=== PATIENT | male | born 1940 | race Caucasian/White ===

== ENCOUNTER 2018-09-16 23:41 | Inpatient (IN) ==
[2018-09-17 00:36] LABS: Baso % (Auto) 0.3 % (0.0-2.0); Hematocrit 28.6 % (39.0-51.0); Lymph # (Auto) 0.4 th/mm3 (1.0-4.8); Lymph % (Auto) 7.9 % (9.0-44.0); Mean Corpuscular HGB Conc 31.4 % (32.0-36.0); Mean Corpuscular Hemoglobin 24.8 pg (27.0-34.0); Mean Corpuscular Volume 78.9 fL (80.0-100.0); Mean Platelet Volume 9.2 fL (7.0-11.0); Mono # (Auto) 0.1 th/mm3 (0.0-0.9); Mono % (Auto) 1.7 % (0.0-8.0); Neut # (Auto) 4.5 th/mm3 (1.8-7.7); Neut % (Auto) 89.1 % (16.0-70.0); Platelet Count 167 th/mm3 (150-450); Red Blood Count 3.62 mil/mm3 (4.50-5.90); Red Cell Distribution Width 19.3 % (11.6-17.2)
[2018-09-17 00:48] LABS: Chloride 106 meq/L (98-107); Potassium 3.9 meq/L (3.5-5.1); Sodium 141 meq/L (136-145)
[2018-09-17 00:51] LABS: Calcium 8.5 mg/dL (8.5-10.1)
[2018-09-17 00:52] LABS: Anion Gap 10 meq/L (5-15); Blood Urea Nitrogen 12 mg/dL (7-18); Carbon Dioxide 24.8 meq/L (21.0-32.0); Glucose,Random 208 mg/dL (74-106)
[2018-09-17 00:55] LABS: Alanine Aminotransferase 23 U/L (12-78); Aspartate Aminotransferase 22 U/L (15-37); Glomerular Filtration Rate 58 mL/min (>89)
[2018-09-17 00:56] LABS: Total Protein 7.2 g/dL (6.4-8.2)
[2018-09-17 00:58] LABS: Alkaline Phosphatase 71 U/L (45-117)
[2018-09-17 00:59] LABS: Troponin I 0.13 ng/mL (0.02-0.05)
--- NOTE | 2018-09-17 00:59 | XR ---
EXAM DATE: 09/17/2018 12:48 AM EST AGE/SEX: 78 years / Male INDICATIONS: Chest pain starting today CLINICAL DATA: This is the patient's initial encounter. Patient reports that signs and symptoms have been present for 1 day and indicates a pain score of 8/10. MEDICAL/SURGICAL HISTORY: None. None. COMPARISON: POI, CT CHEST W/O CONTRAST, 12/25/2016. POI, XR CHEST PA AND LAT, 04/08/2015. . FINDINGS: Portable AP view of the chest demonstrates a normal-sized cardiac silhouette. EKG lines overlie the p atient. There is stable interstitial prominence in the lower lung zones. No pleural effusion, airspac e consolidation, or pneumothorax is identified. The bones and soft tissues demonstrate no acute findi ng. There are chronic changes at the right acromioclavicular joint and stable ossification in the reg ion of the coracoclavicular ligament. CONCLUSION: No acute cardiopulmonary abnormality is identified. Electronically signed by: Marino Jiang MD 09/17/2018 12:58 AM EST
[2018-09-17] MEDS ORDERED: Bisacodyl 10 MG Supp RECTAL PRN (01:50)
[2018-09-17 01:54] LABS: Ovalocytes 2+
[2018-09-17 01:55] LABS: Tear Drop Cells 1+
[2018-09-17] MEDS ORDERED: Morphine Inj 4 MG/ML Vial IV.PUSH PRN (02:03)
[2018-09-17 02:57] LABS: Chloride 108 meq/L (98-107); Potassium 4.1 meq/L (3.5-5.1); Sodium 142 meq/L (136-145)
[2018-09-17 03:00] LABS: Calcium 8.5 mg/dL (8.5-10.1)
[2018-09-17 03:01] LABS: Albumin 3.5 g/dL (3.4-5.0); Anion Gap 8 meq/L (5-15); Blood Urea Nitrogen 13 mg/dL (7-18); Carbon Dioxide 25.7 meq/L (21.0-32.0); Glucose,Random 181 mg/dL (74-106)
[2018-09-17 03:04] LABS: Alanine Aminotransferase 20 U/L (12-78); Aspartate Aminotransferase 22 U/L (15-37); Glomerular Filtration Rate 65 mL/min (>89)
[2018-09-17 03:06] LABS: Total Protein 6.5 g/dL (6.4-8.2)
[2018-09-17 03:07] LABS: Alkaline Phosphatase 62 U/L (45-117)
--- NOTE | 2018-09-17 03:08 | ED ---
HPI General Chief Complaint: Shortness of Breath/Dyspnea Stated Complaint: Chest pain/short of breath all day Time Seen by Provider: 09/17/18 00:12 Source: patient Mode of arrival: ambulatory Limitations: no limitations History of Present Illness 78-year-old male came to the emergency room with history of progressive shortness of breath for almost 1 week. Patient appeared to be short of breath as he was talking. He says that he has history of COPD and has been using his inhaler. He went to see his primary care during this course. He mentioned to his primary care about his abdominal distention. Eventually when his symptoms got to the point where he has been short of breath at rest he decided to come to the emergency room. Patient has also been experiencing on and off chest pain on the left side radiating to his axilla. Patient came in with tachycardia and saturation of 94% on room air. Patient does not require oxygen at home. He says he used to be a smoker for 65 years and quit 5 months back. Chest pain and shortness of breath is worse on exertion. Related Data Home Medications Medication Instructions Recorded Confirmed albuterol sulfate 2.5 mg INHALATION QID PRN 09/17/18 09/17/18 tamsulosin [Flomax] 0.4 mg PO DAILY 09/17/18 09/17/18 Allergies Allergy/AdvReac Type Severity Reaction Status Date / Time NKA Allergy Unknown Uncoded 06/26/03 03:11 No Known Allergies Allergy Uncoded 03/09/14 10:21 Review of Systems ROS: all other systems reviewed are negative [facility] Medical History Medical History Chronic obstructive pulmonary disease (Acute) GI bleed (Acute) High cholesterol (Acute) Hypertension (Acute) Surgical History Surgical History History of bladder surgery (Acute) History of hernia surgery (Acute) History of shoulder surgery (Acute) History of tonsillectomy (Acute) Social History Social History Substance History: No History of Abuse Second Hand Smoke Exposure: No Smoking Status: Former smoker Tobacco Type: Cigarettes How Often Do You Have a Drink Containing Alcohol: 4 or more times a week Hx Recent Travel: No Recent Travel in [facility] within the Last 8 Weeks: No Recent Out of Country Travel within the Last 8 Weeks: No Immunization History Tetanus Immunization: Unsure Exam Narrative Exam Narrative: GENERAL: Awake, alert, moderate distress SKIN: Focused skin assessment warm/dry. HEAD: Atraumatic. Normocephalic. EYES: Pupils equal and round. No scleral icterus. No injection or drainage. ENT: No nasal bleeding or discharge. Mucous membranes pink and moist. NECK: Trachea midline. No JVD. CARDIOVASCULAR: Regular rate and rhythm. No murmur appreciated. RESPIRATORY: Accessory muscles use for respiration. Decreased air entry bilaterally with an expiratory wheeze and coarse crackles bilaterally GASTROINTESTINAL: Abdomen soft, non-tender, nondistended. Hepatic and splenic margins not palpable. MUSCULOSKELETAL: No obvious deformities. No clubbing. No cyanosis. No edema. NEUROLOGICAL: Awake and alert. No obvious cranial nerve deficits. Motor grossly within normal limits. Normal speech. PSYCHIATRIC: Appropriate mood and affect; insight and judgment normal. Procedures Hemaprompt Stool Procedural Steps Taken: specimen placed in appropriate test area, developer placed on specimen and control areas and controls appropriately positive and negative Hemaprompt Stool Result: positive Course Initial Documented Vital Signs Temperature 98.0 F 09/16/18 23:50 Pulse Rate 110 H 09/16/18 23:50 Respiratory Rate 24 09/16/18 23:50 Blood Pressure 145/67 H 09/16/18 23:50 Pulse Oximetry 94 L 09/16/18 23:50 Last Documented Vital Signs Temperature 97.4 F L 09/21/18 19:51 Pulse Rate 87 09/21/18 19:51 Respiratory Rate 20 09/21/18 19:51 Blood Pressure 116/56 L 09/21/18 19:51 Pulse Oximetry 97 09/21/18 19:51 Critical Care Time Critical Care Time: Yes Total Critical Care Time: 45 Attestation: Aggregate critical care time was 45 minutes. Time to perform other separately billable procedures was not included in the critical care time. My time did not include minutes spent treating any other patients simultaneously or on activities that did not directly contribute to the patient's treatment. The services I provided to this patient were to treat and/or prevent clinically significant deterioration that could result in: Non-STEMI, heparin bolus and drip, respiratory distress I provided critical care services requiring my management, as noted below: Chart data review, documentation time, medication orders and management, vital sign assessments/reviewing monitor data, ordering and reviewing lab tests, ordering and interpreting/reviewing x-rays and diagnostic studies, care of the patient and discussion of the patient with the admitting physicians. Medical Decision Making MDM Narrative Medical decision making narrative: Blood test results were reviewed and elevated troponin was noticed. I wanted to start the patient on heparin at which point he mentioned me about blood in his stool yesterday. Patient also told me that he has history of GI bleed about 7 years back. Given the fact that the hemeoccult was positive and given patient's complaint of blood in his stool yesterday, I decided to with hold heparin. Patient remains chest pain free. Patient was admitted to his primary care physician Dr. spann. Patient will be transferred to the main hospital for cardiac intervention. I discussed this with the patient and he understands. Patient continues to be chest pain- free. Medical Screen Exam Complete: Yes Emergency Medical Condition: Yes Lab Data Result diagrams: 09/21/18 03:55 09/21/18 03:55 Lab Results 09/17/18 09/17/18 09/17/18 Range/Units 00:10 00:10 00:10 CBC w Diff Slide review pending WBC 5.0 (4.0-11.0) th/mm3 RBC 3.62 L (4.50-5.90) mil/mm3 Hgb 9.0 L (13.0-17.0) gm/dL Hct 28.6 L (39.0-51.0) % MCV 78.9 L (80.0-100.0) fL MCH 24.8 L (27.0-34.0) pg MCHC 31.4 L (32.0-36.0) % RDW 19.3 H (11.6-17.2) % Plt Count 167 (150-450) th/mm3 MPV 9.2 (7.0-11.0) fL Neut % (Auto) 89.1 H (16.0-70.0) % Lymph % (Auto) 7.9 L (9.0-44.0) % Bennett % (Auto) 1.7 (0.0-8.0) % Eos % (Auto) 1.0 (0.0-4.0) % Baso % (Auto) 0.3 (0.0-2.0) % Neut # (Auto) 4.5 (1.8-7.7) th/mm3 Lymph # (Auto) 0.4 L (1.0-4.8) th/mm3 Bennett # (Auto) 0.1 (0.0-0.9) th/mm3 Eos # (Auto) 0.0 (0.0-0.4) th/mm3 Baso # (Auto) 0.0 (0.0-0.2) th/mm3 WBC Differential . Diff Scan Auto diff confirmed Differential Comment . Tear Drop Cells 1+ H (None) Ovalocytes 2+ H (None) Keratocytes 1+ H (None) Smear Path Review Sodium 141 (136-145) meq/L Potassium 3.9 (3.5-5.1) meq/L Chloride 106 (98-107) meq/L Carbon Dioxide 24.8 (21.0-32.0) meq/L Anion Gap 10 (5-15) meq/L BUN 12 (7-18) mg/dL Creatinine 1.20 (0.60-1.30) mg/dL Estimated GFR 58 L (>89) mL/min Random Glucose 208 H (74-106) mg/dL Calcium 8.5 (8.5-10.1) mg/dL Total Bilirubin 0.9 (0.2-1.0) mg/dL AST 22 (15-37) U/L ALT 23 (12-78) U/L Alkaline Phosphatase 71 (45-117) U/L Troponin I 0.13 H (0.02-0.05) ng/mL B-Natriuretic Peptide 312 H (0-100) pg/mL Total Protein 7.2 (6.4-8.2) g/dL Albumin 4.0 (3.4-5.0) g/dL Nasal Screen MRSA (PCR) (Negative) 09/17/18 09/17/18 09/17/18 Range/Units 01:55 02:35 08:40 CBC w Diff WBC (4.0-11.0) th/mm3 RBC (4.50-5.90) mil/mm3 Hgb (13.0-17.0) gm/dL Hct (39.0-51.0) % MCV (80.0-100.0) fL MCH (27.0-34.0) pg MCHC (32.0-36.0) % RDW (11.6-17.2) % Plt Count (150-450) th/mm3 MPV (7.0-11.0) fL Neut % (Auto) (16.0-70.0) % Lymph % (Auto) (9.0-44.0) % Bennett % (Auto) (0.0-8.0) % Eos % (Auto) (0.0-4.0) % Baso % (Auto) (0.0-2.0) % Neut # (Auto) (1.8-7.7) th/mm3 Lymph # (Auto) (1.0-4.8) th/mm3 Bennett # (Auto) (0.0-0.9) th/mm3 Eos # (Auto) (0.0-0.4) th/mm3 Baso # (Auto) (0.0-0.2) th/mm3 WBC Differential Diff Scan Differential Comment Tear Drop Cells (None) Ovalocytes (None) Keratocytes (None) Smear Path Review Sodium 142 (136-145) meq/L Potassium 4.1 (3.5-5.1) meq/L Chloride 108 H (98-107) meq/L Carbon Dioxide 25.7 (21.0-32.0) meq/L Anion Gap 8 (5-15) meq/L BUN 13 (7-18) mg/dL Creatinine 1.10 (0.60-1.30) mg/dL Estimated GFR 65 L (>89) mL/min Random Glucose 181 H (74-106) mg/dL Calcium 8.5 (8.5-10.1) mg/dL Total Bilirubin 0.8 (0.2-1.0) mg/dL AST 22 (15-37) U/L ALT 20 (12-78) U/L Alkaline Phosphatase 62 (45-117) U/L Troponin I 0.87 H* (0.02-0.05) ng/mL B-Natriuretic Peptide (0-100) pg/mL Total Protein 6.5 D (6.4-8.2) g/dL Albumin 3.5 (3.4-5.0) g/dL Nasal Screen MRSA (PCR) Not detected (Negative) 09/17/18 09/19/18 09/20/18 Range/Units 09:49 03:57 07:55 CBC w Diff WBC 7.2 7.9 (4.0-11.0) th/mm3 RBC 3.13 L 3.30 L (4.50-5.90) mil/mm3 Hgb 7.9 L 8.4 L (13.0-17.0) gm/dL Hct 24.3 L 25.9 L (39.0-51.0) % MCV 77.5 L 78.5 L (80.0-100.0) fL MCH 25.3 L 25.4 L (27.0-34.0) pg MCHC 32.6 32.3 (32.0-36.0) % RDW 19.0 H 19.2 H (11.6-17.2) % Plt Count 120 L 145 L (150-450) th/mm3 MPV 8.1 8.2 (7.0-11.0) fL Neut % (Auto) 73.2 H 78.0 H (16.0-70.0) % Lymph % (Auto) 12.3 7.0 L (9.0-44.0) % Bennett % (Auto) 8.4 H 6.7 (0.0-8.0) % Eos % (Auto) 5.1 H 7.7 H (0.0-4.0) % Baso % (Auto) 1.0 0.6 (0.0-2.0) % Neut # (Auto) 5.3 6.2 (1.8-7.7) th/mm3 Lymph # (Auto) 0.9 L 0.6 L (1.0-4.8) th/mm3 Bennett # (Auto) 0.6 0.5 (0.0-0.9) th/mm3 Eos # (Auto) 0.4 0.6 H (0.0-0.4) th/mm3 Baso # (Auto) 0.1 0.0 (0.0-0.2) th/mm3 WBC Differential . . Diff Scan Differential Comment Auto diff final Auto diff final Tear Drop Cells (None) Ovalocytes (None) Keratocytes (None) Smear Path Review Sodium (136-145) meq/L Potassium (3.5-5.1) meq/L Chloride (98-107) meq/L Carbon Dioxide (21.0-32.0) meq/L Anion Gap (5-15) meq/L BUN (7-18) mg/dL Creatinine (0.60-1.30) mg/dL Estimated GFR (>89) mL/min Random Glucose (74-106) mg/dL Calcium (8.5-10.1) mg/dL Total Bilirubin (0.2-1.0) mg/dL AST (15-37) U/L ALT (12-78) U/L Alkaline Phosphatase (45-117) U/L Troponin I 4.28 H* (0.02-0.05) ng/mL B-Natriuretic Peptide (0-100) pg/mL Total Protein (6.4-8.2) g/dL Albumin (3.4-5.0) g/dL Nasal Screen MRSA (PCR) (Negative) 09/20/18 09/21/18 09/21/18 Range/Units 07:55 03:55 03:55 CBC w Diff WBC 7.5 (4.0-11.0) th/mm3 RBC 3.22 L (4.50-5.90) mil/mm3 Hgb 8.0 L (13.0-17.0) gm/dL Hct 25.1 L (39.0-51.0) % MCV 78.1 L (80.0-100.0) fL MCH 25.0 L (27.0-34.0) pg MCHC 32.0 (32.0-36.0) % RDW 18.1 H (11.6-17.2) % Plt Count 116 L (150-450) th/mm3 MPV 8.2 (7.0-11.0) fL Neut % (Auto) (16.0-70.0) % Lymph % (Auto) (9.0-44.0) % Bennett % (Auto) (0.0-8.0) % Eos % (Auto) (0.0-4.0) % Baso % (Auto) (0.0-2.0) % Neut # (Auto) (1.8-7.7) th/mm3 Lymph # (Auto) (1.0-4.8) th/mm3 Bennett # (Auto) (0.0-0.9) th/mm3 Eos # (Auto) (0.0-0.4) th/mm3 Baso # (Auto) (0.0-0.2) th/mm3 WBC Differential Diff Scan Differential Comment Tear Drop Cells (None) Ovalocytes (None) Keratocytes (None) Smear Path Review Sodium 142 138 (136-145) meq/L Potassium 5.0 4.3 (3.5-5.1) meq/L Chloride 106 102 (98-107) meq/L Carbon Dioxide 31.7 32.3 H (21.0-32.0) meq/L Anion Gap 4 L 4 L (5-15) meq/L BUN 13 14 (7-18) mg/dL Creatinine 1.10 0.98 (0.60-1.30) mg/dL Estimated GFR 65 L 74 L (>89) mL/min Random Glucose 99 104 (74-106) mg/dL Calcium 8.0 L 8.6 (8.5-10.1) mg/dL Total Bilirubin (0.2-1.0) mg/dL AST (15-37) U/L ALT (12-78) U/L Alkaline Phosphatase (45-117) U/L Troponin I (0.02-0.05) ng/mL B-Natriuretic Peptide (0-100) pg/mL Total Protein (6.4-8.2) g/dL Albumin (3.4-5.0) g/dL Nasal Screen MRSA (PCR) (Negative) Imaging Data Radiologist's impression: Chest X-Ray 09/17/18 00:22 CONCLUSION: No acute cardiopulmonary abnormality is identified. Abdomen/Pelvis CT 09/18/18 00:00 CONCLUSION: 1. Multiple loops of marginally distended fluid-filled small bowel without definite transition point although distal ileal loops are decompressed. Differential considerations include developing adynamic ileus versus enteritis. 2. Ancillary findings include cholelithiasis, colonic diverticulosis and nonspecific prostate enlargement. Chest CT 09/20/18 00:00 CONCLUSION: 1. Enlarging mediastinal lymph nodes relative to the prior study. This suggests either reactive lymphadenopathy or a myeloproliferative disorder. I favor the former. 2. Stable bronchiectasis with chronic parenchymal groundglass opacities within the bases as well as scattered areas of nodularity. No acute infiltrate observed. 3. Coronary artery atherosclerotic calcification. 4. Tiny right effusion. ECG Data Attestation: I personally reviewed and interpreted this ECG as follows: Interpretation: NSR, normal axis, old anterior DE, lateral and inferior T wave inversion. HR of 107 bpm. Discharge Plan Discharge Disposition Patient Disposition: 30 Still Patient Discharge Order Discharge Orders: ED Use Only Admit Order (Routine); Ordered 09/17/18 Ordered By: Zoë Calloway Physicians Team ED Provider: Delfino Felton Primary Care Provider: Delfino Felton Attending Provider: Delfino Felton Other Providers: Jeanne Flores ; Juarez Jean ; Sherwin Mario Status ED Status: Left Department Discharge Information Discharge Date/Time: 09/17/18 07:50
[2018-09-17 03:12] LABS: Troponin I 0.87 ng/mL (0.02-0.05)
[2018-09-17] MEDS: Senna/Docusate Sodium 8.6/50 MG Tablet PO SCH ×2 (10:03→20:02)
--- NOTE | 2018-09-17 10:15 | P.HPFP ---
History of Present Illness Service: Family Medicine Primary Care Physician: Delfino Felton DO Chief Complaint: CP and SOB History of Present Illness: Patient presented to the ED with 24 hour H/O SOB and "chest tightness". He has long H/O CAD S/P cath in [place] last year. - Diagnosis (1) NSTEMI (non-ST elevated myocardial infarction) (2) Occult blood in stools (3) COPD (chronic obstructive pulmonary disease) (4) Hyperlipidemia (5) Hypertension Inpatient Certification: I certify that the inpatient services were ordered in accordance with Medicare regulations governing the order. This includes certification that hospital inpatient services are reasonable and necessary and in the case of services not specified as inpatient-only under 42 CFR 419.22(n), that they are appropriately provided as inpatient services in accordance to with the 2-midnight benchmark under 43 CFR 412.3(e) Estimated Total Length of Stay (Days): 3 Plans for Post Hospital Care: Home Review of Systems Constitutional: Reports anorexia, Reports weight gain Eyes: Denies change in vision Ears, Nose, Mouth, and Throat: Denies abnormal hearing Cardiovascular: Reports chest pain, Reports chest pain with activity, Reports shortness of breath, Reports shortness of breath with activity Respiratory: Reports cough, Reports shortness of breath with activity Gastrointestinal: Reports black, tarry stools, Reports change in bowel habits Genitourinary: Reports decreased urination Musculoskeletal: Denies back pain Neurologic: Denies abnormal hearing, Denies abnormal movements Psychiatric: Denies abnormal sleep pattern, Denies anxiety Endocrine: Denies cold intolerance Hematologic/Lymphatic: Denies easy bleeding PMFSH - History History Provided By: Patient - Medical History Medical History: Medical History (Last Reviewed 09/17/18 @ 10:08 by Uche Reich) Chronic obstructive pulmonary disease GI bleed High cholesterol Hypertension - Surgical History Surgical History: Surgical History (Last Reviewed 09/17/18 @ 10:08 by Uche Reich) History of bladder surgery History of hernia surgery History of shoulder surgery History of tonsillectomy - Social History I have reviewed the patient's Social History: Yes - Tobacco History Second Hand Smoke Exposure: No Tobacco Use In Past 30 Days: No (Quit 5 months ago) Smoking Status: Former smoker Tobacco Type: Cigarettes - Alcohol History How Often Do You Have a Drink Containing Alcohol: 4 or more times a week - Substance Use History Substance History: No History of Abuse - Travel History History of Recent Travel: No Recent Travel in the [place] Within the Last 8 Weeks: No Recent Travel Out of the Country Within the Last 8 Weeks: No - Immunization History Tetanus Immunization: <5 Years Hx Influenza Vaccine This Season: No Medications and Allergies Active Medications: Active Medications Acetaminophen (Tylenol) 650 mg PO Q4H PRN PRN Reason: Temp > 100.4 Al Hydroxide/Mg Hydroxide (Milk Of Magnesia Liq) 30 ml PO Q12H PRN PRN Reason: Mild Constipation Albuterol (Albuterol Neb (Belem)) 2.5 mg NEB QID NEB BELEM Bisacodyl (Dulcolax Supp) 10 mg RECTAL DAILY PRN PRN Reason: SEVERE CONSITIPATION Lactulose (Lactulose Liq) 30 ml PO DAILY PRN PRN Reason: SEVERE CONSITIPATION Morphine Sulfate (Morphine Inj) 2 mg IV.PUSH Q3H PRN PRN Reason: CHEST PAIN Ondansetron HCl (Zofran Inj) 4 mg IV.PUSH Q6H PRN PRN Reason: NAUSEA OR VOMITING Senna/Docusate Sodium (Margot-Colace) 1 tab PO BID BELEM Sennosides (Senokot) 17.2 mg PO Q12H PRN PRN Reason: Moderate Constipation Sodium Chloride (Ns Flush) 2 ml IV.FLUSH BID BELEM Sodium Chloride (Ns Flush) 2 ml IV.FLUSH PRN PRN PRN Reason: FLUSH AFTER USING IV ACCESS Tamsulosin HCl (Flomax) 0.4 mg PO DAILY BELEM Allergies Allergy/AdvReac Type Severity Reaction Status Date / Time NKA Allergy Unknown Uncoded 06/26/03 03:11 No Known Allergies Allergy Uncoded 03/09/14 10:21 Home Medications Medication Instructions Recorded Confirmed Type albuterol sulfate 2.5 mg INHALATION QID PRN 09/17/18 09/17/18 History tamsulosin [Flomax] 0.4 mg PO DAILY 09/17/18 09/17/18 History Exam Vital signs: Vital Signs 09/16/18 23:50 09/17/18 00:45 09/17/18 03:35 Temperature 98.0 F Pulse Rate 110 H 98 H 88 Respiratory Rate 24 20 18 Blood Pressure 145/67 H 131/57 L Pulse Oximetry 94 L 98 97 09/17/18 05:05 09/17/18 06:01 12/01/18 06:24 Temperature Pulse Rate 81 92 H Respiratory Rate 18 Blood Pressure 131/65 134/65 Pulse Oximetry 96 97 97 Intake & Output 09/16/18 09/17/18 09/17/18 18:59 06:59 18:59 Weight 89.4 kg 88 kg Other: Weight On Admission 88 kg - Constitutional no acute distress - Routine HEENT Exam Head: Present: normocephalic Eye: Present: PERRL, normal accommodation ENT: Present: mucous membranes moist - Routine Neck Exam Present: supple, full ROM - Routine Chest/Breast/Axilla Exam Chest wall: Absent: tenderness - Routine Respiratory Exam Present: CTA bilaterally - Routine Cardiovascular Exam Present: RRR, S1, S2 - Routine Abdominal Exam Present: soft, normoactive bowel sounds, distended. Absent: rebound - Routine Extremities Exam Absent: cyanosis, edema - Routine Skin Exam Present: intact. Absent: cyanosis, erythema - Routine Neurological Exam Present: alert, oriented X3 Results - Labs Result diagrams: 09/17/18 00:10 09/17/18 02:35 Abnormal lab results 09/17/18 09/17/18 09/17/18 Range/Units 00:10 00:10 00:10 RBC 3.62 L (4.50-5.90) mil/mm3 Hgb 9.0 L (13.0-17.0) gm/dL Hct 28.6 L (39.0-51.0) % MCV 78.9 L (80.0-100.0) fL MCH 24.8 L (27.0-34.0) pg MCHC 31.4 L (32.0-36.0) % RDW 19.3 H (11.6-17.2) % Neut % (Auto) 89.1 H (16.0-70.0) % Lymph % (Auto) 7.9 L (9.0-44.0) % Lymph # (Auto) 0.4 L (1.0-4.8) th/mm3 Tear Drop Cells 1+ H (None) Ovalocytes 2+ H (None) Keratocytes 1+ H (None) Chloride (98-107) meq/L Estimated GFR 58 L (>89) mL/min Random Glucose 208 H (74-106) mg/dL Troponin I 0.13 H (0.02-0.05) ng/mL B-Natriuretic Peptide 312 H (0-100) pg/mL 09/17/18 Range/Units 02:35 RBC (4.50-5.90) mil/mm3 Hgb (13.0-17.0) gm/dL Hct (39.0-51.0) % MCV (80.0-100.0) fL MCH (27.0-34.0) pg MCHC (32.0-36.0) % RDW (11.6-17.2) % Neut % (Auto) (16.0-70.0) % Lymph % (Auto) (9.0-44.0) % Lymph # (Auto) (1.0-4.8) th/mm3 Tear Drop Cells (None) Ovalocytes (None) Keratocytes (None) Chloride 108 H (98-107) meq/L Estimated GFR 65 L (>89) mL/min Random Glucose 181 H (74-106) mg/dL Troponin I 0.87 H* (0.02-0.05) ng/mL B-Natriuretic Peptide (0-100) pg/mL Short CBC 09/17/18 Range/Units 00:10 WBC 5.0 (4.0-11.0) th/mm3 Hgb 9.0 L (13.0-17.0) gm/dL Hct 28.6 L (39.0-51.0) % Plt Count 167 (150-450) th/mm3 BMP 09/17/18 09/17/18 00:10 02:35 Sodium 141 142 Potassium 3.9 4.1 Chloride 106 108 H Carbon Dioxide 24.8 25.7 BUN 12 13 Creatinine 1.20 1.10 Calcium 8.5 8.5 Cardiac Enzymes 09/17/18 09/17/18 Range/Units 00:10 02:35 Troponin I 0.13 H 0.87 H* (0.02-0.05) ng/mL Liver Function 09/17/18 09/17/18 Range/Units 00:10 02:35 Total Bilirubin 0.9 0.8 (0.2-1.0) mg/dL AST 22 22 (15-37) U/L ALT 23 20 (12-78) U/L Alkaline Phosphatase 71 62 (45-117) U/L Albumin 4.0 3.5 (3.4-5.0) g/dL - Imaging Impressions Chest X-Ray 09/17/18 00:22 CONCLUSION: No acute cardiopulmonary abnormality is identified. Caprini VTE Risk Assessment Caprini VTE Risk Assessment: Moderate/High Risk (score >= 2) VTE Pharmacological Exception Reason: Active bleeding Caprini Risk Assessment Model: Point Value = 1 Point Value = 2 Point Value = 3 Point Value = 5 Age 41-60 Minor surgery BMI > 25 kg/m2 Swollen legs Varicose veins or History of unexplained or recurrent spontaneous Oral contraceptives or hormone replacement Sepsis (< 1 month) Serious lung disease, including pneumonia (< 1 month) Abnormal pulmonary function Acute myocardial infarction Congestive heart failure (< 1 month) History of inflammatory bowel disease Medical patient at bed rest Age 61-74 Arthroscopic surgery Major open surgery (> 45 min) Laparoscopic surgery (> 45 min) Malignancy Confined to bed (> 72 hours) Immobilizing plaster cast Central venous access Age >= 75 History of VTE Family history of VTE Factor V Leiden Prothrombin [id number] Lupus anticoagulant Anticardiolipin antibodies Elevated serum homocysteine Heparin-induced thrombocytopenia Other congenital or acquired thrombophilia Stroke (< 1 month) Elective arthroplasty Hip, pelvis, or leg fracture Acute spinal cord injury (< 1 month) Prophylaxis Regimen: Total Risk Factor Score Risk Level Prophylaxis Regimen 0-1 Low Early ambulation 2 Moderate Order ONE of the following: *Sequential Compression Device (SCD) *Heparin 5000 units SQ BID 3-4 Higher Order ONE of the following medications: *Heparin 5000 units SQ TID *Enoxaparin/Lovenox 40 mg SQ daily (WT < 150 kg, CrCl > 30 mL/min) *Enoxaparin/Lovenox 30 mg SQ daily (WT < 150 kg, CrCl > 10-29 mL/min) *Enoxaparin/Lovenox 30 mg SQ BID (WT < 150 kg, CrCl > 30 mL/min) AND/OR *Sequential Compression Device (SCD) 5 or more Highest Order ONE of the following medications: *Heparin 5000 units SQ TID (Preferred with Epidurals) *Enoxaparin/Lovenox 40 mg SQ daily (WT < 150 kg, CrCl > 30 mL/min) *Enoxaparin/Lovenox 30 mg SQ daily (WT < 150 kg, CrCl > 10-29 mL/min) *Enoxaparin/Lovenox 30 mg SQ BID (WT < 150 kg, CrCl > 30 mL/min) AND *Sequential Compression Device (SCD) Assessment and Plan - Assessment (1) NSTEMI (non-ST elevated myocardial infarction) Code(s): I21.4 - Non-ST elevation (NSTEMI) myocardial infarction Status: Acute Plan: Cards consult in progress and CCM following (2) Occult blood in stools Code(s): R19.5 - Other fecal abnormalities Status: Acute Plan: GI consult pending (3) COPD (chronic obstructive pulmonary disease) Code(s): J44.9 - Chronic obstructive pulmonary disease, unspecified Status: Chronic Plan: Pulmonary consult is pending. receiving albuteral nebs QID (4) Hyperlipidemia Code(s): E78.5 - Hyperlipidemia, unspecified Status: Acute Plan: Cont home meds and HH diet (5) Hypertension Code(s): I10 - Essential (primary) hypertension Status: Acute Plan: Follow BP closely and adjust meds as needed - Assessment and Plan 09/17/18 - Adm to ICU for NSTEMI. Decision regarding cath today is pending at this time. He will also be seen by GI for guaiac positive stools and we will monitor HG. Pulm to see today and adjust meds as indicated. Discussed Condition With: Patient and nurse Discharge Planning: HOme H&P: Quality - VTE Deep Vein Thrombosis/Pulmonary Embolism Present on Admission: No (4) Hyperlipidemia Qualifiers: Hyperlipidemia type: mixed hyperlipidemia Qualified Code(s): E78.2 - Mixed hyperlipidemia
--- NOTE | 2018-09-17 13:21 | P.PNGI ---
Subjective Interval history: Full GI consult dictated. IMP: 1. Acute anemia of blood loss 2. c/o of Black stool for several days 3. Constipation 4. Abdominal distention 5. Chest pain with NSTMI - trop worsening 6. Hx of LLQ swelling 7. COPD 8. Daily ETOH use PLAN: 1. Your medicine/cardiology workup for NSTMI 2. Will Start Protonix 40 mg IV BID 3. Ideally would offer EGD but due to cardiac issues will hold off on endoscopic procedures. 4. Needs CT scan of abdomen and pelvis to evaluate for abdo distention 5. Consider one enema to help relieve constipation. 6. further work up to follow depending on clinical course. Physical Exam Vital signs: Vital Signs 09/16/18 23:50 09/17/18 00:45 09/17/18 03:35 Temperature 98.0 F Pulse Rate 110 H 98 H 88 Respiratory Rate 24 20 18 Blood Pressure 145/67 H 131/57 L Pulse Oximetry 94 L 98 97 09/17/18 05:05 09/17/18 06:01 09/17/18 06:24 Temperature Pulse Rate 81 92 H Respiratory Rate 18 Blood Pressure 131/65 134/65 Pulse Oximetry 96 97 97 09/17/18 08:32 09/17/18 08:33 09/17/18 09:00 Temperature Pulse Rate 86 85 80 Respiratory Rate 22 20 Blood Pressure 138/70 137/68 Pulse Oximetry 95 09/17/18 10:00 09/17/18 12:19 Temperature Pulse Rate 79 81 Respiratory Rate 20 20 Blood Pressure 137/71 Pulse Oximetry 96 Intake & Output 09/16/18 09/17/18 09/17/18 18:59 06:59 18:59 Weight 89.4 kg 88 kg Other: Weight On Admission 88 kg - Urinary Catheter Management Indwelling Urethral Catheter Cath placed during this visit: yes Reason for continuing: Acute urinary retention Insertion date: 09/17/18 Insertion time: 02:34 Results - Labs CBC & Chem 7: 09/17/18 00:10 09/17/18 02:35 Laboratory Results - last 24 hr 09/17/18 09/17/18 09/17/18 00:10 00:10 00:10 CBC w Diff Slide review pending WBC 5.0 RBC 3.62 L Hgb 9.0 L Hct 28.6 L MCV 78.9 L MCH 24.8 L MCHC 31.4 L RDW 19.3 H Plt Count 167 MPV 9.2 Neut % (Auto) 89.1 H Lymph % (Auto) 7.9 L [place] % (Auto) 1.7 Eos % (Auto) 1.0 Baso % (Auto) 0.3 Neut # (Auto) 4.5 Lymph # (Auto) 0.4 L [place] # (Auto) 0.1 Eos # (Auto) 0.0 Baso # (Auto) 0.0 WBC Differential . Diff Scan Auto diff confirmed Differential Comment . Tear Drop Cells 1+ H Ovalocytes 2+ H Keratocytes 1+ H Smear Path Review Sodium 141 Potassium 3.9 Chloride 106 Carbon Dioxide 24.8 Anion Gap 10 BUN 12 Creatinine 1.20 Estimated GFR 58 L Random Glucose 208 H Calcium 8.5 Total Bilirubin 0.9 AST 22 ALT 23 Alkaline Phosphatase 71 Troponin I 0.13 H B-Natriuretic Peptide 312 H Total Protein 7.2 Albumin 4.0 09/17/18 09/17/18 09/17/18 01:55 02:35 09:49 CBC w Diff WBC RBC Hgb Hct MCV MCH MCHC RDW Plt Count MPV Neut % (Auto) Lymph % (Auto) [place] % (Auto) Eos % (Auto) Baso % (Auto) Neut # (Auto) Lymph # (Auto) [place] # (Auto) Eos # (Auto) Baso # (Auto) WBC Differential Diff Scan Differential Comment Tear Drop Cells Ovalocytes Keratocytes Smear Path Review Sodium 142 Potassium 4.1 Chloride 108 H Carbon Dioxide 25.7 Anion Gap 8 BUN 13 Creatinine 1.10 Estimated GFR 65 L Random Glucose 181 H Calcium 8.5 Total Bilirubin 0.8 AST 22 ALT 20 Alkaline Phosphatase 62 Troponin I 0.87 H* 4.28 H* B-Natriuretic Peptide Total Protein 6.5 D Albumin 3.5 - Imaging Impressions Chest X-Ray 09/17/18 00:22 CONCLUSION: No acute cardiopulmonary abnormality is identified.
--- NOTE | 2018-09-17 16:06 | MB ---
cc: Sherwin Mario MD DATE: 09/17/2018 REASON FOR CONSULTATION: COPD. HISTORY OF PRESENT ILLNESS: The patient is a 78-year-old male with a past medical history of COPD, hyperlipidemia, hypertension, who initially presented to [place] ED for chest pain associated with some shortness of breath and cough. The patient denies any constitutional symptoms. He is being followed by Dr. Da Silva, his outpatient ground layer. The patient states that he has oxygen at home; however, he does not use it much. He is on nebulizers and albuterol inhaler. He quit smoking 5 months ago and he used to smoke up to 3 packs per day for 60 plus years. On arrival, he had mild elevated troponin to 0.13, which gradually increasing to 4.28 on the third set. He was transferred to [facility]. A chest x-ray in the ED showed no evidence of any acute cardiopulmonary disease. When seen, the patient is on room air oxygen. He denies any nausea, vomiting or abdominal pain. PAST MEDICAL HISTORY: Significant for COPD, coronary artery disease, hyperlipidemia, hypertension, previous history of GI bleed. PAST SURGICAL HISTORY: Previous cardiac catheterization last year in [place], remote history of hernia surgery, history of bladder surgery, history of tonsillectomy and shoulder surgery. SOCIAL HISTORY: Quit smoking 5 months ago, used to smoke 3 packs per day for 60 plus years. Also, he drinks 4 beers daily. ALLERGIES: NO KNOWN DRUG ALLERGIES. MEDICATIONS AT HOME: Include: 1. Nebulizers. 2. Albuterol inhaler. 3. Flomax. REVIEW OF SYSTEMS: As per HPI. Rest of review of systems is unremarkable. PHYSICAL EXAMINATION: GENERAL: A 78-year-old male lying in bed, in no acute respiratory distress. He is on room air oxygen. VITAL SIGNS: Temperature of 98.0, pulse of 81, respiratory rate of 20, blood pressure 147/74, saturation 95% on room air. HEENT: Atraumatic, normocephalic. Pupils are equal, round, reactive to light and accommodation. Extraocular muscles intact. Conjunctivae pink, anicteric sclerae. Oral mucosa within normal. NECK: Supple. No JVD, adenopathy or thyromegaly. Trachea in the midline. CARDIAC: Regular rate and rhythm. Normal S1, S2. No murmurs, rubs or gallops noted. PULMONARY: Bilateral equal air entry. No rales or wheezing. ABDOMEN: Soft, nontender. No distention. Positive bowel sounds. EXTREMITIES: No cyanosis, clubbing or edema. NEUROLOGIC: No focal sensory deficit. LABORATORY DATA: WBC 5, hemoglobin 9, hematocrit 28, platelet count of 167. Sodium 142, potassium 4.1, chloride 108, CO2 25, BUN 13, creatinine 1.1, glucose 181. Troponin 4.28 on the third set, 0.87 on the second set. IMPRESSION: 1. Non-ST elevation myocardial infarction. 2. Chronic obstructive pulmonary disease. 3. Hypertension. 4. Anemia. 5. Hyperlipidemia. RECOMMENDATIONS: 1. Oxygen p.r.n. to maintain sats above 92%. 2. Bronchodilators in the form of DuoNeb q.4 hours plus q.2 hours p.r.n. for shortness of breath. 3. Add Symbicort 160/4.5 two puffs b.i.d. 4. PFT as outpatient to assess the severity of his obstructive lung disease. 5. Monitor troponins and we will obtain 2-D echo to evaluate LV function. Cardiology service was consulted by the primary team. 6. Monitor CBC. Patient was seen by Dr. Jean from GI service for melena and anemia. 7. Continue other medical management per primary team. Thank you for this consultation and allowing us to participate in this patient's care. Sherwin Mario MD AI/ct , 01:46 PM , 01:56 PM
--- NOTE | 2018-09-17 16:33 | MB ---
cc: Juarez Jean MD DATE: 09/17/2018 ATTENDING PHYSICIAN: Juarez Jean MD PRIMARY CARE PHYSICIAN: Delfino Felton MD REASON FOR CONSULTATION: GI bleed, anemia. HISTORY OF PRESENT ILLNESS: This is a 78-year-old pleasant gentleman who came into the hospital with complaints of having chest pain, chest pressure and heaviness sensation in the mid chest. He states he was in his usual state of health until last night around midnight when he began having the above symptoms, and due to worsening of symptoms came into [facility]. At that time, further workup was done showing mildly elevated troponins and a possible non-ST elevated myocardial infarction therefore was transferred over to the main hospital for further workup and evaluation. At the same time, he is also complaining of having weakness, fatigue and abdominal distention, worsening of gas and bloating symptoms. He had severe constipation for almost 14 days and, therefore, began using [id number] laxatives. He had several bouts of hard bowel movements and then subsequently had passage of dark black soft stools. Due to this, GI was consulted for further workup and management. He recalls having a GI bleed about 6 or 7 years ago. At that time, recalls having a colonoscopy, but cannot recall any further details. He has not had any further rectal bleeding, melenic stools, nausea or vomiting. He denies ever having been told of liver disease. He admits to drinking alcohol at least 3-4 beers on a daily basis, perhaps more. He denies seeing any money market dealer on a regular basis. PAST MEDICAL HISTORY: 1. Dyslipidemia. 2. Hypertension. 3. Obesity. PAST SURGICAL HISTORY: Distant history of heart catheterization. FAMILY HISTORY: No GI malignancies. SOCIAL HISTORY: Used to smoke tobacco regularly quit about several months ago, drinks alcohol regularly 3-4 beers a day, perhaps more. REVIEW OF SYSTEMS: A 12-point review of system was obtained by me and was negative or noncontributory, except for the above-mentioned in the HPI. PHYSICAL EXAMINATION: VITAL SIGNS: Respirations 20, heart rate of 81, blood pressure 137/71, O2 saturation 96% on room air. GENERAL: Alert, oriented. No focal deficits. No acute distress. HEENT: Pupils equal, round, reactive to light. Normocephalic, atraumatic. NECK: Supple, nontender. No carotid bruits. No thyromegaly appreciated. CARDIOVASCULAR: Regular rate and rhythm. No murmur heard. RESPIRATORY: Wheezing bilaterally at the bases. ABDOMEN: Soft, distended, tympanic, gaseous distention. Nontender. No periumbilical ecchymosis. GENITOURINARY: No CV angle tenderness. Mild tenderness in the suprapubic region. Tucker catheter is in place. NEUROLOGIC: Alert and oriented x 3. No focal deficits. PSYCHIATRIC: Cooperative, appropriate mood and affect. LABORATORY DATA: WBC 5.0, hemoglobin 9.0, MCV 78.9, platelet count of 167. Sodium 142, potassium 4.1, chloride 108, bicarbonate 25, BUN 13, creatinine 1.10, total bilirubin 0.8, AST 22, ALT 20, alkaline phosphatase 62. Troponin is 0.13, 0.87, 4.28, BNP 312, albumin 3.5. ASSESSMENT: 1. Microcytic hyperchromic anemia, may be secondary to chronic gastrointestinal bleeding. No current signs of overt gastrointestinal bleeding since hospitalization. 2. Melanotic stools per the patient, none have been witnessed yet. 3. Abdominal distention, constipation. The patient took multiple laxatives at home and had several bouts of bowel movements. 4. Non-ST elevated myocardial infarction. 5. Chest pain, may be secondary to above. 6. History of left lower extremity swelling, which resolved spontaneously about a week or so ago. 7. Chronic obstructive pulmonary disease. 8. Daily ETOH use. RECOMMENDATION: 1. I recommend your medical and cardiology workup and treatment for the non-ST elevated myocardial infarction. 2. Ideally in a patient with a microcytic anemia and melena, I would have the patient undergo an upper endoscopy, but given the above issues, particularly in impending as a non-ST myocardial infarction, I recommend holding off on any endoscopic procedure at this time. I would like to start the patient on Protonix drip 8 mg per hour, which is typically what we would start if a large bleeding ulcer was found in the stomach; therefore, this could be treated without having the endoscopy performed. 3. Ideally need a CT scan of the abdomen and pelvis to evaluate the abdominal distention. Given his history of ETOH use, there is certainly a possibility of underlying undiagnosed liver disease or cirrhosis. Additionally, the patient has a history of alcohol use. 4. Iron deficiency anemia certainly raises the possibility of occult neoplastic process as well. 5. Ideally, the patient needs endoscopic workup including EGD and colonoscopy to better evaluate the GI tract due to the anemia, but I believe in the current medical illness setting, this needs to be done once the acute medical issues have been resolved, particularly the cardiac workup and treatment. 5. At this time, we will write for Protonix drip and monitor the patient's clinical course and make adjustments in regard to a GI standpoint, depending on his clinical course. Thank you for allowing me to participate in the care of the patient. Please do not hesitate to contact me for further issues. MD EDWAR Ramirez/michaelle , 01:33 PM , 01:46 PM
[2018-09-17] MEDS: Budesonide-Formoterol 160/4.5 MCG 6 GM Inhaler INH SCH ×2 (17:10→20:02)
[2018-09-17] MEDS: Pantoprazole Inj 80 MG in Sodium Chlor 0.9% Inj 100 ML IV.CONT SCH (17:10)
[2018-09-17] MEDS: dilTIAZem 30 MG Tablet PO SCH (20:02)
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
[2018-09-18] MEDS: Pantoprazole Inj 80 MG in Sodium Chlor 0.9% Inj 100 ML IV.CONT SCH ×3 (03:16→14:10)
[2018-09-18] MEDS ORDERED: Chlorhexidine Gluconate 2% 1 Pack (2 Cloths) TOPICAL PRN (04:00)
[2018-09-18] MEDS: Senna/Docusate Sodium 8.6/50 MG Tablet PO SCH ×2 (08:00→20:05)
[2018-09-18] MEDS: dilTIAZem 30 MG Tablet PO SCH ×3 (08:00→17:22)
[2018-09-18] MEDS: Budesonide-Formoterol 160/4.5 MCG 6 GM Inhaler INH SCH ×2 (08:00→20:05)
[2018-09-18] MEDS ORDERED: Diatrizoate Meglum/Diatrizoate Sod Liq 9 ML UDC PO ONE (10:03)
--- NOTE | 2018-09-18 10:17 | P.PNFP ---
Subjective Interval history: Patient tells me his breathing is better on nebs and still having intermittent chest pressure. GI and Cards W/U in progress. GI wants abd CT which I have ordered. Results - Labs Result diagrams: 09/17/18 00:10 09/17/18 02:35 Abnormal lab results 09/17/18 Range/Units 09:49 Troponin I 4.28 H* (0.02-0.05) ng/mL Cardiac Enzymes 09/17/18 Range/Units 09:49 Troponin I 4.28 H* (0.02-0.05) ng/mL Physical Exam Vital signs: Vital Signs 09/17/18 11:00 09/17/18 12:00 09/17/18 12:19 Temperature Pulse Rate 77 78 81 Respiratory Rate 16 19 20 Blood Pressure 134/66 140/71 Pulse Oximetry 95 97 09/17/18 13:00 09/17/18 14:00 09/17/18 15:00 Temperature Pulse Rate 85 79 79 Respiratory Rate 29 H 18 21 Blood Pressure 147/74 H 135/66 136/63 Pulse Oximetry 95 92 L 96 09/17/18 16:00 09/17/18 17:00 09/17/18 17:07 Temperature Pulse Rate 79 80 82 Respiratory Rate 21 20 16 Blood Pressure 140/76 139/63 Pulse Oximetry 94 L 96 09/17/18 18:00 09/17/18 19:00 09/17/18 20:00 Temperature 98 F Pulse Rate 89 91 H 81 Respiratory Rate 21 21 23 Blood Pressure 142/65 H 127/60 Pulse Oximetry 95 94 L 92 L 09/17/18 20:01 09/17/18 20:09 09/17/18 21:00 Temperature Pulse Rate 86 84 83 Respiratory Rate 21 20 17 Blood Pressure 133/63 118/56 L Pulse Oximetry 94 L 95 93 L 09/17/18 22:00 09/17/18 23:00 09/17/18 23:42 Temperature Pulse Rate 80 79 80 Respiratory Rate 22 19 16 Blood Pressure 99/55 L 133/62 Pulse Oximetry 92 L 93 L 09/18/18 00:00 09/18/18 01:00 09/18/18 02:00 Temperature 98 F Pulse Rate 77 74 73 Respiratory Rate 15 16 16 Blood Pressure 130/60 122/58 L 129/61 Pulse Oximetry 94 L 94 L 94 L 09/18/18 03:00 09/18/18 04:00 09/18/18 04:37 Temperature Pulse Rate 72 76 Respiratory Rate 15 18 Blood Pressure 131/60 135/65 Pulse Oximetry 93 L 93 L 97 09/18/18 04:48 09/18/18 05:00 09/18/18 06:00 Temperature Pulse Rate 77 78 74 Respiratory Rate 14 19 15 Blood Pressure 146/68 H 138/63 Pulse Oximetry 100 97 98 09/18/18 08:54 Temperature Pulse Rate 74 Respiratory Rate 21 Blood Pressure Pulse Oximetry 95 Intake & Output 09/17/18 09/18/18 09/18/18 18:59 06:59 18:59 Intake Total 200 / 200 Output Total 1500 / 1500 300 / 300 Balance -1500 / -1500 -100 / -100 Weight 88 kg 88.5 kg Intake: IV 100 / 100 Protonix Inj 80 MG In NS Inj 100 / 100 100 ML @ 10 mls/hr IV.CONT Q24H [facility] Rx#:[id number] Oral 100 / 100 Output: Urine Amount (Catheter) 1500 / 1500 300 / 300 Indwelling Urethral Catheter 1500 / 1500 300 / 300 Other: # Bowel Movements 0 Weight On Admission 88 kg - Constitutional mild distress - Routine HEENT Exam Head: Present: normocephalic, atraumatic Eye: Present: normal accommodation ENT: Present: mucous membranes moist - Routine Neck Exam Present: supple, full ROM - Routine Respiratory Exam Present: distant breath sounds, diminished air movement - Routine Cardiovascular Exam Present: RRR, S1, S2, murmur - Routine Abdominal Exam Present: soft, distended. Absent: rebound - Routine Extremities Exam Present: full ROM - Routine Skin Exam Present: intact - Routine Neurological Exam Present: alert, oriented X3 - Detailed Neurological Exam: Coma Scale Eye Opening: Spontaneous Verbal Response: Oriented Motor Response: Obey commands [place] Coma Scale Total: 15 - Routine Psychiatric Exam Present: normal affect - Urinary Catheter Management Indwelling Urethral Catheter Cath placed during this visit: yes Reason for continuing: Acute urinary retention Insertion date: 09/17/18 Insertion time: 02:34 Assessment and Plan - Assessment (1) NSTEMI (non-ST elevated myocardial infarction) Code(s): I21.4 - Non-ST elevation (NSTEMI) myocardial infarction Status: Acute Plan: Cards consult noted. He indicated he wants GI W/U first. (2) Occult blood in stools Code(s): R19.5 - Other fecal abnormalities Status: Acute Plan: GI consult noted. He will need EGD, but wants abd CT to eval distention, which I have ordered today. Repeat labs in the AM. (3) COPD (chronic obstructive pulmonary disease) Code(s): J44.9 - Chronic obstructive pulmonary disease, unspecified Status: Chronic Plan: Pulmonary consult noted and he tells me his breathing is better today with nebs and Symbicort inhaler. pending. (4) Hyperlipidemia Code(s): E78.5 - Hyperlipidemia, unspecified Status: Chronic Plan: Cont home meds and HH diet (5) Hypertension Code(s): I10 - Essential (primary) hypertension Status: Chronic Plan: Follow BP closely and adjust meds as needed - Assessment and Plan 09/17/18 - Adm to ICU for NSTEMI. Decision regarding cath today is pending at this time. He will also be seen by GI for guaiac positive stools and we will monitor HG. Pulm to see today and adjust meds as indicated. 09/18/18 - Gi and Cards will need to decide which W/U will be done first. CT ordered per GI recommendations. Will recheck labs and F/U daily pending eval for bleeding. Cards wants W/U after GI eval done so he can be anticoagulated. Discharge Planning: Home when cleared by GI, Pulm and Cards. (4) Hyperlipidemia Qualifiers: Hyperlipidemia type: mixed hyperlipidemia Qualified Code(s): E78.2 - Mixed hyperlipidemia
--- NOTE | 2018-09-18 11:00 | P.PNPL ---
Subjective Interval history: Patient is lying in bed in NAD. On 2L oxygen. Afebrile. Physical Exam Vital signs: Vital Signs 09/17/18 11:00 09/17/18 12:00 09/17/18 12:19 Temperature Pulse Rate 77 78 81 Respiratory Rate 16 19 20 Blood Pressure 134/66 140/71 Pulse Oximetry 95 97 09/17/18 13:00 09/17/18 14:00 09/17/18 15:00 Temperature Pulse Rate 85 79 79 Respiratory Rate 29 H 18 21 Blood Pressure 147/74 H 135/66 136/63 Pulse Oximetry 95 92 L 96 09/17/18 16:00 09/17/18 17:00 09/17/18 17:07 Temperature Pulse Rate 79 80 82 Respiratory Rate 21 20 16 Blood Pressure 140/76 139/63 Pulse Oximetry 94 L 96 09/17/18 18:00 09/17/18 19:00 09/17/18 20:00 Temperature 98 F Pulse Rate 89 91 H 81 Respiratory Rate 21 21 23 Blood Pressure 142/65 H 127/60 Pulse Oximetry 95 94 L 92 L 09/17/18 20:01 09/17/18 20:09 09/17/18 21:00 Temperature Pulse Rate 86 84 83 Respiratory Rate 21 20 17 Blood Pressure 133/63 118/56 L Pulse Oximetry 94 L 95 93 L 09/17/18 22:00 09/17/18 23:00 09/17/18 23:42 Temperature Pulse Rate 80 79 80 Respiratory Rate 22 19 16 Blood Pressure 99/55 L 133/62 Pulse Oximetry 92 L 93 L 09/18/18 00:00 09/18/18 01:00 09/18/18 02:00 Temperature 98 F Pulse Rate 77 74 73 Respiratory Rate 15 16 16 Blood Pressure 130/60 122/58 L 129/61 Pulse Oximetry 94 L 94 L 94 L 09/18/18 03:00 09/18/18 04:00 09/18/18 04:37 Temperature Pulse Rate 72 76 Respiratory Rate 15 18 Blood Pressure 131/60 135/65 Pulse Oximetry 93 L 93 L 97 09/18/18 04:48 09/18/18 05:00 09/18/18 06:00 Temperature Pulse Rate 77 78 74 Respiratory Rate 14 19 15 Blood Pressure 146/68 H 138/63 Pulse Oximetry 100 97 98 09/18/18 07:00 09/18/18 08:00 09/18/18 08:54 Temperature 98.5 F Pulse Rate 72 76 74 Respiratory Rate 17 17 21 Blood Pressure 133/62 139/65 Pulse Oximetry 97 96 95 09/18/18 09:00 09/18/18 10:00 Temperature Pulse Rate 82 81 Respiratory Rate 26 H 21 Blood Pressure 131/62 122/58 L Pulse Oximetry 93 L 91 L Intake & Output 09/17/18 09/18/18 09/18/18 18:59 06:59 18:59 Intake Total 200 / 200 Output Total 1500 / 1500 300 / 300 Balance -1500 / -1500 -100 / -100 Weight 88 kg 88.5 kg Intake: IV 100 / 100 Protonix Inj 80 MG In NS Inj 100 / 100 100 ML @ 10 mls/hr IV.CONT Q24H [facility] Rx#:[id number] Oral 100 / 100 Output: Urine Amount (Catheter) 1500 / 1500 300 / 300 Indwelling Urethral Catheter 1500 / 1500 300 / 300 Other: # Bowel Movements 0 Weight On Admission 88 kg - Constitutional no acute distress - Routine HEENT Exam Head: Present: normocephalic, atraumatic Eye: Present: EOMI, PERRL, normal accommodation, conjunctivae pink ENT: Present: mucous membranes moist - Routine Neck Exam Present: supple, full ROM, trachea midline - Routine Respiratory Exam Present: CTA bilaterally - Routine Cardiovascular Exam Present: RRR, S1, S2 - Routine Abdominal Exam Present: soft, normoactive bowel sounds - Routine Neurological Exam Present: alert, oriented X3, CN II-XII intact - Urinary Catheter Management Indwelling Urethral Catheter Cath placed during this visit: yes Reason for continuing: Acute urinary retention Insertion date: 09/17/18 Insertion time: 02:34 Assessment and Plan - Plan 1. Resp Insuff 2. COPD 3. NSTEMI 4. Hypertension. 5. Anemia. 6. Hyperlipidemia. Plan Continue oxygen maintain sats >92%. Bronchodilators( DuoNeb, Symbicort) CXR 09/17: No acute cardiopulmonary disease. Monitor troponin , follow up on echo results. Cards is following. Monitor CBC, GI is following- Dr. Jean from GI service for melena and anemia. For CT abd/pelvis Continue treatment plan
--- NOTE | 2018-09-18 14:26 | P.PNGI ---
Subjective Interval history: feels well today, had mild CP but self resolving no rectal bleeding since admission, no melena, no red blood cards input noted, they recommended gi work up prior to cardiology workup. Physical Exam Vital signs: Vital Signs 09/17/18 15:00 09/17/18 16:00 09/17/18 17:00 Temperature Pulse Rate 79 79 80 Respiratory Rate 21 21 20 Blood Pressure 136/63 140/76 139/63 Pulse Oximetry 96 94 L 96 09/17/18 17:07 09/17/18 18:00 09/17/18 19:00 Temperature Pulse Rate 82 89 91 H Respiratory Rate 16 21 21 Blood Pressure 142/65 H 127/60 Pulse Oximetry 95 94 L 09/17/18 20:00 09/17/18 20:01 09/17/18 20:09 Temperature 98 F Pulse Rate 81 86 84 Respiratory Rate 23 21 20 Blood Pressure 133/63 Pulse Oximetry 92 L 94 L 95 09/17/18 21:00 09/17/18 22:00 09/17/18 23:00 Temperature Pulse Rate 83 80 79 Respiratory Rate 17 22 19 Blood Pressure 118/56 L 99/55 L 133/62 Pulse Oximetry 93 L 92 L 93 L 09/17/18 23:42 09/18/18 00:00 09/18/18 01:00 Temperature 98 F Pulse Rate 80 77 74 Respiratory Rate 16 15 16 Blood Pressure 130/60 122/58 L Pulse Oximetry 94 L 94 L 09/18/18 02:00 09/18/18 03:00 09/18/18 04:00 Temperature Pulse Rate 73 72 76 Respiratory Rate 16 15 18 Blood Pressure 129/61 131/60 135/65 Pulse Oximetry 94 L 93 L 93 L 09/18/18 04:37 09/18/18 04:48 09/18/18 05:00 Temperature Pulse Rate 77 78 Respiratory Rate 14 19 Blood Pressure 146/68 H Pulse Oximetry 97 100 97 09/18/18 06:00 09/18/18 07:00 09/18/18 08:00 Temperature 98.5 F Pulse Rate 74 72 76 Respiratory Rate 15 17 17 Blood Pressure 138/63 133/62 139/65 Pulse Oximetry 98 97 96 09/18/18 08:54 09/18/18 09:00 09/18/18 10:00 Temperature Pulse Rate 74 82 81 Respiratory Rate 21 26 H 21 Blood Pressure 131/62 122/58 L Pulse Oximetry 95 93 L 91 L 09/18/18 11:00 09/18/18 12:00 Temperature Pulse Rate 85 85 Respiratory Rate 24 16 Blood Pressure 126/62 Pulse Oximetry 95 Intake & Output 09/17/18 09/18/18 09/18/18 18:59 06:59 18:59 Intake Total 200 / 200 100 / 100 Output Total 1500 / 1500 300 / 300 Balance -1500 / -1500 -100 / -100 100 / 100 Weight 88 kg 88.5 kg Intake: IV 100 / 100 100 / 100 Protonix Inj 80 MG In NS Inj 100 / 100 100 / 100 100 ML @ 10 mls/hr IV.CONT Q24H [facility] Rx#:[id number] Oral 100 / 100 Output: Urine Amount (Catheter) 1500 / 1500 300 / 300 Indwelling Urethral Catheter 1500 / 1500 300 / 300 Other: # Bowel Movements 0 Weight On Admission 88 kg - Constitutional no acute distress, obese, chronically ill appearing - Routine HEENT Exam Head: Present: normocephalic Eye: Present: EOMI - Routine Neck Exam Present: supple, full ROM - Routine Respiratory Exam Present: CTA bilaterally, prolonged expiratory phase. Absent: accessory muscle use - Routine Cardiovascular Exam Present: RRR, S1, S2 - Routine Abdominal Exam Present: soft, normoactive bowel sounds. Absent: tenderness, distended, rebound , guarding - Routine Extremities Exam Present: edema, full ROM, pulses intact, normal capillary refill - Routine Skin Exam Present: intact. Absent: jaundice - Routine Neurological Exam Present: alert, oriented X3 - Urinary Catheter Management Indwelling Urethral Catheter Cath placed during this visit: yes Reason for continuing: Acute urinary retention Insertion date: 09/17/18 Insertion time: 02:34 Results - Labs CBC & Chem 7: 09/17/18 00:10 09/17/18 02:35 Laboratory Results - last 24 hr 09/17/18 08:40 Nasal Screen MRSA (PCR) Not detected Assessment and Plan (1) Occult blood in stools Status: Acute Code(s): R19.5 - Other fecal abnormalities - Plan IMP: 1. Occult blood in stool 2. Melena 3. Acute anemia of blood loss 4. NSTMI with stable angina 5. COPD 6. ETOH abuse PLAN: 1. Cardiology input noted. recommended gi work prior to heart cath incase pt needs to be anticoagulated. Will plan for EGD tomorrow. In my opinion the risks outweighs the benefits of having him undergo a bowel prep and Colonoscopy, therefore will hold off on it. 2. Pt due to undergo CT scan later today 3. NPO after MN for EGD tomorrow. 4. Can change IV PPI to oral protonix. daily
--- NOTE | 2018-09-18 19:44 | CT ---
EXAM DATE: 09/18/2018 7:34 PM EST AGE/SEX: 78 years / Male INDICATIONS: Abdomen pain with distention. CLINICAL DATA: This is the patient's initial encounter. Patient reports that signs and symptoms have been present for 2 days and indicates a pain score of 6/10. MEDICAL/SURGICAL HISTORY: Cardiovascular disease. Hypertension. Carcinoma, bladder. COPD GI bleed Tonsillectomy. Hernia ORAL CONTRAST: Prescribed oral contrast ingested. RADIATION DOSE: 15.71 CTDI (mGy) COMPARISON: [facility], CTA CHEST, 06/02/2018. . TECHNIQUE: Multiple contiguous axial images were obtained through the abdomen and pelvis following b olus infusion of 95 ml Omnipaque 350 (iohexol) nonionic water-soluble contrast as a single exam dos e. Prescribed oral contrast ingested. Using automated exposure control and adjustment of the mA and/ or kV according to patient size, radiation dose was kept as low as reasonably achievable to obtain op timal diagnostic quality images. DICOM format image data is available electronically for review and comparison. FINDINGS: LOWER LUNGS: Minimal groundglass opacities and bronchiectasis similar to prior exam. LIVER: The liver has a homogeneous density without space-occupying lesion. There is no dilation of t he biliary tree. Multiple small calcified gallstones in the gallbladder which is otherwise decompress ed. SPLEEN: Homogeneous density without enlargement. PANCREAS: Unremarkable without mass or calcification. KIDNEYS: Kidneys demonstrate symmetrical enhancement and are symmetrical in size without evidence fo r radiopaque renal calculi or hydronephrosis. ADRENAL GLANDS: Unremarkable. AORTA: Ml-aneurysmal. BOWEL/MESENTERY: There are multiple loops of marginally distended fluid-filled small bowel with out a definitive transition point although distal ileal loops appear decompressed. Appendix is visualized and normal in appearance. Scattered colonic diverticula without significant inflammatory change to s uggest diverticulitis. No free fluid or drainable fluid collections. No free air. ABDOMINAL WALL: Intact. RETROPERITONEUM: No evidence of adenopathy in the retrocrural, para-aortic, or deep pelvic regions. BLADDER: Largely decompressed. REPRODUCTIVE: Nonspecific enlargement of the prostate gland containing coarse calcifications. BONY STRUCTURES: Degenerative spondylosis of the lower lumbar spine. CONCLUSION: 1. Multiple loops of marginally distended fluid-filled small bowel without definite transition point although distal ileal loops are decompressed. Differential considerations include developing adynami c ileus versus enteritis. 2. Ancillary findings include cholelithiasis, colonic diverticulosis and nonspecific prostate enlarg ement. Electronically signed by: Eduardo Gayle MD 09/18/2018 7:42 PM EST
[2018-09-18] MEDS: Chlorhexidine Gluconate 2% 1 Pack (2 Cloths) TOPICAL SCH (20:05)
--- NOTE | 2018-09-18 20:27 | ECHRPT ---
Indication: CHEST PAIN CONCLUSIONS Normal left ventricular size. Wall thickness is normal. The left ventricular systolic function is mildly reduced with an estimated ejection fraction in the range of 45- 50%. Trace mitral valve regurgitation. Aortic valve sclerosis is present. mean gradient = 15 mm hg c/w mild stenosis There is trace tricuspid valve regurgitation. There is estimated [id number] pulmonary hypertension present (63 mmHg). BP: / HR: Rhythm: MEASUREMENTS (Male / Female) Normal Values Technical Quality: 2D ECHO LV Diastolic Diameter PLAX 5.2 cm 4.2 - 5.9 / 3.9 - 5.3 cm LV Systolic Diameter PLAX 4.2 cm IVS Diastolic Thickness 1.0 cm 0.6 - 1.0 / 0.6 - 0.9 cm LVPW Diastolic Thickness 0.8 cm 0.6 - 1.0 / 0.6 - 0.9 cm LV Relative Wall Thickness 0.4 RV Internal Dim ED PLAX 2.0 cm LA Systolic Diameter LX 3.6 cm 3.0 - 4.0 / 2.7 - 3.8 cm DOPPLER AV Peak Velocity 260.5 cm/s AV Peak Gradient 27.1 mmHg AV Mean Gradient 15.0 mmHg AV Velocity Time Integral 57.4 cm LVOT Peak Velocity 88.4 cm/s LVOT Peak Gradient 3.1 mmHg LVOT Velocity Time Integral 18.6 cm Mitral E Point Velocity 109.0 cm/s Mitral A Point Velocity 92.5 cm/s Mitral E to A Ratio 1.2 TR Peak Velocity 365.0 cm/s TR Peak Gradient 53.3 mmHg Right Atrial Pressure 10.0 mmHg Pulmonary Artery Systolic Pressu 63.3 mmHg Right Ventricular Systolic Press 63.3 mmHg FINDINGS LEFT VENTRICLE Normal left ventricular size. Wall thickness is normal. The left ventricular systolic function is mildly reduced with an estimated ejection fraction in the range of 45- 50%. RIGHT VENTRICLE Normal right ventricular size and systolic function. LEFT ATRIUM The left atrial size is normal. RIGHT ATRIUM The right atrial size is normal. ATRIAL SEPTUM Normal atrial septal thickness without atrial level shunting by limited color doppler interrogation. AORTA The aortic root and proximal ascending aorta are normal in size on limited imaging. MITRAL VALVE Trace mitral valve regurgitation. AORTIC VALVE Aortic valve sclerosis is present. TRICUSPID VALVE There is trace tricuspid valve regurgitation. There is estimated [id number] pulmonary hypertension present (63 mmHg). PULMONARY VALVE No pulmonary valve regurgitation or stenosis. VESSELS The inferior vena cava is normal in size. PERICARDIUM No pericardial effusion. Alvaro Ordonez MD, FACC, FSCAI (Electronically Signed) Final Date:18 September 2018 20:26
[2018-09-19] MEDS: Pantoprazole Inj 80 MG in Sodium Chlor 0.9% Inj 100 ML IV.CONT SCH ×2 (01:58→14:05)
[2018-09-19 05:10] LABS: Baso # (Auto) 0.1 th/mm3 (0.0-0.2); Eos # (Auto) 0.4 th/mm3 (0.0-0.4); Eos % (Auto) 5.1 % (0.0-4.0); Hematocrit 24.3 % (39.0-51.0); Hemoglobin 7.9 gm/dL (13.0-17.0); Lymph # (Auto) 0.9 th/mm3 (1.0-4.8); Lymph % (Auto) 12.3 % (9.0-44.0); Mean Corpuscular HGB Conc 32.6 % (32.0-36.0); Mean Corpuscular Hemoglobin 25.3 pg (27.0-34.0); Mean Corpuscular Volume 77.5 fL (80.0-100.0); Mean Platelet Volume 8.1 fL (7.0-11.0); Mono # (Auto) 0.6 th/mm3 (0.0-0.9); Mono % (Auto) 8.4 % (0.0-8.0); Neut # (Auto) 5.3 th/mm3 (1.8-7.7); Neut % (Auto) 73.2 % (16.0-70.0); Platelet Count 120 th/mm3 (150-450); Red Blood Count 3.13 mil/mm3 (4.50-5.90); White Blood Count 7.2 th/mm3 (4.0-11.0)
[2018-09-19] MEDS: Chlorhexidine Gluconate 2% 1 Pack (2 Cloths) TOPICAL SCH (06:45)
[2018-09-19] MEDS: Senna/Docusate Sodium 8.6/50 MG Tablet PO SCH ×2 (09:08→21:28)
[2018-09-19] MEDS: dilTIAZem 30 MG Tablet PO SCH ×3 (09:08→18:11)
[2018-09-19] MEDS: Budesonide-Formoterol 160/4.5 MCG 6 GM Inhaler INH SCH ×2 (09:08→21:28)
--- NOTE | 2018-09-19 09:12 | P.PNCA ---
Subjective Interval history: Patient denies any CP, pressure, palpitations, dizziness or edema. Patient does complain of mild SOB with activity. Medications and Allergies Allergies Allergy/AdvReac Type Severity Reaction Status Date / Time NKA Allergy Unknown Uncoded 06/26/03 03:11 No Known Allergies Allergy Uncoded 03/09/14 10:21 Home Medications Medication Instructions Recorded Confirmed Type albuterol sulfate 2.5 mg INHALATION QID PRN 09/17/18 09/17/18 History tamsulosin [Flomax] 0.4 mg PO DAILY 09/17/18 09/17/18 History Active Medications: Active Medications Acetaminophen (Tylenol) 650 mg PO Q4H PRN PRN Reason: Temp > 100.4 Al Hydroxide/Mg Hydroxide (Milk Of Magnesia Liq) 30 ml PO Q12H PRN PRN Reason: Mild Constipation Albuterol (Duoneb Neb (Prn)) 1 ampul NEB Q2HR NEB PRN PRN Reason: DYSPNEA Albuterol (Duoneb Neb (Belem)) 1 ampul NEB Q4HR NEB [facility] Last Admin: 09/19/18 08:09 Dose: 1 ampul Bisacodyl (Dulcolax Supp) 10 mg RECTAL DAILY PRN PRN Reason: SEVERE CONSITIPATION Budesonide/Formoterol Fumarate (Symbicort 160/4.5 Mcg Inh) 2 puff INH BID [facility] Last Admin: 09/18/18 20:05 Dose: 2 puff Chlorhexidine Gluconate (Chlorhexidine 2% Cloth) 3 pack TOPICAL DAILY@0400 [facility] Stop: 09/23/18 03:59 Last Admin: 09/19/18 06:45 Dose: 3 pack Chlorhexidine Gluconate (Chlorhexidine 2% Cloth) 3 pack TOPICAL DAILY@0400 PRN PRN Reason: Extra cloth needed Stop: 09/23/18 03:59 Diltiazem HCl (Cardizem) 30 mg PO TID [facility] Last Admin: 09/18/18 17:22 Dose: 30 mg Pantoprazole Sodium 80 mg/ (Sodium Chloride) 100 mls @ 10 mls/hr IV.CONT Q24H [facility] Last Admin: 09/19/18 01:58 Dose: 10 mls/hr Lactulose (Lactulose Liq) 30 ml PO DAILY PRN PRN Reason: SEVERE CONSITIPATION Morphine Sulfate (Morphine Inj) 2 mg IV.PUSH Q3H PRN PRN Reason: CHEST PAIN Ondansetron HCl (Zofran Inj) 4 mg IV.PUSH Q6H PRN PRN Reason: NAUSEA OR VOMITING Senna/Docusate Sodium (Margot-Colace) 1 tab PO BID [facility] Last Admin: 09/18/18 20:05 Dose: 1 tab Sennosides (Senokot) 17.2 mg PO Q12H PRN PRN Reason: Moderate Constipation Sodium Chloride (Ns Flush) 2 ml IV.FLUSH BID [facility] Last Admin: 09/18/18 20:05 Dose: 2 ml Sodium Chloride (Ns Flush) 2 ml IV.FLUSH PRN PRN PRN Reason: FLUSH AFTER USING IV ACCESS Tamsulosin HCl (Flomax) 0.4 mg PO DAILY [facility] Last Admin: 09/18/18 08:00 Dose: 0.4 mg Physical Exam Vital signs: Vital Signs 09/18/18 10:00 09/18/18 11:00 09/18/18 12:00 Temperature 98.3 F Pulse Rate 81 85 85 Respiratory Rate 21 24 16 Blood Pressure 122/58 L 126/62 129/65 Pulse Oximetry 91 L 95 96 09/18/18 13:00 09/18/18 14:00 09/18/18 15:00 Temperature Pulse Rate 85 86 86 Respiratory Rate 0 L Blood Pressure 139/67 131/63 141/67 H Pulse Oximetry 96 94 L 95 09/18/18 15:37 09/18/18 16:00 09/18/18 16:01 Temperature 98.2 F Pulse Rate 82 84 87 Respiratory Rate 25 H 21 21 Blood Pressure 142/62 H Pulse Oximetry 95 95 09/18/18 17:00 09/18/18 18:00 09/18/18 19:37 Temperature Pulse Rate 84 80 Respiratory Rate 21 21 Blood Pressure 126/62 135/62 Pulse Oximetry 95 95 97 09/18/18 20:00 09/18/18 21:00 09/18/18 22:00 Temperature Pulse Rate 95 H 84 79 Respiratory Rate 35 H 21 18 Blood Pressure Pulse Oximetry 95 95 94 L 09/18/18 22:35 09/18/18 23:00 09/19/18 00:00 Temperature Pulse Rate 81 76 77 Respiratory Rate 19 16 21 Blood Pressure 118/59 L 122/58 L 129/60 Pulse Oximetry 95 95 96 09/19/18 01:00 09/19/18 02:00 09/19/18 03:00 Temperature Pulse Rate 79 75 74 Respiratory Rate 18 17 19 Blood Pressure 148/66 H 127/59 L 132/60 Pulse Oximetry 97 97 96 09/19/18 04:00 09/19/18 04:11 09/19/18 05:00 Temperature Pulse Rate 82 78 85 Respiratory Rate 20 18 21 Blood Pressure 128/61 142/66 H Pulse Oximetry 96 96 09/19/18 06:00 09/19/18 08:09 Temperature Pulse Rate 74 79 Respiratory Rate 17 20 Blood Pressure 126/60 Pulse Oximetry 97 96 Intake & Output 09/18/18 09/19/18 09/19/18 18:59 06:59 18:59 Intake Total 900 / 900 200 / 200 Output Total 1200 / 1200 600 / 600 Balance -300 / -300 -400 / -400 Weight 88 kg Intake: IV 100 / 100 100 / 100 Protonix Inj 80 MG In NS Inj 100 / 100 100 / 100 100 ML @ 10 mls/hr IV.CONT Q24H [facility] Rx#:[id number] Oral 800 / 800 100 / 100 Output: Urine 600 / 600 Stool 0 / 0 Urine Amount (Catheter) 1200 / 1200 Indwelling Urethral Catheter 1200 / 1200 Other: Date of Last Bowel Movement 09/18/18 # Bowel Movements 1 # Incontinent Bowel Movements 1 - Constitutional no acute distress - Routine HEENT Exam Head: Present: normocephalic Eye: Present: PERRL ENT: Present: mucous membranes moist - Routine Neck Exam Present: full ROM - Routine Respiratory Exam Present: wheezes, diminished air movement Comments: inspiratory and expiratory wheezing noted in the right lung. - Routine Cardiovascular Exam Present: S1, S2. Absent: gallop, rubs - Routine Abdominal Exam Present: soft, normoactive bowel sounds - Routine Extremities Exam Present: full ROM, pulses intact, normal capillary refill. Absent: cyanosis, clubbing, edema - Routine Skin Exam Present: intact - Routine Neurological Exam Present: oriented X3 - Detailed Neurological Exam: Coma Scale Eye Opening: Spontaneous Verbal Response: Oriented Motor Response: Obey commands [place] Coma Scale Total: 15 - Routine Psychiatric Exam Present: normal affect - Urinary Catheter Management Indwelling Urethral Catheter Cath placed during this visit: yes, but has since been removed by the nurse Reason for continuing: Decision to DC catheter Insertion date: 09/17/18 Insertion time: 02:34 Removal date: 09/18/18 Removal time: 17:30 Results 09/19/18 03:57 09/17/18 02:35 Cardiac Enzymes 09/17/18 Range/Units 09:49 Troponin I 4.28 H* (0.02-0.05) ng/mL CBC 09/19/18 Range/Units 03:57 WBC 7.2 (4.0-11.0) th/mm3 RBC 3.13 L (4.50-5.90) mil/mm3 Hgb 7.9 L (13.0-17.0) gm/dL Hct 24.3 L (39.0-51.0) % Plt Count 120 L (150-450) th/mm3 Neut # (Auto) 5.3 (1.8-7.7) th/mm3 Lymph # (Auto) 0.9 L (1.0-4.8) th/mm3 [place] # (Auto) 0.6 (0.0-0.9) th/mm3 Eos # (Auto) 0.4 (0.0-0.4) th/mm3 Baso # (Auto) 0.1 (0.0-0.2) th/mm3 Intake and Output 09/18/18 09/19/18 09/19/18 22:59 06:59 14:59 Intake Total 900 / 900 100 / 100 Output Total 1200 / 1200 600 / 600 Balance -300 / -300 -500 / -500 Intake: IV 100 / 100 Protonix Inj 80 MG In NS Inj 100 / 100 100 ML @ 10 mls/hr IV.CONT Q24H [facility] Rx#:[id number] Oral 800 / 800 100 / 100 Output: Urine 600 / 600 Stool 0 / 0 Urine Amount (Catheter) 1200 / 1200 Indwelling Urethral Catheter 1200 / 1200 Other: Date of Last Bowel Movement 09/18/18 09/18/18 # Bowel Movements 1 # Incontinent Bowel Movements 1 Weight 88 kg - Imaging and Cardiology Imaging: Impressions Abdomen/Pelvis CT 09/18/18 00:00 CONCLUSION: 1. Multiple loops of marginally distended fluid-filled small bowel without definite transition point although distal ileal loops are decompressed. Differential considerations include developing adynamic ileus versus enteritis. 2. Ancillary findings include cholelithiasis, colonic diverticulosis and nonspecific prostate enlargement. Assessment and Plan - Assessment (1) NSTEMI (non-ST elevated myocardial infarction) Code(s): I21.4 - Non-ST elevation (NSTEMI) myocardial infarction Status: Acute (2) Occult blood in stools Code(s): R19.5 - Other fecal abnormalities Status: Acute (3) COPD (chronic obstructive pulmonary disease) Code(s): J44.9 - Chronic obstructive pulmonary disease, unspecified Status: Chronic (4) Hyperlipidemia Code(s): E78.5 - Hyperlipidemia, unspecified Status: Chronic (5) Hypertension Code(s): I10 - Essential (primary) hypertension Status: Chronic - Plan Patient has positive stool for occult blood, EGD today to evaluate cause of GI bleeding. Patient had elevated troponin levels, no angina; unable to anticoagulate the patient at this time due to bleeding. Patient SR on monitor at this time, we will continue with current cardiac treatment plan. 2D echo shows EF 45-50%. We will continue to follow the patient during his hospitalization. The patient was seen and evaluated by Dr. Flores who participated in care, management and decision making. - Attending Attestation Patient seen and examined. l reviewed and agree with the evaluation and plan as presented. Proceed with EGD today as planned. Continue monitoring. Echo with no evidence of significant LV dysfunction. Continue current program. (4) Hyperlipidemia Qualifiers: Hyperlipidemia type: mixed hyperlipidemia Qualified Code(s): E78.2 - Mixed hyperlipidemia
[2018-09-19] MEDS: Acetaminophen 325 MG Tablet PO PRN (11:31)
--- NOTE | 2018-09-19 12:09 | P.PNFP ---
Subjective Interval history: Slept well, denies Cp, mild SOB on exertion, sat's maintained on 2l Npo for EGD today Results - Labs Result diagrams: 09/19/18 03:57 09/17/18 02:35 Abnormal lab results 09/19/18 Range/Units 03:57 RBC 3.13 L (4.50-5.90) mil/mm3 Hgb 7.9 L (13.0-17.0) gm/dL Hct 24.3 L (39.0-51.0) % MCV 77.5 L (80.0-100.0) fL MCH 25.3 L (27.0-34.0) pg RDW 19.0 H (11.6-17.2) % Plt Count 120 L (150-450) th/mm3 Neut % (Auto) 73.2 H (16.0-70.0) % [place] % (Auto) 8.4 H (0.0-8.0) % Eos % (Auto) 5.1 H (0.0-4.0) % Lymph # (Auto) 0.9 L (1.0-4.8) th/mm3 Short CBC 09/19/18 Range/Units 03:57 WBC 7.2 (4.0-11.0) th/mm3 Hgb 7.9 L (13.0-17.0) gm/dL Hct 24.3 L (39.0-51.0) % Plt Count 120 L (150-450) th/mm3 - Imaging Impressions Abdomen/Pelvis CT 09/18/18 00:00 CONCLUSION: 1. Multiple loops of marginally distended fluid-filled small bowel without definite transition point although distal ileal loops are decompressed. Differential considerations include developing adynamic ileus versus enteritis. 2. Ancillary findings include cholelithiasis, colonic diverticulosis and nonspecific prostate enlargement. Physical Exam Vital signs: Vital Signs 09/18/18 13:00 09/18/18 14:00 09/18/18 15:00 Temperature Pulse Rate 85 86 86 Respiratory Rate 0 L Blood Pressure 139/67 131/63 141/67 H Pulse Oximetry 96 94 L 95 09/18/18 15:37 09/18/18 16:00 09/18/18 16:01 Temperature 98.2 F Pulse Rate 82 84 87 Respiratory Rate 25 H 21 21 Blood Pressure 142/62 H Pulse Oximetry 95 95 12/02/18 17:00 09/18/18 18:00 09/18/18 19:37 Temperature Pulse Rate 84 80 Respiratory Rate 21 21 Blood Pressure 126/62 135/62 Pulse Oximetry 95 95 97 09/18/18 20:00 09/18/18 21:00 09/18/18 22:00 Temperature Pulse Rate 95 H 84 79 Respiratory Rate 35 H 21 18 Blood Pressure Pulse Oximetry 95 95 94 L 09/18/18 22:35 09/18/18 23:00 09/19/18 00:00 Temperature Pulse Rate 81 76 77 Respiratory Rate 19 16 21 Blood Pressure 118/59 L 122/58 L 129/60 Pulse Oximetry 95 95 96 09/19/18 01:00 09/19/18 02:00 09/19/18 03:00 Temperature Pulse Rate 79 75 74 Respiratory Rate 18 17 19 Blood Pressure 148/66 H 127/59 L 132/60 Pulse Oximetry 97 97 96 09/19/18 04:00 09/19/18 04:11 09/19/18 05:00 Temperature Pulse Rate 82 78 85 Respiratory Rate 20 18 21 Blood Pressure 128/61 142/66 H Pulse Oximetry 96 96 09/19/18 06:00 09/19/18 07:00 09/19/18 08:00 Temperature 98.3 F Pulse Rate 74 81 80 Respiratory Rate 17 22 22 Blood Pressure 126/60 139/58 L 138/63 Pulse Oximetry 97 97 94 L 09/19/18 08:09 09/19/18 09:00 09/19/18 10:00 Temperature Pulse Rate 79 80 80 Respiratory Rate 20 15 19 Blood Pressure 130/60 131/64 Pulse Oximetry 96 96 96 09/19/18 12:00 Temperature Pulse Rate 78 Respiratory Rate 18 Blood Pressure Pulse Oximetry Intake & Output 09/18/18 09/19/18 09/19/18 18:59 06:59 18:59 Intake Total 900 / 900 200 / 200 Output Total 1200 / 1200 600 / 600 Balance -300 / -300 -400 / -400 Weight 88 kg Intake: IV 100 / 100 100 / 100 Protonix Inj 80 MG In NS Inj 100 / 100 100 / 100 100 ML @ 10 mls/hr IV.CONT Q24H [facility] Rx#:[id number] Oral 800 / 800 100 / 100 Output: Urine 600 / 600 Stool 0 / 0 Urine Amount (Catheter) 1200 / 1200 Indwelling Urethral Catheter 1200 / 1200 Other: Date of Last Bowel Movement 09/18/18 09/18/18 # Bowel Movements 1 # Incontinent Bowel Movements 1 - Constitutional no acute distress - Routine HEENT Exam Eye: Present: PERRL ENT: Present: mucous membranes moist - Routine Respiratory Exam Present: wheezes, diminished air movement - Routine Cardiovascular Exam Present: S1, S2 - Routine Abdominal Exam Present: soft, normoactive bowel sounds - Routine Skin Exam Present: dry, warm - Routine Neurological Exam Present: alert, oriented X3 - Routine Psychiatric Exam Present: cooperative - Urinary Catheter Management Indwelling Urethral Catheter Cath placed during this visit: yes, but has since been removed by the nurse Reason for continuing: Decision to DC catheter Insertion date: 09/17/18 Insertion time: 02:34 Removal date: 09/18/18 Removal time: 17:30 Assessment and Plan - Assessment (1) NSTEMI (non-ST elevated myocardial infarction) Code(s): I21.4 - Non-ST elevation (NSTEMI) myocardial infarction Status: Acute Plan: Cards following, (2) Occult blood in stools Code(s): R19.5 - Other fecal abnormalities Status: Acute Plan: GI consult noted. He will need EGD scheduled for today (3) COPD (chronic obstructive pulmonary disease) Code(s): J44.9 - Chronic obstructive pulmonary disease, unspecified Status: Chronic Plan: Pulmonary consult noted and he tells me his breathing is better today with nebs and Symbicort inhaler. pending. (4) Hyperlipidemia Code(s): E78.5 - Hyperlipidemia, unspecified Status: Chronic Plan: Cont home meds and HH diet (5) Hypertension Code(s): I10 - Essential (primary) hypertension Status: Chronic Plan: Follow BP closely and adjust meds as needed - Assessment and Plan 09/17/18 - Adm to ICU for NSTEMI. Decision regarding cath today is pending at this time. He will also be seen by GI for guaiac positive stools and we will monitor HG. Pulm to see today and adjust meds as indicated. 09/18/18 - Gi and Cards will need to decide which W/U will be done first. CT ordered per GI recommendations. Will recheck labs and F/U daily pending eval for bleeding. Cards wants W/U after GI eval done so he can be anticoagulated 09/19/18- Resting in bed, uneventful night. Denies CP, Palpations, Sat's maintained on 2 liters, he does have some wheezes. Cont with Bronchodilators, and oxygen support. Scheduled for EGD today, HGB 7.9 today, cont to monitor. (4) Hyperlipidemia Qualifiers: Hyperlipidemia type: mixed hyperlipidemia Qualified Code(s): E78.2 - Mixed hyperlipidemia
[2018-09-19] MEDS ORDERED: Lidocaine PF 1% Inj 5 ML Syringe OTHER ONE (13:22)
--- NOTE | 2018-09-19 13:54 | GIPROC ---
[facility] [address] [facility]. [facility], [address] EGD PROCEDURE REPORT EXAM DATE: 09/19/2018 PATIENT NAME: Kal Hand MR#: [id number] BIRTHDATE: 1940 STATUS: inpatient ATTENDING: Juarez Jean MD VISIT ID: [id number] PERSONAL SUPPORT WORKER: Calos St Stienbarger, Terrie, and Mary Linares ORDER #: [id number] INDICATIONS: The patient is a 78 yr old male here for an EGD due to Melena, occult blood in stool.. PROCEDURE PERFORMED: EGD w/ biopsy MEDICATIONS: Per Anesthesia and None. ASA CLASS: Class III PHYSICAL EXAM: normal CONSENT: The patient understands the risks and benefits of the procedure and understands that these risks include, but are not limited to: sedation, allergic reaction, infection, perforation and/or bleeding. Alternative means of evaluation and treatment include, among others: physical exam, x-rays, and/or surgical intervention. The patient elects to proceed with this endoscopic procedure. DESCRIPTION OF PROCEDURE: for proper function. Hand hygiene and appropriate measures for infection prevention was taken. After the risks, benefits and alternatives of the procedure were thoroughly explained, Informed consent was verified, confirmed and timeout was successfully executed by the treatment team. The [employer] [id number] endoscope was introduced through the mouth and advanced to the second portion of the duodenum. The instrument was slowly withdrawn as the mucosa was fully examined. ESOPHAGUS: The mucosa of the esophagus appeared normal. STOMACH: There was mild gastritis in the gastric body. A biopsy was performed using cold forceps. Sample obtained for helicobacter pylori testing. DUODENUM: Food residue was found in the duodenal bulb and 1st part duodenum. The duodenal mucosa appeared normal in the duodenal bulb and 2nd part duodenum. Retroflexed views revealed a hiatal hernia The gastroscope was then slowly withdrawn and removed. COMPLICATIONS: There were no complications. IMPRESSIONS: 1. The esophagus appeared normal 2. There was mild gastritis in the gastric body; biopsy was performed 3. Food residue was found in the duodenal bulb and 1st part duodenum 4. Normal duodenal mucosa in the duodenal bulb and 2nd part duodenum 5. Retroflexed views revealed a hiatal hernia RECOMMENDATIONS: 1. Await biopsy results. Biopsy results will not be ready for 7-10 days. If you don't hear from us in two weeks, call our office for biopsy results. 2. Avoid NSAIDS 3. 3. No active upper gi bleeding found, therefore no objection to continue cardiac work up . 4. Avoid etoh PATIENT CONDITION: stable DISPOSITION: Inpatient REPEAT EXAM: NONE Juarez Jean MD eSigned: Juarez Jean MD 09/19/2018 1:54 PM cc: PATIENT NAME: Kal Hand MR#: [id number]
--- NOTE | 2018-09-19 13:59 | P.PNGI ---
Subjective Interval history: Post procedure note EGD with bx 1. No active upper gi bleeding sites noted 2. normal esophagus 3. mild gastritis s.p bx 4. Food debris in duodenum, otherwise normal. PLAN: 1. No further gi work up planned 2. continue with your cardiology care 3. Given cardiac/pulm issues pt is high risk for bowel prep and colonoscopy therefor would recommend avoiding it. 4. diet as tolerated cardiac. 5. call for questions Physical Exam Vital signs: Vital Signs 09/18/18 14:00 09/18/18 15:00 09/18/18 15:37 Temperature Pulse Rate 86 86 82 Respiratory Rate 0 L 25 H Blood Pressure 131/63 141/67 H Pulse Oximetry 94 L 95 09/18/18 16:00 09/18/18 16:01 09/18/18 17:00 Temperature 98.2 F Pulse Rate 84 87 84 Respiratory Rate 21 21 21 Blood Pressure 142/62 H 126/62 Pulse Oximetry 95 95 95 09/18/18 18:00 09/18/18 19:37 09/18/18 20:00 Temperature Pulse Rate 80 95 H Respiratory Rate 21 35 H Blood Pressure 135/62 Pulse Oximetry 95 97 95 09/18/18 21:00 09/18/18 22:00 09/18/18 22:35 Temperature Pulse Rate 84 79 81 Respiratory Rate 21 18 19 Blood Pressure 118/59 L Pulse Oximetry 95 94 L 95 09/18/18 23:00 09/19/18 00:00 09/19/18 01:00 Temperature Pulse Rate 76 77 79 Respiratory Rate 16 21 18 Blood Pressure 122/58 L 129/60 148/66 H Pulse Oximetry 95 96 97 09/19/18 02:00 09/19/18 03:00 09/19/18 04:00 Temperature Pulse Rate 75 74 82 Respiratory Rate 17 19 20 Blood Pressure 127/59 L 132/60 128/61 Pulse Oximetry 97 96 96 09/19/18 04:11 09/19/18 05:00 09/19/18 06:00 Temperature Pulse Rate 78 85 74 Respiratory Rate 18 21 17 Blood Pressure 142/66 H 126/60 Pulse Oximetry 96 97 09/19/18 07:00 09/19/18 08:00 09/19/18 08:09 Temperature 98.3 F Pulse Rate 81 80 79 Respiratory Rate 22 22 20 Blood Pressure 139/58 L 138/63 Pulse Oximetry 97 94 L 96 09/19/18 09:00 09/19/18 10:00 09/19/18 11:00 Temperature Pulse Rate 80 80 80 Respiratory Rate 15 19 17 Blood Pressure 130/60 131/64 130/60 Pulse Oximetry 96 96 95 09/19/18 12:00 09/19/18 12:25 Temperature 98.4 F Pulse Rate 79 83 Respiratory Rate 12 16 Blood Pressure 135/63 128/72 Pulse Oximetry 97 98 Intake & Output 09/18/18 09/19/18 09/19/18 18:59 06:59 18:59 Intake Total 900 / 900 200 / 200 200 / 200 Output Total 1200 / 1200 600 / 600 Balance -300 / -300 -400 / -400 200 / 200 Weight 88 kg Intake: IV 100 / 100 100 / 100 100 / 100 Protonix Inj 80 MG In NS Inj 100 / 100 100 / 100 100 / 100 100 ML @ 10 mls/hr IV.CONT Q24H [facility] Rx#:[id number] Oral 800 / 800 100 / 100 Anesthesia Amount 100 / 100 Output: Urine 600 / 600 Stool 0 / 0 Urine Amount (Catheter) 1200 / 1200 Indwelling Urethral Catheter 1200 / 1200 Other: Date of Last Bowel Movement 09/18/18 09/18/18 # Bowel Movements 1 # Incontinent Bowel Movements 1 - Urinary Catheter Management Indwelling Urethral Catheter Cath placed during this visit: yes, but has since been removed by the nurse Reason for continuing: Decision to DC catheter Insertion date: 09/17/18 Insertion time: 02:34 Removal date: 09/18/18 Removal time: 17:30 Results - Labs CBC & Chem 7: 09/19/18 03:57 09/17/18 02:35 Laboratory Results - last 24 hr 09/19/18 03:57 WBC 7.2 RBC 3.13 L Hgb 7.9 L Hct 24.3 L MCV 77.5 L MCH 25.3 L MCHC 32.6 RDW 19.0 H Plt Count 120 L MPV 8.1 Neut % (Auto) 73.2 H Lymph % (Auto) 12.3 [place] % (Auto) 8.4 H Eos % (Auto) 5.1 H Baso % (Auto) 1.0 Neut # (Auto) 5.3 Lymph # (Auto) 0.9 L [place] # (Auto) 0.6 Eos # (Auto) 0.4 Baso # (Auto) 0.1 WBC Differential . Differential Comment Auto diff final - Imaging Impressions Abdomen/Pelvis CT 09/18/18 00:00 CONCLUSION: 1. Multiple loops of marginally distended fluid-filled small bowel without definite transition point although distal ileal loops are decompressed. Differential considerations include developing adynamic ileus versus enteritis. 2. Ancillary findings include cholelithiasis, colonic diverticulosis and nonspecific prostate enlargement. Assessment and Plan (1) Occult blood in stools Status: Acute Code(s): R19.5 - Other fecal abnormalities
--- NOTE | 2018-09-19 14:21 | ECG ---
Date Performed: 09/16/2018 Time Performed: 23:50:43 PTAGE: 78 years EKG: SINUS TACHYCARDIA WITH OCCASIONAL SUPRAVENTRICULAR PREMATURE COMPLEXES POSSIBLE ANTERIOR MY OCARDIAL INFARCTION Rate has increased since prior tracing with diffuse nonspecific ST T changes pers isting ABNORMAL RHYTHM ECG PREVIOUS TRACING : 03/09/2014 11.41 DOCTOR: Khang Champion Interpretating Date/Time 09/19/2018 14:19:51
--- NOTE | 2018-09-19 14:22 | ECG ---
Date Performed: 09/17/2018 Time Performed: 03:20:00 PTAGE: 78 years EKG: Sinus rhythm POSSIBLE ANTERIOR MYOCARDIAL INFARCTION MODERATE T-WAVE ABNORMALITY, CONSIDER INFERIOR ISCHEMIA Comp ared to previous tracing rate has slowed somewhat with persistent but normalization of ST T wave araiza ges ABNORMAL ECG PREVIOUS TRACING : 09/16/2018 23.50 DOCTOR: Khang Champion Interpretating Date/Time 09/19/2018 14:20:19
--- NOTE | 2018-09-19 17:34 | P.PN ---
Subjective Interval history: Has some cough and SOB at rest. On o2 2 L. Went for EGD and has mild gastritis. Physical Exam Vital signs: Vital Signs 09/18/18 18:00 09/18/18 19:37 09/18/18 20:00 Temperature Pulse Rate 80 95 H Respiratory Rate 21 35 H Blood Pressure 135/62 Pulse Oximetry 95 97 95 09/18/18 21:00 09/18/18 22:00 09/18/18 22:35 Temperature Pulse Rate 84 79 81 Respiratory Rate 21 18 19 Blood Pressure 118/59 L Pulse Oximetry 95 94 L 95 09/18/18 23:00 09/19/18 00:00 09/19/18 01:00 Temperature Pulse Rate 76 77 79 Respiratory Rate 16 21 18 Blood Pressure 122/58 L 129/60 148/66 H Pulse Oximetry 95 96 97 09/19/18 02:00 09/19/18 03:00 09/19/18 04:00 Temperature Pulse Rate 75 74 82 Respiratory Rate 17 19 20 Blood Pressure 127/59 L 132/60 128/61 Pulse Oximetry 97 96 96 09/19/18 04:11 09/19/18 05:00 09/19/18 06:00 Temperature Pulse Rate 78 85 74 Respiratory Rate 18 21 17 Blood Pressure 142/66 H 126/60 Pulse Oximetry 96 97 09/19/18 07:00 09/19/18 08:00 09/19/18 08:09 Temperature 98.3 F Pulse Rate 81 80 79 Respiratory Rate 22 22 20 Blood Pressure 139/58 L 138/63 Pulse Oximetry 97 94 L 96 09/19/18 09:00 09/19/18 10:00 09/19/18 11:00 Temperature Pulse Rate 80 80 80 Respiratory Rate 15 19 17 Blood Pressure 130/60 131/64 130/60 Pulse Oximetry 96 96 95 09/19/18 12:00 09/19/18 12:25 09/19/18 14:00 Temperature 98.4 F 98.4 F Pulse Rate 79 83 91 H Respiratory Rate 12 16 22 Blood Pressure 135/63 128/72 124/70 Pulse Oximetry 97 98 95 09/19/18 14:16 09/19/18 14:26 09/19/18 14:27 Temperature Pulse Rate 80 85 88 Respiratory Rate 20 21 22 Blood Pressure 115/59 L 111/55 L Pulse Oximetry 96 97 96 09/19/18 15:00 09/19/18 15:29 09/19/18 16:00 Temperature 98.4 F Pulse Rate 79 77 76 Respiratory Rate 20 20 16 Blood Pressure 122/60 128/62 Pulse Oximetry 97 97 Intake & Output 09/18/18 09/19/18 09/19/18 18:59 06:59 18:59 Intake Total 900 / 900 200 / 200 200 / 200 Output Total 1200 / 1200 600 / 600 Balance -300 / -300 -400 / -400 200 / 200 Weight 88 kg Intake: IV 100 / 100 100 / 100 100 / 100 Protonix Inj 80 MG In NS Inj 100 / 100 100 / 100 100 / 100 100 ML @ 10 mls/hr IV.CONT Q24H [facility] Rx#:[id number] Oral 800 / 800 100 / 100 Anesthesia Amount 100 / 100 Output: Urine 600 / 600 Stool 0 / 0 Urine Amount (Catheter) 1200 / 1200 Indwelling Urethral Catheter 1200 / 1200 Other: Date of Last Bowel Movement 09/18/18 09/18/18 # Bowel Movements 1 # Incontinent Bowel Movements 1 GENERAL: Elderly W/M alert and Not dyspneic. SKIN: Warm and dry. HEAD: Atraumatic. Normocephalic. EYES: Pupils equal and round. No scleral icterus. No injection or drainage. ENT: No nasal bleeding or discharge. Mucous membranes pink and moist. NECK: Trachea midline. No JVD. CARDIOVASCULAR: Regular rate and rhythm. RESPIRATORY: No accessory muscle use. Bilateral wheezes and Breath sounds equal bilaterally. GASTROINTESTINAL: Abdomen soft, non-tender, nondistended. Hepatic and splenic margins not palpable. MUSCULOSKELETAL: Extremities without clubbing, cyanosis, or edema. Has left leg deformities with a painful leg scar.. NEUROLOGICAL: Awake and alert. No obvious cranial nerve deficits. Motor grossly within normal limits. Normal speech. PSYCHIATRIC: Appropriate mood and affect; insight and judgment normal. - Urinary Catheter Management Indwelling Urethral Catheter Cath placed during this visit: yes, but has since been removed by the nurse Reason for continuing: Decision to DC catheter Insertion date: 09/17/18 Insertion time: 02:34 Removal date: 09/18/18 Removal time: 17:30 Results - Labs CBC & Chem 7: 09/19/18 03:57 09/17/18 02:35 Laboratory Results - last 24 hr 09/19/18 03:57 WBC 7.2 RBC 3.13 L Hgb 7.9 L Hct 24.3 L MCV 77.5 L MCH 25.3 L MCHC 32.6 RDW 19.0 H Plt Count 120 L MPV 8.1 Neut % (Auto) 73.2 H Lymph % (Auto) 12.3 Loving % (Auto) 8.4 H Eos % (Auto) 5.1 H Baso % (Auto) 1.0 Neut # (Auto) 5.3 Lymph # (Auto) 0.9 L Loving # (Auto) 0.6 Eos # (Auto) 0.4 Baso # (Auto) 0.1 WBC Differential . Differential Comment Auto diff final - Imaging Impressions Abdomen/Pelvis CT 09/18/18 00:00 CONCLUSION: 1. Multiple loops of marginally distended fluid-filled small bowel without definite transition point although distal ileal loops are decompressed. Differential considerations include developing adynamic ileus versus enteritis. 2. Ancillary findings include cholelithiasis, colonic diverticulosis and nonspecific prostate enlargement. Assessment and Plan - Assessment (1) Gastritis Code(s): K29.70 - Gastritis, unspecified, without bleeding Status: Acute (2) NSTEMI (non-ST elevated myocardial infarction) Code(s): I21.4 - Non-ST elevation (NSTEMI) myocardial infarction Status: Acute (3) Occult blood in stools Code(s): R19.5 - Other fecal abnormalities Status: Acute (4) COPD (chronic obstructive pulmonary disease) Code(s): J44.9 - Chronic obstructive pulmonary disease, unspecified Status: Chronic (5) Hyperlipidemia Code(s): E78.5 - Hyperlipidemia, unspecified Status: Chronic (6) Hypertension Code(s): I10 - Essential (primary) hypertension Status: Chronic - Plan 1. O2 at 2 L N/C 2. Cont Duoneb nebs qid. 3. Continue Symbicort 160/4.5 mcg , 2puffs BID 4. Get CT chest to Eval for lung nodules 5. Continue Protonix 40 mg daily. 6. Transfer to [facility]. (5) Hyperlipidemia Qualifiers: Hyperlipidemia type: mixed hyperlipidemia Qualified Code(s): E78.2 - Mixed hyperlipidemia
--- NOTE | 2018-09-20 02:25 | CT ---
EXAM DATE: 09/20/2018 2:02 AM EST AGE/SEX: 78 years / Male INDICATIONS: Evaluate for infiltrates. CLINICAL DATA: This is the patient's initial encounter. Patient reports that signs and symptoms have been present for 1 day and indicates a pain score of 0/10. MEDICAL/SURGICAL HISTORY: Chronic obstructive pulmonary disease. GI bleed . Hernia RADIATION DOSE: 16.93 CTDI (mGy) COMPARISON: [facility], CTA CHEST, 06/02/2018. . TECHNIQUE: Multiple contiguous axial images were obtained through the chest without contrast. Image s were obtained in suspended respiration using multiple row detector helical technique. Using automa mauro exposure control and adjustment of the mA and/or kV according to patient size, radiation dose was kept as low as reasonably achievable to obtain optimal diagnostic quality images. DICOM format imag e data is available electronically for review and comparison. FINDINGS: Lungs: The appearance of lung parenchyma is stable from the prior study. Bronchiectasis is seen invo lving the basilar segments bilaterally but most pronounced on the right. There is also scattered area s of groundglass opacity within the basilar segments most pronounced on the right. Interlobular septa l thickening seen within the subpleural aspects of both upper lobes more pronounced on the right. A 6 mm nodule seen within the left upper lobe adjacent to the major fissure. A focal area of rounded den sity is seen within the medial aspects of the right upper lobe. No new findings observed.. Mediastinum: Anterior and middle mediastinal adenopathy is noted. These lymph nodes are larger from the prior examination. For example a subcarinal lymph node measures 2.7 x 2.2 cm currently where prev iously measured 1.9 x 1.3 cm. The heart is normal in size. Coronary artery and aortic atherosclerotic calcifications are noted. Aorta and pulmonary arteries are normal in caliber.. Pleurae: A tiny right effusion. No effusion on the left.. Axillae: Unremarkable. Bony Structures: Unremarkable. Miscellaneous: The examination was extended to include the upper abdomen, and both adrenal glands ar e normal in size and configuration. CONCLUSION: 1. Enlarging mediastinal lymph nodes relative to the prior study. This suggests either reactive lymp hadenopathy or a myeloproliferative disorder. I favor the former. 2. Stable bronchiectasis with chronic parenchymal groundglass opacities within the bases as well as scattered areas of nodularity. No acute infiltrate observed. 3. Coronary artery atherosclerotic calcification. 4. Tiny right effusion. Electronically signed by: Dre Christensen MD 09/20/2018 2:24 AM EST
[2018-09-20] MEDS: Chlorhexidine Gluconate 2% 1 Pack (2 Cloths) TOPICAL SCH (06:36)
[2018-09-20 08:08] LABS: Baso % (Auto) 0.6 % (0.0-2.0); Eos # (Auto) 0.6 th/mm3 (0.0-0.4); Eos % (Auto) 7.7 % (0.0-4.0); Hematocrit 25.9 % (39.0-51.0); Hemoglobin 8.4 gm/dL (13.0-17.0); Lymph # (Auto) 0.6 th/mm3 (1.0-4.8); Mean Corpuscular HGB Conc 32.3 % (32.0-36.0); Mean Corpuscular Hemoglobin 25.4 pg (27.0-34.0); Mean Corpuscular Volume 78.5 fL (80.0-100.0); Mean Platelet Volume 8.2 fL (7.0-11.0); Mono # (Auto) 0.5 th/mm3 (0.0-0.9); Mono % (Auto) 6.7 % (0.0-8.0); Neut # (Auto) 6.2 th/mm3 (1.8-7.7); Platelet Count 145 th/mm3 (150-450); Red Cell Distribution Width 19.2 % (11.6-17.2); White Blood Count 7.9 th/mm3 (4.0-11.0)
[2018-09-20 08:27] LABS: Carbon Dioxide 31.7 meq/L (21.0-32.0)
[2018-09-20] MEDS: Senna/Docusate Sodium 8.6/50 MG Tablet PO SCH ×2 (09:39→20:36)
[2018-09-20] MEDS: dilTIAZem 30 MG Tablet PO SCH ×2 (09:39→12:43)
[2018-09-20] MEDS: Budesonide-Formoterol 160/4.5 MCG 6 GM Inhaler INH SCH ×2 (09:40→20:37)
--- NOTE | 2018-09-20 12:44 | P.PNFP ---
Subjective Interval history: Delayed entry, seen this am Denies Cp, Palpations, states he is weak does have productive cough, sat's maintained on O2 Results - Labs Result diagrams: 09/20/18 07:55 09/20/18 07:55 Abnormal lab results 09/20/18 09/20/18 Range/Units 07:55 07:55 RBC 3.30 L (4.50-5.90) mil/mm3 Hgb 8.4 L (13.0-17.0) gm/dL Hct 25.9 L (39.0-51.0) % MCV 78.5 L (80.0-100.0) fL MCH 25.4 L (27.0-34.0) pg RDW 19.2 H (11.6-17.2) % Plt Count 145 L (150-450) th/mm3 Neut % (Auto) 78.0 H (16.0-70.0) % Lymph % (Auto) 7.0 L (9.0-44.0) % Eos % (Auto) 7.7 H (0.0-4.0) % Lymph # (Auto) 0.6 L (1.0-4.8) th/mm3 Eos # (Auto) 0.6 H (0.0-0.4) th/mm3 Anion Gap 4 L (5-15) meq/L Estimated GFR 65 L (>89) mL/min Calcium 8.0 L (8.5-10.1) mg/dL Short CBC 09/20/18 Range/Units 07:55 WBC 7.9 (4.0-11.0) th/mm3 Hgb 8.4 L (13.0-17.0) gm/dL Hct 25.9 L (39.0-51.0) % Plt Count 145 L (150-450) th/mm3 BMP 09/20/18 07:55 Sodium 142 Potassium 5.0 Chloride 106 Carbon Dioxide 31.7 BUN 13 Creatinine 1.10 Calcium 8.0 L - Imaging Impressions Chest CT 09/20/18 00:00 CONCLUSION: 1. Enlarging mediastinal lymph nodes relative to the prior study. This suggests either reactive lymphadenopathy or a myeloproliferative disorder. I favor the former. 2. Stable bronchiectasis with chronic parenchymal groundglass opacities within the bases as well as scattered areas of nodularity. No acute infiltrate observed. 3. Coronary artery atherosclerotic calcification. 4. Tiny right effusion. Physical Exam Vital signs: Vital Signs 09/19/18 14:00 09/19/18 14:16 09/19/18 14:26 Temperature 98.4 F Pulse Rate 91 H 80 85 Respiratory Rate 22 20 21 Blood Pressure 124/70 115/59 L Pulse Oximetry 95 96 97 09/19/18 14:27 09/19/18 15:00 09/19/18 15:29 Temperature Pulse Rate 88 79 77 Respiratory Rate 22 20 20 Blood Pressure 111/55 L 122/60 Pulse Oximetry 96 97 09/19/18 16:00 09/19/18 17:00 09/19/18 18:00 Temperature 98.4 F Pulse Rate 76 82 80 Respiratory Rate 16 19 23 Blood Pressure 128/62 122/60 134/61 Pulse Oximetry 97 97 98 09/19/18 19:00 09/19/18 20:00 09/19/18 21:00 Temperature 98.3 F Pulse Rate 79 81 69 Respiratory Rate 20 27 H 16 Blood Pressure 133/63 132/61 118/59 L Pulse Oximetry 99 98 97 09/19/18 22:00 09/19/18 23:00 09/20/18 00:00 Temperature 98.1 F Pulse Rate 78 80 86 Respiratory Rate 21 16 18 Blood Pressure 133/63 139/64 138/64 Pulse Oximetry 97 98 97 09/20/18 01:00 09/20/18 02:00 09/20/18 02:10 Temperature Pulse Rate 84 92 H 89 Respiratory Rate 16 18 20 Blood Pressure 126/58 L 132/60 Pulse Oximetry 97 93 L 95 09/20/18 03:00 09/20/18 04:00 09/20/18 05:00 Temperature 97.8 F Pulse Rate 81 83 85 Respiratory Rate 16 16 15 Blood Pressure 119/57 L 125/60 124/63 Pulse Oximetry 95 93 L 97 09/20/18 06:00 09/20/18 07:00 09/20/18 08:00 Temperature 98.5 F Pulse Rate 86 82 94 H Respiratory Rate 16 17 23 Blood Pressure 124/58 L 116/55 L 120/57 L Pulse Oximetry 95 95 89 L 09/20/18 08:02 09/20/18 08:03 09/20/18 09:00 Temperature Pulse Rate 89 93 H Respiratory Rate 20 25 H Blood Pressure Pulse Oximetry 95 94 L 09/20/18 09:01 09/20/18 09:03 09/20/18 10:00 Temperature Pulse Rate 94 H 92 H 91 H Respiratory Rate 28 H 19 19 Blood Pressure 79/53 L 134/63 126/60 Pulse Oximetry 93 L 94 L 97 09/20/18 11:00 09/20/18 11:32 09/20/18 12:00 Temperature 99.2 F Pulse Rate 93 H 91 H 92 H Respiratory Rate 24 17 20 Blood Pressure 127/59 L 129/60 Pulse Oximetry 96 97 Intake & Output 09/19/18 09/20/18 09/20/18 18:59 06:59 18:59 Intake Total 680 / 680 250 / 250 Output Total 600 / 600 425 / 425 Balance 80 / 80 -175 / -175 Weight 89 kg Intake: IV 100 / 100 100 / 100 Protonix Inj 80 MG In NS Inj 100 / 100 100 / 100 100 ML @ 10 mls/hr IV.CONT Q24H [facility] Rx#:[id number] Oral 480 / 480 150 / 150 Anesthesia Amount 100 / 100 Output: Urine 600 / 600 425 / 425 Stool 0 / 0 Other: Date of Last Bowel Movement 09/18/18 09/18/18 09/18/18 # Bowel Movements 0 - Constitutional no acute distress - Routine HEENT Exam Eye: Present: PERRL - Routine Neck Exam Present: supple - Routine Respiratory Exam Present: rhonchi, diminished air movement - Routine Cardiovascular Exam Present: S1, S2 - Routine Abdominal Exam Present: soft, normoactive bowel sounds - Routine Extremities Exam Present: pulses intact - Routine Skin Exam Present: dry, warm - Routine Neurological Exam Present: alert, oriented X3 - Routine Psychiatric Exam Present: cooperative - Urinary Catheter Management Indwelling Urethral Catheter Cath placed during this visit: yes, but has since been removed by the nurse Reason for continuing: Decision to DC catheter Insertion date: 09/17/18 Insertion time: 02:34 Removal date: 09/18/18 Removal time: 17:30 Assessment and Plan - Assessment (1) NSTEMI (non-ST elevated myocardial infarction) Code(s): I21.4 - Non-ST elevation (NSTEMI) myocardial infarction Status: Acute Plan: Cards following, will medical management. No plans for cath or stent r/t Gi bleed and inability to anticoagulate. (2) Occult blood in stools Code(s): R19.5 - Other fecal abnormalities Status: Acute Plan: GI consult noted. He will need EGD completed, showing gastritis (3) COPD (chronic obstructive pulmonary disease) Code(s): J44.9 - Chronic obstructive pulmonary disease, unspecified Status: Chronic Plan: Pulmonary consult, Pulmonary following Cont oxygen support, bronchodilators (4) Hyperlipidemia Code(s): E78.5 - Hyperlipidemia, unspecified Status: Chronic Plan: Cont home meds and HH diet (5) Hypertension Code(s): I10 - Essential (primary) hypertension Status: Chronic Plan: Follow BP closely and adjust meds as needed - Assessment and Plan 09/17/18 - Adm to ICU for NSTEMI. Decision regarding cath today is pending at this time. He will also be seen by GI for guaiac positive stools and we will monitor HG. Pulm to see today and adjust meds as indicated. 09/18/18 - Gi and Cards will need to decide which W/U will be done first. CT ordered per GI recommendations. Will recheck labs and F/U daily pending eval for bleeding. Cards wants W/U after GI eval done so he can be anticoagulated 09/19/18- Resting in bed, uneventful night. Denies CP, Palpations, Sat's maintained on 2 liters, he does have some wheezes. Cont with Bronchodilators, and oxygen support. Scheduled for EGD today, HGB 7.9 today, cont to monitor 09/20/18- Patient remains stable, had EGD completed yesterday, no further workup planned. Cardiac to manage medically, related to inability to anticoagulate. HGb stable this am, will transfer to medical/tele floor. Pt to treat. DC when medically stale and cleared by pulmonary. (4) Hyperlipidemia Qualifiers: Hyperlipidemia type: mixed hyperlipidemia Qualified Code(s): E78.2 - Mixed hyperlipidemia
--- NOTE | 2018-09-20 14:29 | P.PNCA ---
Subjective Interval history: Patient denies any CP, pressure, palpitations, dizziness or edema. Patient does complain of mild SOB with activity. Medications and Allergies Allergies Allergy/AdvReac Type Severity Reaction Status Date / Time NKA Allergy Unknown Uncoded 06/26/03 03:11 No Known Allergies Allergy Uncoded 03/09/14 10:21 Home Medications Medication Instructions Recorded Confirmed Type albuterol sulfate 2.5 mg INHALATION QID PRN 09/17/18 09/17/18 History tamsulosin [Flomax] 0.4 mg PO DAILY 09/17/18 09/17/18 History Active Medications: Active Medications Acetaminophen (Tylenol) 650 mg PO Q4H PRN PRN Reason: Temp > 100.4 Last Admin: 09/19/18 11:31 Dose: 650 mg Al Hydroxide/Mg Hydroxide (Milk Of [place] Liq) 30 ml PO Q12H PRN PRN Reason: Mild Constipation Albuterol (Duoneb Neb (Prn)) 1 ampul NEB Q2HR NEB PRN PRN Reason: DYSPNEA Albuterol (Duoneb Neb ([place])) 1 ampul NEB Q4HR NEB [facility] Last Admin: 09/20/18 11:32 Dose: 1 ampul Atorvastatin Calcium (Lipitor) 80 mg PO HS [facility] Bisacodyl (Dulcolax Supp) 10 mg RECTAL DAILY PRN PRN Reason: SEVERE CONSITIPATION Budesonide/Formoterol Fumarate (Symbicort 160/4.5 Mcg Inh) 2 puff INH BID [facility] Last Admin: 09/20/18 09:40 Dose: 2 puff Chlorhexidine Gluconate (Chlorhexidine 2% Cloth) 3 pack TOPICAL DAILY@0400 [facility] Stop: 09/23/18 03:59 Last Admin: 09/20/18 06:36 Dose: Not Given Chlorhexidine Gluconate (Chlorhexidine 2% Cloth) 3 pack TOPICAL DAILY@0400 PRN PRN Reason: Extra cloth needed Stop: 09/23/18 03:59 Lactulose (Lactulose Liq) 30 ml PO DAILY PRN PRN Reason: SEVERE CONSITIPATION Metoprolol Tartrate (Lopressor) 25 mg PO BID [facility] Morphine Sulfate (Morphine Inj) 2 mg IV.PUSH Q3H PRN PRN Reason: CHEST PAIN Last Admin: 09/20/18 13:58 Dose: 2 mg Ondansetron HCl (Zofran Inj) 4 mg IV.PUSH Q6H PRN PRN Reason: NAUSEA OR VOMITING Last Admin: 09/19/18 23:46 Dose: 4 mg Pantoprazole Sodium (Protonix) 40 mg PO DAILY [facility] Senna/Docusate Sodium (Margot-Colace) 1 tab PO BID [facility] Last Admin: 09/20/18 09:39 Dose: 1 tab Sennosides (Senokot) 17.2 mg PO Q12H PRN PRN Reason: Moderate Constipation Sodium Chloride (Ns Flush) 2 ml IV.FLUSH BID [facility] Last Admin: 09/20/18 09:40 Dose: 2 ml Sodium Chloride (Ns Flush) 2 ml IV.FLUSH PRN PRN PRN Reason: FLUSH AFTER USING IV ACCESS Tamsulosin HCl (Flomax) 0.4 mg PO DAILY [facility] Last Admin: 09/20/18 09:39 Dose: 0.4 mg Physical Exam Vital signs: Vital Signs 09/19/18 14:16 09/19/18 14:26 09/19/18 14:27 Temperature Pulse Rate 80 85 88 Respiratory Rate 20 21 22 Blood Pressure 115/59 L 111/55 L Pulse Oximetry 96 97 96 09/19/18 15:00 09/19/18 15:29 09/19/18 16:00 Temperature 98.4 F Pulse Rate 79 77 76 Respiratory Rate 20 20 16 Blood Pressure 122/60 128/62 Pulse Oximetry 97 97 09/19/18 17:00 09/19/18 18:00 09/19/18 19:00 Temperature Pulse Rate 82 80 79 Respiratory Rate 19 23 20 Blood Pressure 122/60 134/61 133/63 Pulse Oximetry 97 98 99 09/19/18 20:00 09/19/18 21:00 09/19/18 22:00 Temperature 98.3 F Pulse Rate 81 69 78 Respiratory Rate 27 H 16 21 Blood Pressure 132/61 118/59 L 133/63 Pulse Oximetry 98 97 97 09/19/18 23:00 09/20/18 00:00 09/20/18 01:00 Temperature 98.1 F Pulse Rate 80 86 84 Respiratory Rate 16 18 16 Blood Pressure 139/64 138/64 126/58 L Pulse Oximetry 98 97 97 09/20/18 02:00 09/20/18 02:10 09/20/18 03:00 Temperature Pulse Rate 92 H 89 81 Respiratory Rate 18 20 16 Blood Pressure 132/60 119/57 L Pulse Oximetry 93 L 95 95 09/20/18 04:00 09/20/18 05:00 09/20/18 06:00 Temperature 97.8 F Pulse Rate 83 85 86 Respiratory Rate 16 15 16 Blood Pressure 125/60 124/63 124/58 L Pulse Oximetry 93 L 97 95 09/20/18 07:00 09/20/18 08:00 09/20/18 08:02 Temperature 98.5 F Pulse Rate 82 94 H 89 Respiratory Rate 17 23 20 Blood Pressure 116/55 L 120/57 L Pulse Oximetry 95 89 L 09/20/18 08:03 09/20/18 09:00 09/20/18 09:01 Temperature Pulse Rate 93 H 94 H Respiratory Rate 25 H 28 H Blood Pressure 79/53 L Pulse Oximetry 95 94 L 93 L 09/20/18 09:03 09/20/18 10:00 09/20/18 11:00 Temperature Pulse Rate 92 H 91 H 93 H Respiratory Rate 19 19 24 Blood Pressure 134/63 126/60 127/59 L Pulse Oximetry 94 L 97 96 09/20/18 11:32 09/20/18 12:00 Temperature 99.2 F Pulse Rate 91 H 92 H Respiratory Rate 17 20 Blood Pressure 129/60 Pulse Oximetry 97 Intake & Output 09/19/18 09/20/18 09/20/18 18:59 06:59 18:59 Intake Total 680 / 680 250 / 250 Output Total 600 / 600 425 / 425 Balance 80 / 80 -175 / -175 Weight 89 kg Intake: IV 100 / 100 100 / 100 Protonix Inj 80 MG In NS Inj 100 / 100 100 / 100 100 ML @ 10 mls/hr IV.CONT Q24H [facility] Rx#:[id number] Oral 480 / 480 150 / 150 Anesthesia Amount 100 / 100 Output: Urine 600 / 600 425 / 425 Stool 0 / 0 Other: Date of Last Bowel Movement 09/18/18 09/18/18 09/18/18 # Bowel Movements 0 - Constitutional no acute distress - Routine HEENT Exam Head: Present: normocephalic Eye: Present: PERRL ENT: Present: mucous membranes moist - Routine Neck Exam Present: full ROM - Routine Respiratory Exam Present: rhonchi Comments: bilateral - Routine Cardiovascular Exam Present: S1, S2. Absent: gallop, rubs - Routine Abdominal Exam Present: normoactive bowel sounds - Routine Extremities Exam Present: full ROM, pulses intact, normal capillary refill. Absent: cyanosis, clubbing, edema Comments: left lower leg and foot are very sensitive to touch due to past injury. - Routine Skin Exam Present: intact - Routine Neurological Exam Present: oriented X3 - Detailed Neurological Exam: Coma Scale Eye Opening: Spontaneous Verbal Response: Oriented Motor Response: Obey commands [place] Coma Scale Total: 15 - Routine Psychiatric Exam Present: normal affect - Urinary Catheter Management Indwelling Urethral Catheter Cath placed during this visit: yes, but has since been removed by the nurse Reason for continuing: Decision to DC catheter Insertion date: 09/17/18 Insertion time: 02:34 Removal date: 09/18/18 Removal time: 17:30 Results 09/20/18 07:55 09/20/18 07:55 CBC 09/19/18 09/20/18 Range/Units 03:57 07:55 WBC 7.2 7.9 (4.0-11.0) th/mm3 RBC 3.13 L 3.30 L (4.50-5.90) mil/mm3 Hgb 7.9 L 8.4 L (13.0-17.0) gm/dL Hct 24.3 L 25.9 L (39.0-51.0) % Plt Count 120 L 145 L (150-450) th/mm3 Neut # (Auto) 5.3 6.2 (1.8-7.7) th/mm3 Lymph # (Auto) 0.9 L 0.6 L (1.0-4.8) th/mm3 [place] # (Auto) 0.6 0.5 (0.0-0.9) th/mm3 Eos # (Auto) 0.4 0.6 H (0.0-0.4) th/mm3 Baso # (Auto) 0.1 0.0 (0.0-0.2) th/mm3 Comprehensive Metabolic Panel 09/20/18 Range/Units 07:55 Sodium 142 (136-145) meq/L Potassium 5.0 (3.5-5.1) meq/L Chloride 106 (98-107) meq/L Carbon Dioxide 31.7 (21.0-32.0) meq/L BUN 13 (7-18) mg/dL Creatinine 1.10 (0.60-1.30) mg/dL Calcium 8.0 L (8.5-10.1) mg/dL Intake and Output 09/19/18 09/20/18 09/20/18 22:59 06:59 14:59 Intake Total 580 / 580 150 / 150 Output Total 600 / 600 425 / 425 Balance -20 / -20 -275 / -275 Intake: IV 100 / 100 Protonix Inj 80 MG In NS Inj 100 / 100 100 ML @ 10 mls/hr IV.CONT Q24H [facility] Rx#:[id number] Oral 480 / 480 150 / 150 Output: Urine 600 / 600 425 / 425 Stool 0 / 0 Other: Date of Last Bowel Movement 09/18/18 09/18/18 09/18/18 # Bowel Movements 0 Weight 89 kg - Imaging and Cardiology Imaging: Impressions Abdomen/Pelvis CT 09/18/18 00:00 CONCLUSION: 1. Multiple loops of marginally distended fluid-filled small bowel without definite transition point although distal ileal loops are decompressed. Differential considerations include developing adynamic ileus versus enteritis. 2. Ancillary findings include cholelithiasis, colonic diverticulosis and nonspecific prostate enlargement. Chest CT 09/20/18 00:00 CONCLUSION: 1. Enlarging mediastinal lymph nodes relative to the prior study. This suggests either reactive lymphadenopathy or a myeloproliferative disorder. I favor the former. 2. Stable bronchiectasis with chronic parenchymal groundglass opacities within the bases as well as scattered areas of nodularity. No acute infiltrate observed. 3. Coronary artery atherosclerotic calcification. 4. Tiny right effusion. Assessment and Plan - Assessment (1) NSTEMI (non-ST elevated myocardial infarction) Code(s): I21.4 - Non-ST elevation (NSTEMI) myocardial infarction Status: Acute (2) Occult blood in stools Code(s): R19.5 - Other fecal abnormalities Status: Acute (3) COPD (chronic obstructive pulmonary disease) Code(s): J44.9 - Chronic obstructive pulmonary disease, unspecified Status: Chronic (4) Hyperlipidemia Code(s): E78.5 - Hyperlipidemia, unspecified Status: Chronic (5) Hypertension Code(s): I10 - Essential (primary) hypertension Status: Chronic - Plan EGD done yesterday, no source of GI bleed found, GI evaluation in progress. Source of bleeding has not been identified; cardiac catheterization with possible coronary intervention and stent placement requires anticoagulation which would be more of a risk than benefit for the patient at this time. We will start Atorvastatin 80mg QHS and Metoprolol 25mg BID, post VA treatment. Continue aggressive cardiac risk factor modifications. Current treatment plan was discussed with the patient at bedside. We will continue to follow the patient during his hospitalization. The patient was seen and evaluated by Dr. Flores who participated in care, management and decision making. - Attending Attestation Patient seen and examined. I reviewed and agree with the evaluation and plan as presented. The source of GI bleed unclear. Continue post VA conservative management. No angina or CHF symptoms. Transfer to floor with tele. Increase activity as tolerated. (4) Hyperlipidemia Qualifiers: Hyperlipidemia type: mixed hyperlipidemia Qualified Code(s): E78.2 - Mixed hyperlipidemia
--- NOTE | 2018-09-20 18:23 | P.PN ---
Subjective Interval history: He is breathing easy. CT chest shows enlarging mediastinal nodes. On 2 L o2. No chest pains. Physical Exam Vital signs: Vital Signs 09/19/18 19:00 09/19/18 20:00 09/19/18 21:00 Temperature 98.3 F Pulse Rate 79 81 69 Respiratory Rate 20 27 H 16 Blood Pressure 133/63 132/61 118/59 L Pulse Oximetry 99 98 97 09/19/18 22:00 09/19/18 23:00 09/20/18 00:00 Temperature 98.1 F Pulse Rate 78 80 86 Respiratory Rate 21 16 18 Blood Pressure 133/63 139/64 138/64 Pulse Oximetry 97 98 97 09/20/18 01:00 09/20/18 02:00 09/20/18 02:10 Temperature Pulse Rate 84 92 H 89 Respiratory Rate 16 18 20 Blood Pressure 126/58 L 132/60 Pulse Oximetry 97 93 L 95 09/20/18 03:00 09/20/18 04:00 09/20/18 05:00 Temperature 97.8 F Pulse Rate 81 83 85 Respiratory Rate 16 16 15 Blood Pressure 119/57 L 125/60 124/63 Pulse Oximetry 95 93 L 97 09/20/18 06:00 09/20/18 07:00 09/20/18 08:00 Temperature 98.5 F Pulse Rate 86 82 94 H Respiratory Rate 16 17 23 Blood Pressure 124/58 L 116/55 L 120/57 L Pulse Oximetry 95 95 89 L 09/20/18 08:02 09/20/18 08:03 09/20/18 09:00 Temperature Pulse Rate 89 93 H Respiratory Rate 20 25 H Blood Pressure Pulse Oximetry 95 94 L 09/20/18 09:01 09/20/18 09:03 09/20/18 10:00 Temperature Pulse Rate 94 H 92 H 91 H Respiratory Rate 28 H 19 19 Blood Pressure 79/53 L 134/63 126/60 Pulse Oximetry 93 L 94 L 97 09/20/18 11:00 09/20/18 11:32 09/20/18 12:00 Temperature 99.2 F Pulse Rate 93 H 91 H 92 H Respiratory Rate 24 17 20 Blood Pressure 127/59 L 129/60 Pulse Oximetry 96 97 09/20/18 13:00 09/20/18 14:00 09/20/18 15:00 Temperature Pulse Rate 93 H 96 H 92 H Respiratory Rate 20 18 18 Blood Pressure 130/60 120/58 L 122/58 L Pulse Oximetry 97 96 96 09/20/18 16:00 09/20/18 17:00 Temperature 98.2 F Pulse Rate 94 H 93 H Respiratory Rate 22 22 Blood Pressure 124/58 L 132/63 Pulse Oximetry 94 L 96 Intake & Output 09/19/18 09/20/18 09/20/18 18:59 06:59 18:59 Intake Total 680 / 680 250 / 250 Output Total 600 / 600 425 / 425 Balance 80 / 80 -175 / -175 Weight 89 kg Intake: IV 100 / 100 100 / 100 Protonix Inj 80 MG In NS Inj 100 / 100 100 / 100 100 ML @ 10 mls/hr IV.CONT Q24H [facility] Rx#:[id number] Oral 480 / 480 150 / 150 Anesthesia Amount 100 / 100 Output: Urine 600 / 600 425 / 425 Stool 0 / 0 Other: Date of Last Bowel Movement 09/18/18 09/18/18 09/18/18 # Bowel Movements 0 GENERAL: Elderly W/M alert and not in distress SKIN: Warm and dry. HEAD: Atraumatic. Normocephalic. EYES: Pupils equal and round. No scleral icterus. No injection or drainage. ENT: No nasal bleeding or discharge. Mucous membranes pink and moist. NECK: Trachea midline. No JVD. CARDIOVASCULAR: Regular rate and rhythm. RESPIRATORY: No accessory muscle use. Bilateral wheeze. Breath sounds equal bilaterally. GASTROINTESTINAL: Abdomen soft, non-tender, nondistended. Hepatic and splenic margins not palpable. MUSCULOSKELETAL: Extremities without clubbing, cyanosis, or edema. No obvious deformities. NEUROLOGICAL: Awake and alert. No obvious cranial nerve deficits. Motor grossly within normal limits. Normal speech. PSYCHIATRIC: Appropriate mood and affect; insight and judgment normal. - Urinary Catheter Management Indwelling Urethral Catheter Cath placed during this visit: yes, but has since been removed by the nurse Reason for continuing: Decision to DC catheter Insertion date: 09/17/18 Insertion time: 02:34 Removal date: 09/18/18 Removal time: 17:30 Results - Labs CBC & Chem 7: 09/20/18 07:55 09/20/18 07:55 Laboratory Results - last 24 hr 09/20/18 09/20/18 07:55 07:55 WBC 7.9 RBC 3.30 L Hgb 8.4 L Hct 25.9 L MCV 78.5 L MCH 25.4 L MCHC 32.3 RDW 19.2 H Plt Count 145 L MPV 8.2 Neut % (Auto) 78.0 H Lymph % (Auto) 7.0 L [place] % (Auto) 6.7 Eos % (Auto) 7.7 H Baso % (Auto) 0.6 Neut # (Auto) 6.2 Lymph # (Auto) 0.6 L [place] # (Auto) 0.5 Eos # (Auto) 0.6 H Baso # (Auto) 0.0 WBC Differential . Differential Comment Auto diff final Sodium 142 Potassium 5.0 Chloride 106 Carbon Dioxide 31.7 Anion Gap 4 L BUN 13 Creatinine 1.10 Estimated GFR 65 L Random Glucose 99 Calcium 8.0 L - Imaging Impressions Chest CT 09/20/18 00:00 CONCLUSION: 1. Enlarging mediastinal lymph nodes relative to the prior study. This suggests either reactive lymphadenopathy or a myeloproliferative disorder. I favor the former. 2. Stable bronchiectasis with chronic parenchymal groundglass opacities within the bases as well as scattered areas of nodularity. No acute infiltrate observed. 3. Coronary artery atherosclerotic calcification. 4. Tiny right effusion. Assessment and Plan - Assessment (1) Gastritis Code(s): K29.70 - Gastritis, unspecified, without bleeding Status: Acute (2) NSTEMI (non-ST elevated myocardial infarction) Code(s): I21.4 - Non-ST elevation (NSTEMI) myocardial infarction Status: Acute (3) Occult blood in stools Code(s): R19.5 - Other fecal abnormalities Status: Acute (4) COPD (chronic obstructive pulmonary disease) Code(s): J44.9 - Chronic obstructive pulmonary disease, unspecified Status: Chronic (5) Hyperlipidemia Code(s): E78.5 - Hyperlipidemia, unspecified Status: Chronic (6) Hypertension Code(s): I10 - Essential (primary) hypertension Status: Chronic - Plan 1. O2 at 2 L N/C 2. Cont Duoneb nebs qid. 3. Continue Symbicort 160/4.5 mcg , 2 puffs BID 4. Get PET CT as OP . 5. Continue Protonix 40 mg daily. 6. CBC,BMP,PFT (5) Hyperlipidemia Qualifiers: Hyperlipidemia type: mixed hyperlipidemia Qualified Code(s): E78.2 - Mixed hyperlipidemia
[2018-09-20] MEDS: Acetaminophen 325 MG Tablet PO PRN (18:36)
[2018-09-20] MEDS: Metoprolol Tartrate 25 MG Tablet PO SCH (20:36)
[2018-09-21 04:38] LABS: Hematocrit 25.1 % (39.0-51.0); Mean Corpuscular Volume 78.1 fL (80.0-100.0); Mean Platelet Volume 8.2 fL (7.0-11.0); Platelet Count 116 th/mm3 (150-450); Red Blood Count 3.22 mil/mm3 (4.50-5.90); Red Cell Distribution Width 18.1 % (11.6-17.2); White Blood Count 7.5 th/mm3 (4.0-11.0)
[2018-09-21 04:55] LABS: Calcium 8.6 mg/dL (8.5-10.1); Carbon Dioxide 32.3 meq/L (21.0-32.0); Potassium 4.3 meq/L (3.5-5.1)
[2018-09-21] MEDS: Chlorhexidine Gluconate 2% 1 Pack (2 Cloths) TOPICAL SCH (05:16)
[2018-09-21] MEDS: Acetaminophen 325 MG Tablet PO PRN (05:20)
--- NOTE | 2018-09-21 07:15 | P.PNFP ---
Subjective Interval history: Slept well, Complains of mucous, unable to bring up Does have some SOB, Sat's maintained on O2. Results - Labs Result diagrams: 09/21/18 03:55 09/21/18 03:55 Abnormal lab results 09/20/18 09/20/18 09/21/18 Range/Units 07:55 07:55 03:55 RBC 3.30 L 3.22 L (4.50-5.90) mil/mm3 Hgb 8.4 L 8.0 L (13.0-17.0) gm/dL Hct 25.9 L 25.1 L (39.0-51.0) % MCV 78.5 L 78.1 L (80.0-100.0) fL MCH 25.4 L 25.0 L (27.0-34.0) pg RDW 19.2 H 18.1 H (11.6-17.2) % Plt Count 145 L 116 L (150-450) th/mm3 Neut % (Auto) 78.0 H (16.0-70.0) % Lymph % (Auto) 7.0 L (9.0-44.0) % Eos % (Auto) 7.7 H (0.0-4.0) % Lymph # (Auto) 0.6 L (1.0-4.8) th/mm3 Eos # (Auto) 0.6 H (0.0-0.4) th/mm3 Carbon Dioxide (21.0-32.0) meq/L Anion Gap 4 L (5-15) meq/L Estimated GFR 65 L (>89) mL/min Calcium 8.0 L (8.5-10.1) mg/dL 09/21/18 Range/Units 03:55 RBC (4.50-5.90) mil/mm3 Hgb (13.0-17.0) gm/dL Hct (39.0-51.0) % MCV (80.0-100.0) fL MCH (27.0-34.0) pg RDW (11.6-17.2) % Plt Count (150-450) th/mm3 Neut % (Auto) (16.0-70.0) % Lymph % (Auto) (9.0-44.0) % Eos % (Auto) (0.0-4.0) % Lymph # (Auto) (1.0-4.8) th/mm3 Eos # (Auto) (0.0-0.4) th/mm3 Carbon Dioxide 32.3 H (21.0-32.0) meq/L Anion Gap 4 L (5-15) meq/L Estimated GFR 74 L (>89) mL/min Calcium (8.5-10.1) mg/dL Short CBC 09/20/18 09/21/18 Range/Units 07:55 03:55 WBC 7.9 7.5 (4.0-11.0) th/mm3 Hgb 8.4 L 8.0 L (13.0-17.0) gm/dL Hct 25.9 L 25.1 L (39.0-51.0) % Plt Count 145 L 116 L (150-450) th/mm3 BMP 09/20/18 09/21/18 07:55 03:55 Sodium 142 138 Potassium 5.0 4.3 Chloride 106 102 Carbon Dioxide 31.7 32.3 H BUN 13 14 Creatinine 1.10 0.98 Calcium 8.0 L 8.6 - Imaging Impressions Chest CT 09/20/18 00:00 CONCLUSION: 1. Enlarging mediastinal lymph nodes relative to the prior study. This suggests either reactive lymphadenopathy or a myeloproliferative disorder. I favor the former. 2. Stable bronchiectasis with chronic parenchymal groundglass opacities within the bases as well as scattered areas of nodularity. No acute infiltrate observed. 3. Coronary artery atherosclerotic calcification. 4. Tiny right effusion. Physical Exam Vital signs: Vital Signs 09/20/18 08:00 09/20/18 08:02 09/20/18 08:03 Temperature 98.5 F Pulse Rate 94 H 89 Respiratory Rate 23 20 Blood Pressure 120/57 L Pulse Oximetry 89 L 95 09/20/18 09:00 09/20/18 09:01 09/20/18 09:03 Temperature Pulse Rate 93 H 94 H 92 H Respiratory Rate 25 H 28 H 19 Blood Pressure 79/53 L 134/63 Pulse Oximetry 94 L 93 L 94 L 09/20/18 10:00 09/20/18 11:00 09/20/18 11:32 Temperature Pulse Rate 91 H 93 H 91 H Respiratory Rate 19 24 17 Blood Pressure 126/60 127/59 L Pulse Oximetry 97 96 09/20/18 12:00 09/20/18 13:00 09/20/18 14:00 Temperature 99.2 F Pulse Rate 92 H 93 H 96 H Respiratory Rate 20 20 18 Blood Pressure 129/60 130/60 120/58 L Pulse Oximetry 97 97 96 09/20/18 15:00 09/20/18 16:00 09/20/18 17:00 Temperature 98.2 F Pulse Rate 92 H 94 H 93 H Respiratory Rate 18 22 22 Blood Pressure 122/58 L 124/58 L 132/63 Pulse Oximetry 96 94 L 96 09/20/18 19:00 09/20/18 19:57 09/20/18 20:00 Temperature Pulse Rate 96 H 87 90 Respiratory Rate 22 18 22 Blood Pressure 133/82 Pulse Oximetry 98 95 100 09/20/18 20:01 09/20/18 21:00 09/20/18 22:00 Temperature Pulse Rate 87 84 89 Respiratory Rate 14 21 17 Blood Pressure 145/61 H 121/59 L 131/63 Pulse Oximetry 100 97 96 09/20/18 23:00 09/21/18 00:00 09/21/18 01:00 Temperature 98.6 F Pulse Rate 89 86 88 Respiratory Rate 18 17 17 Blood Pressure 118/56 L 122/58 L 110/67 Pulse Oximetry 95 95 96 09/21/18 02:00 09/21/18 02:01 09/21/18 03:00 Temperature Pulse Rate 94 H 95 H 81 Respiratory Rate 22 34 H 17 Blood Pressure 144/62 H 130/60 Pulse Oximetry 95 96 96 09/21/18 04:00 09/21/18 05:00 Temperature Pulse Rate 94 H 84 Respiratory Rate 21 17 Blood Pressure 134/64 123/58 L Pulse Oximetry 95 97 Intake & Output 09/20/18 09/21/18 09/21/18 18:59 06:59 18:59 Intake Total 900 / 900 240 / 240 Output Total 1200 / 1200 425 / 425 Balance -300 / -300 -185 / -185 Weight 89 kg Intake: Oral 900 / 900 240 / 240 Output: Urine 1200 / 1200 425 / 425 Other: Date of Last Bowel Movement 09/18/18 09/18/18 - Constitutional no acute distress - Routine HEENT Exam Eye: Present: PERRL ENT: Present: mucous membranes moist - Routine Respiratory Exam Present: rhonchi, diminished air movement - Routine Cardiovascular Exam Present: S1, S2 - Routine Abdominal Exam Present: soft, normoactive bowel sounds - Routine Extremities Exam Present: pulses intact - Routine Skin Exam Present: dry, warm - Routine Neurological Exam Present: alert, oriented X3 - Routine Psychiatric Exam Present: cooperative - Urinary Catheter Management Indwelling Urethral Catheter Cath placed during this visit: yes, but has since been removed by the nurse Reason for continuing: Decision to DC catheter Insertion date: 09/17/18 Insertion time: 02:34 Removal date: 09/18/18 Removal time: 17:30 Assessment and Plan - Assessment (1) NSTEMI (non-ST elevated myocardial infarction) Code(s): I21.4 - Non-ST elevation (NSTEMI) myocardial infarction Status: Acute Plan: Cards following, will medical management. No plans for cath or stent r/t Gi bleed and inability to anticoagulate. (2) Occult blood in stools Code(s): R19.5 - Other fecal abnormalities Status: Acute Plan: GI consult noted. He will need EGD completed, showing gastritis (3) COPD (chronic obstructive pulmonary disease) Code(s): J44.9 - Chronic obstructive pulmonary disease, unspecified Status: Chronic Plan: Pulmonary consult, Pulmonary following Cont oxygen support, bronchodilators (4) Hyperlipidemia Code(s): E78.5 - Hyperlipidemia, unspecified Status: Chronic Plan: Cont home meds and HH diet (5) Hypertension Code(s): I10 - Essential (primary) hypertension Status: Chronic Plan: Follow BP closely and adjust meds as needed - Assessment and Plan 09/17/18 - Adm to ICU for NSTEMI. Decision regarding cath today is pending at this time. He will also be seen by GI for guaiac positive stools and we will monitor HG. Pulm to see today and adjust meds as indicated. 09/18/18 - Gi and Cards will need to decide which W/U will be done first. CT ordered per GI recommendations. Will recheck labs and F/U daily pending eval for bleeding. Cards wants W/U after GI eval done so he can be anticoagulated 09/19/18- Resting in bed, uneventful night. Denies CP, Palpations, Sat's maintained on 2 liters, he does have some wheezes. Cont with Bronchodilators, and oxygen support. Scheduled for EGD today, HGB 7.9 today, cont to monitor 09/20/18- Patient remains stable, had EGD completed yesterday, no further workup planned. Cardiac to manage medically, related to inability to anticoagulate. HGb stable this am, will transfer to medical/tele floor. Pt to treat. DC when medically stale and cleared by pulmonary. 09/21/18- Vss afebrile, he complains of increased sob with sputum production, Mucinex added. Order to transfer to medical floor when bed available, increase activity. Hgb stable 8.0 this am. (4) Hyperlipidemia Qualifiers: Hyperlipidemia type: mixed hyperlipidemia Qualified Code(s): E78.2 - Mixed hyperlipidemia
[2018-09-21] MEDS: Metoprolol Tartrate 25 MG Tablet PO SCH ×2 (08:03→21:04)
[2018-09-21] MEDS: guaiFENesin 600 MG ER Tablet PO SCH ×2 (08:03→21:05)
[2018-09-21] MEDS: Budesonide-Formoterol 160/4.5 MCG 6 GM Inhaler INH SCH ×2 (08:03→21:05)
[2018-09-21] MEDS: Senna/Docusate Sodium 8.6/50 MG Tablet PO SCH ×3 (08:03→21:10)
--- NOTE | 2018-09-21 11:54 | P.PNCA ---
Subjective Interval history: Patient denies any pressure, palpitations, dizziness or edema. Patient does complain of mild SOB with activity. He also complained of a mild episode of CP that occurred after coughing. Medications and Allergies Allergies Allergy/AdvReac Type Severity Reaction Status Date / Time NKA Allergy Unknown Uncoded 06/26/03 03:11 No Known Allergies Allergy Uncoded 03/09/14 10:21 Home Medications Medication Instructions Recorded Confirmed Type albuterol sulfate 2.5 mg INHALATION QID PRN 09/17/18 09/17/18 History tamsulosin [Flomax] 0.4 mg PO DAILY 09/17/18 09/17/18 History Active Medications: Active Medications Acetaminophen (Tylenol) 650 mg PO Q4H PRN PRN Reason: Temp > 100.4 Last Admin: 09/21/18 05:20 Dose: 650 mg Al Hydroxide/Mg Hydroxide (Milk Of Magnesia Liq) 30 ml PO Q12H PRN PRN Reason: Mild Constipation Albuterol (Duoneb Neb (Prn)) 1 ampul NEB Q2HR NEB PRN PRN Reason: DYSPNEA Albuterol (Duoneb Neb (Belem)) 1 ampul NEB Q4HR NEB [facility] Last Admin: 09/21/18 11:31 Dose: Not Given Atorvastatin Calcium (Lipitor) 80 mg PO HS [facility] Last Admin: 09/20/18 20:36 Dose: 80 mg Bisacodyl (Dulcolax Supp) 10 mg RECTAL DAILY PRN PRN Reason: SEVERE CONSITIPATION Budesonide/Formoterol Fumarate (Symbicort 160/4.5 Mcg Inh) 2 puff INH BID [facility] Last Admin: 09/21/18 08:03 Dose: 2 puff Chlorhexidine Gluconate (Chlorhexidine 2% Cloth) 3 pack TOPICAL DAILY@0400 [facility] Stop: 09/23/18 03:59 Last Admin: 09/21/18 05:16 Dose: 3 pack Chlorhexidine Gluconate (Chlorhexidine 2% Cloth) 3 pack TOPICAL DAILY@0400 PRN PRN Reason: Extra cloth needed Stop: 09/23/18 03:59 Guaifenesin (Mucinex Er) 600 mg PO BID [facility] Last Admin: 09/21/18 08:03 Dose: 600 mg Lactulose (Lactulose Liq) 30 ml PO DAILY PRN PRN Reason: SEVERE CONSITIPATION Last Admin: 09/21/18 10:22 Dose: 30 ml Metoprolol Tartrate (Lopressor) 25 mg PO BID [facility] Last Admin: 09/21/18 08:03 Dose: 25 mg Morphine Sulfate (Morphine Inj) 2 mg IV.PUSH Q3H PRN PRN Reason: CHEST PAIN Last Admin: 09/20/18 13:58 Dose: 2 mg Ondansetron HCl (Zofran Inj) 4 mg IV.PUSH Q6H PRN PRN Reason: NAUSEA OR VOMITING Last Admin: 09/19/18 23:46 Dose: 4 mg Pantoprazole Sodium (Protonix) 40 mg PO DAILY [facility] Last Admin: 09/21/18 08:03 Dose: 40 mg Senna/Docusate Sodium (Margot-Colace) 1 tab PO BID [facility] Last Admin: 09/21/18 08:03 Dose: Not Given Sennosides (Senokot) 17.2 mg PO Q12H PRN PRN Reason: Moderate Constipation Last Admin: 09/21/18 10:22 Dose: 17.2 mg Sodium Chloride (Ns Flush) 2 ml IV.FLUSH BID [facility] Last Admin: 09/21/18 08:03 Dose: 2 ml Sodium Chloride (Ns Flush) 2 ml IV.FLUSH PRN PRN PRN Reason: FLUSH AFTER USING IV ACCESS Tamsulosin HCl (Flomax) 0.4 mg PO DAILY [facility] Last Admin: 09/21/18 08:03 Dose: 0.4 mg Physical Exam Vital signs: Vital Signs 09/20/18 12:00 09/20/18 13:00 09/20/18 14:00 Temperature 99.2 F Pulse Rate 92 H 93 H 96 H Respiratory Rate 20 20 18 Blood Pressure 129/60 130/60 120/58 L Pulse Oximetry 97 97 96 09/20/18 15:00 09/20/18 16:00 09/20/18 17:00 Temperature 98.2 F Pulse Rate 92 H 94 H 93 H Respiratory Rate 18 22 22 Blood Pressure 122/58 L 124/58 L 132/63 Pulse Oximetry 96 94 L 96 09/20/18 19:00 09/20/18 19:57 09/20/18 20:00 Temperature Pulse Rate 96 H 87 90 Respiratory Rate 22 18 22 Blood Pressure 133/82 Pulse Oximetry 98 95 100 09/20/18 20:01 09/20/18 21:00 09/20/18 22:00 Temperature Pulse Rate 87 84 89 Respiratory Rate 14 21 17 Blood Pressure 145/61 H 121/59 L 131/63 Pulse Oximetry 100 97 96 09/20/18 23:00 09/21/18 00:00 09/21/18 01:00 Temperature 98.6 F Pulse Rate 89 86 88 Respiratory Rate 18 17 17 Blood Pressure 118/56 L 122/58 L 110/67 Pulse Oximetry 95 95 96 09/21/18 02:00 09/21/18 02:01 09/21/18 03:00 Temperature Pulse Rate 94 H 95 H 81 Respiratory Rate 22 34 H 17 Blood Pressure 144/62 H 130/60 Pulse Oximetry 95 96 96 09/21/18 04:00 09/21/18 05:00 09/21/18 06:00 Temperature Pulse Rate 94 H 84 83 Respiratory Rate 21 17 16 Blood Pressure 134/64 123/58 L 123/58 L Pulse Oximetry 95 97 94 L 09/21/18 07:00 09/21/18 08:00 09/21/18 08:14 Temperature 97.8 F Pulse Rate 86 89 82 Respiratory Rate 19 22 17 Blood Pressure 124/60 131/60 Pulse Oximetry 96 93 L 09/21/18 08:15 09/21/18 09:00 Temperature Pulse Rate 78 Respiratory Rate 18 Blood Pressure 108/56 L Pulse Oximetry 92 L 94 L Intake & Output 09/20/18 09/21/18 09/21/18 18:59 06:59 18:59 Intake Total 900 / 900 240 / 240 Output Total 1200 / 1200 425 / 425 Balance -300 / -300 -185 / -185 Weight 89 kg Intake: Oral 900 / 900 240 / 240 Output: Urine 1200 / 1200 425 / 425 Other: Date of Last Bowel Movement 09/18/18 09/18/18 09/18/18 - Constitutional no acute distress - Routine HEENT Exam Head: Present: normocephalic Eye: Present: PERRL ENT: Present: mucous membranes moist - Routine Neck Exam Present: full ROM - Routine Respiratory Exam Present: rhonchi Comments: rhonchi throughout right lung and diminished breath sounds on the left. - Routine Cardiovascular Exam Present: S1, S2. Absent: murmur, gallop, rubs - Routine Abdominal Exam Present: normoactive bowel sounds - Routine Extremities Exam Present: full ROM, pulses intact, normal capillary refill. Absent: cyanosis, clubbing, edema - Routine Skin Exam Present: intact - Routine Neurological Exam Present: oriented X3 - Detailed Neurological Exam: Coma Scale Eye Opening: Spontaneous Verbal Response: Oriented Motor Response: Obey commands [place] Coma Scale Total: 15 - Routine Psychiatric Exam Present: normal affect - Urinary Catheter Management Indwelling Urethral Catheter Cath placed during this visit: yes, but has since been removed by the nurse Reason for continuing: Decision to DC catheter Insertion date: 09/17/18 Insertion time: 02:34 Removal date: 09/18/18 Removal time: 17:30 Results 09/21/18 03:55 09/21/18 03:55 CBC 09/20/18 09/21/18 Range/Units 07:55 03:55 WBC 7.9 7.5 (4.0-11.0) th/mm3 RBC 3.30 L 3.22 L (4.50-5.90) mil/mm3 Hgb 8.4 L 8.0 L (13.0-17.0) gm/dL Hct 25.9 L 25.1 L (39.0-51.0) % Plt Count 145 L 116 L (150-450) th/mm3 Neut # (Auto) 6.2 (1.8-7.7) th/mm3 Lymph # (Auto) 0.6 L (1.0-4.8) th/mm3 Will # (Auto) 0.5 (0.0-0.9) th/mm3 Eos # (Auto) 0.6 H (0.0-0.4) th/mm3 Baso # (Auto) 0.0 (0.0-0.2) th/mm3 Comprehensive Metabolic Panel 09/20/18 09/21/18 Range/Units 07:55 03:55 Sodium 142 138 (136-145) meq/L Potassium 5.0 4.3 (3.5-5.1) meq/L Chloride 106 102 (98-107) meq/L Carbon Dioxide 31.7 32.3 H (21.0-32.0) meq/L BUN 13 14 (7-18) mg/dL Creatinine 1.10 0.98 (0.60-1.30) mg/dL Calcium 8.0 L 8.6 (8.5-10.1) mg/dL Intake and Output 09/20/18 09/21/18 09/21/18 22:59 06:59 14:59 Intake Total 900 / 900 240 / 240 Output Total 1200 / 1200 425 / 425 Balance -300 / -300 -185 / -185 Intake: Oral 900 / 900 240 / 240 Output: Urine 1200 / 1200 425 / 425 Other: Date of Last Bowel Movement 09/18/18 09/18/18 09/18/18 Weight 89 kg - Imaging and Cardiology Imaging: Impressions Chest CT 09/20/18 00:00 CONCLUSION: 1. Enlarging mediastinal lymph nodes relative to the prior study. This suggests either reactive lymphadenopathy or a myeloproliferative disorder. I favor the former. 2. Stable bronchiectasis with chronic parenchymal groundglass opacities within the bases as well as scattered areas of nodularity. No acute infiltrate observed. 3. Coronary artery atherosclerotic calcification. 4. Tiny right effusion. Assessment and Plan - Assessment (1) NSTEMI (non-ST elevated myocardial infarction) Code(s): I21.4 - Non-ST elevation (NSTEMI) myocardial infarction Status: Acute (2) Occult blood in stools Code(s): R19.5 - Other fecal abnormalities Status: Acute (3) COPD (chronic obstructive pulmonary disease) Code(s): J44.9 - Chronic obstructive pulmonary disease, unspecified Status: Chronic (4) Hyperlipidemia Code(s): E78.5 - Hyperlipidemia, unspecified Status: Chronic (5) Hypertension Code(s): I10 - Essential (primary) hypertension Status: Chronic - Plan No new cardiac issues at this time, continue with current cardiac treatment plan. We will continue aggressive cardiac risk factor modifications. Patient is cleared to be transferred to [facility] from a cardiac standpoint. Increase activity as patient tolerates. We will continue to follow the patient during his hospitalization. The patient was seen and evaluated by Dr. Flores who participated in care, management and decision making. - Attending Attestation Patient seen and examined. I reviewed and agree with the evaluation and plan as presented. He remains stable from cardiac standpoint. Continue post [place] care. Transfer to floor with tele. (4) Hyperlipidemia Qualifiers: Hyperlipidemia type: mixed hyperlipidemia Qualified Code(s): E78.2 - Mixed hyperlipidemia
--- NOTE | 2018-09-21 19:29 | P.PN ---
Subjective Interval history: Sitting up and seem s to be breathing better. On O2 2 L. Good output. No chest pains Physical Exam Vital signs: Vital Signs 09/20/18 19:57 09/20/18 20:00 09/20/18 20:01 Temperature Pulse Rate 87 90 87 Respiratory Rate 18 22 14 Blood Pressure 145/61 H Pulse Oximetry 95 100 100 09/20/18 21:00 09/20/18 22:00 09/20/18 23:00 Temperature Pulse Rate 84 89 89 Respiratory Rate 21 17 18 Blood Pressure 121/59 L 131/63 118/56 L Pulse Oximetry 97 96 95 09/21/18 00:00 09/21/18 01:00 09/21/18 02:00 Temperature 98.6 F Pulse Rate 86 88 94 H Respiratory Rate 17 17 22 Blood Pressure 122/58 L 110/67 Pulse Oximetry 95 96 95 09/21/18 02:01 09/21/18 03:00 09/21/18 04:00 Temperature Pulse Rate 95 H 81 94 H Respiratory Rate 34 H 17 21 Blood Pressure 144/62 H 130/60 134/64 Pulse Oximetry 96 96 95 09/21/18 05:00 09/21/18 06:00 09/21/18 07:00 Temperature Pulse Rate 84 83 86 Respiratory Rate 17 16 19 Blood Pressure 123/58 L 123/58 L 124/60 Pulse Oximetry 97 94 L 96 09/21/18 08:00 09/21/18 08:14 09/21/18 08:15 Temperature 97.8 F Pulse Rate 89 82 Respiratory Rate 22 17 Blood Pressure 131/60 Pulse Oximetry 93 L 92 L 09/21/18 09:00 09/21/18 09:58 09/21/18 10:00 Temperature Pulse Rate 78 84 85 Respiratory Rate 18 29 H 32 H Blood Pressure 108/56 L 110/59 L Pulse Oximetry 94 L 94 L 89 L 09/21/18 11:00 09/21/18 12:00 09/21/18 13:00 Temperature 98.7 F Pulse Rate 71 69 74 Respiratory Rate 18 16 18 Blood Pressure 111/53 L 112/55 L 115/56 L Pulse Oximetry 96 97 96 09/21/18 14:00 09/21/18 14:01 09/21/18 15:00 Temperature Pulse Rate 89 84 76 Respiratory Rate 29 H 22 19 Blood Pressure 118/71 121/58 L Pulse Oximetry 93 L 93 L 98 09/21/18 16:00 09/21/18 16:01 09/21/18 16:15 Temperature 98.3 F Pulse Rate 88 85 82 Respiratory Rate 27 H 24 18 Blood Pressure 111/63 Pulse Oximetry 92 L 92 L 09/21/18 17:45 Temperature 97.3 F L Pulse Rate 87 Respiratory Rate 20 Blood Pressure 149/67 H Pulse Oximetry 96 Intake & Output 09/21/18 09/21/18 09/22/18 06:59 18:59 06:59 Intake Total 240 / 240 800 / 800 Output Total 425 / 425 500 / 500 Balance -185 / -185 300 / 300 Weight 89 kg Intake: Oral 240 / 240 800 / 800 Output: Urine 425 / 425 500 / 500 Other: # Voids 1 Date of Last Bowel Movement 09/18/18 09/21/18 # Bowel Movements 1 GENERAL: Elderly W/M alert NAD. SKIN: Warm and dry. HEAD: Atraumatic. Normocephalic. EYES: Pupils equal and round. No scleral icterus. No injection or drainage. ENT: No nasal bleeding or discharge. Mucous membranes pink and moist. NECK: Trachea midline. No JVD. CARDIOVASCULAR: Regular rate and rhythm. RESPIRATORY: No accessory muscle use. Occ wheeze heard.. Breath sounds equal bilaterally. GASTROINTESTINAL: Abdomen soft, non-tender, nondistended. Hepatic and splenic margins not palpable. MUSCULOSKELETAL: Extremities without clubbing, cyanosis, or edema.Has left Leg deformities. NEUROLOGICAL: Awake and alert. No obvious cranial nerve deficits. Motor grossly within normal limits. Normal speech. PSYCHIATRIC: Appropriate mood and affect; insight and judgment normal. - Urinary Catheter Management Indwelling Urethral Catheter Cath placed during this visit: yes, but has since been removed by the nurse Reason for continuing: Decision to DC catheter Insertion date: 09/17/18 Insertion time: 02:34 Removal date: 09/18/18 Removal time: 17:30 Results - Labs CBC & Chem 7: 09/21/18 03:55 09/21/18 03:55 Laboratory Results - last 24 hr 09/21/18 09/21/18 03:55 03:55 WBC 7.5 RBC 3.22 L Hgb 8.0 L Hct 25.1 L MCV 78.1 L MCH 25.0 L MCHC 32.0 RDW 18.1 H Plt Count 116 L MPV 8.2 Sodium 138 Potassium 4.3 Chloride 102 Carbon Dioxide 32.3 H Anion Gap 4 L BUN 14 Creatinine 0.98 Estimated GFR 74 L Random Glucose 104 Calcium 8.6 Assessment and Plan - Assessment (1) Gastritis Code(s): K29.70 - Gastritis, unspecified, without bleeding Status: Acute (2) NSTEMI (non-ST elevated myocardial infarction) Code(s): I21.4 - Non-ST elevation (NSTEMI) myocardial infarction Status: Acute (3) Occult blood in stools Code(s): R19.5 - Other fecal abnormalities Status: Acute (4) COPD (chronic obstructive pulmonary disease) Code(s): J44.9 - Chronic obstructive pulmonary disease, unspecified Status: Chronic (5) Hyperlipidemia Code(s): E78.5 - Hyperlipidemia, unspecified Status: Chronic (6) Hypertension Code(s): I10 - Essential (primary) hypertension Status: Chronic - Plan 1. Cont O2 at 2 L N/C 2. Cont Duoneb nebs qid. 3. Continue Symbicort 160/4.5 mcg , 2 puffs BID 4. Get PET CT as OP for mediastinal node evaluation. 5. Continue Protonix 40 mg daily. 6. Continue anticoagulation (5) Hyperlipidemia Qualifiers: Hyperlipidemia type: mixed hyperlipidemia Qualified Code(s): E78.2 - Mixed hyperlipidemia
[2018-09-22] MEDS: Acetaminophen 325 MG Tablet PO PRN (01:44)
[2018-09-22] MEDS: Chlorhexidine Gluconate 2% 1 Pack (2 Cloths) TOPICAL SCH (07:30)
[2018-09-22 07:37] LABS: Hematocrit 23.8 % (39.0-51.0); Hemoglobin 7.8 gm/dL (13.0-17.0); Mean Corpuscular HGB Conc 32.6 % (32.0-36.0); Mean Corpuscular Hemoglobin 25.2 pg (27.0-34.0); Mean Corpuscular Volume 77.5 fL (80.0-100.0); Mean Platelet Volume 8.3 fL (7.0-11.0); Platelet Count 103 th/mm3 (150-450); Red Blood Count 3.07 mil/mm3 (4.50-5.90); Red Cell Distribution Width 17.8 % (11.6-17.2); White Blood Count 7.5 th/mm3 (4.0-11.0)
[2018-09-22 07:59] LABS: Calcium 8.3 mg/dL (8.5-10.1); Carbon Dioxide 33.3 meq/L (21.0-32.0); Potassium 4.4 meq/L (3.5-5.1)
[2018-09-22] MEDS: guaiFENesin 600 MG ER Tablet PO SCH ×2 (09:19→20:57)
[2018-09-22] MEDS: Budesonide-Formoterol 160/4.5 MCG 6 GM Inhaler INH SCH ×2 (09:19→20:58)
[2018-09-22] MEDS: Metoprolol Tartrate 25 MG Tablet PO SCH ×2 (09:19→20:57)
[2018-09-22] MEDS: Senna/Docusate Sodium 8.6/50 MG Tablet PO SCH ×2 (09:19→20:55)
--- NOTE | 2018-09-22 10:39 | P.PNFP ---
Subjective Interval history: Resting in be, denies any complaints States Breathing is at baseline denies Cp, or palpations. Results - Labs Result diagrams: 09/22/18 06:54 09/22/18 06:54 Abnormal lab results 09/22/18 09/22/18 Range/Units 06:54 06:54 RBC 3.07 L (4.50-5.90) mil/mm3 Hgb 7.8 L (13.0-17.0) gm/dL Hct 23.8 L (39.0-51.0) % MCV 77.5 L (80.0-100.0) fL MCH 25.2 L (27.0-34.0) pg RDW 17.8 H (11.6-17.2) % Plt Count 103 L (150-450) th/mm3 Carbon Dioxide 33.3 H (21.0-32.0) meq/L Anion Gap 3 L (5-15) meq/L Estimated GFR 79 L (>89) mL/min Calcium 8.3 L (8.5-10.1) mg/dL Short CBC 09/22/18 Range/Units 06:54 WBC 7.5 (4.0-11.0) th/mm3 Hgb 7.8 L (13.0-17.0) gm/dL Hct 23.8 L (39.0-51.0) % Plt Count 103 L (150-450) th/mm3 BMP 09/22/18 06:54 Sodium 139 Potassium 4.4 Chloride 103 Carbon Dioxide 33.3 H BUN 16 Creatinine 0.92 Calcium 8.3 L Physical Exam Vital signs: Vital Signs 09/21/18 11:00 09/21/18 12:00 09/21/18 13:00 Temperature 98.7 F Pulse Rate 71 69 74 Respiratory Rate 18 16 18 Blood Pressure 111/53 L 112/55 L 115/56 L Pulse Oximetry 96 97 96 09/21/18 14:00 09/21/18 14:01 09/21/18 15:00 Temperature Pulse Rate 89 84 76 Respiratory Rate 29 H 22 19 Blood Pressure 118/71 121/58 L Pulse Oximetry 93 L 93 L 98 09/21/18 16:00 09/21/18 16:01 09/21/18 16:15 Temperature 98.3 F Pulse Rate 88 85 82 Respiratory Rate 27 H 24 18 Blood Pressure 111/63 Pulse Oximetry 92 L 92 L 09/21/18 17:45 09/21/18 19:00 09/21/18 19:51 Temperature 97.3 F L 97.4 F L Pulse Rate 87 86 87 Respiratory Rate 20 20 Blood Pressure 149/67 H 116/56 L Pulse Oximetry 96 97 09/21/18 20:00 09/22/18 00:00 09/22/18 04:00 Temperature 98.2 F 98.4 F Pulse Rate 90 83 Respiratory Rate 20 20 Blood Pressure 127/61 113/53 L Pulse Oximetry 97 96 98 09/22/18 08:00 09/22/18 08:16 Temperature 97.4 F L Pulse Rate 78 Respiratory Rate 16 Blood Pressure 112/53 L Pulse Oximetry 97 97 Intake & Output 09/21/18 09/22/18 09/22/18 18:59 06:59 18:59 Intake Total 800 / 800 500 / 500 Output Total 500 / 500 Balance 300 / 300 500 / 500 Weight 98.7 kg Intake: Oral 800 / 800 500 / 500 Output: Urine 500 / 500 Other: # Voids 1 2 Date of Last Bowel Movement 09/21/18 09/21/18 # Bowel Movements 1 - Constitutional no acute distress - Routine HEENT Exam Head: Present: normocephalic ENT: Present: mucous membranes moist - Routine Neck Exam Present: supple - Routine Respiratory Exam Present: wheezes, diminished air movement - Routine Cardiovascular Exam Present: S1, S2 - Routine Abdominal Exam Present: soft, normoactive bowel sounds - Routine Extremities Exam Present: pulses intact - Routine Skin Exam Present: dry, warm - Routine Neurological Exam Present: alert, oriented X3 - Routine Psychiatric Exam Present: cooperative - Urinary Catheter Management Indwelling Urethral Catheter Cath placed during this visit: yes, but has since been removed by the nurse Reason for continuing: Decision to DC catheter Insertion date: 09/17/18 Insertion time: 02:34 Removal date: 09/18/18 Removal time: 17:30 Assessment and Plan - Assessment (1) NSTEMI (non-ST elevated myocardial infarction) Code(s): I21.4 - Non-ST elevation (NSTEMI) myocardial infarction Status: Acute Plan: Cards following, will medical management. No plans for cath or stent r/t Gi bleed and inability to anticoagulate. (2) Occult blood in stools Code(s): R19.5 - Other fecal abnormalities Status: Acute Plan: GI consult noted. He will need EGD completed, showing gastritis (3) COPD (chronic obstructive pulmonary disease) Code(s): J44.9 - Chronic obstructive pulmonary disease, unspecified Status: Chronic Plan: Pulmonary consult, Pulmonary following Cont oxygen support, bronchodilators Ct showing some nodularities, Outpatient pet scanned recommended (4) Hyperlipidemia Code(s): E78.5 - Hyperlipidemia, unspecified Status: Chronic Plan: Cont home meds and HH diet (5) Hypertension Code(s): I10 - Essential (primary) hypertension Status: Chronic Plan: Follow BP closely and adjust meds as needed - Assessment and Plan 09/17/18 - Adm to ICU for NSTEMI. Decision regarding cath today is pending at this time. He will also be seen by GI for guaiac positive stools and we will monitor HG. Pulm to see today and adjust meds as indicated. 09/18/18 - Gi and Cards will need to decide which W/U will be done first. CT ordered per GI recommendations. Will recheck labs and F/U daily pending eval for bleeding. Cards wants W/U after GI eval done so he can be anticoagulated 09/19/18- Resting in bed, uneventful night. Denies CP, Palpations, Sat's maintained on 2 liters, he does have some wheezes. Cont with Bronchodilators, and oxygen support. Scheduled for EGD today, HGB 7.9 today, cont to monitor 09/20/18- Patient remains stable, had EGD completed yesterday, no further workup planned. Cardiac to manage medically, related to inability to anticoagulate. HGb stable this am, will transfer to medical/tele floor. Pt to treat. DC when medically stale and cleared by pulmonary. 09/21/18- Vss afebrile, he complains of increased sob with sputum production, Mucinex added. Order to transfer to medical floor when bed available, increase activity. Hgb stable 8.0 this am. 09/22/18 Vss afebrile transferred to medical floor. Referral made to [facility] for telemetry rehab. He is still sob on exertion, he is on oxygen, cont with bronchodilators. hgb 7.8 this am, will cont to monitor. Dc when arrangement made , cont with therapy activity. (4) Hyperlipidemia Qualifiers: Hyperlipidemia type: mixed hyperlipidemia Qualified Code(s): E78.2 - Mixed hyperlipidemia
--- NOTE | 2018-09-22 12:23 | P.PN ---
Subjective Interval history: He is doing better. On O2 2 L. No chest pain or SOB at rest. Physical Exam Vital signs: Vital Signs 09/21/18 13:00 09/21/18 14:00 09/21/18 14:01 Temperature Pulse Rate 74 89 84 Respiratory Rate 18 29 H 22 Blood Pressure 115/56 L 118/71 Pulse Oximetry 96 93 L 93 L 09/21/18 15:00 09/21/18 16:00 09/21/18 16:01 Temperature 98.3 F Pulse Rate 76 88 85 Respiratory Rate 19 27 H 24 Blood Pressure 121/58 L 111/63 Pulse Oximetry 98 92 L 92 L 09/21/18 16:15 09/21/18 17:45 09/21/18 19:00 Temperature 97.3 F L Pulse Rate 82 87 86 Respiratory Rate 18 20 Blood Pressure 149/67 H Pulse Oximetry 96 09/21/18 19:51 09/21/18 20:00 09/22/18 00:00 Temperature 97.4 F L 98.2 F Pulse Rate 87 90 Respiratory Rate 20 20 Blood Pressure 116/56 L 127/61 Pulse Oximetry 97 97 96 09/22/18 04:00 09/22/18 08:00 09/22/18 08:16 Temperature 98.4 F 97.4 F L Pulse Rate 83 78 Respiratory Rate 20 16 Blood Pressure 113/53 L 112/53 L Pulse Oximetry 98 97 97 Intake & Output 09/21/18 09/22/18 09/22/18 18:59 06:59 18:59 Intake Total 800 / 800 500 / 500 Output Total 500 / 500 Balance 300 / 300 500 / 500 Weight 98.7 kg Intake: Oral 800 / 800 500 / 500 Output: Urine 500 / 500 Other: # Voids 1 2 Date of Last Bowel Movement 09/21/18 09/21/18 # Bowel Movements 1 GENERAL: Elderly W/m alert. SKIN: Warm and dry. HEAD: Atraumatic. Normocephalic. EYES: Pupils equal and round. No scleral icterus. No injection or drainage. ENT: No nasal bleeding or discharge. Mucous membranes pink and moist. NECK: Trachea midline. No JVD. CARDIOVASCULAR: Regular rate and rhythm. RESPIRATORY: No accessory muscle use. Occ wheeze . Breath sounds equal bilaterally. GASTROINTESTINAL: Abdomen soft, non-tender, nondistended. Hepatic and splenic margins not palpable. MUSCULOSKELETAL: Extremities without clubbing, cyanosis, or edema. No obvious deformities. NEUROLOGICAL: Awake and alert. No obvious cranial nerve deficits. Motor grossly within normal limits. Normal speech. PSYCHIATRIC: Appropriate mood and affect; insight and judgment normal. - Urinary Catheter Management Indwelling Urethral Catheter Cath placed during this visit: yes, but has since been removed by the nurse Reason for continuing: Decision to DC catheter Insertion date: 09/17/18 Insertion time: 02:34 Removal date: 09/18/18 Removal time: 17:30 Results - Labs CBC & Chem 7: 09/22/18 06:54 09/22/18 06:54 Laboratory Results - last 24 hr 09/22/18 09/22/18 06:54 06:54 WBC 7.5 RBC 3.07 L Hgb 7.8 L Hct 23.8 L MCV 77.5 L MCH 25.2 L MCHC 32.6 RDW 17.8 H Plt Count 103 L MPV 8.3 Sodium 139 Potassium 4.4 Chloride 103 Carbon Dioxide 33.3 H Anion Gap 3 L BUN 16 Creatinine 0.92 Estimated GFR 79 L Random Glucose 103 Calcium 8.3 L Assessment and Plan - Assessment (1) Gastritis Code(s): K29.70 - Gastritis, unspecified, without bleeding Status: Acute (2) NSTEMI (non-ST elevated myocardial infarction) Code(s): I21.4 - Non-ST elevation (NSTEMI) myocardial infarction Status: Acute (3) Occult blood in stools Code(s): R19.5 - Other fecal abnormalities Status: Acute (4) COPD (chronic obstructive pulmonary disease) Code(s): J44.9 - Chronic obstructive pulmonary disease, unspecified Status: Chronic (5) Hyperlipidemia Code(s): E78.5 - Hyperlipidemia, unspecified Status: Chronic (6) Hypertension Code(s): I10 - Essential (primary) hypertension Status: Chronic - Plan 1. Cont O2 at 2 L N/C 2. Cont Duoneb nebs qid. 3. Continue Symbicort 160/4.5 mcg , 2 puffs BID 4. Get PET CT as OP for mediastinal node evaluation. 5. Continue Protonix 40 mg daily. 6. Continue anticoagulation and switch to Po eliquis (5) Hyperlipidemia Qualifiers: Hyperlipidemia type: mixed hyperlipidemia Qualified Code(s): E78.2 - Mixed hyperlipidemia
--- NOTE | 2018-09-22 14:08 | P.PNCA ---
Subjective Interval history: Patient denies any CP, pressure, palpitations, dizziness or edema. Patient complains of shortness of breath with activity. Patient also complains of left lower leg pain that is chronic. Medications and Allergies Allergies Allergy/AdvReac Type Severity Reaction Status Date / Time NKA Allergy Unknown Uncoded 06/26/03 03:11 No Known Allergies Allergy Uncoded 03/09/14 10:21 Home Medications Medication Instructions Recorded Confirmed Type albuterol sulfate 2.5 mg INHALATION QID PRN 09/17/18 09/17/18 History tamsulosin [Flomax] 0.4 mg PO DAILY 09/17/18 09/17/18 History Active Medications: Active Medications Acetaminophen (Tylenol) 650 mg PO Q4H PRN PRN Reason: Temp > 100.4 Last Admin: 09/22/18 01:44 Dose: 650 mg Acetaminophen (Tylenol) 650 mg PO Q4H PRN PRN Reason: HEADACHE OR FEVER Acetaminophen/Butalbital/Caffeine (Fioricet 50-325-40) 2 tab PO Q4H PRN PRN Reason: SEE LABEL COMMENTS Al Hydroxide/Mg Hydroxide (Milk Of Lia Correa) 30 ml PO Q12H PRN PRN Reason: Mild Constipation Last Admin: 09/21/18 14:21 Dose: 30 ml Albuterol (Duoneb Neb (Prn)) 1 ampul NEB Q2HR NEB PRN PRN Reason: DYSPNEA Last Admin: 09/21/18 16:16 Dose: 1 ampul Atorvastatin Calcium (Lipitor) 80 mg PO HS [facility] Last Admin: 09/21/18 21:05 Dose: 80 mg Bisacodyl (Dulcolax Supp) 10 mg RECTAL DAILY PRN PRN Reason: SEVERE CONSITIPATION Budesonide/Formoterol Fumarate (Symbicort 160/4.5 Mcg Inh) 2 puff INH BID [facility] Last Admin: 09/22/18 09:19 Dose: 2 puff Chlorhexidine Gluconate (Chlorhexidine 2% Cloth) 3 pack TOPICAL DAILY@0400 CAMILA Stop: 09/23/18 03:59 Last Admin: 09/22/18 07:30 Dose: Not Given Chlorhexidine Gluconate (Chlorhexidine 2% Cloth) 3 pack TOPICAL DAILY@0400 PRN PRN Reason: Extra cloth needed Stop: 09/23/18 03:59 Guaifenesin (Mucinex Er) 600 mg PO BID [facility] Last Admin: 09/22/18 09:19 Dose: 600 mg Lactulose (Lactulose Liq) 30 ml PO DAILY PRN PRN Reason: SEVERE CONSITIPATION Last Admin: 09/21/18 10:22 Dose: 30 ml Metoprolol Tartrate (Lopressor) 25 mg PO BID [facility] Last Admin: 09/22/18 09:19 Dose: 25 mg Morphine Sulfate (Morphine Inj) 2 mg IV.PUSH Q3H PRN PRN Reason: CHEST PAIN Last Admin: 09/20/18 13:58 Dose: 2 mg Ondansetron HCl (Zofran Inj) 4 mg IV.PUSH Q6H PRN PRN Reason: NAUSEA OR VOMITING Last Admin: 09/19/18 23:46 Dose: 4 mg Pantoprazole Sodium (Protonix) 40 mg PO DAILY [facility] Last Admin: 09/22/18 09:19 Dose: 40 mg Senna/Docusate Sodium (Margot-Colace) 1 tab PO BID [facility] Last Admin: 09/22/18 09:19 Dose: Not Given Sennosides (Senokot) 17.2 mg PO Q12H PRN PRN Reason: Moderate Constipation Last Admin: 09/21/18 10:22 Dose: 17.2 mg Sodium Chloride (Ns Flush) 2 ml IV.FLUSH BID [facility] Last Admin: 09/22/18 09:19 Dose: 2 ml Sodium Chloride (Ns Flush) 2 ml IV.FLUSH PRN PRN PRN Reason: FLUSH AFTER USING IV ACCESS Tamsulosin HCl (Flomax) 0.4 mg PO DAILY [facility] Last Admin: 09/22/18 09:19 Dose: 0.4 mg Physical Exam Vital signs: Vital Signs 09/21/18 15:00 09/21/18 16:00 09/21/18 16:01 Temperature 98.3 F Pulse Rate 76 88 85 Respiratory Rate 19 27 H 24 Blood Pressure 121/58 L 111/63 Pulse Oximetry 98 92 L 92 L 09/21/18 16:15 09/21/18 17:45 09/21/18 19:00 Temperature 97.3 F L Pulse Rate 82 87 86 Respiratory Rate 18 20 Blood Pressure 149/67 H Pulse Oximetry 96 09/21/18 19:51 09/21/18 20:00 09/22/18 00:00 Temperature 97.4 F L 98.2 F Pulse Rate 87 90 Respiratory Rate 20 20 Blood Pressure 116/56 L 127/61 Pulse Oximetry 97 97 96 09/22/18 04:00 09/22/18 08:00 09/22/18 08:16 Temperature 98.4 F 97.4 F L Pulse Rate 83 78 Respiratory Rate 20 16 Blood Pressure 113/53 L 112/53 L Pulse Oximetry 98 97 97 09/22/18 12:00 Temperature 98 F Pulse Rate 77 Respiratory Rate 18 Blood Pressure 107/54 L Pulse Oximetry 97 Intake & Output 09/21/18 09/22/18 09/22/18 18:59 06:59 18:59 Intake Total 800 / 800 500 / 500 Output Total 500 / 500 Balance 300 / 300 500 / 500 Weight 98.7 kg Intake: Oral 800 / 800 500 / 500 Output: Urine 500 / 500 Other: # Voids 1 2 Date of Last Bowel Movement 09/21/18 09/21/18 # Bowel Movements 1 - Constitutional no acute distress - Routine HEENT Exam Head: Present: normocephalic Eye: Present: PERRL ENT: Present: mucous membranes moist - Routine Neck Exam Present: full ROM - Routine Respiratory Exam Present: decreased breath sounds, rhonchi Comments: course rhonchi throughout left and right lungs. - Routine Cardiovascular Exam Present: S1, S2. Absent: murmur, gallop, rubs - Routine Abdominal Exam Present: normoactive bowel sounds - Routine Extremities Exam Present: full ROM, pulses intact, normal capillary refill. Absent: cyanosis, clubbing, edema - Routine Skin Exam Present: intact - Routine Neurological Exam Present: oriented X3 - Detailed Neurological Exam: Coma Scale Eye Opening: Spontaneous Verbal Response: Oriented Motor Response: Obey commands [place] Coma Scale Total: 15 - Routine Psychiatric Exam Present: normal affect - Urinary Catheter Management Indwelling Urethral Catheter Cath placed during this visit: yes, but has since been removed by the nurse Reason for continuing: Decision to DC catheter Insertion date: 09/17/18 Insertion time: 02:34 Removal date: 09/18/18 Removal time: 17:30 Results 09/22/18 06:54 09/22/18 06:54 CBC 09/21/18 09/22/18 Range/Units 03:55 06:54 WBC 7.5 7.5 (4.0-11.0) th/mm3 RBC 3.22 L 3.07 L (4.50-5.90) mil/mm3 Hgb 8.0 L 7.8 L (13.0-17.0) gm/dL Hct 25.1 L 23.8 L (39.0-51.0) % Plt Count 116 L 103 L (150-450) th/mm3 Comprehensive Metabolic Panel 09/21/18 09/22/18 Range/Units 03:55 06:54 Sodium 138 139 (136-145) meq/L Potassium 4.3 4.4 (3.5-5.1) meq/L Chloride 102 103 (98-107) meq/L Carbon Dioxide 32.3 H 33.3 H (21.0-32.0) meq/L BUN 14 16 (7-18) mg/dL Creatinine 0.98 0.92 (0.60-1.30) mg/dL Calcium 8.6 8.3 L (8.5-10.1) mg/dL Intake and Output 09/21/18 09/22/18 09/22/18 22:59 06:59 14:59 Intake Total 800 / 800 500 / 500 Output Total 500 / 500 Balance 300 / 300 500 / 500 Intake: Oral 800 / 800 500 / 500 Output: Urine 500 / 500 Other: # Voids 1 2 Date of Last Bowel Movement 09/21/18 09/21/18 # Bowel Movements 1 Weight 98.7 kg Assessment and Plan - Assessment (1) NSTEMI (non-ST elevated myocardial infarction) Code(s): I21.4 - Non-ST elevation (NSTEMI) myocardial infarction Status: Acute (2) Occult blood in stools Code(s): R19.5 - Other fecal abnormalities Status: Acute (3) COPD (chronic obstructive pulmonary disease) Code(s): J44.9 - Chronic obstructive pulmonary disease, unspecified Status: Chronic (4) Hyperlipidemia Code(s): E78.5 - Hyperlipidemia, unspecified Status: Chronic (5) Hypertension Code(s): I10 - Essential (primary) hypertension Status: Chronic - Plan Patient has COPD and is having shortness of breath with activity, pulmonary evaluation in progress. We will continue current cardiac treatment plan which includes post [place] care and aggressive cardiac risk factor modification. We recommend increasing patients activity level as tolerated. We will continue to follow the patient during his hospitalization. The patient was seen and evaluated by Dr. Flores who participated in care, management and decision making. - Attending Attestation Patient seen and examined. I reviewed and agree with the evaluation and plan as presented. Continue post [place] care. Aggressive risk factor modification. Monitor on tele. Increase activity, PT. (4) Hyperlipidemia Qualifiers: Hyperlipidemia type: mixed hyperlipidemia Qualified Code(s): E78.2 - Mixed hyperlipidemia
[2018-09-22] MEDS: Butalbital/APAP/Caff 50/325/40 MG Tablet PO PRN (23:11)
[2018-09-23] MEDS: guaiFENesin 600 MG ER Tablet PO SCH ×2 (08:24→21:35)
[2018-09-23] MEDS: Senna/Docusate Sodium 8.6/50 MG Tablet PO SCH ×2 (08:24→21:35)
[2018-09-23] MEDS: Metoprolol Tartrate 25 MG Tablet PO SCH ×2 (08:24→21:36)
[2018-09-23] MEDS: Budesonide-Formoterol 160/4.5 MCG 6 GM Inhaler INH SCH ×2 (08:25→21:36)
--- NOTE | 2018-09-23 10:10 | P.PNFP ---
Subjective Interval history: Complains of feeling weak today Does complains of SOB, voices he had some blood in stool denies, Cp, + for LLQ, RLQ discomfort. Results - Labs Result diagrams: 09/22/18 06:54 09/22/18 06:54 Physical Exam Vital signs: Vital Signs 09/22/18 12:00 09/22/18 16:00 09/22/18 20:00 Temperature 98 F 98.2 F 98.5 F Pulse Rate 74 91 H 81 Respiratory Rate 18 18 20 Blood Pressure 107/54 L 114/58 L 108/56 L Pulse Oximetry 97 98 98 09/22/18 20:52 09/23/18 00:00 09/23/18 04:00 Temperature 97.6 F 97.7 F Pulse Rate 73 72 Respiratory Rate 20 20 Blood Pressure 108/55 L 114/55 L Pulse Oximetry 98 97 93 L 09/23/18 08:00 09/23/18 08:49 Temperature 97.7 F Pulse Rate 78 70 Respiratory Rate 18 18 Blood Pressure 120/58 L Pulse Oximetry 98 95 Intake & Output 09/22/18 09/23/18 09/23/18 18:59 06:59 18:59 Intake Total 720 / 720 320 / 320 Output Total 200 / 200 Balance 720 / 720 120 / 120 Weight 88.8 kg Intake: Oral 720 / 720 320 / 320 Output: Urine 200 / 200 Other: Post Void Residual 375 Date of Last Bowel Movement 09/22/18 09/22/18 # Bowel Movements 3 - Constitutional no acute distress - Routine HEENT Exam Eye: Present: PERRL ENT: Present: mucous membranes moist - Routine Respiratory Exam Present: wheezes, diminished air movement - Routine Cardiovascular Exam Present: S1, S2 - Routine Abdominal Exam Present: normoactive bowel sounds, tenderness, distended - Routine Extremities Exam Present: tenderness - Routine Skin Exam Present: dry, warm - Routine Neurological Exam Present: alert, oriented X3 - Routine Psychiatric Exam Present: cooperative - Urinary Catheter Management Indwelling Urethral Catheter Cath placed during this visit: yes, but has since been removed by the nurse Reason for continuing: Decision to DC catheter Insertion date: 09/17/18 Insertion time: 02:34 Removal date: 09/18/18 Removal time: 17:30 Assessment and Plan - Assessment (1) NSTEMI (non-ST elevated myocardial infarction) Code(s): I21.4 - Non-ST elevation (NSTEMI) myocardial infarction Status: Acute Plan: Cards following, will medical management. No plans for cath or stent r/t Gi bleed and inability to anticoagulate. (2) Occult blood in stools Code(s): R19.5 - Other fecal abnormalities Status: Acute Plan: GI consult noted. He will need EGD completed, showing gastritis Colonoscopy thought to be risky r/t prep (3) COPD (chronic obstructive pulmonary disease) Code(s): J44.9 - Chronic obstructive pulmonary disease, unspecified Status: Chronic Plan: Pulmonary consult, Pulmonary following Cont oxygen support, bronchodilators Ct showing some nodularities, Outpatient pet scanned recommended (4) Hyperlipidemia Code(s): E78.5 - Hyperlipidemia, unspecified Status: Chronic Plan: Cont home meds and HH diet (5) Hypertension Code(s): I10 - Essential (primary) hypertension Status: Chronic Plan: Follow BP closely and adjust meds as needed - Assessment and Plan 09/17/18 - Adm to ICU for NSTEMI. Decision regarding cath today is pending at this time. He will also be seen by GI for guaiac positive stools and we will monitor HG. Pulm to see today and adjust meds as indicated. 09/18/18 - Gi and Cards will need to decide which W/U will be done first. CT ordered per GI recommendations. Will recheck labs and F/U daily pending eval for bleeding. Cards wants W/U after GI eval done so he can be anticoagulated 09/19/18- Resting in bed, uneventful night. Denies CP, Palpations, Sat's maintained on 2 liters, he does have some wheezes. Cont with Bronchodilators, and oxygen support. Scheduled for EGD today, HGB 7.9 today, cont to monitor 09/20/18- Patient remains stable, had EGD completed yesterday, no further workup planned. Cardiac to manage medically, related to inability to anticoagulate. HGb stable this am, will transfer to medical/tele floor. Pt to treat. DC when medically stale and cleared by pulmonary. 09/21/18- Vss afebrile, he complains of increased sob with sputum production, Mucinex added. Order to transfer to medical floor when bed available, increase activity. Hgb stable 8.0 this am. 09/22/18 Vss afebrile transferred to medical floor. Referral made to [facility] for telemetry rehab. He is still sob on exertion, he is on oxygen, cont with bronchodilators. hgb 7.8 this am, will cont to monitor. Dc when arrangement made , cont with therapy activity. 09/23/18- Seen this am, nurse states he has had some bloody stool. Hgb pending this am. Abdomen distended. He does complain of more Sob, sat's maintained on 2 liters. Pulmonary following. Gi contacted by nurse. Will await rec's. He has not been restarted on anticoag's. Cardiology cont to follow, medical management supportive care. (4) Hyperlipidemia Qualifiers: Hyperlipidemia type: mixed hyperlipidemia Qualified Code(s): E78.2 - Mixed hyperlipidemia
[2018-09-23 11:02] LABS: Hematocrit 24.1 % (39.0-51.0); Hemoglobin 7.7 gm/dL (13.0-17.0); Mean Corpuscular HGB Conc 32.1 % (32.0-36.0); Mean Corpuscular Hemoglobin 24.9 pg (27.0-34.0); Mean Corpuscular Volume 77.8 fL (80.0-100.0); Mean Platelet Volume 8.4 fL (7.0-11.0); Platelet Count 111 th/mm3 (150-450); Red Blood Count 3.09 mil/mm3 (4.50-5.90); Red Cell Distribution Width 18.2 % (11.6-17.2); White Blood Count 6.8 th/mm3 (4.0-11.0)
--- NOTE | 2018-09-23 13:56 | P.PNCA ---
Subjective Interval history: Patient denies any CP, pressure, palpitations, dizziness or edema. Patient does complain of mild SOB with activity. Patient also concerned about the possibility of lung cancer. Medications and Allergies Allergies Allergy/AdvReac Type Severity Reaction Status Date / Time NKA Allergy Unknown Uncoded 06/26/03 03:11 No Known Allergies Allergy Uncoded 03/09/14 10:21 Home Medications Medication Instructions Recorded Confirmed Type albuterol sulfate 2.5 mg INHALATION QID PRN 09/17/18 09/17/18 History tamsulosin [Flomax] 0.4 mg PO DAILY 09/17/18 09/17/18 History Active Medications: Active Medications Acetaminophen (Tylenol) 650 mg PO Q4H PRN PRN Reason: Temp > 100.4 Last Admin: 09/22/18 01:44 Dose: 650 mg Acetaminophen (Tylenol) 650 mg PO Q4H PRN PRN Reason: HEADACHE OR FEVER Acetaminophen/Butalbital/Caffeine (Fioricet 50-325-40) 2 tab PO Q4H PRN PRN Reason: SEE LABEL COMMENTS Last Admin: 09/22/18 23:11 Dose: 2 tab Al Hydroxide/Mg Hydroxide (Milk Of Magnesia Liq) 30 ml PO Q12H PRN PRN Reason: Mild Constipation Last Admin: 09/21/18 14:21 Dose: 30 ml Albuterol (Duoneb Neb (Prn)) 1 ampul NEB Q2HR NEB PRN PRN Reason: DYSPNEA Last Admin: 09/23/18 08:45 Dose: 1 ampul Atorvastatin Calcium (Lipitor) [address] [facility] Last Admin: 09/22/18 20:56 Dose: Not Given Bisacodyl (Dulcolax Supp) 10 mg RECTAL DAILY PRN PRN Reason: SEVERE CONSITIPATION Budesonide/Formoterol Fumarate (Symbicort 160/4.5 Mcg Inh) 2 puff INH BID [facility] Last Admin: 09/23/18 08:25 Dose: 2 puff Guaifenesin (Mucinex Er) 600 mg PO BID [facility] Last Admin: 09/23/18 08:24 Dose: 600 mg Lactulose (Lactulose Liq) 30 ml PO DAILY PRN PRN Reason: SEVERE CONSITIPATION Last Admin: 09/21/18 10:22 Dose: 30 ml Metoprolol Tartrate (Lopressor) 25 mg PO BID [facility] Last Admin: 09/23/18 08:24 Dose: 25 mg Morphine Sulfate (Morphine Inj) 2 mg IV.PUSH Q3H PRN PRN Reason: CHEST PAIN Last Admin: 09/20/18 13:58 Dose: 2 mg Ondansetron HCl (Zofran Inj) 4 mg IV.PUSH Q6H PRN PRN Reason: NAUSEA OR VOMITING Last Admin: 09/19/18 23:46 Dose: 4 mg Pantoprazole Sodium (Protonix) 40 mg PO DAILY [facility] Last Admin: 09/23/18 08:24 Dose: 40 mg Senna/Docusate Sodium (Margot-Colace) 1 tab PO BID [facility] Last Admin: 09/23/18 08:24 Dose: 1 tab Sennosides (Senokot) 17.2 mg PO Q12H PRN PRN Reason: Moderate Constipation Last Admin: 09/21/18 10:22 Dose: 17.2 mg Sodium Chloride (Ns Flush) 2 ml IV.FLUSH BID [facility] Last Admin: 09/23/18 08:24 Dose: 2 ml Sodium Chloride (Ns Flush) 2 ml IV.FLUSH PRN PRN PRN Reason: FLUSH AFTER USING IV ACCESS Tamsulosin HCl (Flomax) 0.4 mg PO DAILY [facility] Last Admin: 09/23/18 08:24 Dose: 0.4 mg Physical Exam Vital signs: Vital Signs 09/22/18 16:00 09/22/18 20:00 09/22/18 20:52 Temperature 98.2 F 98.5 F Pulse Rate 91 H 81 Respiratory Rate 18 20 Blood Pressure 114/58 L 108/56 L Pulse Oximetry 98 98 98 09/23/18 00:00 09/23/18 04:00 09/23/18 08:00 Temperature 97.6 F 97.7 F 97.7 F Pulse Rate 73 72 78 Respiratory Rate 20 20 18 Blood Pressure 108/55 L 114/55 L 120/58 L Pulse Oximetry 97 93 L 98 09/23/18 08:49 09/23/18 12:00 Temperature 97.3 F L Pulse Rate 70 74 Respiratory Rate 18 20 Blood Pressure 108/55 L Pulse Oximetry 95 97 Intake & Output 09/22/18 09/23/18 09/23/18 18:59 06:59 18:59 Intake Total 720 / 720 320 / 320 Output Total 200 / 200 Balance 720 / 720 120 / 120 Weight 88.8 kg Intake: Oral 720 / 720 320 / 320 Output: Urine 200 / 200 Other: Post Void Residual 375 Date of Last Bowel Movement 09/22/18 09/22/18 # Bowel Movements 3 - Constitutional no acute distress - Routine HEENT Exam Head: Present: normocephalic Eye: Present: PERRL ENT: Present: mucous membranes moist - Routine Neck Exam Present: full ROM - Routine Respiratory Exam Present: rhonchi, wheezes Comments: expiratory and inspiratory wheezing, bilateral. Course rhonchi throughout, bilateral. - Routine Cardiovascular Exam Present: S1, S2. Absent: murmur, gallop, rubs - Routine Abdominal Exam Present: normoactive bowel sounds, distended - Routine Extremities Exam Present: full ROM, pulses intact, normal capillary refill. Absent: cyanosis, clubbing, edema - Routine Skin Exam Present: intact - Routine Neurological Exam Present: oriented X3 - Detailed Neurological Exam: Coma Scale Eye Opening: Spontaneous Verbal Response: Oriented Motor Response: Obey commands [place] Coma Scale Total: 15 - Routine Psychiatric Exam Present: normal affect - Urinary Catheter Management Indwelling Urethral Catheter Cath placed during this visit: yes, but has since been removed by the nurse Reason for continuing: Decision to DC catheter Insertion date: 09/17/18 Insertion time: 02:34 Removal date: 09/18/18 Removal time: 17:30 Results 09/23/18 10:23 09/22/18 06:54 CBC 09/22/18 09/23/18 Range/Units 06:54 10:23 WBC 7.5 6.8 (4.0-11.0) th/mm3 RBC 3.07 L 3.09 L (4.50-5.90) mil/mm3 Hgb 7.8 L 7.7 L (13.0-17.0) gm/dL Hct 23.8 L 24.1 L (39.0-51.0) % Plt Count 103 L 111 L (150-450) th/mm3 Comprehensive Metabolic Panel 09/22/18 Range/Units 06:54 Sodium 139 (136-145) meq/L Potassium 4.4 (3.5-5.1) meq/L Chloride 103 (98-107) meq/L Carbon Dioxide 33.3 H (21.0-32.0) meq/L BUN 16 (7-18) mg/dL Creatinine 0.92 (0.60-1.30) mg/dL Calcium 8.3 L (8.5-10.1) mg/dL Intake and Output 09/22/18 09/23/18 09/23/18 22:59 06:59 14:59 Intake Total 720 / 720 320 / 320 Output Total 200 / 200 Balance 720 / 720 120 / 120 Intake: Oral 720 / 720 320 / 320 Output: Urine 200 / 200 Other: Post Void Residual 375 Date of Last Bowel Movement 09/22/18 # Bowel Movements 3 Weight 88.8 kg Assessment and Plan - Assessment (1) NSTEMI (non-ST elevated myocardial infarction) Code(s): I21.4 - Non-ST elevation (NSTEMI) myocardial infarction Status: Acute (2) Occult blood in stools Code(s): R19.5 - Other fecal abnormalities Status: Acute (3) COPD (chronic obstructive pulmonary disease) Code(s): J44.9 - Chronic obstructive pulmonary disease, unspecified Status: Chronic (4) Hyperlipidemia Code(s): E78.5 - Hyperlipidemia, unspecified Status: Chronic (5) Hypertension Code(s): I10 - Essential (primary) hypertension Status: Chronic - Plan We will continue to hold anticoagulation due to GI bleeding; GI evaluation in progress. Patient continues to have SOB with activity related to COPD, enlarged mediastinal node found on CT of the chest, pulmonary evaluation in progress. Continue to increase patient's activity level as tolerated. We will continue with current cardiac treatment plan post [place], and adjust as needed. Cardiac catheterization presents more of a risk than benefit at this time due to unknown source of bleeding in the GI system. We will continue to follow the patient during his hospitalization. The patient was seen and evaluated by Dr. Flores who participated in care, management and decision making. - Attending Attestation Patient seen and examined. I reviewed and agree with the evaluation and plan as presented. No new cardiac issues. Continue post [place] management. GI evaluation in progress; the source of GI bleeding still unclear. (4) Hyperlipidemia Qualifiers: Hyperlipidemia type: mixed hyperlipidemia Qualified Code(s): E78.2 - Mixed hyperlipidemia
--- NOTE | 2018-09-23 16:54 | P.PNGI ---
Subjective Interval history: He passed some red blood with stool last evening and a "glob" of blood today. No pain Physical Exam Vital signs: Vital Signs 09/22/18 20:00 09/22/18 20:52 09/23/18 00:00 Temperature 98.5 F 97.6 F Pulse Rate 81 73 Respiratory Rate 20 20 Blood Pressure 108/56 L 108/55 L Pulse Oximetry 98 98 97 09/23/18 04:00 09/23/18 08:00 09/23/18 08:49 Temperature 97.7 F 97.7 F Pulse Rate 72 76 70 Respiratory Rate 20 18 18 Blood Pressure 114/55 L 120/58 L Pulse Oximetry 93 L 98 95 09/23/18 12:00 09/23/18 16:00 Temperature 97.3 F L 97.2 F L Pulse Rate 75 73 Respiratory Rate 20 18 Blood Pressure 108/55 L 111/57 L Pulse Oximetry 97 97 Intake & Output 09/22/18 09/23/18 09/23/18 18:59 06:59 18:59 Intake Total 720 / 720 320 / 320 Output Total 200 / 200 Balance 720 / 720 120 / 120 Weight 88.8 kg Intake: Oral 720 / 720 320 / 320 Output: Urine 200 / 200 Other: Post Void Residual 375 Date of Last Bowel Movement 09/22/18 09/22/18 # Bowel Movements 3 - Constitutional no acute distress - Routine HEENT Exam Eye: Present: EOMI - Routine Respiratory Exam Comments: Coarse breath sounds with wheezing, especially on the right. - Routine Cardiovascular Exam Present: RRR - Routine Abdominal Exam Comments: Mildly distended, tympanitic with no tenderness. - Urinary Catheter Management Indwelling Urethral Catheter Cath placed during this visit: yes, but has since been removed by the nurse Reason for continuing: Decision to DC catheter Insertion date: 09/17/18 Insertion time: 02:34 Removal date: 09/18/18 Removal time: 17:30 Results - Labs CBC & Chem 7: 09/23/18 10:23 09/22/18 06:54 Laboratory Results - last 24 hr 09/23/18 10:23 WBC 6.8 RBC 3.09 L Hgb 7.7 L Hct 24.1 L MCV 77.8 L MCH 24.9 L MCHC 32.1 RDW 18.2 H Plt Count 111 L MPV 8.4 Assessment and Plan (1) Occult blood in stools Status: Acute Code(s): R19.5 - Other fecal abnormalities - Plan He underwent EGD earlier this admission. Dr. Jean's note states the patient is not stable enough with respect to his cardiopulmonary status to undergo safe bowel prep or colonoscopy. His condition has not improved. I suggest transfusion as needed. If he stabilizes, and it is deemed safe for him to undergo colonoscopy, I'll be available.
[2018-09-23] MEDS: Acetaminophen 325 MG Tablet PO PRN (21:48)
[2018-09-23] MEDS: Butalbital/APAP/Caff 50/325/40 MG Tablet PO PRN (23:10)
[2018-09-24] MEDS: Senna/Docusate Sodium 8.6/50 MG Tablet PO SCH ×2 (09:56→22:47)
[2018-09-24] MEDS: Metoprolol Tartrate 25 MG Tablet PO SCH ×2 (09:56→22:47)
[2018-09-24] MEDS: guaiFENesin 600 MG ER Tablet PO SCH ×2 (09:56→22:47)
[2018-09-24] MEDS: Budesonide-Formoterol 160/4.5 MCG 6 GM Inhaler INH SCH ×2 (09:57→22:47)
[2018-09-24 10:58] LABS: Baso # (Auto) 0.1 th/mm3 (0.0-0.2); Baso % (Auto) 1.2 % (0.0-2.0); Eos # (Auto) 0.4 th/mm3 (0.0-0.4); Eos % (Auto) 5.7 % (0.0-4.0); Hematocrit 23.6 % (39.0-51.0); Hemoglobin 7.4 gm/dL (13.0-17.0); Lymph # (Auto) 0.8 th/mm3 (1.0-4.8); Lymph % (Auto) 12.6 % (9.0-44.0); Mean Corpuscular HGB Conc 31.5 % (32.0-36.0); Mean Corpuscular Hemoglobin 24.9 pg (27.0-34.0); Mean Corpuscular Volume 79.2 fL (80.0-100.0); Mean Platelet Volume 8.3 fL (7.0-11.0); Mono # (Auto) 0.6 th/mm3 (0.0-0.9); Mono % (Auto) 8.8 % (0.0-8.0); Neut # (Auto) 4.6 th/mm3 (1.8-7.7); Neut % (Auto) 71.7 % (16.0-70.0); Platelet Count 110 th/mm3 (150-450); Red Blood Count 2.98 mil/mm3 (4.50-5.90); Red Cell Distribution Width 18.7 % (11.6-17.2); White Blood Count 6.4 th/mm3 (4.0-11.0)
[2018-09-24 11:15] LABS: Alanine Aminotransferase 23 U/L (12-78); Albumin 3.2 g/dL (3.4-5.0); Anion Gap 6 meq/L (5-15); Aspartate Aminotransferase 14 U/L (15-37); Blood Urea Nitrogen 14 mg/dL (7-18); Calcium 7.8 mg/dL (8.5-10.1); Carbon Dioxide 30.7 meq/L (21.0-32.0); Chloride 104 meq/L (98-107); Glomerular Filtration Rate 76 mL/min (>89); Glucose,Random 105 mg/dL (74-106); Magnesium 2.2 mg/dL (1.5-2.5); Phosphorus 2.7 mg/dL (2.5-4.9); Sodium 141 meq/L (136-145)
[2018-09-24 11:16] LABS: INR 1.2 Ratio; Prothrombin Time 12.1 sec (9.8-11.6)
[2018-09-24 11:18] LABS: Alkaline Phosphatase 68 U/L (45-117); Total Protein 6.1 g/dL (6.4-8.2)
--- NOTE | 2018-09-24 13:59 | MB ---
cc: Santiago Reddy MD, PhD DATE: 09/24/2018 REASON FOR CONSULTATION: Transient left hemianopsia. HISTORY OF PRESENT ILLNESS: Mr. Hand is a 78-year-old man, admitted with a non-ST elevation myocardial infarction, COPD, shortness of breath, chest pain. States he developed rectal bleeding as well. He has been having intermittent dizziness and according to the chart, difficulties with vision in the left eye, which has been intermittent. He has been having headaches as well. CURRENT MEDICATIONS: 1. Tylenol. 2. Fioricet. 3. Milk of magnesia. 4. Lipitor. 5. Dulcolax. 6. Symbicort. 7. Mucinex 8. Lactulose. 9. Lopressor. 10. Morphine p.r.n. 11. Zofran p.r.n. 12. Protonix p.r.n. 13. Colace p.r.n. 14. Senokot p.r.n. 15. Flomax. NEUROLOGIC EXAMINATION: VITAL SIGNS: Blood pressure 119/58, pulse 77, respirations 16, temperature 98 degrees. NEUROLOGIC: Higher cortical functions: He is alert and oriented. Speech is normal. Cranial nerves are intact. I do not detect any visual field abnormalities or gross confrontational testing. His extraocular movements are normal with no nystagmus. Motor exam: No focal deficits identified. He has got 5/5 strength in all groups. Reflexes are symmetric. IMAGING STUDIES: CT chest shows enlarged mediastinal lymph nodes which have gotten larger since previous study, possible reactive lymphadenopathy versus myeloproliferative disorder, bronchiectasis, which has been stable. He had echocardiogram, EF is 45% to 50%. He has got trace mitral regurgitation, aortic valve sclerosis, trace tricuspid regurgitation, [id number] pulmonary hypertension, Left atrial size normal, right atrial size normal. IMPRESSION: Intermittent vertigo as well as left visual field difficulty. Rule out vertebrobasilar transient ischemic attack, rule out stroke. At the present time, we will not give any antiplatelets or anticoagulants because of his gastrointestinal bleed; however, I would like to proceed with an MRI of the brain, as well as MRA and carotid ultrasound for further evaluation. Santiago Reddy MD, PhD ALEJANDRA/ct , 12:42 PM , 12:46 PM
[2018-09-24] MEDS: Butalbital/APAP/Caff 50/325/40 MG Tablet PO PRN (14:10)
[2018-09-24] MEDS ORDERED: Gadobutrol PF 10 MMOL/10 ML Vial (for RAD) IV.SIG ONE (16:02)
--- NOTE | 2018-09-24 16:15 | MR ---
EXAM DATE: 09/24/2018 3:58 PM EST AGE/SEX: 78 years / Male INDICATIONS: Vertigo. Left eye visual disturbance. CLINICAL DATA: This is the patient's initial encounter. Patient reports that signs and symptoms have been present for 1 week and indicates a pain score of 0/10. MEDICAL/SURGICAL HISTORY: Chronic obstructive pulmonary disease. Hypertension. Hypercholester olemia. Inguinal hernia repair. Tonsillectomy. COMPARISON: [facility] [place], MR HEAD W & W/O CONTRAST, 09/24/2018. . TECHNIQUE: 3D [id number] MRA was performed. Source images, multiplanar STS MIP, and 3D volum e MIP reconstructions were reviewed. FINDINGS: There is mild luminal irregularity and intracranial aspect of the internal carotid arteries likely re lated to atherosclerotic disease. No high-grade stenosis is identified. The anterior cerebral arterie s and middle cerebral arteries demonstrate no significant abnormality. Vertebral arteries are codomin ant with mild narrowing of the distal right vertebral artery. Basilar artery and posterior cerebral a rteries demonstrate no significant stenosis. No aneurysm is identified. Proximal ophthalmic arteries are visualized bilaterally. CONCLUSION: No acute intracranial vascular abnormality is identified. Electronically signed by: Marino Jiang MD 09/24/2018 4:13 PM EST
--- NOTE | 2018-09-24 16:28 | MR ---
EXAM DATE: 09/24/2018 4:04 PM EST AGE/SEX: 78 years / Male INDICATIONS: Vertigo. Left eye visual disturbance. CLINICAL DATA: This is the patient's initial encounter. Patient reports that signs and symptoms have been present for 1 week and indicates a pain score of 0/10. MEDICAL/SURGICAL HISTORY: Chronic obstructive pulmonary disease. Hypercholesterolemia. Hypert ension. Inguinal hernia repair. Tonsillectomy. COMPARISON: [facility], MRA HEAD W/O CONTRAST, 09/24/2018. . TECHNIQUE: Multiplanar, multisequence examination of the brain was performed without and with 9cc ml Gadavist (gadobutrol) contrast as a single exam dose. FINDINGS: Cerebrum: There is mild generalized atrophy with ventricular size within normal limits given the degr ee of atrophy. In the left frontal lobe convexity adjacent to the orbitofrontal cortex there is an ar ea of mild increased T2 and FLAIR signal with associated decreased T1 signal and enhancement. It is c hallenging to determine if this represents a portion of the left frontal lobe or is an extra-axial ab normality. It demonstrates no definite restricted diffusion. The abnormality measures approximately 2 .4 x 1.3 x 1.8 cm. Otherwise, no midline shift, hemorrhage or acute infarction. No extraaxial flui d collections are seen. The pituitary gland and suprasellar cistern are normal in configuration. White Matter: There is minimal periventricular and subcortical white matter signal change. Posterior Fossa: The cerebellum and brainstem demonstrate no acute abnormality. The 4th ventricle is midline. The cerebellopontine angle is within normal limits. The cerebellar tonsils are normal in p osition. Diffusion Imaging: No areas of restricted diffusion are seen. Extracranial: The visualized sinuses are clear. Post contrast: There is abnormal enhancement only associated with the abnormality in the left frontal region described above. CONCLUSION: 1. There is an abnormality in the left frontal region that is challenging to determine if there is i ntra-axial or extra-axial but I favor that it is part of the left frontal lobe. This area demonstrate s abnormal edema and enhancement and measures approximately 2.4 x 1.3 x 1.8 cm. There is no restricte d diffusion to indicate that this is an infarct. Therefore, infectious, inflammatory, or neoplastic p rocesses should be considered. 2. No other abnormality is identified. Electronically signed by: Marino Jiang MD 09/24/2018 4:26 PM EST
[2018-09-24] MEDS ORDERED: Acetaminophen 325 MG Tablet PO PRN (16:35)
--- NOTE | 2018-09-24 16:49 | P.PNIM ---
Subjective Interval history: 09/17/18 - Adm to ICU for NSTEMI. Decision regarding cath today is pending at this time. He will also be seen by GI for guaiac positive stools and we will monitor HG. Pulm to see today and adjust meds as indicated. 09/18/18 - Gi and Cards will need to decide which W/U will be done first. CT ordered per GI recommendations. Will recheck labs and F/U daily pending eval for bleeding. Cards wants W/U after GI eval done so he can be anticoagulated 09/19/18- Resting in bed, uneventful night. Denies CP, Palpations, Sat's maintained on 2 liters, he does have some wheezes. Cont with Bronchodilators, and oxygen support. Scheduled for EGD today, HGB 7.9 today, cont to monitor 09/20/18- Patient remains stable, had EGD completed yesterday, no further workup planned. Cardiac to manage medically, related to inability to anticoagulate. HGb stable this am, will transfer to medical/tele floor. Pt to treat. DC when medically stale and cleared by pulmonary. 09/21/18- Vss afebrile, he complains of increased sob with sputum production, Mucinex added. Order to transfer to medical floor when bed available, increase activity. Hgb stable 8.0 this am. 09/22/18 Vss afebrile transferred to medical floor. Referral made to [facility] for telemetry rehab. He is still sob on exertion, he is on oxygen, cont with bronchodilators. hgb 7.8 this am, will cont to monitor. Dc when arrangement made , cont with therapy activity. 09/23/18- Seen this am, nurse states he has had some bloody stool. Hgb pending this am. Abdomen distended. He does complain of more Sob, sat's maintained on 2 liters. Pulmonary following. Gi contacted by nurse. Will await rec's. He has not been restarted on anticoag's. Cardiology cont to follow, medical management supportive care 09-24 TRANSFERRED TO OUR SERVICE TODAY WILL TRANSFUSE HIM AM LABS DW RN AND PT AND FAMILY PT AND OT Physical Exam Vital signs: Vital Signs 09/23/18 20:00 09/23/18 20:38 09/23/18 23:58 Temperature 97.6 F Pulse Rate 81 86 Respiratory Rate 18 16 19 Blood Pressure 109/53 L Pulse Oximetry 96 97 09/24/18 00:00 09/24/18 03:12 09/24/18 04:00 Temperature 97.2 F L Pulse Rate 72 87 73 Respiratory Rate 19 16 18 Blood Pressure 103/51 L Pulse Oximetry 97 09/24/18 08:00 09/24/18 12:00 Temperature 98.4 F 97.9 F Pulse Rate 73 73 Respiratory Rate 16 16 Blood Pressure 119/58 L 122/60 Pulse Oximetry 100 98 Intake & Output 09/23/18 09/24/18 09/24/18 18:59 06:59 18:59 Intake Total 480 / 480 Output Total 200 / 200 Balance 280 / 280 Intake: Oral 480 / 480 Output: Urine 200 / 200 Other: Date of Last Bowel Movement 09/23/18 09/24/18 # Bowel Movements 0 Narrative: GENERAL: Awake alert and oriented x3 talkative and cooperative -hard of hearing SKIN: Warm and dry. HEAD: Atraumatic. Normocephalic. EYES: Pupils equal and round. No scleral icterus. No injection or drainage. EOMI ENT: No nasal bleeding or discharge. Mucous membranes pink and moist. Tongue is midline NECK: Trachea midline. No JVD. Supple CARDIOVASCULAR: Regular rate and rhythm. S1-S2 no S3 or S4 RESPIRATORY: No accessory muscle use. Clear to auscultation. Breath sounds equal bilaterally. GASTROINTESTINAL: Abdomen soft, non-tender, nondistended. Hepatic and splenic margins not palpable. MUSCULOSKELETAL: Extremities without clubbing, cyanosis, or edema. No obvious deformities. NEUROLOGICAL: Awake and alert. No obvious cranial nerve deficits. Motor grossly within normal limits. Five out of 5 muscle strength in the arms and legs. Normal speech. PSYCHIATRIC: Appropriate mood and affect; insight and judgment normal. - Urinary Catheter Management Indwelling Urethral Catheter Cath placed during this visit: yes, but has since been removed by the nurse Reason for continuing: Decision to DC catheter Insertion date: 09/17/18 Insertion time: 02:34 Removal date: 09/18/18 Removal time: 17:30 Results - Labs CBC & Chem 7: 09/24/18 10:27 09/24/18 10:27 Laboratory Results - last 24 hr 09/24/18 09/24/18 09/24/18 10:27 10:27 10:27 WBC 6.4 RBC 2.98 L Hgb 7.4 L Hct 23.6 L MCV 79.2 L MCH 24.9 L MCHC 31.5 L RDW 18.7 H Plt Count 110 L MPV 8.3 Neut % (Auto) 71.7 H Lymph % (Auto) 12.6 [place] % (Auto) 8.8 H Eos % (Auto) 5.7 H Baso % (Auto) 1.2 Neut # (Auto) 4.6 Lymph # (Auto) 0.8 L [place] # (Auto) 0.6 Eos # (Auto) 0.4 Baso # (Auto) 0.1 WBC Differential . Differential Comment Auto diff final PT 12.1 H INR 1.2 Sodium 141 Potassium 4.0 Chloride 104 Carbon Dioxide 30.7 Anion Gap 6 BUN 14 Creatinine 0.95 Estimated GFR 76 L Random Glucose 105 Calcium 7.8 L Phosphorus 2.7 Magnesium 2.2 Total Bilirubin 0.7 AST 14 L ALT 23 Alkaline Phosphatase 68 Total Protein 6.1 L Albumin 3.2 L - Imaging Impressions Head MRI 09/24/18 00:00 CONCLUSION: 1. There is an abnormality in the left frontal region that is challenging to determine if there is intra-axial or extra-axial but I favor that it is part of the left frontal lobe. This area demonstrates abnormal edema and enhancement and measures approximately 2.4 x 1.3 x 1.8 cm. There is no restricted diffusion to indicate that this is an infarct. Therefore, infectious, inflammatory, or neoplastic processes should be considered. 2. No other abnormality is identified. Head MRA 09/24/18 00:00 CONCLUSION: No acute intracranial vascular abnormality is identified. - Procedures EGD PROCEDURE REPORT EXAM DATE: 09/19/2018 PATIENT NAME: Kal Hand MR#: [id number] BIRTHDATE: 1940 STATUS: inpatient ATTENDING: Juarez Jean MD VISIT ID: [id number] BEEF KILLER: Calos St Stienbarger, Terrie, and Mary Linares ORDER #: [id number] INDICATIONS: The patient is a 78 yr old male here for an EGD due to Melena, occult blood in stool.. PROCEDURE PERFORMED: EGD w/ biopsy MEDICATIONS: Per Anesthesia and None. ASA CLASS: Class III PHYSICAL EXAM: normal CONSENT: The patient understands the risks and benefits of the procedure and understands that these risks include, but are not limited to: sedation, allergic reaction, infection, perforation and/or bleeding. Alternative means of evaluation and treatment include, among others: physical exam, x-rays, and/or surgical intervention. The patient elects to proceed with this endoscopic procedure. DESCRIPTION OF PROCEDURE: for proper function. Hand hygiene and appropriate measures for infection prevention was taken. After the risks, benefits and alternatives of the procedure were thoroughly explained, Informed consent was verified, confirmed and timeout was successfully executed by the treatment team. The [employer] [id number] endoscope was introduced through the mouth and advanced to the second portion of the duodenum. The instrument was slowly withdrawn as the mucosa was fully examined. ESOPHAGUS: The mucosa of the esophagus appeared normal. STOMACH: There was mild gastritis in the gastric body. A biopsy was performed using cold forceps. Sample obtained for helicobacter pylori testing. DUODENUM: Food residue was found in the duodenal bulb and 1st part duodenum. The duodenal mucosa appeared normal in the duodenal bulb and 2nd part duodenum. Retroflexed views revealed a hiatal hernia The gastroscope was then slowly withdrawn and removed. COMPLICATIONS: There were no complications. IMPRESSIONS: 1. The esophagus appeared normal 2. There was mild gastritis in the gastric body; biopsy was performed 3. Food residue was found in the duodenal bulb and 1st part duodenum 4. Normal duodenal mucosa in the duodenal bulb and 2nd part duodenum 5. Retroflexed views revealed a hiatal hernia RECOMMENDATIONS: 1. Await biopsy results. Biopsy results will not be ready for 7-10 days. If you don't hear from us in two weeks, call our office for biopsy results. 2. Avoid NSAIDS 3. 3. No active upper gi bleeding found, therefore no objection to continue cardiac work up . 4. Avoid etoh PATIENT CONDITION: stable DISPOSITION: Inpatient REPEAT EXAM: NONE Juarez Jean MD eSigned: Juarez Jean MD 09/19/2018 1:54 PM Assessment and Plan - Plan Recent NSTEMI Acute myocardial infarction with elevated troponins We will transfuse -Not able to anticoagulate at this time due to GI bleeding COPD continue on breathing treatments being seen by pulmonary Continue on duo nebs and Mucinex continue on Symbicort -Recommend tobacco cessation -CT of chest showed nodularities will need an outpatient PET scan GI bleed has undergone endoscopy already We will transfuse 2 units packed red blood cells -Continue on Protonix -History of heme positive stools Gastritis Hypertension continue on Lopressor Hyperlipidemia continue on Lipitor BPH continue on Flomax Left hemianopsia -MRI shows abnormality in the left frontal lobe with an area demonstrating abnormal edema and enhancement and measures approximately 2.4 x 1.3 x 1.8 cm Carotid Dopplers pending Continue on GI prophylaxis DVT prophylaxis per ambulation and SCDs and BALTAZAR smiht A.m. labs We will transfuse Code Status: Full code Discussed Condition With: RN and patient and family Discharge Planning: Pending clearance by all
[2018-09-24] MEDS ORDERED: Sodium Chlor 0.9% Inj 250 ML IV.SIG SCH (17:00)
--- NOTE | 2018-09-25 04:45 | XR ---
EXAM DATE: 09/25/2018 4:36 AM EST AGE/SEX: 78 years / Male INDICATIONS: Respiratory distress. CLINICAL DATA: This is the patient's subsequent encounter. Patient reports that signs and symptoms h ave been present for 1 week and indicates a pain score of 0/10. MEDICAL/SURGICAL HISTORY: Hypertension. Chronic obstructive pulmonary disease. Tonsillectomy. COMPARISON: [facility], CHEST 1V SINGLE AP, 09/17/2018. . FINDINGS: There is patchy airspace disease at the lung bases mild interstitial prominence again seen. Cardiomeg sriram. Osseous structures are intact. CONCLUSION: Interstitial prominence again noted. Patchy airspace disease. Electronically signed by: Oren Prater MD 09/25/2018 4:44 AM EST
--- NOTE | 2018-09-25 08:46 | US ---
EXAM DATE: 09/25/2018 8:41 AM EST AGE/SEX: 78 years / Male INDICATIONS: Cerebrovascular accident. CLINICAL DATA: This is the patient's initial encounter. Patient reports that signs and symptoms have been present for 1 day and indicates a pain score of 0/10. MEDICAL/SURGICAL HISTORY: Chronic obstructive pulmonary disease. Hypertension. GI Bleed. High Cholesterol. Tonsillectomy. Bladder surgery. Hernia surgery. Shoulder surgery. COMPARISON: . [facility]ITY PARAMETERS: ICA/CCA Ratio: Right 1.0 , Left 1.3 ICA: Right 66.0 cm/sec, Left 123.2 cm/sec CCA: Right 69.1 cm/sec, Left 98.5 cm/sec ECA: Right 192.0 cm/sec, Left 88.7 cm/sec Vertebral: Right 49.2 cm/sec antegrade, Left 49.0 cm/sec antegrade FINDINGS: Right Carotid: Moderate arteriosclerotic plaque is visualized.The waveforms are within normal limits . Left Carotid: Moderate to severe arteriosclerotic plaque is visualized. The waveforms failed to reve al significant spectral broadening. ICA/CCA ratio indicates a less than 50% stenosis. Other: None. CONCLUSION: 1. Right Internal Carotid Artery: Findings indicate <50% stenosis. 2. Left Internal Carotid Artery: Findings indicate <50% stenosis. 3. Antegrade flow both vertebral arteries. Electronically signed by: Jony Vargas MD 09/25/2018 8:45 AM EST
[2018-09-25] MEDS: guaiFENesin 600 MG ER Tablet PO SCH ×2 (09:54→21:13)
[2018-09-25] MEDS: Senna/Docusate Sodium 8.6/50 MG Tablet PO SCH ×2 (09:54→21:18)
[2018-09-25] MEDS: Metoprolol Tartrate 25 MG Tablet PO SCH ×2 (09:54→21:16)
[2018-09-25] MEDS: Budesonide-Formoterol 160/4.5 MCG 6 GM Inhaler INH SCH ×2 (09:55→21:18)
[2018-09-25 11:14] LABS: Baso # (Auto) 0.1 th/mm3 (0.0-0.2); Baso % (Auto) 0.4 % (0.0-2.0); Eos % (Auto) 0.1 % (0.0-4.0); Hematocrit 30.8 % (39.0-51.0); Hemoglobin 9.9 gm/dL (13.0-17.0); Lymph # (Auto) 0.3 th/mm3 (1.0-4.8); Lymph % (Auto) 1.3 % (9.0-44.0); Mean Corpuscular HGB Conc 32.1 % (32.0-36.0); Mean Corpuscular Hemoglobin 25.8 pg (27.0-34.0); Mean Corpuscular Volume 80.5 fL (80.0-100.0); Mean Platelet Volume 9.3 fL (7.0-11.0); Mono # (Auto) 0.8 th/mm3 (0.0-0.9); Mono % (Auto) 3.1 % (0.0-8.0); Neut # (Auto) 23.6 th/mm3 (1.8-7.7); Neut % (Auto) 95.1 % (16.0-70.0); Platelet Count 97 th/mm3 (150-450); Red Blood Count 3.83 mil/mm3 (4.50-5.90); Red Cell Distribution Width 19.1 % (11.6-17.2); White Blood Count 24.8 th/mm3 (4.0-11.0)
[2018-09-25 11:42] LABS: Hemoglobin A1c 5.2 % (4.3-6.0)
[2018-09-25 11:47] LABS: Alanine Aminotransferase 76 U/L (12-78); Albumin 3.4 g/dL (3.4-5.0); Alkaline Phosphatase 131 U/L (45-117); Anion Gap 5 meq/L (5-15); Aspartate Aminotransferase 139 U/L (15-37); Blood Urea Nitrogen 20 mg/dL (7-18); Calcium 8.1 mg/dL (8.5-10.1); Chloride 106 meq/L (98-107); Glomerular Filtration Rate 51 mL/min (>89); Glucose,Random 121 mg/dL (74-106); Phosphorus 2.6 mg/dL (2.5-4.9); Potassium 3.9 meq/L (3.5-5.1); Sodium 141 meq/L (136-145)
[2018-09-25 12:03] LABS: Lymphocytes 1 % (9-44); Monocytes 1 % (0-8); Toxic Granulation 1+
[2018-09-25 12:04] LABS: Ovalocytes 1+; Platelet Morphology Normal (Normal); Tear Drop Cells 1+
--- NOTE | 2018-09-25 12:39 | P.PNGI ---
Subjective Interval history: He's still passing some blood per rectum. Today, it was formed, brown stool with a just a trace of blood. No pain. He has received 2 units PRBCs. Physical Exam Vital signs: Vital Signs 09/24/18 16:00 09/24/18 20:00 09/24/18 22:38 Temperature 98.2 F 98.8 F 98.7 F Pulse Rate 91 H 72 80 Respiratory Rate 14 17 18 Blood Pressure 121/58 L 152/88 H 131/64 Pulse Oximetry 100 94 L 97 09/24/18 22:55 09/25/18 00:00 09/25/18 00:22 Temperature 98.2 F 97.7 F Pulse Rate 83 131 H 85 Respiratory Rate 18 17 23 Blood Pressure 120/61 120/56 L Pulse Oximetry 97 95 09/25/18 00:35 09/25/18 02:32 09/25/18 02:49 Temperature 97.6 F 98.1 F 98.1 F Pulse Rate 91 H 111 H 114 H Respiratory Rate 20 20 20 Blood Pressure 150/64 H 126/65 130/57 L Pulse Oximetry 95 96 09/25/18 03:15 09/25/18 04:00 09/25/18 04:14 Temperature 98.6 F 98.8 F Pulse Rate 118 H 102 H 85 Respiratory Rate 21 18 16 Blood Pressure 113/53 L 141/65 H Pulse Oximetry 92 L 93 L 09/25/18 06:59 09/25/18 08:00 Temperature 98.0 F 98.0 F Pulse Rate 87 89 Respiratory Rate 17 20 Blood Pressure 106/52 L 101/58 L Pulse Oximetry 98 96 Intake & Output 09/24/18 09/25/18 09/25/18 18:59 06:59 18:59 Intake Total 480 / 480 650 / 650 20 / 20 Output Total 600 / 600 Balance 480 / 480 50 / 50 20 / 20 Weight 88.3 kg Intake: Oral 480 / 480 240 / 240 Other 20 20 Rbc As-3 Leukoreduced Unit [id number] Rbc As-3 Leukoreduced Unit [id number] Intake (Blood Product) Amt 400 / 400 0 / 0 Rbc As-3 Leukoreduced Unit 400 / 400 [id number] Rbc As-3 Leukoreduced Unit 0 / 0 0 / 0 [id number] Output: Urine 600 / 600 Other: # Voids 3 # Incontinent Voids 1 # Urine Diapers 1 Date of Last Bowel Movement 09/24/18 09/24/18 # Bowel Movements 3 - Constitutional no acute distress - Routine HEENT Exam Eye: Present: EOMI - Routine Abdominal Exam Present: soft, tenderness Comments: Soft with no tenderness. - Urinary Catheter Management Indwelling Urethral Catheter Cath placed during this visit: yes, but has since been removed by the nurse Reason for continuing: Decision to DC catheter Insertion date: 09/17/18 Insertion time: 02:34 Removal date: 09/18/18 Removal time: 17:30 Results - Labs CBC & Chem 7: 09/25/18 10:20 09/25/18 10:20 Laboratory Results - last 24 hr 09/24/18 09/24/18 09/24/18 10:27 10:27 19:18 WBC RBC Hgb Hct MCV MCH MCHC RDW Plt Count MPV Prelim Diff (Auto) Neut % (Auto) Lymph % (Auto) [place] % (Auto) Eos % (Auto) Baso % (Auto) Neut # (Auto) Lymph # (Auto) [place] # (Auto) Eos # (Auto) Baso # (Auto) WBC Differential Seg Neuts % (Manual) Band Neuts % (Manual) Lymphocytes % (Manual) Monocytes % (Manual) Abs Neuts (Manual) Differential Comment Toxic Granulation Platelet Estimate Platelet Morphology Tear Drop Cells Ovalocytes Sodium Potassium Chloride Carbon Dioxide Anion Gap BUN Creatinine Estimated GFR Random Glucose Calcium Phosphorus Magnesium Total Bilirubin AST ALT Alkaline Phosphatase B-Natriuretic Peptide Total Protein Albumin TSH 3.690 Free T4 0.87 Blood Type O Positive Antibody Screen Positive H Antibody Identification MTS Gel Crossmatch See Detail 09/24/18 09/25/18 09/25/18 19:18 04:20 10:20 WBC 24.8 H D RBC 3.83 L Hgb 9.9 L D Hct 30.8 L MCV 80.5 MCH 25.8 L MCHC 32.1 RDW 19.1 H Plt Count 97 L MPV 9.3 Prelim Diff (Auto) Slide review pending Neut % (Auto) 95.1 H Lymph % (Auto) 1.3 L [place] % (Auto) 3.1 Eos % (Auto) 0.1 Baso % (Auto) 0.4 Neut # (Auto) 23.6 H Lymph # (Auto) 0.3 L [place] # (Auto) 0.8 Eos # (Auto) 0.0 Baso # (Auto) 0.1 WBC Differential Manual diff final Seg Neuts % (Manual) 68 Band Neuts % (Manual) 30 H Lymphocytes % (Manual) 1 L Monocytes % (Manual) 1 Abs Neuts (Manual) 24.3 H Differential Comment . Toxic Granulation 1+ H Platelet Estimate Low L Platelet Morphology Normal Tear Drop Cells 1+ H Ovalocytes 1+ H Sodium Potassium Chloride Carbon Dioxide Anion Gap BUN Creatinine Estimated GFR Random Glucose Calcium Phosphorus Magnesium Total Bilirubin AST ALT Alkaline Phosphatase B-Natriuretic Peptide 261 H Total Protein Albumin TSH Free T4 Blood Type Antibody Screen Antibody Identification Non-Specific Agglutinin MTS Gel Crossmatch 09/25/18 10:20 WBC RBC Hgb Hct MCV MCH MCHC RDW Plt Count MPV Prelim Diff (Auto) Neut % (Auto) Lymph % (Auto) [place] % (Auto) Eos % (Auto) Baso % (Auto) Neut # (Auto) Lymph # (Auto) [place] # (Auto) Eos # (Auto) Baso # (Auto) WBC Differential Seg Neuts % (Manual) Band Neuts % (Manual) Lymphocytes % (Manual) Monocytes % (Manual) Abs Neuts (Manual) Differential Comment Toxic Granulation Platelet Estimate Platelet Morphology Tear Drop Cells Ovalocytes Sodium 141 Potassium 3.9 Chloride 106 Carbon Dioxide 30.0 Anion Gap 5 BUN 20 H Creatinine 1.36 H Estimated GFR 51 L Random Glucose 121 H Calcium 8.1 L Phosphorus 2.6 Magnesium 2.0 Total Bilirubin 4.0 H AST 139 H ALT 76 Alkaline Phosphatase 131 H B-Natriuretic Peptide Total Protein 6.0 L Albumin 3.4 TSH Free T4 Blood Type Antibody Screen Antibody Identification MTS Gel Crossmatch - Imaging Impressions Head MRI 09/24/18 00:00 CONCLUSION: 1. There is an abnormality in the left frontal region that is challenging to determine if there is intra-axial or extra-axial but I favor that it is part of the left frontal lobe. This area demonstrates abnormal edema and enhancement and measures approximately 2.4 x 1.3 x 1.8 cm. There is no restricted diffusion to indicate that this is an infarct. Therefore, infectious, inflammatory, or neoplastic processes should be considered. 2. No other abnormality is identified. Head MRA 09/24/18 00:00 CONCLUSION: No acute intracranial vascular abnormality is identified. Carotid Doppler Study 09/25/18 00:00 CONCLUSION: 1. Right Internal Carotid Artery: Findings indicate <50% stenosis. 2. Left Internal Carotid Artery: Findings indicate <50% stenosis. 3. Antegrade flow both vertebral arteries. Chest X-Ray 09/25/18 03:47 CONCLUSION: Interstitial prominence again noted. Patchy airspace disease. - Procedures EGD PROCEDURE REPORT EXAM DATE: 09/19/2018 PATIENT NAME: Kal Hand MR#: [id number] BIRTHDATE: 1940 STATUS: inpatient ATTENDING: Juarez Jean MD VISIT ID: [id number] EDUCATIONAL AID: [address] St Stienbarger, Terrie, and Mary Linares ORDER #: [id number] INDICATIONS: The patient is a 78 yr old male here for an EGD due to Melena, occult blood in stool.. PROCEDURE PERFORMED: EGD w/ biopsy MEDICATIONS: Per Anesthesia and None. ASA CLASS: Class III PHYSICAL EXAM: normal CONSENT: The patient understands the risks and benefits of the procedure and understands that these risks include, but are not limited to: sedation, allergic reaction, infection, perforation and/or bleeding. Alternative means of evaluation and treatment include, among others: physical exam, x-rays, and/or surgical intervention. The patient elects to proceed with this endoscopic procedure. DESCRIPTION OF PROCEDURE: for proper function. Hand hygiene and appropriate measures for infection prevention was taken. After the risks, benefits and alternatives of the procedure were thoroughly explained, Informed consent was verified, confirmed and timeout was successfully executed by the treatment team. The [employer] [id number] endoscope was introduced through the mouth and advanced to the second portion of the duodenum. The instrument was slowly withdrawn as the mucosa was fully examined. ESOPHAGUS: The mucosa of the esophagus appeared normal. STOMACH: There was mild gastritis in the gastric body. A biopsy was performed using cold forceps. Sample obtained for helicobacter pylori testing. DUODENUM: Food residue was found in the duodenal bulb and 1st part duodenum. The duodenal mucosa appeared normal in the duodenal bulb and 2nd part duodenum. Retroflexed views revealed a hiatal hernia The gastroscope was then slowly withdrawn and removed. COMPLICATIONS: There were no complications. IMPRESSIONS: 1. The esophagus appeared normal 2. There was mild gastritis in the gastric body; biopsy was performed 3. Food residue was found in the duodenal bulb and 1st part duodenum 4. Normal duodenal mucosa in the duodenal bulb and 2nd part duodenum 5. Retroflexed views revealed a hiatal hernia RECOMMENDATIONS: 1. Await biopsy results. Biopsy results will not be ready for 7-10 days. If you don't hear from us in two weeks, call our office for biopsy results. 2. Avoid NSAIDS 3. 3. No active upper gi bleeding found, therefore no objection to continue cardiac work up . 4. Avoid etoh PATIENT CONDITION: stable DISPOSITION: Inpatient REPEAT EXAM: NONE Juarez Jean MD eSigned: Juarez Jean MD 09/19/2018 1:54 PM Assessment and Plan (1) Occult blood in stools Status: Acute Code(s): R19.5 - Other fecal abnormalities - Plan Intermittent rectal bleeding with resultant anemia. We're still awaiting word regarding if/when we can consider a colonoscopy safely.
--- NOTE | 2018-09-25 16:25 | P.PNIM ---
Subjective Interval history: Patient reports he is feeling slightly better since he received the blood transfusion. No chest pain. Still having some blood in the stool. Physical Exam Vital signs: Last Vital Signs Temp 97.3 F L 09/25/18 12:00 Pulse 71 09/25/18 12:00 Resp 20 09/25/18 12:00 BP 104/53 L 09/25/18 12:00 Pulse Ox 100 09/25/18 12:00 Intake & Output 09/23/18 09/24/18 09/25/18 09/26/18 06:59 06:59 06:59 06:59 Intake Total 1040 / 1040 480 / 480 1130 / 1130 120 / 120 Output Total 200 / 200 200 / 200 600 / 600 Balance 840 / 840 280 / 280 530 / 530 120 / 120 Weight 88.8 kg 88.3 kg Narrative: GENERAL: Elderly male in no acute distress CARDIOVASCULAR: Normal rate and regular rhythm without murmurs, gallops, or rubs. RESPIRATORY: Good respiratory efforts. Diminished breath sounds at the bases and scattered crackles. GASTROINTESTINAL: Abdomen soft, non-tender, non-distended. Normal active bowel sounds MUSCULOSKELETAL: Extremities without cyanosis. 1+ edema NEURO: Alert & Oriented x4 to person, place, time, situation. Moves all ext x4 PSYCH: Appropriate mood and affect. Urinary Catheter Management Indwelling Urethral Catheter: Cath placed during this visit: yes, but has since been removed by the nurse Insertion date: 09/17/18 Insertion time: 02:34 Removal date: 09/18/18 Removal time: 17:30 Results Labs CBC & Chem 7: 09/25/18 10:20 09/25/18 10:20 Imaging Imaging: Impressions Head MRI 09/24/18 00:00 CONCLUSION: 1. There is an abnormality in the left frontal region that is challenging to determine if there is intra-axial or extra-axial but I favor that it is part of the left frontal lobe. This area demonstrates abnormal edema and enhancement and measures approximately 2.4 x 1.3 x 1.8 cm. There is no restricted diffusion to indicate that this is an infarct. Therefore, infectious, inflammatory, or neoplastic processes should be considered. 2. No other abnormality is identified. Carotid Doppler Study 09/25/18 00:00 CONCLUSION: 1. Right Internal Carotid Artery: Findings indicate <50% stenosis. 2. Left Internal Carotid Artery: Findings indicate <50% stenosis. 3. Antegrade flow both vertebral arteries. Chest X-Ray 09/25/18 03:47 CONCLUSION: Interstitial prominence again noted. Patchy airspace disease. Procedures Procedures: EGD Assessment and Plan (1) Occult blood in stools: Code(s): R19.5 - Other fecal abnormalities Status: Acute Plan 78-year-old male with recent and STEMI, has been unable to underwent heart catheterization. Patient also has GI bleeding but has been unable to have colonoscopy due to his cardiopulmonary status. Recent NSTEMI Acute myocardial infarction with elevated troponins -Not able to anticoagulate at this time due to GI bleeding Cardiology following COPD continue on breathing treatments being seen by pulmonary Continue on duo nebs and Mucinex continue on Symbicort -Recommend tobacco cessation -CT of chest showed nodularities will need an outpatient PET scan -He appear to have some pulmonary edema from the blood transfusion. - We will gave him an additional dose of 40 mg IV Lasix. Continue to monitor respiratory status GI bleed has undergone EGD Status post 2 units of PRBC transfusion yesterday -Continue on Protonix -History of heme positive stools Gastritis -GI is following and planning for colonoscopy once he is more stable from a cardiopulmonary standpoint. Hypertension: continue on Lopressor Hyperlipidemia: continue on Lipitor BPH: continue on Flomax Left hemianopsia: Resolved -MRI shows abnormality in the left frontal lobe with an area demonstrating abnormal edema and enhancement and measures approximately 2.4 x 1.3 x 1.8 cm Carotid Dopplers showed less than 50% stenosis bilaterally. -Per radiologist addendum, on further review of the MRI, looks to be more like a meningioma instead of an intra-axial mass. Medicine appreciate neurology following. Continue on GI prophylaxis DVT prophylaxis per ambulation and SCDs and BALTAZAR rubioe Code Status: Full code Progress Note: Quality VTE Deep Vein Thrombosis/Pulmonary Embolism Present on Admission: No
[2018-09-26 08:46] LABS: Hematocrit 30.5 % (39.0-51.0); Hemoglobin 9.9 gm/dL (13.0-17.0); Mean Corpuscular HGB Conc 32.6 % (32.0-36.0); Mean Corpuscular Hemoglobin 26.5 pg (27.0-34.0); Mean Corpuscular Volume 81.2 fL (80.0-100.0); Mean Platelet Volume 9.7 fL (7.0-11.0); Platelet Count 78 th/mm3 (150-450); Red Blood Count 3.75 mil/mm3 (4.50-5.90); White Blood Count 13.4 th/mm3 (4.0-11.0)
[2018-09-26] MEDS: Metoprolol Tartrate 25 MG Tablet PO SCH ×3 (08:49→20:58)
[2018-09-26] MEDS: guaiFENesin 600 MG ER Tablet PO SCH ×2 (08:49→20:58)
[2018-09-26] MEDS: Senna/Docusate Sodium 8.6/50 MG Tablet PO SCH ×3 (08:49→20:58)
[2018-09-26] MEDS: Budesonide-Formoterol 160/4.5 MCG 6 GM Inhaler INH SCH ×2 (08:51→21:01)
[2018-09-26 09:04] LABS: Calcium 8.2 mg/dL (8.5-10.1); Carbon Dioxide 29.5 meq/L (21.0-32.0); Potassium 3.4 meq/L (3.5-5.1)
--- NOTE | 2018-09-26 09:37 | P.PNGI ---
Subjective Interval history: Still passing some blood per rectum with each BM. No pain Physical Exam Vital signs: Vital Signs 09/25/18 12:00 09/25/18 16:00 09/25/18 17:43 Temperature 97.3 F L 98.9 F Pulse Rate 71 68 72 Respiratory Rate 20 18 18 Blood Pressure 104/53 L 111/76 Pulse Oximetry 100 94 L 09/25/18 19:53 09/25/18 20:00 09/26/18 00:00 Temperature 98 F 97.4 F L Pulse Rate 76 79 70 Respiratory Rate 19 17 Blood Pressure 94/55 L 91/50 L Pulse Oximetry 96 100 09/26/18 00:17 09/26/18 04:00 09/26/18 08:00 Temperature 98.8 F 97.5 F L Pulse Rate 71 78 80 Respiratory Rate 16 17 18 Blood Pressure 98/68 L 112/56 L Pulse Oximetry 98 92 L Intake & Output 09/25/18 09/26/18 09/26/18 18:59 06:59 18:59 Intake Total 580 / 580 240 / 240 Output Total 600 / 600 Balance 579 / 579 -360 / -360 Weight 88.2 kg Intake: IV 100 / 100 NS Inj 250 ML @ 15 mls/hr IV. 100 / 100 SIG ONCE CAMILA Rx#:[id number] Oral 460 / 460 240 / 240 Other Rbc As-3 Leukoreduced Unit [id number] Intake (Blood Product) Amt 0 / 0 Rbc As-3 Leukoreduced Unit 0 / 0 [id number] Output: Urine 600 / 600 Urine/Stool Mix Other: # Voids 6 2 Date of Last Bowel Movement 09/25/18 09/25/18 - Constitutional no acute distress - Routine HEENT Exam Eye: Present: EOMI - Urinary Catheter Management Indwelling Urethral Catheter Cath placed during this visit: yes, but has since been removed by the nurse Reason for continuing: Decision to DC catheter Insertion date: 09/17/18 Insertion time: 02:34 Removal date: 09/18/18 Removal time: 17:30 Results - Labs CBC & Chem 7: 09/26/18 08:15 09/26/18 08:15 Laboratory Results - last 24 hr 12/08/18 12/09/18 12/09/18 10:27 10:20 10:20 WBC 24.8 H D RBC 3.83 L Hgb 9.9 L D Hct 30.8 L MCV 80.5 MCH 25.8 L MCHC 32.1 RDW 19.1 H Plt Count 97 L MPV 9.3 Prelim Diff (Auto) Slide review pending Neut % (Auto) 95.1 H Lymph % (Auto) 1.3 L Lake % (Auto) 3.1 Eos % (Auto) 0.1 Baso % (Auto) 0.4 Neut # (Auto) 23.6 H Lymph # (Auto) 0.3 L [place] # (Auto) 0.8 Eos # (Auto) 0.0 Baso # (Auto) 0.1 WBC Differential Manual diff final Seg Neuts % (Manual) 68 Band Neuts % (Manual) 30 H Lymphocytes % (Manual) 1 L Monocytes % (Manual) 1 Abs Neuts (Manual) 24.3 H Differential Comment . Toxic Granulation 1+ H Platelet Estimate Low L Platelet Morphology Normal Tear Drop Cells 1+ H Ovalocytes 1+ H Sodium 141 Potassium 3.9 Chloride 106 Carbon Dioxide 30.0 Anion Gap 5 BUN 20 H Creatinine 1.36 H Estimated GFR 51 L Random Glucose 121 H Hemoglobin A1c 5.2 Calcium 8.1 L Phosphorus 2.6 Magnesium 2.0 Total Bilirubin 4.0 H AST 139 H ALT 76 Alkaline Phosphatase 131 H Total Protein 6.0 L Albumin 3.4 09/26/18 09/26/18 08:15 08:15 WBC 13.4 H RBC 3.75 L Hgb 9.9 L Hct 30.5 L MCV 81.2 MCH 26.5 L MCHC 32.6 RDW 19.0 H Plt Count 78 L MPV 9.7 Prelim Diff (Auto) Neut % (Auto) Lymph % (Auto) Lake % (Auto) Eos % (Auto) Baso % (Auto) Neut # (Auto) Lymph # (Auto) Lake # (Auto) Eos # (Auto) Baso # (Auto) WBC Differential Seg Neuts % (Manual) Band Neuts % (Manual) Lymphocytes % (Manual) Monocytes % (Manual) Abs Neuts (Manual) Differential Comment Toxic Granulation Platelet Estimate Platelet Morphology Tear Drop Cells Ovalocytes Sodium 141 Potassium 3.4 L Chloride 105 Carbon Dioxide 29.5 Anion Gap 7 BUN 22 H Creatinine 1.26 Estimated GFR 55 L Random Glucose 94 Hemoglobin A1c Calcium 8.2 L Phosphorus Magnesium Total Bilirubin AST ALT Alkaline Phosphatase Total Protein Albumin - Procedures EGD Assessment and Plan (1) Occult blood in stools Status: Acute Code(s): R19.5 - Other fecal abnormalities - Plan Rectal bleeding; We're still waiting for cardiology to decide if it's safe for the patient to undergo a bowel prep and colonoscopy. Let us know.
--- NOTE | 2018-09-26 15:47 | P.PNCA ---
Subjective Interval history: Patient denies any palpitations, dizziness, edema or syncope. Patient does complain of mild chest discomfort that comes and go along with mild SOB with activity. Medications and Allergies Allergies Allergy/AdvReac Type Severity Reaction Status Date / Time NKA Allergy Unknown Uncoded 06/26/03 03:11 No Known Allergies Allergy Uncoded 03/09/14 10:21 Home Medications Medication Instructions Recorded Confirmed Type albuterol sulfate 2.5 mg INHALATION QID PRN 09/17/18 09/17/18 History tamsulosin [Flomax] 0.4 mg PO DAILY 09/17/18 09/17/18 History Active Medications: Active Medications Acetaminophen (Tylenol) 650 mg PO Q4H PRN PRN Reason: Temp > 100.4 Last Admin: 09/22/18 01:44 Dose: 650 mg Acetaminophen (Tylenol) 650 mg PO Q4H PRN PRN Reason: HEADACHE OR FEVER Last Admin: 09/23/18 21:48 Dose: 650 mg Acetaminophen (Tylenol) 650 mg PO Q4H PRN PRN Reason: SEE LABEL COMMENTS Last Admin: 09/25/18 03:19 Dose: 650 mg Acetaminophen/Butalbital/Caffeine (Fioricet 50-325-40) 2 tab PO Q4H PRN PRN Reason: SEE LABEL COMMENTS Last Admin: 09/24/18 14:10 Dose: 2 tab Al Hydroxide/Mg Hydroxide (Milk Of Lia Correa) 30 ml PO Q12H PRN PRN Reason: Mild Constipation Last Admin: 09/21/18 14:21 Dose: 30 ml Albuterol (Duoneb Neb (Prn)) 1 ampul NEB Q2HR NEB PRN PRN Reason: DYSPNEA Last Admin: 09/26/18 00:17 Dose: 1 ampul Atorvastatin Calcium (Lipitor) 80 mg PO HS [facility] Last Admin: 09/25/18 21:18 Dose: Not Given Bisacodyl (Dulcolax Supp) 10 mg RECTAL DAILY PRN PRN Reason: SEVERE CONSITIPATION Budesonide/Formoterol Fumarate (Symbicort 160/4.5 Mcg Inh) 2 puff INH BID [facility] Last Admin: 09/26/18 08:51 Dose: 2 puff Guaifenesin (Mucinex Er) 600 mg PO BID [facility] Last Admin: 09/26/18 08:49 Dose: 600 mg Lactulose (Lactulose Liq) 30 ml PO DAILY PRN PRN Reason: SEVERE CONSITIPATION Last Admin: 09/21/18 10:22 Dose: 30 ml Metoprolol Tartrate (Lopressor) 25 mg PO BID [facility] Last Admin: 09/26/18 08:53 Dose: Not Given Morphine Sulfate (Morphine Inj) 2 mg IV.PUSH Q3H PRN PRN Reason: CHEST PAIN Last Admin: 09/20/18 13:58 Dose: 2 mg Ondansetron HCl (Zofran Inj) 4 mg IV.PUSH Q6H PRN PRN Reason: NAUSEA OR VOMITING Last Admin: 09/19/18 23:46 Dose: 4 mg Pantoprazole Sodium (Protonix) 40 mg PO DAILY [facility] Last Admin: 09/26/18 08:49 Dose: 40 mg Senna/Docusate Sodium (Margot-Colace) 1 tab PO BID [facility] Last Admin: 09/26/18 08:52 Dose: Not Given Sennosides (Senokot) 17.2 mg PO Q12H PRN PRN Reason: Moderate Constipation Last Admin: 09/21/18 10:22 Dose: 17.2 mg Sodium Chloride (Ns Flush) 2 ml IV.FLUSH BID [facility] Last Admin: 09/26/18 08:50 Dose: 2 ml Sodium Chloride (Ns Flush) 2 ml IV.FLUSH PRN PRN PRN Reason: FLUSH AFTER USING IV ACCESS Tamsulosin HCl (Flomax) 0.4 mg PO DAILY [facility] Last Admin: 09/26/18 08:49 Dose: 0.4 mg Physical Exam Vital signs: Vital Signs 09/25/18 16:00 09/25/18 17:43 09/25/18 19:53 Temperature 98.9 F Pulse Rate 68 72 76 Respiratory Rate 18 18 Blood Pressure 111/76 Pulse Oximetry 94 L 09/25/18 20:00 09/26/18 00:00 09/26/18 00:17 Temperature 98 F 97.4 F L Pulse Rate 79 70 71 Respiratory Rate 19 17 16 Blood Pressure 94/55 L 91/50 L Pulse Oximetry 96 100 09/26/18 04:00 09/26/18 08:00 09/26/18 12:00 Temperature 98.8 F 97.5 F L 97.6 F Pulse Rate 78 73 77 Respiratory Rate 17 18 18 Blood Pressure 98/68 L 112/56 L 117/56 L Pulse Oximetry 98 92 L 97 Intake & Output 09/25/18 09/26/18 09/26/18 18:59 06:59 18:59 Intake Total 580 / 580 240 / 240 Output Total 600 / 600 Balance 579 / 579 -360 / -360 Weight 88.2 kg Intake: IV 100 / 100 NS Inj 250 ML @ 15 mls/hr IV. 100 / 100 SIG ONCE CAMILA Rx#:[id number] Oral 460 / 460 240 / 240 Other Rbc As-3 Leukoreduced Unit [id number] Intake (Blood Product) Amt 0 0 Rbc As-3 Leukoreduced Unit 0 [id number] Output: Urine 600 / 600 Urine/Stool Mix Other: # Voids 6 2 Date of Last Bowel Movement 09/25/18 09/25/18 - Constitutional no acute distress - Routine HEENT Exam Head: Present: normocephalic Eye: Present: PERRL ENT: Present: mucous membranes moist - Routine Neck Exam Present: full ROM - Routine Respiratory Exam Present: decreased breath sounds - Routine Cardiovascular Exam Present: S1, S2. Absent: murmur, gallop, rubs - Routine Abdominal Exam Present: normoactive bowel sounds - Routine Extremities Exam Present: full ROM, pulses intact, normal capillary refill. Absent: cyanosis, clubbing, edema - Routine Skin Exam Present: intact - Routine Neurological Exam Present: oriented X3 - Detailed Neurological Exam: Coma Scale Eye Opening: Spontaneous Verbal Response: Oriented Motor Response: Obey commands [place] Coma Scale Total: 15 - Routine Psychiatric Exam Present: normal affect - Urinary Catheter Management Indwelling Urethral Catheter Cath placed during this visit: yes, but has since been removed by the nurse Reason for continuing: Decision to DC catheter Insertion date: 09/17/18 Insertion time: 02:34 Removal date: 09/18/18 Removal time: 17:30 Results 09/26/18 08:15 09/26/18 08:15 Cardiac Enzymes 09/25/18 09/25/18 Range/Units 04:20 10:20 AST 139 H (15-37) U/L B-Natriuretic Peptide 261 H (0-100) pg/mL Coagulation 09/25/18 Range/Units 04:20 B-Natriuretic Peptide 261 H (0-100) pg/mL CBC 09/25/18 09/26/18 Range/Units 10:20 08:15 WBC 24.8 H D 13.4 H (4.0-11.0) th/mm3 RBC 3.83 L 3.75 L (4.50-5.90) mil/mm3 Hgb 9.9 L D 9.9 L (13.0-17.0) gm/dL Hct 30.8 L 30.5 L (39.0-51.0) % Plt Count 97 L 78 L (150-450) th/mm3 Neut # (Auto) 23.6 H (1.8-7.7) th/mm3 Lymph # (Auto) 0.3 L (1.0-4.8) th/mm3 [place] # (Auto) 0.8 (0.0-0.9) th/mm3 Eos # (Auto) 0.0 (0.0-0.4) th/mm3 Baso # (Auto) 0.1 (0.0-0.2) th/mm3 Comprehensive Metabolic Panel 09/25/18 09/26/18 Range/Units 10:20 08:15 Sodium 141 141 (136-145) meq/L Potassium 3.9 3.4 L (3.5-5.1) meq/L Chloride 106 105 (98-107) meq/L Carbon Dioxide 30.0 29.5 (21.0-32.0) meq/L BUN 20 H 22 H (7-18) mg/dL Creatinine 1.36 H 1.26 (0.60-1.30) mg/dL Calcium 8.1 L 8.2 L (8.5-10.1) mg/dL AST 139 H (15-37) U/L ALT 76 (12-78) U/L Alkaline Phosphatase 131 H (45-117) U/L Total Protein 6.0 L (6.4-8.2) g/dL Albumin 3.4 (3.4-5.0) g/dL Intake and Output 09/26/18 09/26/18 09/26/18 06:59 14:59 22:59 Intake Total 240 / 240 Output Total 600 / 600 Balance -360 / -360 Intake: Oral 240 / 240 Output: Urine 600 / 600 Other: # Voids 2 Weight 88.2 kg - Imaging and Cardiology Imaging: Impressions Head MRI 09/24/18 00:00 CONCLUSION: 1. There is an abnormality in the left frontal region that is challenging to determine if there is intra-axial or extra-axial but I favor that it is part of the left frontal lobe. This area demonstrates abnormal edema and enhancement and measures approximately 2.4 x 1.3 x 1.8 cm. There is no restricted diffusion to indicate that this is an infarct. Therefore, infectious, inflammatory, or neoplastic processes should be considered. 2. No other abnormality is identified. Head MRA 09/24/18 00:00 CONCLUSION: No acute intracranial vascular abnormality is identified. Carotid Doppler Study 09/25/18 00:00 CONCLUSION: 1. Right Internal Carotid Artery: Findings indicate <50% stenosis. 2. Left Internal Carotid Artery: Findings indicate <50% stenosis. 3. Antegrade flow both vertebral arteries. Chest X-Ray 09/25/18 03:47 CONCLUSION: Interstitial prominence again noted. Patchy airspace disease. Assessment and Plan - Assessment (1) NSTEMI (non-ST elevated myocardial infarction) Code(s): I21.4 - Non-ST elevation (NSTEMI) myocardial infarction Status: Acute (2) Occult blood in stools Code(s): R19.5 - Other fecal abnormalities Status: Acute (3) COPD (chronic obstructive pulmonary disease) Code(s): J44.9 - Chronic obstructive pulmonary disease, unspecified Status: Chronic (4) Hyperlipidemia Code(s): E78.5 - Hyperlipidemia, unspecified Status: Chronic (5) Hypertension Code(s): I10 - Essential (primary) hypertension Status: Chronic - Plan GI evaluation in progress due to GI bleed. GI awaiting cardiac clearance for colonoscopy. Patient can be cleared for colonoscopy from a cardiac standpoint. Pulmonary evaluation in progress due to COPD and enlarged mediastinal node. No new cardiac issues; we will continue with current cardiac treatment plan. We will continue to follow the patient during his hospitalization. The patient was seen and evaluated by Dr. Flores who participated in care, management and decision making. - Attending Attestation Patient seen and examined. I reviewed and agree with the evaluation and plan as presented. No new cardiac issues. Proceed with colonoscopy as planned. (4) Hyperlipidemia Qualifiers: Hyperlipidemia type: mixed hyperlipidemia Qualified Code(s): E78.2 - Mixed hyperlipidemia
--- NOTE | 2018-09-26 16:20 | P.PNIM ---
Subjective Interval history: Patient reports he is feeling ok today. Still has blood in the stool. Breathing improved. Physical Exam Vital signs: Last Vital Signs Temp 97.6 F 09/26/18 12:00 Pulse 77 09/26/18 12:00 Resp 18 09/26/18 12:00 BP 117/56 L 09/26/18 12:00 Pulse Ox 97 09/26/18 12:00 Intake & Output 09/24/18 09/25/18 09/26/18 09/27/18 06:59 06:59 06:59 06:59 Intake Total 480 / 480 1130 / 1130 820 / 820 Output Total 200 / 200 600 / 600 601 / 601 Balance 280 / 280 530 / 530 219 / 219 Weight 88.3 kg 88.2 kg Narrative: GENERAL: Elderly male in no acute distress CARDIOVASCULAR: Normal rate and regular rhythm without murmurs, gallops, or rubs. RESPIRATORY: Good respiratory efforts. Diminished breath sounds at the bases and scattered crackles. GASTROINTESTINAL: Abdomen soft, non-tender, non-distended. Normal active bowel sounds MUSCULOSKELETAL: Extremities without cyanosis. 1+ edema NEURO: Alert & Oriented x4 to person, place, time, situation. Moves all ext x4 PSYCH: Appropriate mood and affect. Urinary Catheter Management Indwelling Urethral Catheter: Cath placed during this visit: yes, but has since been removed by the nurse Insertion date: 09/17/18 Insertion time: 02:34 Removal date: 09/18/18 Removal time: 17:30 Results Labs CBC & Chem 7: 09/26/18 08:15 09/26/18 08:15 Procedures Procedures: EGD Assessment and Plan (1) Occult blood in stools: Code(s): R19.5 - Other fecal abnormalities Status: Acute Plan 78-year-old male with recent and STEMI, has been unable to underwent heart catheterization. Patient also has GI bleeding but has been unable to have colonoscopy due to his cardiopulmonary status. Condition improving. Cleared by Cardiology for Colonoscopy. Recent NSTEMI Acute myocardial infarction with elevated troponins -Not able to anticoagulate at this time due to GI bleeding Cardiology following COPD: continue on breathing treatments being seen by pulmonary Continue on duo nebs and Mucinex continue on Symbicort -Recommend tobacco cessation -CT of chest showed nodularities will need an outpatient PET scan - Cautious with fluid. FLuid overload after blood transfusion. Much improved after Lasix. Continue to monitor respiratory status GI bleed has undergone EGD Status post 2 units of PRBC transfusion yesterday -Continue on Protonix -History of heme positive stools Gastritis -GI is following and planning for colonoscopy. Cleared by Cardiology for Colonoscopy. Advised RN to notify GI. Hypertension: continue on Lopressor Hyperlipidemia: continue on Lipitor BPH: continue on Flomax Left hemianopsia: Resolved -MRI shows abnormality in the left frontal lobe with an area demonstrating abnormal edema and enhancement and measures approximately 2.4 x 1.3 x 1.8 cm Carotid Dopplers showed less than 50% stenosis bilaterally. -Per radiologist addendum, on further review of the MRI, looks to be more like a meningioma instead of an intra-axial mass. -appreciate neurology following. Continue on GI prophylaxis DVT prophylaxis per ambulation and SCDs and BALTAZAR smith Code Status: Full code Progress Note: Quality VTE Deep Vein Thrombosis/Pulmonary Embolism Present on Admission: No
[2018-09-26] MEDS ORDERED: PEG 3350/E-Lyte Soln 4000 ML Bottle PO ONE (18:00)
--- NOTE | 2018-09-26 18:57 | P.PN ---
Subjective Interval history: Alert and on o2 2 L. No SOB . Will have colonoscopy in am. Physical Exam Vital signs: Vital Signs 09/25/18 19:53 09/25/18 20:00 09/26/18 00:00 Temperature 98 F 97.4 F L Pulse Rate 76 79 70 Respiratory Rate 19 17 Blood Pressure 94/55 L 91/50 L Pulse Oximetry 96 100 09/26/18 00:17 09/26/18 04:00 09/26/18 08:00 Temperature 98.8 F 97.5 F L Pulse Rate 71 78 73 Respiratory Rate 16 17 18 Blood Pressure 98/68 L 112/56 L Pulse Oximetry 98 92 L 09/26/18 12:00 09/26/18 16:00 Temperature 97.6 F 97.8 F Pulse Rate 85 77 Respiratory Rate 18 18 Blood Pressure 117/56 L 116/55 L Pulse Oximetry 97 99 Intake & Output 09/25/18 09/26/18 09/26/18 18:59 06:59 18:59 Intake Total 580 / 580 240 / 240 720 / 720 Output Total 600 / 600 800 / 800 Balance 579 / 579 -360 / -360 -80 / -80 Weight 88.2 kg Intake: IV 100 / 100 NS Inj 250 ML @ 15 mls/hr IV. 100 / 100 SIG ONCE CAMILA Rx#:[id number] Oral 460 / 460 240 / 240 720 / 720 Other Rbc As-3 Leukoreduced Unit [id number] Intake (Blood Product) Amt 0 / 0 Rbc As-3 Leukoreduced Unit 0 / 0 [id number] Output: Urine 600 / 600 800 / 800 Urine/Stool Mix Other: # Voids 6 2 Date of Last Bowel Movement 09/25/18 09/25/18 # Bowel Movements 0 Narrative: GENERAL: Elderly male in no acute distress. Pale. CARDIOVASCULAR: Normal rate and regular rhythm without murmurs, gallops, or rubs. RESPIRATORY: Good respiratory efforts. Diminished breath sounds at the bases and scattered wheeze. GASTROINTESTINAL: Abdomen soft, non-tender, non-distended. Normal active bowel sounds MUSCULOSKELETAL: Extremities without cyanosis. No edema NEURO: Alert & Oriented x4 to person, place, time, situation. Moves all ext x4 PSYCH: Appropriate mood and affect. - Urinary Catheter Management Indwelling Urethral Catheter Cath placed during this visit: yes, but has since been removed by the nurse Reason for continuing: Decision to DC catheter Insertion date: 09/17/18 Insertion time: 02:34 Removal date: 09/18/18 Removal time: 17:30 Results - Labs CBC & Chem 7: 09/26/18 08:15 09/26/18 08:15 Laboratory Results - last 24 hr 09/26/18 09/26/18 08:15 08:15 WBC 13.4 H RBC 3.75 L Hgb 9.9 L Hct 30.5 L MCV 81.2 MCH 26.5 L MCHC 32.6 RDW 19.0 H Plt Count 78 L MPV 9.7 Sodium 141 Potassium 3.4 L Chloride 105 Carbon Dioxide 29.5 Anion Gap 7 BUN 22 H Creatinine 1.26 Estimated GFR 55 L Random Glucose 94 Calcium 8.2 L - Procedures EGD Assessment and Plan - Assessment (1) Gastritis Code(s): K29.70 - Gastritis, unspecified, without bleeding Status: Acute (2) NSTEMI (non-ST elevated myocardial infarction) Code(s): I21.4 - Non-ST elevation (NSTEMI) myocardial infarction Status: Acute (3) Occult blood in stools Code(s): R19.5 - Other fecal abnormalities Status: Acute (4) COPD (chronic obstructive pulmonary disease) Code(s): J44.9 - Chronic obstructive pulmonary disease, unspecified Status: Chronic (5) Hyperlipidemia Code(s): E78.5 - Hyperlipidemia, unspecified Status: Chronic (6) Hypertension Code(s): I10 - Essential (primary) hypertension Status: Chronic - Plan 1. Cont O2 at 2 L N/C. 2. Cont Duoneb nebs qid. 3. Continue Symbicort 160/4.5 mcg , 2 puffs BID 4. Get PET CT as OP for mediastinal node evaluation. 5. Continue Protonix 40 mg daily. 6. Continue anticoagulation . 7. GI Evaluation in am (5) Hyperlipidemia Qualifiers: Hyperlipidemia type: mixed hyperlipidemia Qualified Code(s): E78.2 - Mixed hyperlipidemia
[2018-09-27] MEDS: Acetaminophen 325 MG Tablet PO PRN ×2 (00:44→22:54)
[2018-09-27] MEDS ORDERED: Chlorhexidine Gluconate 2% 1 Pack (2 Cloths) TOPICAL ONE (05:08)
[2018-09-27] MEDS ORDERED: Sodium Chlor 0.9% Inj 500 ML IV.SIG SCH (06:00)
[2018-09-27 07:10] LABS: Hemoglobin 9.3 gm/dL (13.0-17.0); Mean Corpuscular HGB Conc 33.1 % (32.0-36.0); Mean Corpuscular Hemoglobin 26.4 pg (27.0-34.0); Mean Corpuscular Volume 79.5 fL (80.0-100.0); Mean Platelet Volume 10.3 fL (7.0-11.0); Platelet Count 74 th/mm3 (150-450); Red Blood Count 3.52 mil/mm3 (4.50-5.90)
[2018-09-27 07:30] LABS: Calcium 7.6 mg/dL (8.5-10.1); Carbon Dioxide 31.5 meq/L (21.0-32.0); Potassium 3.6 meq/L (3.5-5.1)
[2018-09-27] MEDS: Metoprolol Tartrate 25 MG Tablet PO SCH ×2 (08:14→22:34)
[2018-09-27] MEDS: guaiFENesin 600 MG ER Tablet PO SCH ×2 (08:14→22:33)
[2018-09-27] MEDS: Senna/Docusate Sodium 8.6/50 MG Tablet PO SCH ×2 (08:15→22:34)
[2018-09-27] MEDS: Budesonide-Formoterol 160/4.5 MCG 6 GM Inhaler INH SCH ×2 (08:19→22:36)
--- NOTE | 2018-09-27 11:31 | GIPROC ---
[facility] [address] [facility]. [facility], [id number] COLONOSCOPY PROCEDURE REPORT EXAM DATE: 09/27/2018 PATIENT NAME: Kal Hand MR #: [id number] BIRTHDATE: 1940 ENDOSCOPIST: Ray Saul MD ORDER #: [id number] CUTLERY GRINDER: Calos St Pena, Gabriela, Stienbarger, Terrie, Wilcox-Hassen, Alice, and Keya Moser STATUS: inpatient INDICATIONS: The patient is a 78 yr old male here for a colonoscopy due to intermittent rectal bleeding. PROCEDURE PERFORMED: colonoscopy with APC of a right colon vascular malformation MEDICATIONS: Per Anesthesia PREP QUALITY: good ESTIMATED BLOOD LOSS: None CONSENT: The patient understands the risks and benefits of the procedure and understands that these risks include, but are not limited to: sedation, allergic reaction, infection, perforation and/or bleeding. Alternative means of evaluation and treatment include, among others: physical exam, x-rays, and/or surgical intervention. The patient elects to proceed with this endoscopic procedure. medical equipment was checked for proper function. Hand hygiene and appropriate measures for infection prevention was taken. After the risks, benefits and alternatives of the procedure were thoroughly explained, Informed consent was verified, confirmed and timeout was successfully executed by the treatment team. A digital exam was performed and revealed no abnormalities of the rectum The Pentax [id number] endoscope was introduced through the anus and advanced to the cecum, which was identified by both the appendix and ileocecal valve. The instrument was then slowly withdrawn as the colon was fully examined. COLON FINDINGS: A single proximal ascending colon vascular malformation was noted and was treated successfully with argon plasma coagulation using the "right colon" setting. Moderate to severe steiner-diverticulosis was noted. Moderate-sized juctional hemorrhoids were noted. free text The scope was then completely withdrawn from the patient and the procedure terminated. PROCEDURE WITHDRAWAL TIME:11minutes ADVERSE EVENTS: There were no complications. IMPRESSIONS: 1. A single proximal ascending colon vascular malformation was noted and was treated successfully with argon plasma coagulation using the "right colon" setting 2. Moderate to severe steiner-diverticulosis was noted 3. Moderate-sized juctional hemorrhoids were noted RECOMMENDATIONS: High fiber diet: 25gm/day with consumption of two quarts of liquid per day. Follow up with Dr. Marinelli in 2-4 weeks. RECALL: NONE Ray Saul MD eSigned: Ray Saul MD 09/27/2018 11:30 AM cc: Delfino Felton M.D. PATIENT NAME: Yazan Kal Karely MR#: [id number]
--- NOTE | 2018-09-27 12:44 | P.PNFP ---
Subjective Interval history: Delayed entry seen earlier this am. Npo for colonoscopy. He is irritated this am, voicing that whenever he falls asleep someone wakes him. Still having blood in stool. Denies, CP, he is sob, but he voices better. No abdominal pain. Complains of toe pain Results - Labs Result diagrams: 09/27/18 05:43 09/27/18 05:43 Abnormal lab results 09/27/18 09/27/18 Range/Units 05:43 05:43 RBC 3.52 L (4.50-5.90) mil/mm3 Hgb 9.3 L (13.0-17.0) gm/dL Hct 28.0 L (39.0-51.0) % MCV 79.5 L (80.0-100.0) fL MCH 26.4 L (27.0-34.0) pg RDW 19.0 H (11.6-17.2) % Plt Count 74 L (150-450) th/mm3 Estimated GFR 76 L (>89) mL/min Calcium 7.6 L (8.5-10.1) mg/dL Short CBC 09/27/18 Range/Units 05:43 WBC 9.0 (4.0-11.0) th/mm3 Hgb 9.3 L (13.0-17.0) gm/dL Hct 28.0 L (39.0-51.0) % Plt Count 74 L (150-450) th/mm3 BMP 09/27/18 05:43 Sodium 145 Potassium 3.6 Chloride 107 Carbon Dioxide 31.5 BUN 16 Creatinine 0.95 Calcium 7.6 L Physical Exam Vital signs: Vital Signs 09/26/18 16:00 09/26/18 20:00 09/26/18 22:10 Temperature 97.8 F 97.8 F Pulse Rate 89 83 75 Respiratory Rate 18 18 18 Blood Pressure 116/55 L 120/58 L Pulse Oximetry 99 97 09/27/18 00:00 09/27/18 00:10 09/27/18 04:00 Temperature 98.1 F 97.4 F L Pulse Rate 78 70 Respiratory Rate 18 18 Blood Pressure 106/53 L 111/56 L Pulse Oximetry 98 95 95 09/27/18 08:00 09/27/18 08:56 09/27/18 10:27 Temperature 97.7 F Pulse Rate 71 Respiratory Rate 16 Blood Pressure 117/56 L Pulse Oximetry 94 L 97 99 09/27/18 11:30 Temperature 97.5 F L Pulse Rate 71 Respiratory Rate 18 Blood Pressure 110/55 L Pulse Oximetry 95 Intake & Output 09/26/18 09/27/18 09/27/18 18:59 06:59 18:59 Intake Total 720 / 720 0 / 0 100 / 100 Output Total 800 / 800 Balance -80 / -80 0 / 0 100 / 100 Weight 88 kg Intake: Oral 720 / 720 0 / 0 Anesthesia Amount 100 / 100 Output: Urine 800 / 800 Other: # Voids 4 Date of Last Bowel Movement 09/25/18 09/26/18 09/26/18 # Bowel Movements 0 0 - Constitutional no acute distress - Routine HEENT Exam Head: Present: normocephalic Eye: Present: PERRL ENT: Present: mucous membranes moist - Routine Respiratory Exam Present: wheezes, diminished air movement - Routine Cardiovascular Exam Present: S1, S2 - Routine Abdominal Exam Present: soft - Routine Skin Exam Present: dry, warm - Routine Neurological Exam Present: alert, oriented X3 - Routine Psychiatric Exam Present: agitated - Urinary Catheter Management Indwelling Urethral Catheter Cath placed during this visit: yes, but has since been removed by the nurse Reason for continuing: Decision to DC catheter Insertion date: 09/17/18 Insertion time: 02:34 Removal date: 09/18/18 Removal time: 17:30 Assessment and Plan - Assessment (1) NSTEMI (non-ST elevated myocardial infarction) Code(s): I21.4 - Non-ST elevation (NSTEMI) myocardial infarction Status: Acute Plan: Cards following, will medical management. No plans for cath or stent r/t Gi bleed and inability to anticoagulate. (2) Occult blood in stools Code(s): R19.5 - Other fecal abnormalities Status: Acute Plan: GI consult noted. scheduled for colonoscopy today (3) COPD (chronic obstructive pulmonary disease) Code(s): J44.9 - Chronic obstructive pulmonary disease, unspecified Status: Chronic Plan: Pulmonary consult, Pulmonary following Cont oxygen support, bronchodilators Ct showing some nodularities, Outpatient pet scanned recommended (4) Hyperlipidemia Code(s): E78.5 - Hyperlipidemia, unspecified Status: Chronic Plan: Cont home meds and HH diet (5) Hypertension Code(s): I10 - Essential (primary) hypertension Status: Chronic Plan: Follow BP closely and adjust meds as needed - Assessment and Plan 09/17/18 - Adm to ICU for NSTEMI. Decision regarding cath today is pending at this time. He will also be seen by GI for guaiac positive stools and we will monitor HG. Pulm to see today and adjust meds as indicated. 09/18/18 - Gi and Cards will need to decide which W/U will be done first. CT ordered per GI recommendations. Will recheck labs and F/U daily pending eval for bleeding. Cards wants W/U after GI eval done so he can be anticoagulated 09/19/18- Resting in bed, uneventful night. Denies CP, Palpations, Sat's maintained on 2 liters, he does have some wheezes. Cont with Bronchodilators, and oxygen support. Scheduled for EGD today, HGB 7.9 today, cont to monitor 09/20/18- Patient remains stable, had EGD completed yesterday, no further workup planned. Cardiac to manage medically, related to inability to anticoagulate. HGb stable this am, will transfer to medical/tele floor. Pt to treat. DC when medically stale and cleared by pulmonary. 09/21/18- Vss afebrile, he complains of increased sob with sputum production, Mucinex added. Order to transfer to medical floor when bed available, increase activity. Hgb stable 8.0 this am. 09/22/18 Vss afebrile transferred to medical floor. Referral made to [facility] for telemetry rehab. He is still sob on exertion, he is on oxygen, cont with bronchodilators. hgb 7.8 this am, will cont to monitor. Dc when arrangement made , cont with therapy activity. 09/23/18- Seen this am, nurse states he has had some bloody stool. Hgb pending this am. Abdomen distended. He does complain of more Sob, sat's maintained on 2 liters. Pulmonary following. Gi contacted by nurse. Will await rec's. He has not been restarted on anticoag's. Cardiology cont to follow, medical management supportive care. (4) Hyperlipidemia Qualifiers: Hyperlipidemia type: mixed hyperlipidemia Qualified Code(s): E78.2 - Mixed hyperlipidemia (5) Hypertension Qualifiers: Hypertension type: essential hypertension Qualified Code(s): I10 - Essential (primary) hypertension
--- NOTE | 2018-09-27 14:16 | P.PNCA ---
Subjective Interval history: Patient denies any palpitations, dizziness, edema or syncope. Patient continues to complain of mild chest discomfort and shortness of breath with activity. Medications and Allergies Allergies Allergy/AdvReac Type Severity Reaction Status Date / Time NKA Allergy Unknown Uncoded 06/26/03 03:11 No Known Allergies Allergy Uncoded 03/09/14 10:21 Home Medications Medication Instructions Recorded Confirmed Type albuterol sulfate 2.5 mg INHALATION QID PRN 09/17/18 09/17/18 History tamsulosin [Flomax] 0.4 mg PO DAILY 09/17/18 09/17/18 History Active Medications: Active Medications Acetaminophen (Tylenol) 650 mg PO Q4H PRN PRN Reason: Temp > 100.4 Last Admin: 09/22/18 01:44 Dose: 650 mg Acetaminophen (Tylenol) 650 mg PO Q4H PRN PRN Reason: HEADACHE OR FEVER Last Admin: 09/27/18 00:44 Dose: 650 mg Acetaminophen (Tylenol) 650 mg PO Q4H PRN PRN Reason: SEE LABEL COMMENTS Last Admin: 09/25/18 03:19 Dose: 650 mg Acetaminophen/Butalbital/Caffeine (Fioricet 50-325-40) 2 tab PO Q4H PRN PRN Reason: SEE LABEL COMMENTS Last Admin: 09/24/18 14:10 Dose: 2 tab Al Hydroxide/Mg Hydroxide (Milk Of Lia Correa) 30 ml PO Q12H PRN PRN Reason: Mild Constipation Last Admin: 09/21/18 14:21 Dose: 30 ml Albuterol (Duoneb Neb (Prn)) 1 ampul NEB Q2HR NEB PRN PRN Reason: DYSPNEA Last Admin: 09/26/18 22:10 Dose: 1 ampul Atorvastatin Calcium (Lipitor) 80 mg PO HS [facility] Last Admin: 09/26/18 20:57 Dose: 80 mg Bisacodyl (Dulcolax Supp) 10 mg RECTAL DAILY PRN PRN Reason: SEVERE CONSITIPATION Budesonide/Formoterol Fumarate (Symbicort 160/4.5 Mcg Inh) 2 puff INH BID [facility] Last Admin: 09/27/18 08:19 Dose: 2 puff Guaifenesin (Mucinex Er) 600 mg PO BID [facility] Last Admin: 09/27/18 08:14 Dose: 600 mg Lactated Ringer's (Lr 1000 Ml Inj) 1,000 mls @ 30 mls/hr IV.SIG .Q24H [facility] Stop: 09/28/18 05:14 Sodium Chloride (Ns Inj) 500 mls @ 30 mls/hr IV.SIG .Q10H [facility] Lactulose (Lactulose Liq) 30 ml PO DAILY PRN PRN Reason: SEVERE CONSITIPATION Last Admin: 09/21/18 10:22 Dose: 30 ml Metoprolol Tartrate (Lopressor) 25 mg PO BID [facility] Last Admin: 09/27/18 08:14 Dose: 25 mg Morphine Sulfate (Morphine Inj) 2 mg IV.PUSH Q3H PRN PRN Reason: CHEST PAIN Last Admin: 09/20/18 13:58 Dose: 2 mg Ondansetron HCl (Zofran Inj) 4 mg IV.PUSH Q6H PRN PRN Reason: NAUSEA OR VOMITING Last Admin: 09/19/18 23:46 Dose: 4 mg Pantoprazole Sodium (Protonix) 40 mg PO DAILY [facility] Last Admin: 09/27/18 08:14 Dose: 40 mg Phenyleph/Shark Oil/Min Oil/Petrol (Preparation H Oint) 1 applicatio TOPICAL BID [facility] Senna/Docusate Sodium (Margot-Colace) 1 tab PO BID [facility] Last Admin: 09/27/18 08:15 Dose: Not Given Sennosides (Senokot) 17.2 mg PO Q12H PRN PRN Reason: Moderate Constipation Last Admin: 09/21/18 10:22 Dose: 17.2 mg Sodium Chloride (Ns Flush) 2 ml IV.FLUSH BID [facility] Last Admin: 09/27/18 08:15 Dose: 2 ml Sodium Chloride (Ns Flush) 2 ml IV.FLUSH PRN PRN PRN Reason: FLUSH AFTER USING IV ACCESS Tamsulosin HCl (Flomax) 0.4 mg PO DAILY [facility] Last Admin: 09/27/18 08:14 Dose: 0.4 mg Physical Exam Vital signs: Vital Signs 09/26/18 16:00 09/26/18 20:00 09/26/18 22:10 Temperature 97.8 F 97.8 F Pulse Rate 89 83 75 Respiratory Rate 18 18 18 Blood Pressure 116/55 L 120/58 L Pulse Oximetry 99 97 09/27/18 00:00 09/27/18 00:10 09/27/18 04:00 Temperature 98.1 F 97.4 F L Pulse Rate 78 70 Respiratory Rate 18 18 Blood Pressure 106/53 L 111/56 L Pulse Oximetry 98 95 95 09/27/18 08:00 09/27/18 08:56 09/27/18 10:27 Temperature 97.7 F Pulse Rate 71 Respiratory Rate 16 Blood Pressure 117/56 L Pulse Oximetry 94 L 97 99 09/27/18 11:30 Temperature 97.5 F L Pulse Rate 71 Respiratory Rate 18 Blood Pressure 110/55 L Pulse Oximetry 95 Intake & Output 09/26/18 09/27/18 09/27/18 18:59 06:59 18:59 Intake Total 720 / 720 0 / 0 100 / 100 Output Total 800 / 800 Balance -80 / -80 0 / 0 100 / 100 Weight 88 kg Intake: Oral 720 / 720 0 / 0 Anesthesia Amount 100 / 100 Output: Urine 800 / 800 Other: # Voids 4 Date of Last Bowel Movement 09/25/18 09/26/18 09/26/18 # Bowel Movements 0 0 - Constitutional no acute distress - Routine HEENT Exam Head: Present: normocephalic Eye: Present: PERRL ENT: Present: mucous membranes moist - Routine Neck Exam Present: full ROM - Routine Respiratory Exam Present: rhonchi Comments: rhonchi bilateral right and left lobes. - Routine Cardiovascular Exam Present: S1, S2. Absent: murmur, gallop, rubs - Routine Abdominal Exam Present: normoactive bowel sounds - Routine Extremities Exam Present: full ROM, pulses intact, normal capillary refill. Absent: cyanosis, clubbing, edema - Routine Skin Exam Present: intact - Routine Neurological Exam Present: oriented X3 [place] - Detailed Neurological Exam: Coma Scale Eye Opening: Spontaneous Verbal Response: Oriented Motor Response: Obey commands Naya Coma Scale Total: 15 - Routine Psychiatric Exam Present: normal affect - Urinary Catheter Management Indwelling Urethral Catheter Cath placed during this visit: yes, but has since been removed by the nurse Reason for continuing: Decision to DC catheter Insertion date: 09/17/18 Insertion time: 02:34 Removal date: 09/18/18 Removal time: 17:30 Results 09/27/18 05:43 09/27/18 05:43 CBC 09/26/18 09/27/18 Range/Units 08:15 05:43 WBC 13.4 H 9.0 (4.0-11.0) th/mm3 RBC 3.75 L 3.52 L (4.50-5.90) mil/mm3 Hgb 9.9 L 9.3 L (13.0-17.0) gm/dL Hct 30.5 L 28.0 L (39.0-51.0) % Plt Count 78 L 74 L (150-450) th/mm3 Comprehensive Metabolic Panel 09/26/18 09/27/18 Range/Units 08:15 05:43 Sodium 141 145 (136-145) meq/L Potassium 3.4 L 3.6 (3.5-5.1) meq/L Chloride 105 107 (98-107) meq/L Carbon Dioxide 29.5 31.5 (21.0-32.0) meq/L BUN 22 H 16 (7-18) mg/dL Creatinine 1.26 0.95 (0.60-1.30) mg/dL Calcium 8.2 L 7.6 L (8.5-10.1) mg/dL Intake and Output 09/26/18 09/27/18 09/27/18 22:59 06:59 14:59 Intake Total 720 / 720 0 / 0 100 / 100 Output Total 800 / 800 Balance -80 / -80 0 / 0 100 / 100 Intake: Oral 720 / 720 0 / 0 Anesthesia Amount 100 / 100 Output: Urine 800 / 800 Other: # Voids 4 Date of Last Bowel Movement 09/26/18 09/26/18 # Bowel Movements 0 0 Weight 88 kg Assessment and Plan - Assessment (1) NSTEMI (non-ST elevated myocardial infarction) Code(s): I21.4 - Non-ST elevation (NSTEMI) myocardial infarction Status: Acute (2) Occult blood in stools Code(s): R19.5 - Other fecal abnormalities Status: Acute (3) COPD (chronic obstructive pulmonary disease) Code(s): J44.9 - Chronic obstructive pulmonary disease, unspecified Status: Chronic (4) Hyperlipidemia Code(s): E78.5 - Hyperlipidemia, unspecified Status: Chronic (5) Hypertension Code(s): I10 - Essential (primary) hypertension Status: Chronic - Plan Patient scheduled for colonoscopy today to evaluate cause of GI bleed, GI evaluation in progress. Patient continues to have mild shortness of breath with activity, pulmonary evaluation in progress. Patient is not having any new cardiac issues at this time, we will continue current cardiac treatment plan and adjust as needed. We will continue to follow the patient during his hospitalization. The patient was seen and evaluated by Dr. Flores who participated in care, management and decision making. - Attending Attestation Patient seen and examined. I reviewed and agree with the evaluation and plan as presented. Colonoscopy today as planned. No new cardiac issues. Increase activity, PT. (4) Hyperlipidemia Qualifiers: Hyperlipidemia type: mixed hyperlipidemia Qualified Code(s): E78.2 - Mixed hyperlipidemia (5) Hypertension Qualifiers: Hypertension type: essential hypertension Qualified Code(s): I10 - Essential (primary) hypertension
[2018-09-27] MEDS: Petrolatum/Shark Oil/Phenylephrine Oint 60 GM Tube TOPICAL SCH (22:35)
--- NOTE | 2018-09-28 08:23 | P.DCO ---
- Home Health Nursing Order: Signs/symptoms of disease process, Nursing assessment with vital signs - Case Management Consult Case Management Consult-Home Health: Yes - Certification I have seen patient Kal Hand on 09/28/18. My clinical findings support the need for the requested home health care services because: Monitor VSS, related to Gi bleed, and increased sob, oxygen dependent. Limited mobility due to disease progression, Patient has SOB I certify that my clinical findings support that this patient is homebound because: Hx COPD - exertion dyspnea/weakness
[2018-09-28] MEDS: guaiFENesin 600 MG ER Tablet PO SCH ×2 (08:51→21:41)
[2018-09-28] MEDS: Senna/Docusate Sodium 8.6/50 MG Tablet PO SCH ×2 (08:51→21:42)
[2018-09-28] MEDS: Metoprolol Tartrate 25 MG Tablet PO SCH ×2 (08:51→21:42)
[2018-09-28] MEDS: Petrolatum/Shark Oil/Phenylephrine Oint 60 GM Tube TOPICAL SCH ×2 (08:53→21:43)
[2018-09-28] MEDS: Budesonide-Formoterol 160/4.5 MCG 6 GM Inhaler INH SCH ×2 (08:54→21:43)
[2018-09-28 11:33] LABS: Hematocrit 30.8 % (39.0-51.0); Hemoglobin 9.9 gm/dL (13.0-17.0); Mean Corpuscular HGB Conc 32.1 % (32.0-36.0); Mean Corpuscular Hemoglobin 26.3 pg (27.0-34.0); Mean Corpuscular Volume 81.9 fL (80.0-100.0); Mean Platelet Volume 10.2 fL (7.0-11.0); Platelet Count 92 th/mm3 (150-450); Red Blood Count 3.76 mil/mm3 (4.50-5.90); Red Cell Distribution Width 19.2 % (11.6-17.2); White Blood Count 9.6 th/mm3 (4.0-11.0)
[2018-09-28 11:56] LABS: Calcium 8.6 mg/dL (8.5-10.1); Carbon Dioxide 27.1 meq/L (21.0-32.0); Potassium 3.9 meq/L (3.5-5.1)
--- NOTE | 2018-09-28 13:03 | P.PNFP ---
Subjective Interval history: Delayed entry, seen this am He states he is feeling ok today Denies chest pain, slight SOB, no worse than baseline. Results - Labs Result diagrams: 09/28/18 11:00 09/28/18 11:00 Abnormal lab results 09/28/18 09/28/18 Range/Units 11:00 11:00 RBC 3.76 L (4.50-5.90) mil/mm3 Hgb 9.9 L (13.0-17.0) gm/dL Hct 30.8 L (39.0-51.0) % MCH 26.3 L (27.0-34.0) pg RDW 19.2 H (11.6-17.2) % Plt Count 92 L (150-450) th/mm3 Chloride 109 H (98-107) meq/L Estimated GFR 70 L (>89) mL/min Short CBC 09/28/18 Range/Units 11:00 WBC 9.6 (4.0-11.0) th/mm3 Hgb 9.9 L (13.0-17.0) gm/dL Hct 30.8 L (39.0-51.0) % Plt Count 92 L (150-450) th/mm3 BMP 09/28/18 11:00 Sodium 143 Potassium 3.9 Chloride 109 H Carbon Dioxide 27.1 BUN 11 Creatinine 1.03 Calcium 8.6 D Physical Exam Vital signs: Vital Signs 09/27/18 16:00 09/27/18 17:31 09/27/18 20:00 Temperature 97.5 F L 98.1 F Pulse Rate 73 81 Respiratory Rate 18 18 Blood Pressure 113/54 L Pulse Oximetry 98 98 96 09/28/18 00:00 09/28/18 04:00 09/28/18 08:00 Temperature 98 F 97.9 F 97.6 F Pulse Rate 71 68 66 Respiratory Rate 20 20 16 Blood Pressure 149/67 H 124/60 125/58 L Pulse Oximetry 98 98 96 Intake & Output 09/27/18 09/28/18 09/28/18 18:59 06:59 18:59 Intake Total 460 / 460 120 / 120 Balance 460 / 460 120 / 120 Weight 87.9 kg Intake: Oral 360 / 360 120 / 120 Anesthesia Amount 100 / 100 Other: # Voids 6 2 Date of Last Bowel Movement 09/26/18 # Bowel Movements 6 - Constitutional no acute distress - Routine HEENT Exam ENT: Present: mucous membranes moist - Routine Respiratory Exam Present: wheezes, diminished air movement - Routine Cardiovascular Exam Present: S1, S2 - Routine Abdominal Exam Present: soft, normoactive bowel sounds - Routine Extremities Exam Present: edema - Routine Skin Exam Present: dry, warm - Routine Neurological Exam Present: alert - Routine Psychiatric Exam Present: cooperative - Urinary Catheter Management Indwelling Urethral Catheter Cath placed during this visit: yes, but has since been removed by the nurse Reason for continuing: Decision to DC catheter Insertion date: 09/17/18 Insertion time: 02:34 Removal date: 09/18/18 Removal time: 17:30 Assessment and Plan - Assessment (1) NSTEMI (non-ST elevated myocardial infarction) Code(s): I21.4 - Non-ST elevation (NSTEMI) myocardial infarction Status: Acute Plan: Cards following, will medical management. No plans for cath or stent r/t Gi bleed and inability to anticoagulate. (2) Occult blood in stools Code(s): R19.5 - Other fecal abnormalities Status: Acute Plan: GI following, Colonoscopy competed (3) COPD (chronic obstructive pulmonary disease) Code(s): J44.9 - Chronic obstructive pulmonary disease, unspecified Status: Chronic Plan: Pulmonary consult, Pulmonary following Cont oxygen support, bronchodilators Ct showing some nodularities, Outpatient pet scanned recommended Regular Pulmonary Dr. Da Silva (4) Hyperlipidemia Code(s): E78.5 - Hyperlipidemia, unspecified Status: Chronic Plan: Cont home meds and HH diet (5) Hypertension Code(s): I10 - Essential (primary) hypertension Status: Chronic Plan: Follow BP closely and adjust meds as needed - Assessment and Plan 09/17/18 - Adm to ICU for NSTEMI. Decision regarding cath today is pending at this time. He will also be seen by GI for guaiac positive stools and we will monitor HG. Pulm to see today and adjust meds as indicated. 09/18/18 - Gi and Cards will need to decide which W/U will be done first. CT ordered per GI recommendations. Will recheck labs and F/U daily pending eval for bleeding. Cards wants W/U after GI eval done so he can be anticoagulated 09/19/18- Resting in bed, uneventful night. Denies CP, Palpations, Sat's maintained on 2 liters, he does have some wheezes. Cont with Bronchodilators, and oxygen support. Scheduled for EGD today, HGB 7.9 today, cont to monitor 09/20/18- Patient remains stable, had EGD completed yesterday, no further workup planned. Cardiac to manage medically, related to inability to anticoagulate. HGb stable this am, will transfer to medical/tele floor. Pt to treat. DC when medically stale and cleared by pulmonary. 09/21/18- Vss afebrile, he complains of increased sob with sputum production, Mucinex added. Order to transfer to medical floor when bed available, increase activity. Hgb stable 8.0 this am. 09/22/18 Vss afebrile transferred to medical floor. Referral made to [facility] for telemetry rehab. He is still sob on exertion, he is on oxygen, cont with bronchodilators. hgb 7.8 this am, will cont to monitor. Dc when arrangement made , cont with therapy activity. 09/23/18- Seen this am, nurse states he has had some bloody stool. Hgb pending this am. Abdomen distended. He does complain of more Sob, sat's maintained on 2 liters. Pulmonary following. Gi contacted by nurse. Will await rec's. He has not been restarted on anticoag's. Cardiology cont to follow, medical management supportive care. 09/28/18- Delayed entry seen this am, had colonoscopy yesterday, cleared by Gi for DC. He voices his daughter will be here, he wants to go home. We will arrange for HHC at [facility] Cardiology been following no new rec's. Will Dc home with HHC likely in am once cleared by cardiology, pulmonary. He voice he has O2 at home. (4) Hyperlipidemia Qualifiers: Hyperlipidemia type: mixed hyperlipidemia Qualified Code(s): E78.2 - Mixed hyperlipidemia (5) Hypertension Qualifiers: Hypertension type: essential hypertension Qualified Code(s): I10 - Essential (primary) hypertension
--- NOTE | 2018-09-28 13:16 | P.PNCA ---
Subjective Interval history: Patient denies any CP, pressure, palpitations, dizziness or edema. Patient continues to complain of mild SOB with activity. Patient appears to be in better spirits today, daughter is at bedside. Medications and Allergies Allergies Allergy/AdvReac Type Severity Reaction Status Date / Time NKA Allergy Unknown Uncoded 06/26/03 03:11 No Known Allergies Allergy Uncoded 03/09/14 10:21 Home Medications Medication Instructions Recorded Confirmed Type albuterol sulfate 2.5 mg INHALATION QID PRN 09/17/18 09/17/18 History tamsulosin [Flomax] 0.4 mg PO DAILY 09/17/18 09/17/18 History Active Medications: Active Medications Acetaminophen (Tylenol) 650 mg PO Q4H PRN PRN Reason: Temp > 100.4 Last Admin: 09/22/18 01:44 Dose: 650 mg Acetaminophen (Tylenol) 650 mg PO Q4H PRN PRN Reason: HEADACHE OR FEVER Last Admin: 09/27/18 22:54 Dose: 650 mg Acetaminophen (Tylenol) 650 mg PO Q4H PRN PRN Reason: SEE LABEL COMMENTS Last Admin: 09/25/18 03:19 Dose: 650 mg Acetaminophen/Butalbital/Caffeine (Fioricet 50-325-40) 2 tab PO Q4H PRN PRN Reason: SEE LABEL COMMENTS Last Admin: 09/24/18 14:10 Dose: 2 tab Al Hydroxide/Mg Hydroxide (Milk Of Lia Correa) 30 ml PO Q12H PRN PRN Reason: Mild Constipation Last Admin: 09/21/18 14:21 Dose: 30 ml Albuterol (Duoneb Neb (Prn)) 1 ampul NEB Q2HR NEB PRN PRN Reason: DYSPNEA Last Admin: 09/26/18 22:10 Dose: 1 ampul Atorvastatin Calcium (Lipitor) 80 mg PO HS [facility] Last Admin: 09/27/18 22:32 Dose: 80 mg Bisacodyl (Dulcolax Supp) 10 mg RECTAL DAILY PRN PRN Reason: SEVERE CONSITIPATION Budesonide/Formoterol Fumarate (Symbicort 160/4.5 Mcg Inh) 2 puff INH BID [facility] Last Admin: 09/28/18 08:54 Dose: 2 puff Guaifenesin (Mucinex Er) 600 mg PO BID [facility] Last Admin: 09/28/18 08:51 Dose: 600 mg Sodium Chloride (Ns Inj) 500 mls @ 30 mls/hr IV.SIG .Q10H [facility] Lactulose (Lactulose Liq) 30 ml PO DAILY PRN PRN Reason: SEVERE CONSITIPATION Last Admin: 09/21/18 10:22 Dose: 30 ml Metoprolol Tartrate (Lopressor) 25 mg PO BID [facility] Last Admin: 09/28/18 08:51 Dose: 25 mg Morphine Sulfate (Morphine Inj) 2 mg IV.PUSH Q3H PRN PRN Reason: CHEST PAIN Last Admin: 09/20/18 13:58 Dose: 2 mg Ondansetron HCl (Zofran Inj) 4 mg IV.PUSH Q6H PRN PRN Reason: NAUSEA OR VOMITING Last Admin: 09/19/18 23:46 Dose: 4 mg Pantoprazole Sodium (Protonix) 40 mg PO DAILY [facility] Last Admin: 09/28/18 08:51 Dose: 40 mg Phenyleph/Shark Oil/Min Oil/Petrol (Preparation H Oint) 1 applicatio TOPICAL BID [facility] Last Admin: 09/28/18 08:53 Dose: 1 applicatio Senna/Docusate Sodium (Margot-Colace) 1 tab PO BID [facility] Last Admin: 09/28/18 08:51 Dose: Not Given Sennosides (Senokot) 17.2 mg PO Q12H PRN PRN Reason: Moderate Constipation Last Admin: 09/21/18 10:22 Dose: 17.2 mg Sodium Chloride (Ns Flush) 2 ml IV.FLUSH BID [facility] Last Admin: 09/28/18 08:52 Dose: 2 ml Sodium Chloride (Ns Flush) 2 ml IV.FLUSH PRN PRN PRN Reason: FLUSH AFTER USING IV ACCESS Tamsulosin HCl (Flomax) 0.4 mg PO DAILY [facility] Last Admin: 09/28/18 08:51 Dose: 0.4 mg Physical Exam Vital signs: Vital Signs 09/27/18 16:00 09/27/18 17:31 09/27/18 20:00 Temperature 97.5 F L 98.1 F Pulse Rate 73 81 Respiratory Rate 18 18 Blood Pressure 113/54 L Pulse Oximetry 98 98 96 09/28/18 00:00 09/28/18 04:00 09/28/18 08:00 Temperature 98 F 97.9 F 97.6 F Pulse Rate 71 68 66 Respiratory Rate 20 20 16 Blood Pressure 149/67 H 124/60 125/58 L Pulse Oximetry 98 98 96 Intake & Output 09/27/18 09/28/18 09/28/18 18:59 06:59 18:59 Intake Total 460 / 460 120 / 120 Balance 460 / 460 120 / 120 Weight 87.9 kg Intake: Oral 360 / 360 120 / 120 Anesthesia Amount 100 / 100 Other: # Voids 6 2 Date of Last Bowel Movement 09/26/18 # Bowel Movements 6 - Constitutional no acute distress - Routine HEENT Exam Head: Present: normocephalic Eye: Present: PERRL ENT: Present: mucous membranes moist - Routine Neck Exam Present: full ROM - Routine Respiratory Exam Present: rhonchi Comments: Rhonchi throughout upper and lower lobes bilateral - Routine Cardiovascular Exam Present: S1, S2. Absent: murmur, gallop, rubs - Routine Abdominal Exam Present: normoactive bowel sounds - Routine Extremities Exam Present: full ROM, pulses intact, normal capillary refill. Absent: cyanosis, clubbing, edema - Routine Skin Exam Present: intact - Routine Neurological Exam Present: oriented X3 - Detailed Neurological Exam: Coma Scale Eye Opening: Spontaneous Verbal Response: Oriented Motor Response: Obey commands [place] Coma Scale Total: 15 - Routine Psychiatric Exam Present: normal affect - Urinary Catheter Management Indwelling Urethral Catheter Cath placed during this visit: yes, but has since been removed by the nurse Reason for continuing: Decision to DC catheter Insertion date: 09/17/18 Insertion time: 02:34 Removal date: 09/18/18 Removal time: 17:30 Results 09/28/18 11:00 09/28/18 11:00 CBC 09/27/18 09/28/18 Range/Units 05:43 11:00 WBC 9.0 9.6 (4.0-11.0) th/mm3 RBC 3.52 L 3.76 L (4.50-5.90) mil/mm3 Hgb 9.3 L 9.9 L (13.0-17.0) gm/dL Hct 28.0 L 30.8 L (39.0-51.0) % Plt Count 74 L 92 L (150-450) th/mm3 Comprehensive Metabolic Panel 09/27/18 09/28/18 Range/Units 05:43 11:00 Sodium 145 143 (136-145) meq/L Potassium 3.6 3.9 (3.5-5.1) meq/L Chloride 107 109 H (98-107) meq/L Carbon Dioxide 31.5 27.1 (21.0-32.0) meq/L BUN 16 11 (7-18) mg/dL Creatinine 0.95 1.03 (0.60-1.30) mg/dL Calcium 7.6 L 8.6 D (8.5-10.1) mg/dL Intake and Output 09/27/18 09/28/18 09/28/18 22:59 06:59 14:59 Intake Total 360 / 360 120 / 120 Balance 360 / 360 120 / 120 Intake: Oral 360 / 360 120 / 120 Other: # Voids 6 2 # Bowel Movements 6 Weight 87.9 kg Assessment and Plan - Assessment (1) NSTEMI (non-ST elevated myocardial infarction) Code(s): I21.4 - Non-ST elevation (NSTEMI) myocardial infarction Status: Acute (2) Occult blood in stools Code(s): R19.5 - Other fecal abnormalities Status: Acute (3) COPD (chronic obstructive pulmonary disease) Code(s): J44.9 - Chronic obstructive pulmonary disease, unspecified Status: Chronic (4) Hyperlipidemia Code(s): E78.5 - Hyperlipidemia, unspecified Status: Chronic (5) Hypertension Code(s): I10 - Essential (primary) hypertension Status: Chronic - Plan There have been no new cardiac issues at this time. We will continue with aggressive cardiac risk factor modifications and treat medically. Colonoscopy performed yesterday, source of bleeding found and corrected, GI evaluation in progress. Patient still having mild shortness of breath with activity, pulmonary evaluation in progress. Patient is cleared for discharge from a cardiology standpoint. We will continue to follow the patient during his hospitalization. The patient was seen and evaluated by Dr. Flores who participated in care, management and decision making. - Attending Attestation Patient seen and examined. I reviewed and agree with the evaluation and plan as presented. Continue current program. Stable from cardiac standpoint. OK to DC home. Will schedule f/u in our office after discharge. (4) Hyperlipidemia Qualifiers: Hyperlipidemia type: mixed hyperlipidemia Qualified Code(s): E78.2 - Mixed hyperlipidemia (5) Hypertension Qualifiers: Hypertension type: essential hypertension Qualified Code(s): I10 - Essential (primary) hypertension
--- NOTE | 2018-09-28 19:31 | P.PN ---
Subjective Interval history: He is better today. had colonoscopy and has hemorrhoids. No chest pains. Overall better. Physical Exam Vital signs: Vital Signs 09/27/18 20:00 09/28/18 00:00 09/28/18 04:00 Temperature 98.1 F 98 F 97.9 F Pulse Rate 81 71 68 Respiratory Rate 18 20 20 Blood Pressure 149/67 H 124/60 Pulse Oximetry 96 98 98 09/28/18 08:00 09/28/18 12:00 09/28/18 16:00 Temperature 97.6 F 97.7 F 97.1 F L Pulse Rate 66 66 56 L Respiratory Rate 16 18 18 Blood Pressure 125/58 L 124/58 L 122/58 L Pulse Oximetry 96 97 99 Intake & Output 09/28/18 09/28/18 09/29/18 06:59 18:59 06:59 Intake Total 120 / 120 Balance 120 / 120 Weight 87.9 kg Intake: Oral 120 / 120 Other: # Voids 2 Narrative: GENERAL: Elderly male in no acute distress. On o2 CARDIOVASCULAR: Normal rate and regular rhythm without murmurs, gallops, or rubs. RESPIRATORY: Diminished breath sounds at the bases and scattered wheeze.. GASTROINTESTINAL: Abdomen soft, non-tender, non-distended. Normal active bowel sounds MUSCULOSKELETAL: Extremities without cyanosis. 1+ edema NEURO: Alert & Oriented x4 to person, place, time, situation. Moves all ext x4 PSYCH: Appropriate mood and affect. - Urinary Catheter Management Indwelling Urethral Catheter Cath placed during this visit: yes, but has since been removed by the nurse Reason for continuing: Decision to DC catheter Insertion date: 09/17/18 Insertion time: 02:34 Removal date: 09/18/18 Removal time: 17:30 Results - Labs CBC & Chem 7: 09/28/18 11:00 09/28/18 11:00 Laboratory Results - last 24 hr 09/28/18 09/28/18 11:00 11:00 WBC 9.6 RBC 3.76 L Hgb 9.9 L Hct 30.8 L MCV 81.9 MCH 26.3 L MCHC 32.1 RDW 19.2 H Plt Count 92 L MPV 10.2 Sodium 143 Potassium 3.9 Chloride 109 H Carbon Dioxide 27.1 Anion Gap 7 BUN 11 Creatinine 1.03 Estimated GFR 70 L Random Glucose 93 Calcium 8.6 D - Procedures EGD Assessment and Plan - Assessment (1) Gastritis Code(s): K29.70 - Gastritis, unspecified, without bleeding Status: Acute (2) NSTEMI (non-ST elevated myocardial infarction) Code(s): I21.4 - Non-ST elevation (NSTEMI) myocardial infarction Status: Acute (3) Occult blood in stools Code(s): R19.5 - Other fecal abnormalities Status: Acute (4) COPD (chronic obstructive pulmonary disease) Code(s): J44.9 - Chronic obstructive pulmonary disease, unspecified Status: Chronic (5) Hyperlipidemia Code(s): E78.5 - Hyperlipidemia, unspecified Status: Chronic (6) Hypertension Code(s): I10 - Essential (primary) hypertension Status: Chronic - Plan 1. Cont O2 at 2 L N/C. 2. Cont Duoneb nebs qid. 3. Continue Symbicort 160/4.5 mcg , 2 puffs BID 4. Get PET CT as OP for mediastinal node evaluation. 5. Continue Protonix 40 mg daily. 6. Continue anticoagulation . 7. OK to discharge for OP F/U (5) Hyperlipidemia Qualifiers: Hyperlipidemia type: mixed hyperlipidemia Qualified Code(s): E78.2 - Mixed hyperlipidemia (6) Hypertension Qualifiers: Hypertension type: essential hypertension Qualified Code(s): I10 - Essential (primary) hypertension
[2018-09-29] MEDS: Senna/Docusate Sodium 8.6/50 MG Tablet PO SCH (08:23)
[2018-09-29] MEDS: guaiFENesin 600 MG ER Tablet PO SCH (08:23)
[2018-09-29] MEDS: Metoprolol Tartrate 25 MG Tablet PO SCH (08:23)
[2018-09-29] MEDS: Petrolatum/Shark Oil/Phenylephrine Oint 60 GM Tube TOPICAL SCH (08:24)
[2018-09-29] MEDS: Budesonide-Formoterol 160/4.5 MCG 6 GM Inhaler INH SCH (08:24)
--- NOTE | 2018-09-29 09:06 | P.DS ---
Date of admission: 09/17/18 01:43 Primary care physician: Delfino Felton DO Brief History from admission: 78-year-old male came to the emergency room with history of progressive shortness of breath for almost 1 week. Patient appeared to be short of breath as he was talking. He says that he has history of COPD and has been using his inhaler. symptoms got to the point where he has been short of breath at rest he decided to come to the emergency room. Patient has also been experiencing on and off chest pain on the left side radiating to his axilla. Patient came in with tachycardia and saturation of 94% on room air. Patient does not require oxygen at home. He says he used to be a smoker for 65 years and quit 5 months back. Chest pain and shortness of breath is worse on exertion presented to the ED with 24 hour H/O SOB and "chest tightness". He has long H/O CAD S/P cath in [place] last year. DS: Diagnosis - Discharge Diagnosis (1) NSTEMI (non-ST elevated myocardial infarction) Status: Acute (2) Occult blood in stools Status: Acute (3) COPD (chronic obstructive pulmonary disease) Status: Chronic (4) Hyperlipidemia Status: Chronic (5) Hypertension Status: Chronic (6) Pulmonary edema Status: Acute DS: Summary Hospital Course: Presented to [facility] increase SOB, found to have NSTEMI, transferred to [facility]. He was found to have heme positive stools. Cardiology and GI riley consulted as well as Pulmonary. EGD completed on 09/19/18, with gastritis found. Cardiology decided to manage medically as he is at risk for any anticoagulations related to Gi Bleed. Gi decided not to do colonoscopy as result of not being able to tolerate prep. Patient was transferred out of to medical floor. He continued to have blood in stool, and required transfusion on 09/25, received 2 units. he developed some fluid overload pulmonary edema and was treated with Lasix. Colonoscopy ultimately completed on 09/27/18. CT of chest completed by pulmonary patient with mediastinal nodes noted. Pet scan recommended as outpatient. He was treated with bronchodilators, and Oxygen. Patient remained stable and is being sent home with [facility]. - Time Spent with Patient Total time spent providing and/or coordinating discharge services: 35 Greater than 30 minutes - Quality: AMI Clinical Trial Participant: No - Quality: Stroke Symptom Onset Unknown: No - Quality: VTE Is this test being ordered to rule out VTE?: No Deep Vein Thrombosis/Pulmonary Embolism Present on Admission: No Exam Vital signs: Vital Signs 09/28/18 12:00 09/28/18 16:00 09/28/18 20:00 Temperature 97.7 F 97.1 F L 97.7 F Pulse Rate 69 69 76 Respiratory Rate 18 18 17 Blood Pressure 124/58 L 122/58 L 133/63 Pulse Oximetry 97 99 98 09/28/18 22:13 09/29/18 00:00 09/29/18 03:53 Temperature 97.9 F Pulse Rate 77 70 71 Respiratory Rate 16 19 Blood Pressure 121/58 L Pulse Oximetry 97 97 09/29/18 04:00 Temperature 97 F L Pulse Rate 74 Respiratory Rate 18 Blood Pressure 134/63 Pulse Oximetry 98 Intake & Output 09/28/18 09/29/18 09/29/18 18:59 06:59 18:59 Intake Total 820 / 820 Balance 820 / 820 Weight 87.7 kg Intake: Oral 820 / 820 Other: # Voids 4 Date of Last Bowel Movement 09/28/18 - Constitutional no acute distress - Routine HEENT Exam ENT: Present: mucous membranes moist - Routine Respiratory Exam Present: rhonchi, diminished air movement - Routine Cardiovascular Exam Present: S1, S2 - Routine Abdominal Exam Present: soft, normoactive bowel sounds - Routine Skin Exam Present: dry, warm - Routine Neurological Exam Present: alert, oriented X3 Results Procedures completed during hospitalization: EGD colonoscopy on 09/27/18 Completed studies during hospitalization: Pending at discharge 09/19/18 14:57 Surgical [PTH] Routine Labs on day of discharge: Labs from last 24 hours 09/28/18 09/28/18 11:00 11:00 WBC 9.6 RBC 3.76 L Hgb 9.9 L Hct 30.8 L MCV 81.9 MCH 26.3 L MCHC 32.1 RDW 19.2 H Plt Count 92 L MPV 10.2 Sodium 143 Potassium 3.9 Chloride 109 H Carbon Dioxide 27.1 Anion Gap 7 BUN 11 Creatinine 1.03 Estimated GFR 70 L Random Glucose 93 Calcium 8.6 D - Impressions ITS Impressions Abdomen/Pelvis CT 09/18/18 00:00 CONCLUSION: 1. Multiple loops of marginally distended fluid-filled small bowel without definite transition point although distal ileal loops are decompressed. Differential considerations include developing adynamic ileus versus enteritis. 2. Ancillary findings include cholelithiasis, colonic diverticulosis and nonspecific prostate enlargement. Chest CT 09/20/18 00:00 CONCLUSION: 1. Enlarging mediastinal lymph nodes relative to the prior study. This suggests either reactive lymphadenopathy or a myeloproliferative disorder. I favor the former. 2. Stable bronchiectasis with chronic parenchymal groundglass opacities within the bases as well as scattered areas of nodularity. No acute infiltrate observed. 3. Coronary artery atherosclerotic calcification. 4. Tiny right effusion. Head MRI 09/24/18 00:00 CONCLUSION: 1. There is an abnormality in the left frontal region that is challenging to determine if there is intra-axial or extra-axial but I favor that it is part of the left frontal lobe. This area demonstrates abnormal edema and enhancement and measures approximately 2.4 x 1.3 x 1.8 cm. There is no restricted diffusion to indicate that this is an infarct. Therefore, infectious, inflammatory, or neoplastic processes should be considered. 2. No other abnormality is identified. Head MRA 09/24/18 00:00 CONCLUSION: No acute intracranial vascular abnormality is identified. Carotid Doppler Study 09/25/18 00:00 CONCLUSION: 1. Right Internal Carotid Artery: Findings indicate <50% stenosis. 2. Left Internal Carotid Artery: Findings indicate <50% stenosis. 3. Antegrade flow both vertebral arteries. Chest X-Ray 09/25/18 03:47 CONCLUSION: Interstitial prominence again noted. Patchy airspace disease. Discharge Plan - Discharge Disposition Patient Disposition: /Home Health Service - Discharge Condition Condition: Good - Discharge Order Discharge Orders: Discharge Order (Routine); Ordered 09/29/18 Ordered By: Estefani Zelaya - Discharge Details Anticipated Discharge Date: 09/29/18 - Physicians Team Primary Care Provider: Delfino Felton Attending Provider: Delfino Felton Other Providers: Jeanne Flores MD ; Juarez Jean MD ; Sherwin Mario MD ; Santiago Reddy MD, PhD
[2018-09-29 09:27] VITALS: BP 127/59; RESP 16; TEMP 97.9; O2SAT 96
[2018-09-29 10:35] VITALS: PULSE 73
--- NOTE | 2018-09-29 13:26 | P.PNCA ---
Subjective Interval history: No CP or SOB, feels much better Medications and Allergies Allergies Allergy/AdvReac Type Severity Reaction Status Date / Time NKA Allergy Unknown Uncoded 06/26/03 03:11 No Known Allergies Allergy Uncoded 03/09/14 10:21 Home Medications Medication Instructions Recorded Confirmed Type albuterol sulfate 2.5 mg INHALATION QID PRN 09/17/18 09/17/18 History tamsulosin [Flomax] 0.4 mg PO DAILY 09/17/18 09/17/18 History Physical Exam Vital signs: Vital Signs 09/28/18 16:00 09/28/18 20:00 09/28/18 22:13 Temperature 97.1 F L 97.7 F Pulse Rate 69 76 77 Respiratory Rate 18 17 16 Blood Pressure 122/58 L 133/63 Pulse Oximetry 99 98 97 09/29/18 00:00 09/29/18 03:53 09/29/18 04:00 Temperature 97.9 F 97 F L Pulse Rate 70 71 74 Respiratory Rate 19 18 Blood Pressure 121/58 L 134/63 Pulse Oximetry 97 98 09/29/18 08:00 Temperature 97.9 F Pulse Rate 73 Respiratory Rate 16 Blood Pressure 127/59 L Pulse Oximetry 96 Intake & Output 09/28/18 09/29/18 09/29/18 18:59 06:59 18:59 Intake Total 820 / 820 Balance 820 / 820 Weight 193 lb 5.526 oz Intake: Oral 820 / 820 Other: # Voids 4 Date of Last Bowel Movement 09/28/18 Narrative: GENERAL: IN NAD. CARDIOVASCULAR: Normal rate and regular rhythm without murmurs, gallops, or rubs. RESPIRATORY: Diminished breath sounds at the bases, few wheezes. GASTROINTESTINAL: Abdomen soft, non-tender, non-distended. Normal active bowel sounds MUSCULOSKELETAL: Extremities without cyanosis. 1+ edema NEURO: Nonfocal. PSYCH: Appropriate mood and affect. - Urinary Catheter Management Indwelling Urethral Catheter Cath placed during this visit: yes, but has since been removed by the nurse Reason for continuing: Decision to DC catheter Insertion date: 09/17/18 Insertion time: 02:34 Removal date: 09/18/18 Removal time: 17:30 Results 09/28/18 11:00 09/28/18 11:00 CBC 09/28/18 Range/Units 11:00 WBC 9.6 (4.0-11.0) th/mm3 RBC 3.76 L (4.50-5.90) mil/mm3 Hgb 9.9 L (13.0-17.0) gm/dL Hct 30.8 L (39.0-51.0) % Plt Count 92 L (150-450) th/mm3 Comprehensive Metabolic Panel 09/28/18 Range/Units 11:00 Sodium 143 (136-145) meq/L Potassium 3.9 (3.5-5.1) meq/L Chloride 109 H (98-107) meq/L Carbon Dioxide 27.1 (21.0-32.0) meq/L BUN 11 (7-18) mg/dL Creatinine 1.03 (0.60-1.30) mg/dL Calcium 8.6 D (8.5-10.1) mg/dL Intake and Output 09/28/18 09/29/18 09/29/18 22:59 06:59 14:59 Intake Total 820 / 820 Balance 820 / 820 Intake: Oral 820 / 820 Other: # Voids 4 Date of Last Bowel Movement 09/28/18 Weight 193 lb 5.526 oz Assessment and Plan - Assessment (1) NSTEMI (non-ST elevated myocardial infarction) Code(s): I21.4 - Non-ST elevation (NSTEMI) myocardial infarction Status: Acute (2) Occult blood in stools Code(s): R19.5 - Other fecal abnormalities Status: Acute (3) COPD (chronic obstructive pulmonary disease) Code(s): J44.9 - Chronic obstructive pulmonary disease, unspecified Status: Chronic (4) Hyperlipidemia Code(s): E78.5 - Hyperlipidemia, unspecified Status: Chronic (5) Hypertension Code(s): I10 - Essential (primary) hypertension Status: Chronic - Plan Remains stable from cardiac standpoint. We will continue with aggressive cardiac risk factor modifications. Colonoscopy performed, source of bleeding found and corrected. Patient still having mild shortness of breath with activity, pulmonary evaluation in progress. Patient is cleared for discharge from a cardiology standpoint, DC home as planned. We will continue to follow the patient during his hospitalization and see him back for followup in our office after discharge. (4) Hyperlipidemia Qualifiers: Hyperlipidemia type: mixed hyperlipidemia Qualified Code(s): E78.2 - Mixed hyperlipidemia (5) Hypertension Qualifiers: Hypertension type: essential hypertension Qualified Code(s): I10 - Essential (primary) hypertension
== END 2018-09-29 11:23 | disposition home health service (06) ==
LOC: PHED 23:41 → PHEDA 09-17 01:43 → HIMC 09-17 08:30 → N04 09-21 17:29
PROVIDERS: ADMIT Family Medicine; ATTEND Family Medicine
PROC: PANENDO (2018-09-19 13:22)
PROC: COLONOS (2018-09-27 10:55)

== ENCOUNTER 2018-10-07 20:35 | Inpatient (IN) ==
--- NOTE | 2018-10-07 20:58 | ED ---
HPI General Chief Complaint: Chest Pain Stated Complaint: chest pain, left arm pain Time Seen by Provider: 10/07/18 20:48 Source: patient Mode of arrival: ambulatory Limitations: no limitations History of Present Illness HPI narrative: 78-year-old male patient with history of COPD, hyperlipidemia, internal hemorrhoids with rectal bleeding, non-ST elevation [place] week ago seen by Dr. Flores, presents to the ER today because of substernal left-sided chest pains that started this afternoon, currently being measured at a 5 out of 10. He states it radiates down his left arm and he states it feels like his heart attack last week. He denies any nausea, vomiting, or other symptoms. He states that he took 2 tablets of baby aspirin and nitroglycerin it was still was not going away. Pain is described as constant and substernal and pressure- like. Modifying Factors: None Associated Signs & Symptoms: Chest pains Risk Factors: Recent [place] Related Data Home Medications Medication Instructions Recorded Confirmed albuterol sulfate 2.5 mg INHALATION QID PRN 09/17/18 10/07/18 tamsulosin [Flomax] 0.4 mg PO DAILY 09/17/18 10/07/18 Previous Rx's Medication Instructions Recorded atorvastatin 80 mg PO HS tab 09/29/18 budesonide-formoterol [Symbicort] 2 puff INH BID g 09/29/18 ipratropium-albuterol 1 amp NEB Q2HR NEB PRN ml 09/29/18 metoprolol tartrate 25 mg PO BID tab 09/29/18 pantoprazole 40 mg PO DAILY tab 09/29/18 phenyleph-min oil-petrolatum 1 applicatio TOPICAL BID g 09/29/18 [Preparation H] tramadol [Ultram] 50 mg PO Q4H PRN tab 09/29/18 Allergies Allergy/AdvReac Type Severity Reaction Status Date / Time NKA Allergy Unknown Uncoded 06/26/03 03:11 No Known Allergies Allergy Uncoded 03/09/14 10:21 Review of Systems ROS: all other systems reviewed are negative [facility] Medical History Medical History Chronic obstructive pulmonary disease (Acute) GI bleed (Acute) High cholesterol (Acute) Hypertension (Acute) Surgical History Surgical History History of bladder surgery (Acute) History of hernia surgery (Acute) History of shoulder surgery (Acute) History of tonsillectomy (Acute) Social History Social History Substance History: No History of Abuse Second Hand Smoke Exposure: No Smoking Status: Former smoker Tobacco Type: Cigarettes How Often Do You Have a Drink Containing Alcohol: 2 to 3 times a week Hx Recent Travel: No Recent Travel in [facility] within the Last 8 Weeks: No Recent Out of Country Travel within the Last 8 Weeks: No Immunization History Tetanus Immunization: >5 Years Exam Narrative Exam Narrative: GENERAL: Well-developed elderly male patient currently in mild distress. Awake and oriented x3. SKIN: Focused skin assessment warm/dry. HEAD: Atraumatic. Normocephalic. EYES: Pupils equal and round. No scleral icterus. No injection or drainage. ENT: No nasal bleeding or discharge. Mucous membranes pink and moist. NECK: Trachea midline. No JVD. CARDIOVASCULAR: Regular rate and rhythm. No murmur appreciated. RESPIRATORY: No accessory muscle use. Mild right basilar crackles. Breath sounds equal bilaterally. GASTROINTESTINAL: Abdomen soft, non-tender, nondistended. Hepatic and splenic margins not palpable. MUSCULOSKELETAL: No obvious deformities. No clubbing. No cyanosis. No edema. NEUROLOGICAL: Awake and alert. No obvious cranial nerve deficits. Motor grossly within normal limits. Normal speech. PSYCHIATRIC: Appropriate mood and affect; insight and judgment normal. Course Initial Documented Vital Signs Temperature 97.6 F 10/07/18 20:37 Pulse Rate 59 L 10/07/18 20:37 Respiratory Rate 17 10/07/18 20:37 Blood Pressure 135/67 10/07/18 20:37 Pulse Oximetry 96 10/07/18 20:37 Last Documented Vital Signs Temperature 97.6 F 10/07/18 20:37 Pulse Rate 100 H 10/07/18 20:50 Respiratory Rate 21 10/07/18 20:50 Blood Pressure 127/70 10/07/18 20:50 Pulse Oximetry 97 10/07/18 20:50 Medical Decision Making MDM Narrative Medical decision making narrative: EKG shows T wave inversion in the lateral leads. He has had a [place] about 2 weeks ago per notes. Had a colonoscopy which shows a AVM that was treated. Patient had taken his own aspirin and had nitroglycerin already. Cardiac enzymes shows a mildly elevated troponin of 0.49. The rest of the lab work was fairly unremarkable. The case was discussed with cardiology Dr. Early who is covering for Dr. Flores and he states that the patient should probably be started on heparin as well and be medically admitted, may need a catheterization. However, he would recommend that we talked to GI prior to starting the heparin. The case was then discussed with Dr. Chairez who is covering for patient's GI doctor, Dr. Saul and he states that the heparin should not be a problem. Case was then discussed with Dr. Felton for admission. Medical Screen Exam Complete: Yes Emergency Medical Condition: Yes Differential Diagnosis Differential Diagnosis: ACS versus CHF versus pneumonia Lab Data Result diagrams: 10/07/18 20:50 10/07/18 20:50 Lab Results 10/07/18 10/07/18 10/07/18 Range/Units 20:50 20:50 20:50 WBC 8.3 (4.0-11.0) th/mm3 RBC 3.60 L (4.50-5.90) mil/mm3 Hgb 9.8 L (13.0-17.0) gm/dL Hct 29.6 L (39.0-51.0) % MCV 82.4 (80.0-100.0) fL MCH 27.2 (27.0-34.0) pg MCHC 33.0 (32.0-36.0) % RDW 25.1 H (11.6-17.2) % Plt Count 88 L (150-450) th/mm3 MPV 9.7 (7.0-11.0) fL Prelim Diff (Auto) Slide review pending Neut % (Auto) 76.3 H (16.0-70.0) % Lymph % (Auto) 12.9 (9.0-44.0) % Pender % (Auto) 5.2 (0.0-8.0) % Eos % (Auto) 4.5 H (0.0-4.0) % Baso % (Auto) 1.1 (0.0-2.0) % Neut # (Auto) 6.3 (1.8-7.7) th/mm3 Lymph # (Auto) 1.1 (1.0-4.8) th/mm3 Pender # (Auto) 0.4 (0.0-0.9) th/mm3 Eos # (Auto) 0.4 (0.0-0.4) th/mm3 Baso # (Auto) 0.1 (0.0-0.2) th/mm3 WBC Differential . Diff Scan Auto diff confirmed Differential Comment . Ovalocytes 2+ H (None) Acanthocytes (Spur) Occ H (None) Keratocytes Occ H (None) Sodium 145 (136-145) meq/L Potassium 3.5 (3.5-5.1) meq/L Chloride 113 H (98-107) meq/L Carbon Dioxide 25.9 (21.0-32.0) meq/L Anion Gap 6 (5-15) meq/L BUN 16 (7-18) mg/dL Creatinine 1.21 (0.60-1.30) mg/dL Estimated GFR 58 L (>89) mL/min Random Glucose 124 H (74-106) mg/dL Calcium 8.2 L (8.5-10.1) mg/dL Total Bilirubin 0.9 (0.2-1.0) mg/dL AST 23 (15-37) U/L ALT 33 (12-78) U/L Alkaline Phosphatase 90 (45-117) U/L Troponin I 0.49 H (0.02-0.05) ng/mL B-Natriuretic Peptide 454 H (0-100) pg/mL Total Protein 6.9 (6.4-8.2) g/dL Albumin 3.6 (3.4-5.0) g/dL Imaging Data Attestation: I personally reviewed and interpreted this imaging study as follows : Radiologist's impression: Chest X-Ray 10/07/18 20:50 CONCLUSION: 1. No acute abnormality. ECG Data Attestation: I personally reviewed and interpreted this ECG as follows: Interpretation: EKG shows NSR, no ST elevation or depression, and no arrhythmias. T wave inversions in the lateral leads. Discharge Plan Discharge Disposition Patient Disposition: ED Admit(ED Internal Use Only) Discharge Condition Condition: Stable Discharge Order Discharge Orders: ED Use Only Admit Order (Routine); Ordered 10/07/18 Ordered By: Gracy Haider Discharge Details Anticipated Discharge Date: 10/07/18 Diagnosis: Unstable angina pectoris, Elevated troponin Physicians Team ED Provider: Gracy Haider Primary Care Provider: Delfino Felton Attending Provider: Delfino Felton Discharge Interventions Interventions: Vital Signs Last Done: 10/07/18 20:50 Status ED Status: Admitted Patient
[2018-10-07 21:15] LABS: Baso # (Auto) 0.1 th/mm3 (0.0-0.2); Baso % (Auto) 1.1 % (0.0-2.0); Eos # (Auto) 0.4 th/mm3 (0.0-0.4); Eos % (Auto) 4.5 % (0.0-4.0); Hematocrit 29.6 % (39.0-51.0); Hemoglobin 9.8 gm/dL (13.0-17.0); Lymph # (Auto) 1.1 th/mm3 (1.0-4.8); Lymph % (Auto) 12.9 % (9.0-44.0); Mean Corpuscular Hemoglobin 27.2 pg (27.0-34.0); Mean Corpuscular Volume 82.4 fL (80.0-100.0); Mean Platelet Volume 9.7 fL (7.0-11.0); Mono # (Auto) 0.4 th/mm3 (0.0-0.9); Mono % (Auto) 5.2 % (0.0-8.0); Neut # (Auto) 6.3 th/mm3 (1.8-7.7); Neut % (Auto) 76.3 % (16.0-70.0); Platelet Count 88 th/mm3 (150-450); Red Cell Distribution Width 25.1 % (11.6-17.2); White Blood Count 8.3 th/mm3 (4.0-11.0)
--- NOTE | 2018-10-07 21:21 | XR ---
EXAM DATE: 10/07/2018 9:18 PM EST AGE/SEX: 78 years / Male INDICATIONS: Chest pain. CLINICAL DATA: This is the patient's initial encounter. Patient reports that signs and symptoms have been present for 3 days and indicates a pain score of 5/10. MEDICAL/SURGICAL HISTORY: . Chronic obstructive pulmonary disease. Hypertension. GI Bleed. High Cholesterol. Tonsillectomy. Bladder surgery. Hernia surgery. Shoulder surgery. . [place] [facility] [place]. . FINDINGS: A single AP view of the chest demonstrates the lungs to be symmetrically aerated without evidence of mass, infiltrate or effusion. The cardiomediastinal contours are stable. Osseous structures are int act. CONCLUSION: 1. No acute abnormality. Electronically signed by: Eduardo Gayle MD Board Certified Radiologist 10/07/2018 9:19 PM KYUNG [place]
[2018-10-07 21:42] LABS: Albumin 3.6 g/dL (3.4-5.0); Anion Gap 6 meq/L (5-15); Aspartate Aminotransferase 23 U/L (15-37); Blood Urea Nitrogen 16 mg/dL (7-18); Calcium 8.2 mg/dL (8.5-10.1); Carbon Dioxide 25.9 meq/L (21.0-32.0); Chloride 113 meq/L (98-107); Glomerular Filtration Rate 58 mL/min (>89); Glucose,Random 124 mg/dL (74-106); Potassium 3.5 meq/L (3.5-5.1); Sodium 145 meq/L (136-145)
[2018-10-07 21:43] LABS: Alanine Aminotransferase 33 U/L (12-78)
[2018-10-07 21:44] LABS: Acanthocytes Occ; Ovalocytes 2+
[2018-10-07 21:47] LABS: Alkaline Phosphatase 90 U/L (45-117); Total Protein 6.9 g/dL (6.4-8.2); Troponin I 0.49 ng/mL (0.02-0.05)
[2018-10-07] MEDS ORDERED: Heparin 10,000 UNITS/10 ML Vial (for IV use) IV.PUSH STA (22:22)
[2018-10-07 23:12] LABS: Activated Partial Thrombo Time 30.7 sec (23.4-31.7); INR 1.3 Ratio; Prothrombin Time 12.7 sec (9.8-11.6)
[2018-10-07] MEDS: Heparin Drip 25,000 UNIT/250 ML BAG IV.CONT PRN (23:49)
[2018-10-08 07:25] LABS: Hematocrit 30.4 % (39.0-51.0); Hemoglobin 10.1 gm/dL (13.0-17.0); Mean Corpuscular HGB Conc 33.3 % (32.0-36.0); Mean Corpuscular Hemoglobin 27.6 pg (27.0-34.0); Mean Corpuscular Volume 82.9 fL (80.0-100.0); Mean Platelet Volume 9.7 fL (7.0-11.0); Platelet Count 94 th/mm3 (150-450); Red Blood Count 3.67 mil/mm3 (4.50-5.90); Red Cell Distribution Width 25.3 % (11.6-17.2); White Blood Count 10.1 th/mm3 (4.0-11.0)
--- NOTE | 2018-10-08 12:06 | P.HPFP ---
History of Present Illness Service: Family Medicine Primary Care Physician: Delfino Felton DO Chief Complaint: Chest Pain History of Present Illness: He developed chest pain at home and took ASA and TNG and presented to the ED for adm. Cards and GI was consulted in the ED and he was started on a heparin drip after approved by GI. CP subsequently resolved and Cards consult is pending. - Diagnosis (1) NSTEMI (non-ST elevated myocardial infarction) (2) Occult blood in stools (3) Unstable angina pectoris Inpatient Certification: I certify that the inpatient services were ordered in accordance with Medicare regulations governing the order. This includes certification that hospital inpatient services are reasonable and necessary and in the case of services not specified as inpatient-only under 42 CFR 419.22(n), that they are appropriately provided as inpatient services in accordance to with the 2-midnight benchmark under 43 CFR 412.3(e) Estimated Total Length of Stay (Days): 5 Plans for Post Hospital Care: SNF Review of Systems Constitutional: Reports weakness, Denies anorexia Eyes: Denies blurry vision Ears, Nose, Mouth, and Throat: Denies abnormal hearing, Denies difficulty swallowing, Denies dizziness Cardiovascular: Reports chest pain, Reports chest pain at rest Respiratory: Denies change in phlegm color, Denies chest congestion, Denies pain on inspiration, Denies shortness of breath Gastrointestinal: Reports black, tarry stools, Denies abdominal pain, Denies vomiting Genitourinary: Denies blood in urine Musculoskeletal: Reports body aches, Denies abnormal walking, Denies back pain Neurologic: Denies abnormal movements, Denies abnormal speech, Denies abnormal walking, Denies fainting Psychiatric: Denies abnormal sleep pattern, Denies anxiety, Denies behavioral changes Hematologic/Lymphatic: Denies easy bleeding Allergic/Immunologic: Denies GI upset with certain foods PMFSH - History History Provided By: Patient, Significant Other, Rda / EMT - Medical History Medical History: Medical History (Last Reviewed 10/08/18 @ 12:00 by Uche Reich) Chronic obstructive pulmonary disease GI bleed High cholesterol Hypertension - Surgical History Surgical History: Surgical History (Last Reviewed 10/08/18 @ 12:00 by Uche Reich) History of bladder surgery History of hernia surgery History of shoulder surgery History of tonsillectomy - Social History I have reviewed the patient's Social History: Yes - Tobacco History Second Hand Smoke Exposure: No Tobacco Use In Past 30 Days: Yes Smoking Status: Former smoker Tobacco Type: Cigarettes - Alcohol History How Often Do You Have a Drink Containing Alcohol: 2 to 3 times a week - Substance Use History Substance History: Unable to Obtain - Travel History History of Recent Travel: No Recent Travel in the [place] Within the Last 8 Weeks: No Recent Travel Out of the Country Within the Last 8 Weeks: No - Immunization History Tetanus Immunization: >5 Years Hx Influenza Vaccine This Season: No Medications and Allergies Active Medications: Active Medications Heparin Sodium/Dextrose (Heparin/D5w 25,000 U/250 Ml) 25,000 unit in 250 mls @ 0 mls/hr IV.CONT TITRATE PRN; Protocol PRN Reason: Per Protocol Last Titration: 10/08/18 08:45 Dose: 700 units/hr, 7 mls/hr Sodium Chloride (Ns Flush) 2 ml IV.FLUSH UNSCH PRN PRN Reason: FLUSH AFTER USING IV ACCESS Last Admin: 10/07/18 23:48 Dose: 2 ml Allergies Allergy/AdvReac Type Severity Reaction Status Date / Time NKA Allergy Unknown Uncoded 06/26/03 03:11 No Known Allergies Allergy Uncoded 03/09/14 10:21 Home Medications Medication Instructions Recorded Confirmed Type albuterol sulfate 2.5 mg INHALATION QID PRN 09/17/18 10/07/18 History tamsulosin [Flomax] 0.4 mg PO DAILY 09/17/18 10/07/18 History Lyrica 50 mg PO TID 10/08/18 10/08/18 History Exam Vital signs: Vital Signs 10/07/18 20:37 10/07/18 20:50 10/07/18 23:54 Temperature 97.6 F Pulse Rate 59 L 100 H 70 Respiratory Rate 17 21 16 Blood Pressure 135/67 127/70 127/63 Pulse Oximetry 96 97 96 10/08/18 03:38 10/08/18 04:00 10/08/18 08:10 Temperature 97.3 F L Pulse Rate 68 Respiratory Rate 15 17 Blood Pressure 136/63 Pulse Oximetry 97 97 10/08/18 09:10 Temperature Pulse Rate 72 Respiratory Rate Blood Pressure Pulse Oximetry Intake & Output 10/07/18 10/08/18 10/08/18 18:59 06:59 18:59 Weight 80.5 kg Other: # Voids 1 Date of Last Bowel Movement 10/07/18 10/07/18 Weight On Admission 80.5 kg - Constitutional no acute distress - Routine HEENT Exam Head: Present: normocephalic Eye: Present: PERRL, normal accommodation ENT: Present: mucous membranes moist - Routine Neck Exam Present: supple, full ROM - Routine Respiratory Exam Present: crackles, distant breath sounds - Routine Cardiovascular Exam Present: RRR, S1, S2, murmur - Routine Abdominal Exam Present: soft, normoactive bowel sounds, tenderness - Routine Extremities Exam Absent: edema - Routine Skin Exam Present: intact - Routine Neurological Exam Present: alert, oriented X3 Results - Labs Result diagrams: 10/08/18 05:59 10/07/18 20:50 Abnormal lab results 10/07/18 10/07/18 10/07/18 Range/Units 20:50 20:50 20:50 RBC 3.60 L (4.50-5.90) mil/mm3 Hgb 9.8 L (13.0-17.0) gm/dL Hct 29.6 L (39.0-51.0) % RDW 25.1 H (11.6-17.2) % Plt Count 88 L (150-450) th/mm3 Neut % (Auto) 76.3 H (16.0-70.0) % Eos % (Auto) 4.5 H (0.0-4.0) % Ovalocytes 2+ H (None) Acanthocytes (Spur) Occ H (None) Keratocytes Occ H (None) PT (9.8-11.6) sec APTT (23.4-31.7) sec Chloride 113 H (98-107) meq/L Estimated GFR 58 L (>89) mL/min Random Glucose 124 H (74-106) mg/dL Calcium 8.2 L (8.5-10.1) mg/dL Troponin I 0.49 H (0.02-0.05) ng/mL B-Natriuretic Peptide 454 H (0-100) pg/mL 10/07/18 10/08/18 10/08/18 Range/Units 22:40 05:59 05:59 RBC 3.67 L (4.50-5.90) mil/mm3 Hgb 10.1 L (13.0-17.0) gm/dL Hct 30.4 L (39.0-51.0) % RDW 25.3 H (11.6-17.2) % Plt Count 94 L (150-450) th/mm3 Neut % (Auto) (16.0-70.0) % Eos % (Auto) (0.0-4.0) % Ovalocytes (None) Acanthocytes (Spur) (None) Keratocytes (None) PT 12.7 H (9.8-11.6) sec APTT 99.1 H* D (23.4-31.7) sec Chloride (98-107) meq/L Estimated GFR (>89) mL/min Random Glucose (74-106) mg/dL Calcium (8.5-10.1) mg/dL Troponin I (0.02-0.05) ng/mL B-Natriuretic Peptide (0-100) pg/mL 10/08/18 Range/Units 09:39 RBC (4.50-5.90) mil/mm3 Hgb (13.0-17.0) gm/dL Hct (39.0-51.0) % RDW (11.6-17.2) % Plt Count (150-450) th/mm3 Neut % (Auto) (16.0-70.0) % Eos % (Auto) (0.0-4.0) % Ovalocytes (None) Acanthocytes (Spur) (None) Keratocytes (None) PT (9.8-11.6) sec APTT 46.4 H D (23.4-31.7) sec Chloride (98-107) meq/L Estimated GFR (>89) mL/min Random Glucose (74-106) mg/dL Calcium (8.5-10.1) mg/dL Troponin I (0.02-0.05) ng/mL B-Natriuretic Peptide (0-100) pg/mL Short CBC 10/07/18 10/08/18 Range/Units 20:50 05:59 WBC 8.3 10.1 (4.0-11.0) th/mm3 Hgb 9.8 L 10.1 L (13.0-17.0) gm/dL Hct 29.6 L 30.4 L (39.0-51.0) % Plt Count 88 L 94 L (150-450) th/mm3 BMP 10/07/18 20:50 Sodium 145 Potassium 3.5 Chloride 113 H Carbon Dioxide 25.9 BUN 16 Creatinine 1.21 Calcium 8.2 L Cardiac Enzymes 10/07/18 Range/Units 20:50 Troponin I 0.49 H (0.02-0.05) ng/mL Liver Function 10/07/18 Range/Units 20:50 Total Bilirubin 0.9 (0.2-1.0) mg/dL AST 23 (15-37) U/L ALT 33 (12-78) U/L Alkaline Phosphatase 90 (45-117) U/L Albumin 3.6 (3.4-5.0) g/dL - Imaging Impressions Chest X-Ray 10/07/18 20:50 CONCLUSION: 1. No acute abnormality. Caprini VTE Risk Assessment Caprini VTE Risk Assessment: Moderate/High Risk (score >= 2) (On a heparin drip per Cards) Caprini Risk Assessment Model: Point Value = 1 Point Value = 2 Point Value = 3 Point Value = 5 Age 41-60 Minor surgery BMI > 25 kg/m2 Swollen legs Varicose veins or History of unexplained or recurrent spontaneous Oral contraceptives or hormone replacement Sepsis (< 1 month) Serious lung disease, including pneumonia (< 1 month) Abnormal pulmonary function Acute myocardial infarction Congestive heart failure (< 1 month) History of inflammatory bowel disease Medical patient at bed rest Age 61-74 Arthroscopic surgery Major open surgery (> 45 min) Laparoscopic surgery (> 45 min) Malignancy Confined to bed (> 72 hours) Immobilizing plaster cast Central venous access Age >= 75 History of VTE Family history of VTE Factor V Leiden Prothrombin [id number] Lupus anticoagulant Anticardiolipin antibodies Elevated serum homocysteine Heparin-induced thrombocytopenia Other congenital or acquired thrombophilia Stroke (< 1 month) Elective arthroplasty Hip, pelvis, or leg fracture Acute spinal cord injury (< 1 month) Prophylaxis Regimen: Total Risk Factor Score Risk Level Prophylaxis Regimen 0-1 Low Early ambulation 2 Moderate Order ONE of the following: *Sequential Compression Device (SCD) *Heparin 5000 units SQ BID 3-4 Higher Order ONE of the following medications: *Heparin 5000 units SQ TID *Enoxaparin/Lovenox 40 mg SQ daily (WT < 150 kg, CrCl > 30 mL/min) *Enoxaparin/Lovenox 30 mg SQ daily (WT < 150 kg, CrCl > 10-29 mL/min) *Enoxaparin/Lovenox 30 mg SQ BID (WT < 150 kg, CrCl > 30 mL/min) AND/OR *Sequential Compression Device (SCD) 5 or more Highest Order ONE of the following medications: *Heparin 5000 units SQ TID (Preferred with Epidurals) *Enoxaparin/Lovenox 40 mg SQ daily (WT < 150 kg, CrCl > 30 mL/min) *Enoxaparin/Lovenox 30 mg SQ daily (WT < 150 kg, CrCl > 10-29 mL/min) *Enoxaparin/Lovenox 30 mg SQ BID (WT < 150 kg, CrCl > 30 mL/min) AND *Sequential Compression Device (SCD) Assessment and Plan - Assessment (1) NSTEMI (non-ST elevated myocardial infarction) Code(s): I21.4 - Non-ST elevation (NSTEMI) myocardial infarction Status: Acute Plan: Cont heparin drip per Cards and F/U Cards consult and recommendations (2) Occult blood in stools Code(s): R19.5 - Other fecal abnormalities Status: Acute Plan: Monitor hg; stable this adm and consult GI if Hg declines. (3) Unstable angina pectoris Code(s): I20.0 - Unstable angina Status: Acute Plan: F/U Cards recommendations - Assessment and Plan Will cont Heparin drip per Cards recommendations and F/U consult. Discussed Condition With: Patient and RN H&P: Quality - VTE Deep Vein Thrombosis/Pulmonary Embolism Present on Admission: No
--- NOTE | 2018-10-08 20:16 | P.CONCA ---
History of Present Illness Service: Cardiology Consult date: 10/08/18 Reason for Consult: NSTEMI Primary Care Provider: Delfino Felton DO Chief Complaint: Chest Pain History of Present Illness: Mr. Hand is a 78-year-old gentleman known to Dr. Flores. He has a history of COPD, hyperlipidemia, internal hemorrhoids with rectal bleeding, non-ST elevation [place] one week ago. He presented to the ED with complaints of substernal , left-sided chest pain with radiation down his left arm. He states the pain is similar to the pain he experienced last week with his NSTEMI. He denies nausea, vomiting, or other associated symptoms. Pain was unrelieved with aspirin and sublingual nitroglycerin. He came to the ED for further evaluation. Work up revealed Troponin 0.49, 0.34. BNP 454, Hgb 9.8. EKG shows T wave inversion inferolateral leads. He was placed on heparin drip. CXR shows no acute abnormality. No further complaints of chest pain. Review of Systems 12 point review of symptoms is negative except what is mentioned in HPI PMFSH - History History Provided By: Patient, Significant Other, Burr Grinder / EMT - Medical History Medical History: Medical History (Last Reviewed 10/08/18 @ 12:00 by Uche Reich) Chronic obstructive pulmonary disease GI bleed High cholesterol Hypertension - Surgical History Surgical History: Surgical History (Last Reviewed 10/08/18 @ 12:00 by Uche Reich) History of bladder surgery History of hernia surgery History of shoulder surgery History of tonsillectomy - Tobacco History Second Hand Smoke Exposure: No Tobacco Use In Past 30 Days: Yes Smoking Status: Former smoker Tobacco Type: Cigarettes - Alcohol History How Often Do You Have a Drink Containing Alcohol: 2 to 3 times a week - Substance Use History Substance History: Unable to Obtain - Travel History History of Recent Travel: No Recent Travel in the [place] Within the Last 8 Weeks: No Recent Travel Out of the Country Within the Last 8 Weeks: No - Immunization History Tetanus Immunization: >5 Years Hx Influenza Vaccine This Season: No Medications and Allergies Allergies Allergy/AdvReac Type Severity Reaction Status Date / Time NKA Allergy Unknown Uncoded 06/26/03 03:11 No Known Allergies Allergy Uncoded 03/09/14 10:21 Home Medications Medication Instructions Recorded Confirmed Type albuterol sulfate 2.5 mg INHALATION QID PRN 09/17/18 10/07/18 History tamsulosin [Flomax] 0.4 mg PO DAILY 09/17/18 10/07/18 History Lyrica 50 mg PO TID 10/08/18 10/08/18 History Active Medications: Active Medications Hydrocodone Bitart/Acetaminophen ([place] 5/325) 1 tab PO Q4H PRN PRN Reason: PAIN 1-5 Hydrocodone Bitart/Acetaminophen ([place] 5/325) 2 tab PO Q4H PRN PRN Reason: PAIN 6-10 Last Admin: 10/08/18 18:46 Dose: 2 tab Albuterol (Albuterol Neb (Prn)) 2.5 mg NEB Q4HR ALT NEB PRN PRN Reason: FOR WHEEZING Heparin Sodium/Dextrose (Heparin/D5w 25,000 U/250 Ml) 25,000 unit in 250 mls @ 0 mls/hr IV.CONT TITRATE PRN; Protocol PRN Reason: Per Protocol Last Titration: 10/08/18 08:45 Dose: 700 units/hr, 7 mls/hr Sodium Chloride (Ns Flush) 2 ml IV.FLUSH UNSCH PRN PRN Reason: FLUSH AFTER USING IV ACCESS Last Admin: 10/07/18 23:48 Dose: 2 ml Exam Vital signs: Vital Signs 10/07/18 20:37 10/07/18 20:50 10/07/18 23:54 Temperature 97.6 F Pulse Rate 59 L 100 H 70 Respiratory Rate 17 21 16 Blood Pressure 135/67 127/70 127/63 Pulse Oximetry 96 97 96 10/08/18 03:38 10/08/18 04:00 10/08/18 08:10 Temperature 97.3 F L Pulse Rate 68 Respiratory Rate 15 17 Blood Pressure 136/63 Pulse Oximetry 97 97 10/08/18 09:10 10/08/18 12:00 10/08/18 16:00 Temperature 96.6 F L 98.5 F Pulse Rate 72 73 78 Respiratory Rate 13 15 Blood Pressure 154/68 H 154/68 H Pulse Oximetry 99 99 Intake & Output 10/08/18 10/08/18 10/09/18 06:59 18:59 06:59 Weight 80.5 kg Other: # Voids 1 1 Date of Last Bowel Movement 10/07/18 10/08/18 Weight On Admission 80.5 kg Narrative: GENERAL: Awake, alert. No distress. SKIN: Warm/dry. HEAD: Atraumatic. Normocephalic. EYES: Pupils equal and round. No scleral icterus. No injection or drainage. ENT: No nasal bleeding or discharge. Mucous membranes pink and moist. NECK: Trachea midline. No JVD. CARDIOVASCULAR: Regular rate and rhythm. No murmur appreciated. RESPIRATORY: No accessory muscle use. Lungs clear to auscultation. Breath sounds equal bilaterally. GASTROINTESTINAL: Abdomen soft, non-tender, nondistended. MUSCULOSKELETAL: No obvious deformities. No clubbing. No cyanosis. No edema. NEUROLOGICAL: Awake and alert. No obvious cranial nerve deficits. Motor grossly within normal limits. Normal speech. PSYCHIATRIC: Appropriate mood and affect; insight and judgment normal. Results 10/08/18 05:59 10/07/18 20:50 Cardiac Enzymes 10/07/18 10/07/18 10/08/18 Range/Units 20:50 20:50 15:35 AST 23 (15-37) U/L Troponin I 0.49 H 0.34 H (0.02-0.05) ng/mL B-Natriuretic Peptide 454 H (0-100) pg/mL Coagulation 10/07/18 10/07/18 10/08/18 Range/Units 20:50 22:40 05:59 PT 12.7 H (9.8-11.6) sec APTT 30.7 99.1 H* D (23.4-31.7) sec B-Natriuretic Peptide 454 H (0-100) pg/mL 10/08/18 10/08/18 Range/Units 09:39 15:35 PT (9.8-11.6) sec APTT 46.4 H D 40.4 H (23.4-31.7) sec B-Natriuretic Peptide (0-100) pg/mL CBC 10/07/18 10/08/18 Range/Units 20:50 05:59 WBC 8.3 10.1 (4.0-11.0) th/mm3 RBC 3.60 L 3.67 L (4.50-5.90) mil/mm3 Hgb 9.8 L 10.1 L (13.0-17.0) gm/dL Hct 29.6 L 30.4 L (39.0-51.0) % Plt Count 88 L 94 L (150-450) th/mm3 Neut # (Auto) 6.3 (1.8-7.7) th/mm3 Lymph # (Auto) 1.1 (1.0-4.8) th/mm3 [place] # (Auto) 0.4 (0.0-0.9) th/mm3 Eos # (Auto) 0.4 (0.0-0.4) th/mm3 Baso # (Auto) 0.1 (0.0-0.2) th/mm3 Comprehensive Metabolic Panel 10/07/18 Range/Units 20:50 Sodium 145 (136-145) meq/L Potassium 3.5 (3.5-5.1) meq/L Chloride 113 H (98-107) meq/L Carbon Dioxide 25.9 (21.0-32.0) meq/L BUN 16 (7-18) mg/dL Creatinine 1.21 (0.60-1.30) mg/dL Calcium 8.2 L (8.5-10.1) mg/dL AST 23 (15-37) U/L ALT 33 (12-78) U/L Alkaline Phosphatase 90 (45-117) U/L Total Protein 6.9 (6.4-8.2) g/dL Albumin 3.6 (3.4-5.0) g/dL Intake and Output 10/08/18 10/08/18 10/08/18 06:59 14:59 22:59 Other: # Voids 1 1 Date of Last Bowel Movement 10/07/18 10/07/18 10/08/18 Weight 80.5 kg Weight On Admission 80.5 kg - Imaging and Cardiology Imaging: Impressions Chest X-Ray 10/07/18 20:50 CONCLUSION: 1. No acute abnormality. Assessment and Plan - Assessment (1) NSTEMI (non-ST elevated myocardial infarction) Code(s): I21.4 - Non-ST elevation (NSTEMI) myocardial infarction Status: Acute (2) Hypertension Code(s): I10 - Essential (primary) hypertension Status: Chronic (3) Hyperlipidemia Code(s): E78.5 - Hyperlipidemia, unspecified Status: Chronic (4) COPD (chronic obstructive pulmonary disease) Code(s): J44.9 - Chronic obstructive pulmonary disease, unspecified Status: Chronic (5) GI (gastrointestinal bleed) Code(s): K92.2 - Gastrointestinal hemorrhage, unspecified Status: Acute - Plan Currently pain free. Continue heparin drip. Hgb 10.1. Will add beta karla, statin. Plan for cardiac catheterization on Wednesday. This patient was seen and examined by Walt Early MD and this note is written on his behalf. Discussed Condition With: Dr. Early - Attending Attestation Pt. seen and examined. On iv heparin. No further bleeding. Possible cath on Wednesday. Continue medical management. (2) Hypertension Qualifiers: Hypertension type: essential hypertension Qualified Code(s): I10 - Essential (primary) hypertension (3) Hyperlipidemia Qualifiers: Hyperlipidemia type: mixed hyperlipidemia Qualified Code(s): E78.2 - Mixed hyperlipidemia
[2018-10-09] MEDS: Heparin Drip 25,000 UNIT/250 ML BAG IV.CONT PRN (09:40)
--- NOTE | 2018-10-09 11:04 | P.PNFP ---
Subjective Interval history: He was seen by Cards and started on home meds. He is for Card Cath tomorrow. Once Cardiac W/U completed, he would like eval of a "spot" on his lung. He sees Dr. Da Silva as an outpatient but he doesn't cover [place]. Results - Labs Result diagrams: 10/08/18 05:59 10/07/18 20:50 Abnormal lab results 10/08/18 10/08/18 Range/Units 15:35 15:35 APTT 40.4 H (23.4-31.7) sec Troponin I 0.34 H (0.02-0.05) ng/mL Cardiac Enzymes 10/08/18 Range/Units 15:35 Troponin I 0.34 H (0.02-0.05) ng/mL Physical Exam Vital signs: Vital Signs 10/08/18 12:00 10/08/18 16:00 10/08/18 20:00 Temperature 96.6 F L 98.5 F 98.9 F Pulse Rate 73 78 90 Respiratory Rate 13 15 17 Blood Pressure 154/68 H 154/68 H 119/57 L Pulse Oximetry 99 99 98 10/08/18 22:00 10/09/18 00:00 10/09/18 04:00 Temperature 97.4 F L 98.1 F Pulse Rate 70 70 75 Respiratory Rate 16 17 16 Blood Pressure 114/57 L 131/62 Pulse Oximetry 95 96 94 L Intake & Output 10/08/18 10/09/18 10/09/18 18:59 06:59 18:59 Intake Total 250 / 250 Balance 250 / 250 Weight 80.5 kg Intake: IV 250 / 250 Heparin/D5W 25,000 U/250 mL 25, 250 / 250 000 unit In 250 ml @ Per Protocol IV.CONT TITRATE PRN Rx #:[id number] Other: # Voids 1 2 Date of Last Bowel Movement 10/08/18 10/08/18 - Constitutional no acute distress - Routine HEENT Exam Head: Present: normocephalic Eye: Present: PERRL, normal accommodation ENT: Present: mucous membranes moist - Routine Neck Exam Present: supple, full ROM - Routine Respiratory Exam Present: distant breath sounds - Routine Cardiovascular Exam Present: RRR, S1, S2, murmur - Routine Abdominal Exam Present: soft, normoactive bowel sounds. Absent: tenderness - Routine Extremities Exam Absent: cyanosis, edema - Routine Skin Exam Present: intact. Absent: cyanosis - Routine Neurological Exam Present: alert, oriented X3 - Detailed Neurological Exam: Coma Scale Eye Opening: Spontaneous Verbal Response: Oriented Motor Response: Obey commands [place] Coma Scale Total: 15 - Routine Psychiatric Exam Present: normal affect, normal thought process Assessment and Plan - Assessment (1) NSTEMI (non-ST elevated myocardial infarction) Code(s): I21.4 - Non-ST elevation (NSTEMI) myocardial infarction Status: Acute Plan: Cont heparin drip per Cards and F/U Card Cath tomorrow. Home meds restarted per Cards. (2) Occult blood in stools Code(s): R19.5 - Other fecal abnormalities Status: Acute Plan: Monitor hg; labs ordered for this AM are yet pending. Consult GI if Hg declines. (3) Unstable angina pectoris Code(s): I20.0 - Unstable angina Status: Acute Plan: He is for Cardiac Cath tomorrow. F/U Cards recommendations - Assessment and Plan - Will cont Heparin drip per Cards recommendations and F/U consult. 10/09/18 - He will remain on hep drip and Cards has restarted home meds and will have Cardiac Cath tomorrow. He is afebrile with stable VS. Labs are pending this AM.
[2018-10-09 11:23] LABS: Baso # (Auto) 0.1 th/mm3 (0.0-0.2); Eos # (Auto) 0.5 th/mm3 (0.0-0.4); Eos % (Auto) 4.7 % (0.0-4.0); Hematocrit 29.2 % (39.0-51.0); Hemoglobin 9.7 gm/dL (13.0-17.0); Lymph # (Auto) 0.8 th/mm3 (1.0-4.8); Mean Corpuscular HGB Conc 33.1 % (32.0-36.0); Mean Corpuscular Hemoglobin 27.4 pg (27.0-34.0); Mean Corpuscular Volume 82.8 fL (80.0-100.0); Mean Platelet Volume 10.3 fL (7.0-11.0); Mono # (Auto) 0.6 th/mm3 (0.0-0.9); Mono % (Auto) 5.1 % (0.0-8.0); Neut % (Auto) 82.2 % (16.0-70.0); Platelet Count 120 th/mm3 (150-450); Red Blood Count 3.52 mil/mm3 (4.50-5.90); Red Cell Distribution Width 24.9 % (11.6-17.2)
[2018-10-09 11:47] LABS: Albumin 3.4 g/dL (3.4-5.0); Anion Gap 6 meq/L (5-15); Aspartate Aminotransferase 20 U/L (15-37); Blood Urea Nitrogen 11 mg/dL (7-18); Calcium 8.2 mg/dL (8.5-10.1); Carbon Dioxide 27.1 meq/L (21.0-32.0); Chloride 112 meq/L (98-107); Glomerular Filtration Rate 78 mL/min (>89); Glucose,Random 105 mg/dL (74-106); Potassium 3.6 meq/L (3.5-5.1); Sodium 145 meq/L (136-145)
[2018-10-09 11:50] LABS: Alanine Aminotransferase 24 U/L (12-78); Alkaline Phosphatase 85 U/L (45-117); Total Protein 6.4 g/dL (6.4-8.2)
--- NOTE | 2018-10-09 16:04 | P.PNCA ---
Subjective Interval history: Resting in bed without distress. Denies chest pain, sob, palpitations. On heparin drip. Medications and Allergies Allergies Allergy/AdvReac Type Severity Reaction Status Date / Time NKA Allergy Unknown Uncoded 06/26/03 03:11 No Known Allergies Allergy Uncoded 03/09/14 10:21 Home Medications Medication Instructions Recorded Confirmed Type albuterol sulfate 2.5 mg INHALATION QID PRN 09/17/18 10/07/18 History tamsulosin [Flomax] 0.4 mg PO DAILY 09/17/18 10/07/18 History Lyrica 50 mg PO TID 10/08/18 10/08/18 History Active Medications: Active Medications Hydrocodone Bitart/Acetaminophen ([place] 5/325) 1 tab PO Q4H PRN PRN Reason: PAIN 1-5 Hydrocodone Bitart/Acetaminophen ([place] 5/325) 2 tab PO Q4H PRN PRN Reason: PAIN 6-10 Last Admin: 10/09/18 14:39 Dose: 2 tab Albuterol (Albuterol Neb (Prn)) 2.5 mg NEB Q4HR ALT NEB PRN PRN Reason: FOR WHEEZING Last Admin: 10/08/18 21:55 Dose: 2.5 mg Atorvastatin Calcium (Lipitor) 10 mg PO DAILY [facility] Last Admin: 10/09/18 08:10 Dose: Not Given Carvedilol (Coreg) 3.125 mg PO BID [facility] Last Admin: 10/09/18 08:10 Dose: 3.125 mg Heparin Sodium/Dextrose (Heparin/D5w 25,000 U/250 Ml) 25,000 unit in 250 mls @ 0 mls/hr IV.CONT TITRATE PRN; Protocol PRN Reason: Per Protocol Last Admin: 10/09/18 09:40 Dose: 700 units/hr, 7 mls/hr Sodium Chloride (Ns Flush) 2 ml IV.FLUSH UNSCH PRN PRN Reason: FLUSH AFTER USING IV ACCESS Last Admin: 10/07/18 23:48 Dose: 2 ml Physical Exam Vital signs: Vital Signs 10/08/18 20:00 10/08/18 22:00 10/09/18 00:00 Temperature 98.9 F 97.4 F L Pulse Rate 90 70 70 Respiratory Rate 17 16 17 Blood Pressure 119/57 L 114/57 L Pulse Oximetry 98 95 96 10/09/18 04:00 10/09/18 08:10 10/09/18 09:10 Temperature 98.1 F Pulse Rate 75 75 Respiratory Rate 16 Blood Pressure 131/62 Pulse Oximetry 94 L 94 L 10/09/18 12:00 10/09/18 13:03 Temperature 97.9 F Pulse Rate 76 Respiratory Rate 16 Blood Pressure 110/55 L Pulse Oximetry 97 94 L Intake & Output 10/08/18 10/09/18 10/09/18 18:59 06:59 18:59 Intake Total 250 / 250 Balance 250 / 250 Weight 80.5 kg Intake: IV 250 / 250 Heparin/D5W 25,000 U/250 mL 25, 250 / 250 000 unit In 250 ml @ Per Protocol IV.CONT TITRATE PRN Rx #:[id number] Other: # Voids 1 2 Date of Last Bowel Movement 10/08/18 10/08/18 10/08/18 Narrative: GENERAL: Awake, alert. No distress. SKIN: Warm/dry. HEAD: Atraumatic. Normocephalic. EYES: Pupils equal and round. No scleral icterus. No injection or drainage. ENT: No nasal bleeding or discharge. Mucous membranes pink and moist. NECK: Trachea midline. No JVD. CARDIOVASCULAR: Regular rate and rhythm. No murmur appreciated. RESPIRATORY: No accessory muscle use. Lungs clear to auscultation. Breath sounds equal bilaterally. GASTROINTESTINAL: Abdomen soft, non-tender, nondistended. MUSCULOSKELETAL: No obvious deformities. No clubbing. No cyanosis. No edema. NEUROLOGICAL: Awake and alert. No obvious cranial nerve deficits. Motor grossly within normal limits. Normal speech. PSYCHIATRIC: Appropriate mood and affect; insight and judgment normal. Results 10/09/18 10:05 10/09/18 10:05 Cardiac Enzymes 10/07/18 10/07/18 10/08/18 Range/Units 20:50 20:50 15:35 AST 23 (15-37) U/L Troponin I 0.49 H 0.34 H (0.02-0.05) ng/mL B-Natriuretic Peptide 454 H (0-100) pg/mL 10/09/18 Range/Units 10:05 AST 20 (15-37) U/L Troponin I (0.02-0.05) ng/mL B-Natriuretic Peptide (0-100) pg/mL Coagulation 10/07/18 10/07/18 10/08/18 Range/Units 20:50 22:40 05:59 PT 12.7 H (9.8-11.6) sec APTT 30.7 99.1 H* D (23.4-31.7) sec B-Natriuretic Peptide 454 H (0-100) pg/mL 10/08/18 10/08/18 10/09/18 Range/Units 09:39 15:35 10:05 PT (9.8-11.6) sec APTT 46.4 H D 40.4 H 38.0 H (23.4-31.7) sec B-Natriuretic Peptide (0-100) pg/mL CBC 10/07/18 10/08/18 10/09/18 Range/Units 20:50 05:59 10:05 WBC 8.3 10.1 11.0 (4.0-11.0) th/mm3 RBC 3.60 L 3.67 L 3.52 L (4.50-5.90) mil/mm3 Hgb 9.8 L 10.1 L 9.7 L (13.0-17.0) gm/dL Hct 29.6 L 30.4 L 29.2 L (39.0-51.0) % Plt Count 88 L 94 L 120 L (150-450) th/mm3 Neut # (Auto) 6.3 9.0 H (1.8-7.7) th/mm3 Lymph # (Auto) 1.1 0.8 L (1.0-4.8) th/mm3 [place] # (Auto) 0.4 0.6 (0.0-0.9) th/mm3 Eos # (Auto) 0.4 0.5 H (0.0-0.4) th/mm3 Baso # (Auto) 0.1 0.1 (0.0-0.2) th/mm3 Comprehensive Metabolic Panel 10/07/18 10/09/18 Range/Units 20:50 10:05 Sodium 145 145 (136-145) meq/L Potassium 3.5 3.6 (3.5-5.1) meq/L Chloride 113 H 112 H (98-107) meq/L Carbon Dioxide 25.9 27.1 (21.0-32.0) meq/L BUN 16 11 (7-18) mg/dL Creatinine 1.21 0.93 (0.60-1.30) mg/dL Calcium 8.2 L 8.2 L (8.5-10.1) mg/dL AST 23 20 (15-37) U/L ALT 33 24 (12-78) U/L Alkaline Phosphatase 90 85 (45-117) U/L Total Protein 6.9 6.4 (6.4-8.2) g/dL Albumin 3.6 3.4 (3.4-5.0) g/dL Intake and Output 10/09/18 10/09/18 10/09/18 06:59 14:59 22:59 Intake Total 250 / 250 Balance 250 / 250 Intake: IV 250 / 250 Heparin/D5W 25,000 U/250 mL 25, 250 / 250 000 unit In 250 ml @ Per Protocol IV.CONT TITRATE PRN Rx #:[id number] Other: # Voids 2 Date of Last Bowel Movement 10/08/18 Weight 80.5 kg - Imaging and Cardiology Imaging: Impressions Chest X-Ray 10/07/18 20:50 CONCLUSION: 1. No acute abnormality. Assessment and Plan - Assessment (1) NSTEMI (non-ST elevated myocardial infarction) Code(s): I21.4 - Non-ST elevation (NSTEMI) myocardial infarction Status: Acute (2) Hypertension Code(s): I10 - Essential (primary) hypertension Status: Chronic (3) Hyperlipidemia Code(s): E78.5 - Hyperlipidemia, unspecified Status: Chronic (4) COPD (chronic obstructive pulmonary disease) Code(s): J44.9 - Chronic obstructive pulmonary disease, unspecified Status: Chronic (5) GI (gastrointestinal bleed) Code(s): K92.2 - Gastrointestinal hemorrhage, unspecified Status: Acute - Plan Currently pain free. Continue heparin drip. Hgb 9.7. Continue beta karla, statin. Plan for cardiac catheterization on Wednesday. This patient was seen and examined by Walt Early MD and this note is written on his behalf. - Attending Attestation Pt. seen and examined. For cardiac Cath tomorrow. Procedure was reviewed. All questions were answered. (2) Hypertension Qualifiers: Hypertension type: essential hypertension Qualified Code(s): I10 - Essential (primary) hypertension (3) Hyperlipidemia Qualifiers: Hyperlipidemia type: mixed hyperlipidemia Qualified Code(s): E78.2 - Mixed hyperlipidemia
--- NOTE | 2018-10-10 00:42 | ECG ---
Date Performed: 10/07/2018 Time Performed: 20:50:54 PTAGE: 78 years EKG: ATRIAL FIBRILLATION ST DEVIATION AND MODERATE T-WAVE ABNORMALITY, CONSIDER LATERAL ISCHEMIA ST DEVIATION AND MODERATE T-WAVE ABNORMALITY, CONSIDER INFERIOR ISCHEMIA ABNORMAL ECG PREVIOUS TRACING : 09/17/2018 03.20 Compared to previous tracing, now appears to be in AFib DOCTOR: Bebeto Álvarez Interpretating Date/Time 10/10/2018 00:42:40
[2018-10-10 08:29] LABS: Hematocrit 26.7 % (39.0-51.0); Hemoglobin 8.9 gm/dL (13.0-17.0); Mean Corpuscular HGB Conc 33.2 % (32.0-36.0); Mean Corpuscular Hemoglobin 27.1 pg (27.0-34.0); Mean Corpuscular Volume 81.7 fL (80.0-100.0); Mean Platelet Volume 9.2 fL (7.0-11.0); Platelet Count 120 th/mm3 (150-450); Red Blood Count 3.27 mil/mm3 (4.50-5.90); Red Cell Distribution Width 24.4 % (11.6-17.2); White Blood Count 7.8 th/mm3 (4.0-11.0)
--- NOTE | 2018-10-10 09:05 | P.PNFP ---
Subjective Interval history: Resting in bed Complains of mild SOB, this is his baseline Denies Cp or palpations, at this time Complains of dry mouth r/t NPO Scheduled for cardiac cath at 1400 Results - Labs Result diagrams: 10/10/18 07:53 10/09/18 10:05 Abnormal lab results 10/09/18 10/09/18 10/09/18 Range/Units 10:05 10:05 10:05 RBC 3.52 L (4.50-5.90) mil/mm3 Hgb 9.7 L (13.0-17.0) gm/dL Hct 29.2 L (39.0-51.0) % RDW 24.9 H (11.6-17.2) % Plt Count 120 L (150-450) th/mm3 Neut % (Auto) 82.2 H (16.0-70.0) % Lymph % (Auto) 7.0 L (9.0-44.0) % Eos % (Auto) 4.7 H (0.0-4.0) % Neut # (Auto) 9.0 H (1.8-7.7) th/mm3 Lymph # (Auto) 0.8 L (1.0-4.8) th/mm3 Eos # (Auto) 0.5 H (0.0-0.4) th/mm3 APTT 38.0 H (23.4-31.7) sec Chloride 112 H (98-107) meq/L Estimated GFR 78 L (>89) mL/min Calcium 8.2 L (8.5-10.1) mg/dL Total Bilirubin 1.1 H (0.2-1.0) mg/dL 10/10/18 Range/Units 07:53 RBC 3.27 L (4.50-5.90) mil/mm3 Hgb 8.9 L (13.0-17.0) gm/dL Hct 26.7 L (39.0-51.0) % RDW 24.4 H (11.6-17.2) % Plt Count 120 L (150-450) th/mm3 Neut % (Auto) (16.0-70.0) % Lymph % (Auto) (9.0-44.0) % Eos % (Auto) (0.0-4.0) % Neut # (Auto) (1.8-7.7) th/mm3 Lymph # (Auto) (1.0-4.8) th/mm3 Eos # (Auto) (0.0-0.4) th/mm3 APTT (23.4-31.7) sec Chloride (98-107) meq/L Estimated GFR (>89) mL/min Calcium (8.5-10.1) mg/dL Total Bilirubin (0.2-1.0) mg/dL Short CBC 10/09/18 10/10/18 Range/Units 10:05 07:53 WBC 11.0 7.8 (4.0-11.0) th/mm3 Hgb 9.7 L 8.9 L (13.0-17.0) gm/dL Hct 29.2 L 26.7 L (39.0-51.0) % Plt Count 120 L 120 L (150-450) th/mm3 BMP 10/09/18 10:05 Sodium 145 Potassium 3.6 Chloride 112 H Carbon Dioxide 27.1 BUN 11 Creatinine 0.93 Calcium 8.2 L Liver Function 10/09/18 Range/Units 10:05 Total Bilirubin 1.1 H (0.2-1.0) mg/dL AST 20 (15-37) U/L ALT 24 (12-78) U/L Alkaline Phosphatase 85 (45-117) U/L Albumin 3.4 (3.4-5.0) g/dL Physical Exam Vital signs: Vital Signs 10/09/18 09:10 10/09/18 12:00 10/09/18 13:03 Temperature 97.9 F Pulse Rate 75 76 Respiratory Rate 16 Blood Pressure 110/55 L Pulse Oximetry 97 94 L 10/09/18 16:00 10/09/18 16:10 10/09/18 17:41 Temperature 98.7 F Pulse Rate 80 77 Respiratory Rate 16 Blood Pressure 108/52 L Pulse Oximetry 96 94 L 10/09/18 20:00 10/09/18 21:29 10/10/18 00:00 Temperature 98.4 F 97.8 F Pulse Rate 79 71 96 H Respiratory Rate 18 18 18 Blood Pressure 116/55 L 123/56 L Pulse Oximetry 94 L 96 10/10/18 04:00 Temperature 97.7 F Pulse Rate 69 Respiratory Rate 18 Blood Pressure 114/57 L Pulse Oximetry 94 L Intake & Output 10/09/18 10/10/18 10/10/18 18:59 06:59 18:59 Intake Total 730 / 730 480 / 480 Output Total 1600 / 1600 400 / 400 Balance -870 / -870 80 / 80 Intake: IV 250 / 250 Heparin/D5W 25,000 U/250 mL 25, 250 / 250 000 unit In 250 ml @ Per Protocol IV.CONT TITRATE PRN Rx #:[id number] Oral 480 / 480 480 / 480 Output: Urine 1600 / 1600 400 / 400 Other: # Voids 1 Date of Last Bowel Movement 10/08/18 10/08/18 # Bowel Movements 1 1 - Constitutional no acute distress - Routine HEENT Exam Eye: Present: PERRL - Routine Neck Exam Present: supple - Routine Respiratory Exam Present: rhonchi, diminished air movement - Routine Cardiovascular Exam Present: S1 - Routine Abdominal Exam Present: soft, normoactive bowel sounds - Routine Extremities Exam Present: pulses intact - Routine Skin Exam Present: dry, warm - Routine Neurological Exam Present: alert, oriented X3 - Routine Psychiatric Exam Present: cooperative Assessment and Plan - Assessment (1) NSTEMI (non-ST elevated myocardial infarction) Code(s): I21.4 - Non-ST elevation (NSTEMI) myocardial infarction Status: Acute Plan: Cont heparin drip per Cards and F/U Card Cath today. Home meds restarted per Cards. (2) Occult blood in stools Code(s): R19.5 - Other fecal abnormalities Status: Acute Plan: Monitor hgb (3) Unstable angina pectoris Code(s): I20.0 - Unstable angina Status: Acute Plan: He is for Cardiac Cath today F/U Cards recommendations - Assessment and Plan - Will cont Heparin drip per Cards recommendations and F/U consult. 10/09/18 - He will remain on hep drip and Cards has restarted home meds and will have Cardiac Cath tomorrow. He is afebrile with stable VS. Labs are pending this AM. 10/10/18- Seen this am, he denies Cp, has some sob but voices this is his baseline. he is on O2 at home. He is scheduled for cardiac cath today, he is on Heparin. gtt. No sign of bleed.
--- NOTE | 2018-10-10 11:40 | P.PNCA ---
Subjective Interval history: Patient denies any CP, pressure, palpitations, dizziness, edema or SOB. Medications and Allergies Allergies Allergy/AdvReac Type Severity Reaction Status Date / Time NKA Allergy Unknown Uncoded 06/26/03 03:11 No Known Allergies Allergy Uncoded 03/09/14 10:21 Home Medications Medication Instructions Recorded Confirmed Type albuterol sulfate 2.5 mg INHALATION QID PRN 09/17/18 10/07/18 History tamsulosin [Flomax] 0.4 mg PO DAILY 09/17/18 10/07/18 History Lyrica 50 mg PO TID 10/08/18 10/08/18 History Active Medications: Active Medications Hydrocodone Bitart/Acetaminophen ([place] 5/325) 1 tab PO Q4H PRN PRN Reason: PAIN 1-5 Last Admin: 10/09/18 21:18 Dose: 1 tab Hydrocodone Bitart/Acetaminophen ([place] 5/325) 2 tab PO Q4H PRN PRN Reason: PAIN 6-10 Last Admin: 10/10/18 09:05 Dose: 2 tab Albuterol (Albuterol Neb (Prn)) 2.5 mg NEB Q4HR ALT NEB PRN PRN Reason: FOR WHEEZING Last Admin: 10/09/18 21:27 Dose: 2.5 mg Atorvastatin Calcium (Lipitor) 10 mg PO DAILY COUNTS INCLUDE 234 BEDS AT THE [facility] Last Admin: 10/10/18 09:06 Dose: Not Given Carvedilol (Coreg) 3.125 mg PO BID COUNTS INCLUDE 234 BEDS AT THE [facility] Last Admin: 10/10/18 09:05 Dose: 3.125 mg Heparin Sodium/Dextrose (Heparin/D5w 25,000 U/250 Ml) 25,000 unit in 250 mls @ 0 mls/hr IV.CONT TITRATE PRN; Protocol PRN Reason: Per Protocol Last Admin: 10/09/18 09:40 Dose: 700 units/hr, 7 mls/hr Sodium Chloride (Ns Flush) 2 ml IV.FLUSH UNSCH PRN PRN Reason: FLUSH AFTER USING IV ACCESS Last Admin: 10/07/18 23:48 Dose: 2 ml Physical Exam Vital signs: Vital Signs 10/09/18 12:00 10/09/18 13:03 10/09/18 16:00 Temperature 97.9 F 98.7 F Pulse Rate 76 80 Respiratory Rate 16 16 Blood Pressure 110/55 L 108/52 L Pulse Oximetry 97 94 L 96 10/09/18 16:10 10/09/18 17:41 10/09/18 20:00 Temperature 98.4 F Pulse Rate 77 79 Respiratory Rate 18 Blood Pressure 116/55 L Pulse Oximetry 94 L 94 L 10/09/18 21:29 10/10/18 00:00 10/10/18 04:00 Temperature 97.8 F 97.7 F Pulse Rate 71 96 H 69 Respiratory Rate 18 18 18 Blood Pressure 123/56 L 114/57 L Pulse Oximetry 96 94 L Intake & Output 10/09/18 10/10/18 10/10/18 18:59 06:59 18:59 Intake Total 730 / 730 480 / 480 Output Total 1600 / 1600 400 / 400 Balance -870 / -870 80 / 80 Intake: IV 250 / 250 Heparin/D5W 25,000 U/250 mL 25, 250 / 250 000 unit In 250 ml @ Per Protocol IV.CONT TITRATE PRN Rx #:[id number] Oral 480 / 480 480 / 480 Output: Urine 1600 / 1600 400 / 400 Other: # Voids 1 Date of Last Bowel Movement 10/08/18 10/08/18 # Bowel Movements 1 1 - Constitutional no acute distress - Routine HEENT Exam Head: Present: normocephalic Eye: Present: PERRL ENT: Present: mucous membranes moist - Routine Neck Exam Present: full ROM - Routine Respiratory Exam Present: CTA bilaterally - Routine Cardiovascular Exam Present: S1, S2. Absent: murmur, gallop, rubs - Routine Abdominal Exam Present: normoactive bowel sounds - Routine Extremities Exam Present: full ROM, pulses intact, normal capillary refill. Absent: cyanosis, clubbing, edema - Routine Skin Exam Present: intact - Routine Neurological Exam Present: oriented X3 - Detailed Neurological Exam: Coma Scale Eye Opening: Spontaneous Verbal Response: Oriented Motor Response: Obey commands Naya Coma Scale Total: 15 - Routine Psychiatric Exam Present: normal affect Results 10/10/18 07:53 10/09/18 10:05 Cardiac Enzymes 10/08/18 10/09/18 Range/Units 15:35 10:05 AST 20 (15-37) U/L Troponin I 0.34 H (0.02-0.05) ng/mL Coagulation 10/08/18 10/09/18 Range/Units 15:35 10:05 APTT 40.4 H 38.0 H (23.4-31.7) sec CBC 10/09/18 10/10/18 Range/Units 10:05 07:53 WBC 11.0 7.8 (4.0-11.0) th/mm3 RBC 3.52 L 3.27 L (4.50-5.90) mil/mm3 Hgb 9.7 L 8.9 L (13.0-17.0) gm/dL Hct 29.2 L 26.7 L (39.0-51.0) % Plt Count 120 L 120 L (150-450) th/mm3 Neut # (Auto) 9.0 H (1.8-7.7) th/mm3 Lymph # (Auto) 0.8 L (1.0-4.8) th/mm3 Cottle # (Auto) 0.6 (0.0-0.9) th/mm3 Eos # (Auto) 0.5 H (0.0-0.4) th/mm3 Baso # (Auto) 0.1 (0.0-0.2) th/mm3 Comprehensive Metabolic Panel 10/09/18 Range/Units 10:05 Sodium 145 (136-145) meq/L Potassium 3.6 (3.5-5.1) meq/L Chloride 112 H (98-107) meq/L Carbon Dioxide 27.1 (21.0-32.0) meq/L BUN 11 (7-18) mg/dL Creatinine 0.93 (0.60-1.30) mg/dL Calcium 8.2 L (8.5-10.1) mg/dL AST 20 (15-37) U/L ALT 24 (12-78) U/L Alkaline Phosphatase 85 (45-117) U/L Total Protein 6.4 (6.4-8.2) g/dL Albumin 3.4 (3.4-5.0) g/dL Intake and Output 10/09/18 10/10/18 10/10/18 22:59 06:59 14:59 Intake Total 480 / 480 480 / 480 Output Total 1600 / 1600 400 / 400 Balance -1120 / -1120 80 / 80 Intake: Oral 480 / 480 480 / 480 Output: Urine 1600 / 1600 400 / 400 Other: # Voids 1 Date of Last Bowel Movement 10/08/18 10/08/18 # Bowel Movements 1 1 Assessment and Plan - Assessment (1) NSTEMI (non-ST elevated myocardial infarction) Code(s): I21.4 - Non-ST elevation (NSTEMI) myocardial infarction Status: Acute (2) Hypertension Code(s): I10 - Essential (primary) hypertension Status: Chronic (3) Hyperlipidemia Code(s): E78.5 - Hyperlipidemia, unspecified Status: Chronic (4) COPD (chronic obstructive pulmonary disease) Code(s): J44.9 - Chronic obstructive pulmonary disease, unspecified Status: Chronic (5) GI (gastrointestinal bleed) Code(s): K92.2 - Gastrointestinal hemorrhage, unspecified Status: Acute - Plan We will proceed with cardiac catheterization today. Risk include but not limited to: Bleeding and/or infection at the insertion site , damage to the coronary arteries, acute kidney injury, heart attack, stroke and /or possible . All risk factors discussed with patient and family. Patient verbalized understanding and wishes to proceed. Continue to keep patient NPO. We will continue the Heparin gtt for anticoagulation. Have consent signed and placed on chart. The patient was seen and evaluated by Dr. Flores who participated in care, management and decision making. - Attending Attestation Patient seen and examined. Cath/PCI today. (2) Hypertension Qualifiers: Hypertension type: essential hypertension Qualified Code(s): I10 - Essential (primary) hypertension (3) Hyperlipidemia Qualifiers: Hyperlipidemia type: mixed hyperlipidemia Qualified Code(s): E78.2 - Mixed hyperlipidemia
[2018-10-10] MEDS ORDERED: Heparin/NS PF Inj 1,500 ML ONE (12:46)
[2018-10-10] MEDS ORDERED: fentaNYL Citrate Inj 100 MCG/2 ML Ampul ONE (12:46)
[2018-10-10] MEDS ORDERED: Iohexol 350 MG/ML 100 ML Vial (for Cath Lab) IVCONTRAST ONE (13:45)
--- NOTE | 2018-10-10 14:12 | CATHPROC ---
[employer] HIS Report Study Information Study Number Admission Scheduled Start Study Start [id number] Oct 07 2018 10:46PM 10/10/2018 Oct 10 2018 12:56PM [place] [facility] Cardiac Catheterization Admit Source Facility Department Emergency department [facility] - Assistant Oceanographer Physician and Clinical Staff Initial Jeanne Urias Special Warfare Operator Brandy Clemetn,DERECK Special Warfare Operator Chivo HARDEN, Yrn Recorder Yolande Nelson ,RT(R) ScrMissy Howell,RT(R) (BS) Procedures Performed Procedure Location (Site) Vessel Name Angiogram LV LV Ventricle Coronary Angiograms LCA Left Coronary Coronary Angiograms RCA Right Coronary L Heart Cath Equipment Time District Associate Judge Description Size Mfg Part Number Used/Scraped TRANSDUCER, TRUWAVE [id number] 13:01 [employer] KNIGHT * Used W/STOCKCOCK *[id number] 13:57 [employer] MEDICAL VASCADE, FR5 CLOSURE SYSTEM FR 5 Used *[id number] *[id number] [id number] *[id number] [id number] *[id number] 13:01 [employer] BLANKET,WARM AIR CCL * Used *[id number] 13:01 [employer] PACK, CCL CUSTOM * Used *[id number] 13:01 [employer] PACER PEN, SKIN DUAL W/ RULER * Used *[id number] 13:01 [employer] WIRE, 3MMJ .035 180CM 180CM Used *[id number] PROBE COVER, STERILE [id number] 13:01 [employer] Private * Used ULTRASOUND W/ GEL *[id number] 13:01 NAMIC MANIFOLD, 4 PORT * Used *[id number] 13:01 NAMIC TUBING, HIGH PRESSURE 48" 48" Used *[id number] 13:22 NAMIC TUBING, HIGH PRESSURE 48" 48" Used *[id number] 13:01 [employer] OMNIPAQUE, 350 MG, 150ML 150ML [id number] Used 13:45 [employer] OMNIPAQUE, 350 MG, 50ML 50ML [id number] Used [id number] 13:01 TERUMO MEDICAL SHEATH, FR5 TERUMO (10CM) FR 5 Used *[id number] History: Allergies Allergy Reaction NKA No Known Allergies History: Risk Factors Family History of Hypertension Dyslipidemia Previous [place] Previous Heart Failure Premature CAD Yes Yes No Yes No Prior Valve Prior PCI Prior CABG Surgery No No No Cerebrovascular Peripheral Artery Chronic Lung On Dialysis Diabetes Disease Disease Disease No No No Yes No History: Other Current Smoker Quit Packs a Day Years Used Pack Years No 1 Years Ago 3 60 180 Labs Hgb (g/dl) Hct (%) WBC (l/cumm) Platelets (thousands) 11.60-17.00 35.00-51.00 4.00-11.00 150.00-450.00 8.9 26.7 7.8 120 Glucose (mg/dl) BUN (mg/dl) Creatinine (mg/dl) BUN:Creatinine (1:x) 74.00-106.00 7.00-18.00 0.50-1.30 10.00-20.00 105 11 0.9 12.2 Na (meq/l) K (meq/l) 136.00-145.00 3.50-5.10 145 3.6 INR (PTT:PT) 0.90-1.10 1.3 Troponin I (ng/ml) CPK-MB (ng/ML) 0.02-0.05 0.50-3.60 0.34 Not Drawn Medication Medication Total Dose (Bolus/Oral) Medication Total Dosage/Unit 1% XYLOCAINE 15 mL FENTANYL 50 mcg VERSED 3 mg Medications (Bolus/Oral) Medication Time Given Dosage/Unit Administered By Reason VERSED 10/10/2018 1:18:00 PM 1 mg Hesher, Brandy 1 mg VERSED given in lab by Brandy Clement RN via Peripheral IV. Ordered by Jeanne Flores. FENTANYL 10/10/2018 1:19:00 PM 25 mcg Hesher, Brandy 25 mcg FENTANYL given in lab by Brandy Clement RN via Peripheral IV. Ordered by Jeanne Flores. VERSED 10/10/2018 1:28:00 PM 1 mg Hesher, Brandy 1 mg VERSED given in lab by Brandy Clement RN via Peripheral IV. Ordered by Jeanne Flores. FENTANYL 10/10/2018 1:30:00 PM 25 mcg Hesher, Brandy 25 mcg FENTANYL given in lab by Brandy Clement, DERECK via Peripheral IV. Ordered by Jeanne Flores. VERSED 10/10/2018 1:36:00 PM 1 mg Hesher, Brandy 1 mg VERSED given in lab by Brandy Clement, RN via Peripheral IV. Ordered by Jeanne Flores. 1% XYLOCAINE 10/10/2018 1:41:21 PM 15 mL Jeanne Flores 15 mL 1% XYLOCAINE given in lab by Jeanne Flores via Subcutaneous. Ordered by Jeanne Flores. Medication (Drip) Medication Time Given Dosage/Unit Concentration/Unit Diluent (ml) Solution IV Solutions 10/10/2018 1:02:37 PM 50 mL (IV) NaCl .9 Patient arrived on IV Solutions via Peripheral IV. Pump/Drip Flow using NaCl .9. Initial Case Assessment Cardiovascular HR NIBP Chest Pain 60 131/63 0 Edema Present Skin color Skin None Normal Warm Dry Circulatory - Right Pulses Dorsalis Pedis Femoral 1 2 Scale (0,1,2,3,4,d) Circulatory - Left Pulses Dorsalis Pedis Femoral 1 1 Scale (0,1,2,3,4,d) Neurological State Oriented to time-place- Alert Moves all extremities person Respiration - General Respiration Rate SpO2 (%) O2 (lpm) (B/min) 17 97 2 Final Case Assessment Cardiovascular HR NIBP Chest Pain 60 131/63 0 Edema Present Skin color Skin None Normal Warm Dry Circulatory - Right Pulses Dorsalis Pedis Femoral 1 2 Scale (0,1,2,3,4,d) Circulatory - Left Pulses Dorsalis Pedis Femoral 1 1 Scale (0,1,2,3,4,d) Neurological State Oriented to time-place- Alert Moves all extremities person Respiration - General Respiration Rate SpO2 (%) O2 (lpm) (B/min) 17 97 2 Chronological Log Time Study Chronological Log 13:01:39 Patient arrived via Bed. 13:01:42 Patient Name, D.O.B, / Armband Verified By R.N. 13:01:44 Consent signed by the physician and the patient and verified by the Assistant Oceanographer staff. 13:01:46 Pre-op and post- op instructions given; patient acknowledges understanding of instructions. 13:01:51 Presedation assessment performed by Assistant Oceanographer RN. 13:01:57 Patient has been NPO for More than 6Hrs. 13:02:29 Skin Breakdown-none per patient 13:02:32 Patient Warmer Placed on the Table. 13:02:35 Kalpana Prominences Protected 13:02:36 A # 20 IV was noted in the Antecubital (right). Grade = 0 13:02:37 Patient arrived on IV Solutions via Peripheral IV. Pump/Drip Flow using NaCl .9. 13:02:40 History and physical on the chart or being dictated. Assessment: Initial Case, HR=60 BPM, CIVA=626/63 mmhg, Chest Pain=0, Edema=None, Color=Normal, Skin = Warm, Dry Right Pulses: Sang Ped=1, Femoral=2 13:02:40 Left Pulses: Sang Ped=1, Femoral=1 Neurological: State=Alert, Ox3, DUONG Respiration: Resp=17 B/min, SpO2=97 %, O2=2 lpm Vitals capture started with the following parameters, Patient=Adult, Interval=5 min, Initial Pr ojjnqo=753 mmHg, 13:14:06 Deflation Rate=5 mmHg, Cuff placed on Right Arm 13:14:46 HR=66 bpm, JHZN=354/63 mmhg, SpO2=98.0 %, Resp=16 B/min, Pain=0, Cong=10, Brewer=2 13:14:46 Reference ECG taken 13:18:00 1 mg VERSED given in lab by Brandy Clement RN via Peripheral IV. Ordered by Juliano Flores 13:19:00 25 mcg FENTANYL given in lab by Brandy Clement RN via Peripheral IV. Ordered by John Flores. 13:19:45 HR=69 bpm, IOAM=496/59 mmhg, SpO2=99.0 %, Resp=15 B/min, Pain=0, Cong=10, Brewer=2 13:20:29 Bilateral groins prepped with 2% chlorhexidine, and draped after a 3 minute waiting time. 13:24:46 HR=64 bpm, PHGJ=135/60 mmhg, SpO2=98.0 %, Resp=13 B/min, Pain=0, Cong=10, Brewer=2 13:26:44 Pressure channel 1 zeroed. 13:28:00 1 mg VERSED given in lab by Brandy Clement, DERECK via Peripheral IV. Ordered by Juliano Flores 13:28:51 MD paged 13:29:41 HR=66 bpm, DBQQ=950/61 mmhg, SpO2=96.0 %, Resp=13 B/min, Pain=0, Cong=10, Brewer=2 13:30:00 25 mcg FENTANYL given in lab by Brandy Clement, RN via Peripheral IV. Ordered by John Flores. 13:33:38 MD responded 13:34:42 HR=68 bpm, FUCF=589/54 mmhg, SpO2=94.0 %, Resp=17 B/min 13:35:33 MD arrived. 13:36:00 1 mg VERSED given in lab by Brandy Clement, RN via Peripheral IV. Ordered by Juliano Flores 13:39:41 HR=65 bpm, GHTG=261/59 mmhg, SpO2=96.0 %, Resp=15 B/min Time Out. Correct patient, correct procedure, correct physician, labs, allergies, and equipment verified with screedman/laborer 13:40:32 team present. Fire risk assesment completed (see hard stop sheet for coding). Time Out Conc urred by MD and individual staff in procedure. 13:41:17 Case Start 13:41:21 15 mL 1% XYLOCAINE given in lab by Jeanne Flores via Subcutaneous. Ordered by Bud Flores 13:41:34 Access site was Right Femoral Artery. 13:41:44 A SHEATH, FR5 TERUMO (10CM) FR 5 was advanced into the Fem Art (right) using the Percutaneo us technique. 13:42:11 Activated Clotting Time Drawn A PIGTAIL ANG. INFINITI CATHETER FR 5 was advanced over a wire. OMNIPAQUE, 350 MG, 150ML 150ML was used 13:42:51 for injections. Recorded Pressure: LV, HR=70, Condition=Condition 1 13:43:57 (Left Ventricle) LV 118/5/10 13:44:16 The LV was injected at 10 cc/sec for a total of 30. OMNIPAQUE, 350 MG, 50ML 50ML used. 13:44:42 HR=68 bpm, JSTM=821/53 mmhg, SpO2=95.0 %, Resp=12 B/min, Pain=0, Cong=10, Brewer=2 Recorded Pressure: LV, Ao, HR=68, Condition=Condition 1 13:45:45 (Left Ventricle) LV 115/3/10, (Aorta) Ao 109/47/73 13:46:00 Catheter was removed 13:46:24 ACT (Normal Range 90-180) = 159 A JL 4.0 INFINITI CATHETER FR 5 was advanced over a wire. OMNIPAQUE, 350 MG, 150ML 150ML was us ed for 13:46:30 injections. Recorded Pressure: Ao, HR=70, Condition=Condition 1 13:47:14 (Aorta) Ao 109/53/75 13:47:26 The LCA was injected and visualized at various angles. OMNIPAQUE, 350 MG, 150ML 150ML used . After removing the current catheter a AR MOD INFINITI CATHETER FR 5 was advanced over a WIRE, 3 MMJ .035 180CM 13:49:17 180CM. 13:49:41 HR=71 bpm, KWDN=239/57 mmhg, SpO2=93.0 %, Resp=13 B/min, Pain=0, Cong=10, Brewer=2 13:50:59 The RCA was injected and visualized at various angles. OMNIPAQUE, 350 MG, 150ML 150ML used . 13:51:33 Case End (Physician broke scrub) 13:54:42 HR=71 bpm, ZDRY=562/56 mmhg, SpO2=94.0 %, Resp=11 B/min, Pain=0, Cong=10, Brewer=2 13:59:41 HR=69 bpm, GJRG=439/56 mmhg, SpO2=96.0 %, Resp=20 B/min Assessment: Final Case, HR=60 BPM, JVGJ=712/63 mmhg, Chest Pain=0, Edema=None, Color=Normal, S kin = Warm, Dry Right Pulses: Sang Ped=1, Femoral=2 14:04:19 Left Pulses: Sang Ped=1, Femoral=1 Neurological: State=Alert, Ox3, DUONG Respiration: Resp=17 B/min, SpO2=97 %, O2=2 lpm 14:04:40 HR=70 bpm, SVSS=589/59 mmhg, SpO2=97.0 %, Resp=13 B/min 14:04:43 Catheter(s) removed without difficulty 14:04:47 VASCADE, FR5 CLOSURE SYSTEM FR 5 placement in the Fem Art (right) 14:05:04 Sterile dressing applied to site 14:05:04 No case complications noted. 14:05:05 Cine recording checked. 14:05:07 Bedside Report will be given. 14:05:09 A Left Heart Cath was performed. 14:07:13 Vitals capture stopped. 14:11:12 Patient moved to stretcher End Study - Contrast Media Used In Study Contrast Total Opened (mL) Total Used (mL) Total Wasted (mL) Omnipaque 80 80 0 End Study - Maximum Contrast Load Max Contrast Load (mL) 447.0 End Study - Radiation Exposure Fluoro Time Fluoro Dose (mGy) Cine Dose (uGym2) (minutes) 1.8 177 3340 End Study - Patient Disposition Complications Transferred To Interventional Outcome No Telemetry Bed No attempt made
[2018-10-10] MEDS ORDERED: Sod Chloride 0.9% Inj 1,000 ML IV.CONT SCH (14:15)
--- NOTE | 2018-10-10 14:50 | MR ---
cc: Jeanne Flores MD DATE: 10/07/2018 INDICATION: Non-ST elevation myocardial infarction, recent gastrointestinal bleed. PROCEDURE PERFORMED: 1. Retrograde left heart catheterization with left ventriculography and selective coronary angiography. 2. Moderate sedation. ACCESS SITE: Right femoral artery. EQUIPMENT USED: 5-E[place]ian pigtail catheter, JL4 and AR modified coronary catheters. MEDICATIONS: Versed IV, fentanyl IV CONTRAST: Omnipaque 80 mL COMPLICATIONS: None. ESTIMATED BLOOD LOSS: Less than 10 mL METHOD OF HEMOSTASIS: Vascade closure. RESULTS: A. HEMODYNAMICS: Heart rate 73 beats per minute, LV end-diastolic pressure 5 mmHg. Left ventricle 110/5. Aorta 110/53/75. B. Left ventricular ejection fraction 45%. Wall motion: inferior hypokinesis, no mitral regurgitation. C. CORONARY ANGIOGRAPHY: Left main coronary artery patent. Left anterior descending artery has 30% stenosis in the mid portion. First diagonal artery is a large vessel with 30% ostial stenosis. Left circumflex artery is patent. OM1 is patent. Right coronary artery is a dominant vessel, which is totally occluded in the proximal portion with few bridging collaterals. The distal right coronary artery fills by abundant left to right collaterals. DIAGNOSES: 1. Coronary artery disease with chronic total occlusion of the proximal right coronary artery with distal vessel filling by collaterals. 2. Mild left ventricular systolic dysfunction consistent with ischemic cardiomyopathy. DISPOSITION: Mr. Hand will be monitored on telemetry after his procedure. We will continue medical therapy including aggressive modification of cardiac risk factors and therapy for angina. He will be discharged home once stable. We will see him back in followup in our office after discharge. Jeanne Flores MD OQ/ct , 02:01 PM , 02:08 PM ROXY
[2018-10-10] MEDS: Metoprolol Tartrate 25 MG Tablet PO SCH (21:58)
[2018-10-11] MEDS ORDERED: Isosorbide Mononitrate 30 MG ER 24HR Tablet (Imdur) PO SCH (07:00)
[2018-10-11 07:10] LABS: Calcium 8.4 mg/dL (8.5-10.1); Carbon Dioxide 25.1 meq/L (21.0-32.0); Potassium 4.1 meq/L (3.5-5.1)
[2018-10-11 07:13] LABS: Hematocrit 30.7 % (39.0-51.0); Hemoglobin 10.1 gm/dL (13.0-17.0); Mean Corpuscular Hemoglobin 27.2 pg (27.0-34.0); Mean Corpuscular Volume 82.6 fL (80.0-100.0); Mean Platelet Volume 9.3 fL (7.0-11.0); Platelet Count 123 th/mm3 (150-450); Red Blood Count 3.72 mil/mm3 (4.50-5.90); Red Cell Distribution Width 23.7 % (11.6-17.2); White Blood Count 9.9 th/mm3 (4.0-11.0)
[2018-10-11 07:14] LABS: Chol/HDL Ratio 2.98 Ratio; HDL Cholesterol 31.2 mg/dL (40.0-60.0)
[2018-10-11] MEDS: Metoprolol Tartrate 25 MG Tablet PO SCH (08:36)
[2018-10-11 11:10] LABS: Hemoglobin A1c 4.4 % (4.3-6.0)
--- NOTE | 2018-10-11 12:28 | P.PN ---
Subjective Interval history: Follow-up non-ST elevation [place] October 11, 2018-patient seen and examined, denies any chest pain or shortness of breath. Had left heart catheterization performed yesterday. Physical Exam Vital signs: Vital Signs 10/10/18 14:20 10/10/18 14:35 10/10/18 14:50 Temperature 97.7 F 97.8 F Pulse Rate 70 68 66 Respiratory Rate 20 20 18 Blood Pressure 109/57 L 114/59 L 110/58 L Pulse Oximetry 92 L 93 L 98 10/10/18 15:08 10/10/18 15:20 10/10/18 15:50 Temperature Pulse Rate 68 66 Respiratory Rate 18 18 Blood Pressure 130/75 129/47 L Pulse Oximetry 95 96 96 10/10/18 16:00 10/10/18 16:20 10/10/18 16:50 Temperature 97.3 F L Pulse Rate 66 66 71 Respiratory Rate 18 18 18 Blood Pressure 125/68 114/64 126/56 L Pulse Oximetry 93 L 94 L 96 10/10/18 17:50 10/10/18 18:50 10/10/18 19:15 Temperature Pulse Rate 67 65 Respiratory Rate 18 18 Blood Pressure 114/60 119/55 L Pulse Oximetry 95 92 L 93 L 10/10/18 20:00 10/11/18 00:00 10/11/18 04:00 Temperature 98.7 F 98.4 F 97.9 F Pulse Rate 74 80 65 Respiratory Rate 18 16 18 Blood Pressure 121/59 L 114/60 106/52 L Pulse Oximetry 98 97 96 10/11/18 06:15 10/11/18 07:00 10/11/18 08:00 Temperature 98.0 F Pulse Rate 69 72 77 Respiratory Rate 18 18 Blood Pressure 117/49 L Pulse Oximetry 95 10/11/18 09:15 Temperature Pulse Rate Respiratory Rate Blood Pressure Pulse Oximetry 94 L Intake & Output 10/10/18 10/11/18 10/11/18 18:59 06:59 18:59 Intake Total 480 / 480 480 / 480 Output Total 300 / 300 250 / 250 Balance 180 / 180 230 / 230 Weight 79.3 kg Intake: Oral 480 / 480 480 / 480 Output: Urine 300 / 300 250 / 250 Other: # Voids 2 Date of Last Bowel Movement 10/11/18 10/10/18 # Bowel Movements 1 Narrative: GENERAL: NAD SKIN: Warm and dry. HEAD: Normocephalic. EYES: No scleral icterus. No injection or drainage. NECK: Supple, trachea midline. No JVD or lymphadenopathy. CARDIOVASCULAR: Regular rate and rhythm without murmurs, gallops, or rubs. RESPIRATORY: Breath sounds equal bilaterally. No accessory muscle use. GASTROINTESTINAL: Abdomen soft, non-tender, nondistended. MUSCULOSKELETAL: No cyanosis, or edema. BACK: Nontender without obvious deformity. No CVA tenderness. Results - Labs CBC & Chem 7: 10/11/18 06:07 10/11/18 06:07 Laboratory Results - last 24 hr 10/11/18 10/11/18 10/11/18 06:07 06:07 06:07 WBC 9.9 RBC 3.72 L Hgb 10.1 L Hct 30.7 L MCV 82.6 MCH 27.2 MCHC 33.0 RDW 23.7 H Plt Count 123 L MPV 9.3 Sodium 140 Potassium 4.1 Chloride 108 H Carbon Dioxide 25.1 Anion Gap 7 BUN 19 H Creatinine 1.06 Estimated GFR 67 L Random Glucose 112 H Hemoglobin A1c 4.4 Calcium 8.4 L Triglycerides 103 Cholesterol 93 L LDL Cholesterol, Calc 41 HDL Cholesterol 31.2 L Cholesterol/HDL Ratio 2.98 - Procedures none Assessment and Plan - Assessment (1) NSTEMI (non-ST elevated myocardial infarction) Code(s): I21.4 - Non-ST elevation (NSTEMI) myocardial infarction Status: Acute (2) Hyperlipidemia Code(s): E78.5 - Hyperlipidemia, unspecified Status: Chronic (3) Hypertension Code(s): I10 - Essential (primary) hypertension Status: Chronic - Plan 78-year-old man with Non-ST elevation [place] Appreciate input from cardiology Patient had left heart catheterization performed October 10, 2018 Continue with current medical management including aspirin 81 mg, Toprol-XL 12.5 mg twice daily, Imdur 30 mg and Lipitor 80 mg Hypertension Continue with Toprol-XL 12.5 mg twice daily Hyperlipidemia Now on Lipitor 80 mg daily Other chronic medical conditions Continue outpatient medications DVT prophylaxis: Bilateral SCDs (2) Hyperlipidemia Qualifiers: Hyperlipidemia type: mixed hyperlipidemia Qualified Code(s): E78.2 - Mixed hyperlipidemia (3) Hypertension Qualifiers: Hypertension type: essential hypertension Qualified Code(s): I10 - Essential (primary) hypertension
--- NOTE | 2018-10-11 12:38 | P.DS ---
Date of admission: 10/07/18 22:46 Primary care physician: Delfino Felton DO Brief History from admission: He developed chest pain at home and took ASA and TNG and presented to the ED for adm. Cards and GI was consulted in the ED and he was started on a heparin drip after approved by GI. CP subsequently resolved and Cards consult is pending. DS: Diagnosis - Discharge Diagnosis (1) NSTEMI (non-ST elevated myocardial infarction) Status: Acute (2) Hyperlipidemia Status: Chronic (3) Hypertension Status: Chronic DS: Medications - Discharge Medications Prescriptions: aspirin 81 mg PO DAILY #30 tab isosorbide mononitrate 30 mg PO DAILY@0700 #30 tab metoprolol tartrate 12.5 mg PO BID #60 tab DS: Summary Hospital Course: Patient admitted hospital for non-ST elevation WA for which he was initially started on heparin drip with consultation to cardiology. He now underwent left heart catheterization and treated medically afterward. He was started on Imdur 30mg daily and continue on beta-karla as well as Lipitor and aspirin. DVT and GI prophylaxis were provided. Prior to discharge, patient's condition improved and vitals remained stable. - Time Spent with Patient Total time spent providing and/or coordinating discharge services: Less than 30 minutes - Quality: VTE Deep Vein Thrombosis/Pulmonary Embolism Present on Admission: No Exam Vital signs: Vital Signs 10/10/18 14:20 10/10/18 14:35 10/10/18 14:50 Temperature 97.7 F 97.8 F Pulse Rate 70 68 66 Respiratory Rate 20 20 18 Blood Pressure 109/57 L 114/59 L 110/58 L Pulse Oximetry 92 L 93 L 98 10/10/18 15:08 10/10/18 15:20 10/10/18 15:50 Temperature Pulse Rate 68 66 Respiratory Rate 18 18 Blood Pressure 130/75 129/47 L Pulse Oximetry 95 96 96 10/10/18 16:00 10/10/18 16:20 10/10/18 16:50 Temperature 97.3 F L Pulse Rate 66 66 71 Respiratory Rate 18 18 18 Blood Pressure 125/68 114/64 126/56 L Pulse Oximetry 93 L 94 L 96 10/10/18 17:50 10/10/18 18:50 10/10/18 19:15 Temperature Pulse Rate 67 65 Respiratory Rate 18 18 Blood Pressure 114/60 119/55 L Pulse Oximetry 95 92 L 93 L 10/10/18 20:00 10/11/18 00:00 10/11/18 04:00 Temperature 98.7 F 98.4 F 97.9 F Pulse Rate 74 80 65 Respiratory Rate 18 16 18 Blood Pressure 121/59 L 114/60 106/52 L Pulse Oximetry 98 97 96 10/11/18 06:15 10/11/18 07:00 10/11/18 08:00 Temperature 98.0 F Pulse Rate 69 72 77 Respiratory Rate 18 18 Blood Pressure 117/49 L Pulse Oximetry 95 10/11/18 09:15 Temperature Pulse Rate Respiratory Rate Blood Pressure Pulse Oximetry 94 L Intake & Output 10/10/18 10/11/18 10/11/18 18:59 06:59 18:59 Intake Total 480 / 480 480 / 480 Output Total 300 / 300 250 / 250 Balance 180 / 180 230 / 230 Weight 79.3 kg Intake: Oral 480 / 480 480 / 480 Output: Urine 300 / 300 250 / 250 Other: # Voids 2 Date of Last Bowel Movement 10/11/18 10/10/18 # Bowel Movements 1 Narrative: GENERAL: NAD SKIN: Warm and dry. HEAD: Normocephalic. EYES: No scleral icterus. No injection or drainage. NECK: Supple, trachea midline. No JVD or lymphadenopathy. CARDIOVASCULAR: Regular rate and rhythm without murmurs, gallops, or rubs. RESPIRATORY: Breath sounds equal bilaterally. No accessory muscle use. GASTROINTESTINAL: Abdomen soft, non-tender, nondistended. MUSCULOSKELETAL: No cyanosis, or edema. BACK: Nontender without obvious deformity. No CVA tenderness. Results Procedures completed during hospitalization: none Labs on day of discharge: Labs from last 24 hours 10/11/18 10/11/18 10/11/18 06:07 06:07 06:07 WBC 9.9 RBC 3.72 L Hgb 10.1 L Hct 30.7 L MCV 82.6 MCH 27.2 MCHC 33.0 RDW 23.7 H Plt Count 123 L MPV 9.3 Sodium 140 Potassium 4.1 Chloride 108 H Carbon Dioxide 25.1 Anion Gap 7 BUN 19 H Creatinine 1.06 Estimated GFR 67 L Random Glucose 112 H Hemoglobin A1c 4.4 Calcium 8.4 L Triglycerides 103 Cholesterol 93 L LDL Cholesterol, Calc 41 HDL Cholesterol 31.2 L Cholesterol/HDL Ratio 2.98 - Impressions ITS Impressions Chest X-Ray 10/07/18 20:50 CONCLUSION: 1. No acute abnormality. Discharge Plan - Discharge Disposition Patient Disposition: 01 Discharge Home - Discharge Condition Condition: Stable - Discharge Order Discharge Orders: Discharge Order (Routine); Ordered 10/11/18 Ordered By: Kobe Hsu - Discharge Details Anticipated Discharge Date: 10/07/18 - Physicians Team Primary Care Provider: Delfino Felton Attending Provider: Delfino Felton Other Providers: Walt Early MD ; Kobe Hsu MD
== END 2018-10-11 14:50 | disposition home or self-care (01) ==
LOC: NEPC 20:35 → NEDA 22:46 → N04 10-08 03:38 → HCIS 10-10 13:44
PROVIDERS: ADMIT Family Medicine; ATTEND Family Medicine